=== PATIENT | male | born 1950 | race Hispanic/Latino ===

== ENCOUNTER 2016-09-30 07:48 | Inpatient (IN) | payer MEDICARE, OTHER ==
[2016-09-30 08:10] VITALS: BMI 33.2
[2016-09-30] MEDS ORDERED: Morphine 4 mg/ml ISec IVP STA ×2 (08:11→11:50)
--- NOTE | 2016-09-30 08:24 | ED PDOC ---
Arrival/HPI - General Time Seen by Provider: 09/30/16 07:56 Historian: Patient - History of Present Illness Narrative History of Present Illness (Text): 09/30/16 08:00 A 66 year old male, whose past medical history includes laminectomy resulting in hemiparesis of bilateral lower extremities, neurogenic bladder, colostomy, CAD, diabetes, hypertension, and large sacral decubitus, presents to the emergency department for evaluation after a mechanical fall this morning. Patient reports he was getting into bed and he was so close to the edge that he fell off hitting the left posterior of his head. Currently patient has pain to the left head but he denies any loss of consciousness. He notes lately he has been feel more weak than usually. Patient reports pain the the sacral ulcer, a mild dry cough, fever, and decrease PO intake. Patient notes bilateral lower extremity swelling for the past couple of weeks but denies any change in chronic back pain, chest pain, shortness of breath, or any other complaints at this time. PMD: Dr. Lorenzana Time/Duration: Prior to Arrival Symptom Onset: Sudden Symptom Course: Unchanged Quality: Other Activities at Onset: Rest Context: Home Past Medical History - Provider Review Nursing Documentation Reviewed: Yes - Past History Past History: Non-Contributing - Infectious Disease Hx of Infectious Diseases: MRSA - Tetanus Immunization Tetanus Immunization: Unknown - Cardiac Hx Cardiac Disorders: Yes Hx Angina: No Hx Cardiac Arrhythmia: No Hx Circulatory Problems: No Hx Congestive Heart Failure: No Hx Heart Murmur: No Hx Heart Transplant: No Hx Hypertension: Yes Hx Internal Defibrillator: No Hx Mitral Valve Prolapse: No Hx Pacemaker: No Hx Peripheral Edema: No Hx Peripheral Vascular Disease: No - Pulmonary Hx Respiratory Disorders: Yes Hx Pneumonia: Yes - Neurological Hx Transient Ischemic Attacks (TIA): Yes - HEENT Hx Blind: Yes (right) Hx Deafness: Yes (hard of hearing) - Renal Hx Renal Disorder: No - Endocrine/Metabolic Hx Endocrine Disorders: Yes Hx Diabetes Mellitus Type 2: Yes - Hematological/Oncological Hx Blood Transfusions: No Hx Blood Transfusion Reaction: No - Integumentary Hx Dermatological Disorder: No - Musculoskeletal/Rheumatological Hx Musculoskeletal Disorders: Yes (paraplegia) Hx Arthritis: Yes Hx Back Pain: Yes Hx Falls: Yes Hx Herniated Disk: Yes Hx Spinal Stenosis: Yes Hx Unsteady Gait: Yes (uses w/ch) Other/Comment: left hand weakness - Gastrointestinal Hx Gastrointestinal Disorders: Yes Hx Colostomy: Yes - Genitourinary/Gynecological Hx Genitourinary Disorders: Yes (neurogenic bladder) - Psychiatric Hx Psychophysiologic Disorder: Yes Hx Anxiety: Yes Hx Depression: Yes Hx Emotional Abuse: No Hx Physical Abuse: No Hx Substance Use: No - Surgical History Hx Cardiac Catheterization: Yes Hx Coronary Stent: Yes (x5) Hx Orthopedic Surgery: Yes (SPINAL SURGERY) - Anesthesia Hx Anesthesia Reactions: No Hx Malignant Hyperthermia: No - Suicidal Assessment Feels Threatened In Home Enviroment: No Family/Social History - Physician Review Nursing Documentation Reviewed: Yes Family/Social History: Unknown Family HX Smoking Status: Never Smoked Hx Alcohol Use: No Hx Substance Use: No Hx Substance Use Treatment: No Allergies/Home Meds Allergies/Adverse Reactions: Allergies ciprofloxacin Allergy (Verified 09/30/16 08:10) RASH Penicillins Allergy (Verified 09/30/16 08:10) RASH Home Medications: Home Meds Medication Instructions Recorded Confirmed Ascorbic Acid [Vitamin C 500 mg 500 mg PO BID 05/15/15 09/09/16 Tab] Cyanocobalamin (Vitamin B-12) 1,000 mcg IJ Q30D 05/15/15 09/09/16 [Cyanocobalamin Injection] Ergocalciferol (Vitamin D2) 50,000 iu PO SAT 05/15/15 09/09/16 [Vitamin D2] Omeprazole [Prilosec] 20 mg PO BID 06/26/15 09/09/16 Ziprasidone HCl [Geodon] 80 mg PO HS 06/26/15 09/09/16 Alprazolam 0.5 mg PO HS 07/25/15 09/09/16 Aspirin [Ecotrin] 325 mg PO DAILY 07/25/15 09/09/16 buPROPion XL [Wellbutrin XL] 300 mg PO DAILY 07/25/15 09/09/16 Acetaminophen/Oxycodone Hydr 1 tab PO TID PRN 01/22/16 09/09/16 [Percocet 10/325 mg Tab] Review of Systems - Physician Review All systems were reviewed & negative as marked: Yes - Review of Systems Constitutional: Fevers, Other (left head pain) Respiratory: Cough. absent: SOB, Sputum Cardiovascular: Edema. absent: Chest Pain, Syncope Gastrointestinal: Appetite Changes Musculoskeletal: Back Pain (chronic). absent: Neck Pain Physical Exam Vital Signs Reviewed: Yes Vital Signs Temp Pulse Resp BP Pulse Ox 09/30/16 12:21 80 16 126/55 L 98 09/30/16 08:45 97.9 F 09/30/16 08:31 80 16 148/92 H 95 Temperature: Afebrile Blood Pressure: Hypertensive Pulse: Regular Respiratory Rate: Normal Appearance: Positive for: Well-Appearing, Non-Toxic, Comfortable Pain Distress: None Mental Status: Positive for: Alert and Oriented X 3 - Systems Exam Head: Present: Atraumatic, Normocephalic, Tenderness (mild tenderness with palpation of the left temporal region). No: Abrasion, Laceration, Other ( hematoma) Pupils: Present: PERRL Extroacular Muscles: Present: EOMI Conjunctiva: Present: Normal Mouth: Present: Moist Mucous Membranes Neck: Present: Normal Range of Motion. No: MIDLINE TENDERNESS, Paraspinal Tenderness Respiratory/Chest: Present: Clear to Auscultation, Good Air Exchange. No: Respiratory Distress, Accessory Muscle Use Cardiovascular: Present: Regular Rate and Rhythm, Normal S1, S2. No: Murmurs Abdomen: Present: Normal Bowel Sounds, Ostomy Tubes (no surround erythema or signs of infection). No: Tenderness, Distention, Peritoneal Signs, Rebound, Guarding Rectal: Present: Other (guaiac negative; brown stool) Genitourinary Male: Present: Other (Gomez in place with mildly cloudy urine) Back: No: CVA Tenderness, Midline Tenderness, Paraspinal Tenderness Upper Extremity: Present: Normal Inspection. No: Cyanosis, Edema Lower Extremity: Present: Edema (bilateral 2+ pitting edema), Normal ROM. No: Tenderness Neurological: Present: GCS=15, CN II-XII Intact, Speech Normal Skin: Present: Warm, Dry, Normal Color. No: Rashes Psychiatric: Present: Alert, Oriented x 3, Normal Insight, Normal Concentration Medical Decision Making ED Course and Treatment: 09/30/16 08:00 Impression: A 66 year old male after a mechanical fall. Differential Diagnosis include but are not limited to: intracranial abnormalities vs. Sepsis vs. electrolyte imbalance Plan: -- EKG -- Head CT -- Chest X-ray -- Labs -- Urinalysis -- Morphine -- Reassess and disposition Prior Visits: Notes and results from previous visits were reviewed. The patient last presented to the emergency department on 09/09/16 for evaluation of a sacral ulcer. Progress Notes: EKG: Ordered, reviewed, and independently interpreted the EKG. Rate : 78 BPM Rhythm : NSR with first degree AV block Interpretation : No ST/T changes 09/30/16 09:[address]: Creator : Jessenia Nina MD COMPARISON: 01/22/2016 FINDINGS: HEMORRHAGE: No intracranial hemorrhage. BRAIN: There are mild chronic microangiopathic changes. There is no mass, mass effect or abnormal extra-axial fluid collection. There are coarse atherosclerotic calcifications in the cavernous carotid arteries. . VENTRICLES: There is mild age-related global parenchymal volume loss and proportionate enlargement of the ventricles and cortical sulci. CALVARIUM: There is no calvarial fracture. There is a small high posterior parietal scalp hematoma. PARANASAL SINUSES: Predominantly clear. MASTOID AIR CELLS: Predominantly clear. OTHER FINDINGS: None. IMPRESSION: No acute intracranial abnormality. Small high posterior parietal scalp hematoma. Mild chronic microangiopathic changes and mild age-related global parenchymal volume loss. 09/30/16 09:53 Chest X-ray: Creator : Lei Luther MD COMPARISON: 03/24/2016 FINDINGS: LUNGS: No active pulmonary disease. PLEURA: No significant pleural effusion identified, no pneumothorax apparent. CARDIOVASCULAR: Mild cardiomegaly OSSEOUS STRUCTURES: No significant abnormalities. VISUALIZED UPPER ABDOMEN: Normal. OTHER FINDINGS: None. IMPRESSION: No active disease. 09/30/16 10:[address] Lorenzana, who is aware and agrees with the plan to place the patient in observation in Telemetry to rule out new onset CHF. He notes to give the patient 1 unit of packed red blood cell. Patient qualifies for transfusion because of history of CAD. I have discussed the results and plan with the patient, who expresses understanding. Patient given the opportunity to ask question, all questions were answered and there is agreement with the plan to be admitted to the hospital. - Lab Interpretations Lab Results: 09/30/16 08:20 09/30/16 08:20 Lab Results 09/30/16 09:56: POC Glucose (mg/dL) 72 09/30/16 08:20: Sodium 139, Chloride 107, Potassium 3.8, Carbon Dioxide 25, Anion Gap 11, BUN 31 H, Creatinine 1.2, Est GFR ( Amer) > 60, Est GFR ( Non-Af Amer) > 60, Random Glucose 64 L, Calcium 8.3 L, Phosphorus 3.0, Magnesium 1.9, Total Bilirubin 0.8, AST 23, ALT 31, Alkaline Phosphatase 73, Troponin I 0.02 D, NT-Pro-B Natriuret Pep 5270 H, Total Protein 6.0, Albumin 2.8 L, Globulin 3.1, Albumin/Globulin Ratio 0.9 L 09/30/16 08:20: pO2 129 H, VBG pH 7.38, VBG pCO2 45.0, VBG HCO3 26.6, VBG Total CO2 28.0, VBG O2 Sat (Calc) 98.8 H, VBG Base Excess 1.0, VBG Potassium 3.9, Sodium 140.0, Chloride 114.0 H, Glucose 65 L, Lactate 0.8, FiO2 21.0, Venous Blood Potassium 3.9 09/30/16 08:20: PT 12.4 H, INR 1.15 H, APTT 32.9 H 09/30/16 08:20: Procalcitonin < 0.05 L 09/30/16 08:20: WBC 5.0, RBC 3.00 L, Hgb 8.7 L, Hct 25.8 L, MCV 86.0, MCH 29.0, MCHC 33.7, RDW 13.3, Plt Count 140, MPV 10.2, Gran % 63.3, Lymph % (Auto) 24.8, [place] % (Auto) 10.1 H, Eos % (Auto) 1.2 L, Baso % (Auto) 0.6, Gran # 3.13, Lymph # 1.2, [place] # 0.5, Eos # 0.1, Baso # 0.03 I have reviewed the lab results: Yes - RAD Interpretation Radiology Orders: 09/30/16 08:10 CHEST PORTABLE [RAD] Stat 09/30/16 08:11 HEAD W/O CONTRAST [CT] Stat - Medication Orders Current Medication Orders: Discontinued Medications Morphine Sulfate (Morphine) 4 mg IVP STAT STA Stop: 09/30/16 08:12 Last Admin: 09/30/16 08:31 Dose: 4 mg Morphine Sulfate (Morphine) 4 mg IVP STAT STA Stop: 09/30/16 11:51 Last Admin: 09/30/16 12:18 Dose: 4 mg - Scribe Statement The provider has reviewed the documentation as recorded by the Cristobalibe Humberto Gold Provider Cristobalibe Attestation: All medical record entries made by the Trae were at my direction and personally dictated by me. I have reviewed the chart and agree that the record accurately reflects my personal performance of the history, physical exam, medical decision making, and the department course for this patient. I have also personally directed, reviewed, and agree with the discharge instructions and disposition. Disposition/Present on Arrival - Present on Arrival Any Indicators Present on Arrival: Yes History of DVT/PE: No History of Uncontrolled Diabetes: Yes Urinary Catheter: Yes History Surgical Site Infection Following: None - Disposition Have Diagnosis and Disposition been Completed?: Yes Diagnosis: Weakness, Anemia, Lower extremity edema Disposition: HOSPITALIZED Disposition Time: 10:28 Patient Plan: Observation Condition: FAIR
[2016-09-30 08:32] LABS: ADD MANUAL DIFF? NO
[2016-09-30 08:39] LABS: VENOUS BLOOD PH 7.38 (7.32-7.43)
[2016-09-30 08:41] LABS: BASO # 0.03 K/mm3 (0.0-2.0); BASO % 0.6 % (0.0-3.0); EOS # 0.1 (0.0-0.7); EOS % 1.2 % (1.5-5.0); GRAN # 3.13 (1.4-6.5); GRAN % 63.3 % (50.0-68.0); HEMATOCRIT 25.8 % (42.0-52.0); LYMPH # 1.2 (1.2-3.4); LYMPH % 24.8 % (22.0-35.0); MEAN CORPUSCULAR HGB CONC 33.7 g/dl (31.0-37.0); MEAN PLATELET VOLUME 10.2 fl (7.0-11.0); MONO # 0.5 (0.1-0.6); MONO % 10.1 % (1.0-6.0); PLATELET COUNT 140 10^3/uL (120.0-450.0); RED CELL DISTRIBUTION WIDTH 13.3 % (11.5-14.5)
[2016-09-30 08:53] LABS: INR 1.15 (0.93-1.08); PARTIAL THROMBOPLASTIN TIME 32.9 Seconds (23.7-30.8)
[2016-09-30 08:55] LABS: ALB/GLOB RATIO 0.9 (1.1-1.8); ALKALINE PHOSPHATASE 73 U/L (38-133); ALT/SGPT 31 U/L (7-56); AST/SGOT 23 U/L (15-59); BILIRUBIN,TOTAL 0.8 mg/dL (0.2-1.3); BLOOD UREA NITROGEN 31 mg/dL (7-21); CALCIUM 8.3 mg/dL (8.4-10.5); CARBON DIOXIDE 25 mmol/L (21-33); CHLORIDE 107 mmol/L (98-107); GFR AFRICAN-AMERICAN > 60; GLUCOSE,RANDOM 64 mg/dL (70-110); MAGNESIUM 1.9 mg/dL (1.7-2.2); POTASSIUM 3.8 mmol/L (3.6-5.0); SODIUM 139 mmol/L (132-148)
[2016-09-30 09:07] LABS: TROPONIN I 0.02 ng/mL
--- NOTE | 2016-09-30 09:12 | CT ---
PROCEDURE: CT HEAD WITHOUT CONTRAST. HISTORY: head injury r/o ich COMPARISON: 01/22/2016 TECHNIQUE: Axial computed tomography images were obtained through the head/brain without intravenous contrast. Radiation dose: Total exam DLP = 689.03 mGy-cm. This CT exam was performed using one or more of the following dose reduction techniques: Automated exposure control, adjustment of the mA and/or kV according to patient size, and/or use of iterative reconstruction technique. FINDINGS: HEMORRHAGE: No intracranial hemorrhage. BRAIN: There are mild chronic microangiopathic changes. There is no mass, mass effect or abnormal extra-axial fluid collection. There are coarse atherosclerotic calcifications in the cavernous carotid arteries. . VENTRICLES: There is mild age-related global parenchymal volume loss and proportionate enlargement of the ventricles and cortical sulci. CALVARIUM: There is no calvarial fracture. There is a small high posterior parietal scalp hematoma. PARANASAL SINUSES: Predominantly clear. MASTOID AIR CELLS: Predominantly clear. OTHER FINDINGS: None. IMPRESSION: No acute intracranial abnormality. Small high posterior parietal scalp hematoma. Mild chronic microangiopathic changes and mild age-related global parenchymal volume loss.
--- NOTE | 2016-09-30 09:48 | RAD ---
HISTORY: Sepsis Patient COMPARISON: 03/24/2016 FINDINGS: LUNGS: No active pulmonary disease. PLEURA: No significant pleural effusion identified, no pneumothorax apparent. CARDIOVASCULAR: Mild cardiomegaly OSSEOUS STRUCTURES: No significant abnormalities. VISUALIZED UPPER ABDOMEN: Normal. OTHER FINDINGS: None. IMPRESSION: No active disease.
--- NOTE | 2016-09-30 17:13 | CARD ---
APPROVED REPORT EKG Measurement Heart [id number] <Conclusion> Sinus rhythm with 1st degree AV block Otherwise normal ECG
--- NOTE | 2016-09-30 21:21 | CP.PCM.PN ---
Subjective - Date & Time of Evaluation Date of Evaluation: 09/30/16 Time of Evaluation: 21:18 - Subjective Subjective: S:It was requested to get a consent for blood transfusion.He states that he had blood transfusions in the past and has no questions about blood transfusion. Has no acute symptoms now. Medical record was reviewed. O: Last Vital Signs 3 Temp 98.3 F 09/30/16 16:00 Pulse 72 09/30/16 16:00 Resp 19 09/30/16 16:00 BP 153/74 H 09/30/16 16:00 Pulse Ox 97 09/30/16 16:00 Awake, alert, not in distress. LUNGS:Normal breathing pattern. SKIN:Palor + NEURO:Speech normal. A:Informed consent. Anemia. P:A consent for blood transfusion was obtained in presence of primary nurse of patient Ms Apple. Objective - Vital Signs/Intake and Output Vital Signs (last 24 hours): Temp Pulse Resp BP Pulse Ox 98.3 F 72 19 153/74 H 97 09/30/16 16:00 09/30/16 16:00 09/30/16 16:00 09/30/16 16:00 09/30/16 16:00 - Medications Medications: Current Medications Alprazolam (Xanax) 0.5 mg PO HS CLAUDIA PRN Reason: Protocol Ascorbic Acid (Vitamin C 500 Mg Tab) 500 mg PO BID CLAUDIA Aspirin (Ecotrin) 325 mg PO DAILY CLAUDIA Bupropion HCl (Wellbutrin Xl) 300 mg PO DAILY CLAUDIA Carvedilol (Coreg) 6.25 mg PO BID CLAUDIA Cyanocobalamin (Vitamin B12 1000 Mcg/Ml Inj) 1,000 mcg SC Q30D CLAUDIA Ergocalciferol (Drisdol 50,000 Intl Units Cap) 1 cap PO SAT CLAUDIA Fentanyl (Duragesic) 1 patch TD Q72H CLAUDIA Ferrous Sulfate (Feosol Liq) 300 mg PO 0800,1200,1700 CLAUDIA Gabapentin (Neurontin) 800 mg PO TID CLAUDIA PRN Reason: Protocol Hydromorphone HCl (Dilaudid) 1 mg IVP Q6H PRN PRN Reason: Pain, severe (8-10) Ertapenem 1 gm/ Sodium (Chloride) 50 mls @ 100 mls/hr IVPB DAILY CLAUDIA Lisinopril (Zestril) 5 mg PO QAM CLAUDIA Multivitamins/Minerals (Therapeutic-M Tab) 1 tab PO DAILY CLAUDIA Pantoprazole Sodium (Protonix Ec Tab) 40 mg PO ACBD CLAUDIA Zinc Sulfate (Zinc Sulfate 220 Mg Cap) 220 mg PO DAILY CLAUDIA - Labs Labs: PT 12.4 Seconds (9.9-11.8) H 09/30/16 08:20 INR 1.15 (0.93-1.08) H 09/30/16 08:20 APTT 32.9 Seconds (23.7-30.8) H 09/30/16 08:20
[2016-09-30] MEDS: HYDROmorphone 1 mg/ml ISec IVP PRN (21:48)
[2016-10-01] MEDS: HYDROmorphone 1 mg/ml ISec IVP PRN ×4 (05:59→22:19)
[2016-10-01] MEDS: Aspirin 325 mg EC Tablets PO SCH (09:30)
[2016-10-01] MEDS: Ferrous Sulfate 300 mg/5 mL Liq UD PO SCH ×2 (09:31→14:12)
[2016-10-01] MEDS: Pantoprazole 40 mg EC Tab PO SCH ×2 (09:32→17:15)
[2016-10-01] MEDS: buPROPion 150 mg/24 Hours XL Tab PO SCH (09:37)
[2016-10-01] MEDS: Multivitamin With Minerals Tab PO SCH (09:37)
[2016-10-01] MEDS ORDERED: ERTAPENEM 1 GM IVPB SCH (10:00)
--- NOTE | 2016-10-01 11:56 | HP ---
SUBJECTIVE: The patient is a 66-year-old white male with history of failed laminectomy with parapleg ia of the lower extremities, neurogenic bladder, colostomy, large sacral decubitus at home with a wou nd VAC on Invanz, having wound VAC and visiting nurses at home with IV antibiotics. The patient also has a history of insulin-dependent diabetes mellitus, CAD, hypertension, severe depression, morbid o besity. The patient was transferring from a chair to the bed when he fell hitting his head on the le ft side. He came to the ER after his fall, he was unable to get back into the bed. Was evaluated wi th a CT scan, no fracture was noted. The patient also was found to be severely anemic secondary poss ibly to chronic infection or chronic disease. The patient does have a history of CAD. His hemoglobi n was as low as in the low 8s, so it was decided to admit the patient and transfuse him, and to evalu ate his sacral decubitus and his anemia. The patient denies any IV drug abuse. He is on pain medica tion at home including fentanyl patch and p.o. Dilaudid. He is nonsmoker, nondrinker. No IV drug ab use. He is clinically depressed. PHYSICAL EXAMINATION: GENERAL: Shows a well-developed, obese white male in no apparent distress. HEENT: Essentially within normal limits. HEART: Regular sinus rhythm with no murmurs. ABDOMEN: Soft, bowel sounds are normoactive. There is a functioning colostomy and there is a functi oning Gomez catheter. He also has a wound VAC on the sacral decubitus. EXTREMITIES: Without cyanosis, clubbing or edema. There is decreased sensation and decreased streng th in lower extremities. NEUROLOGIC: Grossly intact except for his clinical depression. There is no evidence of trauma on th e head or left side. IMPRESSION: Status post fall, severe anemia, coronary artery disease, paraplegia, neurogenic bladder , sacral decubitus, rule out sepsis, rule out anemia of chronic disease, rule out anemia from blood l oss, and reassess of infectious sacral decubitus. Rayshawn Lorenzana MD cc: [id number] TT: 10/01/2016 11:55:56 jn
--- NOTE | 2016-10-01 16:08 | CON ---
DATE: 10/01/2016 LOCATION: The patient seen in 376, bed 1. CHIEF COMPLAINT: The patient had a fall x 1 day. HISTORY OF PRESENT ILLNESS: A 66-year-old male with morbid obesity, a BMI of 42, who has had a elva ectomy in the past, who is bedridden, and has diabetes mellitus, hypertension, coronary artery diseas e, chronic decubitus ulcer, and chronic Gomez catheter, history of ESBL E. coli urinary tract infecti on, diabetic ketoacidosis, and cauda equina, and has a neurogenic bladder and self-catheterization. The patient then has a chronic Gomez catheter now. Recently was hospitalized with main diagnosis of a sacral osteomyelitis with Proteus, E. coli, and enterococcus. Was discharged on Invanz 1 g daily. Now returns after a fall and infectious disease consultation requested for continuation of Invanz. REVIEW OF SYSTEMS: Reveals no fevers, no chills, no nausea, no vomiting. The patient does have a PI CC line. He is tolerating the antibiotics well. No abdominal pain or diarrhea. 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 PAST SURGICAL HISTORY: Significant for recent PICC line, laminectomy, and colostomy. ALLERGIES: THE PATIENT IS ALLERGIC TO CIPRO AND FLAGYL. He develops a questionable rash. PHYSICAL EXAMINATION: VITAL SIGNS: The patient's temperature is 98, blood pressure is 120/70, respiratory rate of 16. HEENT: Unremarkable. NECK: Supple. LUNGS: Have decreased breath sounds. HEART: Normal S1, S2. ABDOMEN: Soft, nontender. No rebound or no guarding. LABORATORY EXAMINATION: Reveals a white count of 5, hemoglobin of 8, platelets of 140. Chemistries reveal a BUN of 31, creatinine of 1.2. Procalcitonin is less than 0.05. Microbiology is noted. Dr. Lorenzana's note is reviewed. ASSESSMENT AND PLAN: A 66-year-old male with diabetes mellitus, hypertension, coronary artery diseas e, chronic decubitus ulcer, chronic Gomez catheter, extended spectrum beta lactamase Escherichia coli , diabetic ketoacidosis, cauda equina, neurogenic bladder. 1. Osteomyelitis of the sacrum with Proteus, Escherichia coli, and enterococcus, day #14 of Invanz, which complete 28-42 days and repeat a CBC, sed rate, and C-reactive protein, and will follow with yo u. Alpesh Barrow MD cc: [id number] TT: 10/01/2016 16:08:24 Confirmation # [id number] Dictation # [id number] dn
[2016-10-01] MEDS: Meropenem 1g/NS 100mL IVPB 1 GM/100 ML PIGGYBACK IVPB SCH (22:15)
[2016-10-02] MEDS: HYDROmorphone 1 mg/ml ISec IVP PRN ×5 (04:35→23:40)
[2016-10-02] MEDS: Meropenem 1g/NS 100mL IVPB 1 GM/100 ML PIGGYBACK IVPB SCH ×3 (05:33→23:03)
[2016-10-02] MEDS: Pantoprazole 40 mg EC Tab PO SCH ×2 (08:18→17:14)
[2016-10-02] MEDS: Ferrous Sulfate 300 mg/5 mL Liq UD PO SCH ×4 (09:00→17:14)
[2016-10-02] MEDS: Aspirin 325 mg EC Tablets PO SCH (09:54)
[2016-10-02] MEDS: Multivitamin With Minerals Tab PO SCH (09:54)
[2016-10-02] MEDS ORDERED: Ergocalciferol 50,000 Intl Units Cap PO SCH (10:00)
--- NOTE | 2016-10-02 10:01 | PN ---
DATE: 10/02/2016 SUBJECTIVE: A 66-year-old white male status post fall. The patient has a wound VAC for sacral decub itus, paraplegia, neurogenic bladder, colostomy for stool incontinence, insulin-dependent diabetes me llitus, hypertension, CAD, depression. The patient is severely depressed, asking to possibly go to [facility] when he has finished with his medical treatment. The patient was seen in consultation by Dr. Raza joy. He is back on IV antibiotics because of the sacral decubitus. His wound VAC will be forman ed today to assess healing from recent sacral debridement. Vital signs are stable. The patient is tolerating his diet well. He has no further complaints from h is fall. He has no lingering ailments from hitting his left head and left side. Vital signs are sta ble. The patient will be seen by psych and possible transfer to psych. Rayshawn Lorenzana MD cc: [phone] TT: 10/02/2016 10:00:33 Confirmation # [id number] Dictation # [id number] jn
--- NOTE | 2016-10-02 11:22 | PN ---
DATE: 10/02/2016 SUBJECTIVE: The patient is in bed in no acute distress, was seen earlier today. He is complaining o f significant pain. PHYSICAL EXAMINATION: VITAL SIGNS: Temperature is 98, blood pressure is 140/70, respiratory rate of 16. HEENT: Unremarkable. NECK: Supple. LUNGS: Have decreased breath sounds. HEART: Normal S1, S2. ABDOMEN: Soft. LABORATORY EXAMINATION: Reveals a white count of 5. Sed rate is 27. Hemoglobin is 8. Chemistries reveal a BUN of 31, creatinine of 1.2, procalcitonin is less than 0.05. C-reactive protein is greate r than 15. Microbiology reveals the blood cultures are negative at 48 hours. CURRENT MEDICATIONS: Include the patient to be on meropenem. Dr. Lorenzana's note is reviewed from today. ASSESSMENT AND PLAN: This is a 66-year-old male with obesity, body mass index of 33, and had morbid obesity in the past, diabetes mellitus, hypertension, coronary artery disease, chronic decubitus ulce r, chronic Gomez catheter, history of extended-spectrum beta-lactamase, diabetic ketoacidosis, cauda equina, neurogenic bladder, admitted with: 1. Osteomyelitis of the sacrum with Proteus and Escherichia coli and enterococcus. Day #15 of merop enem. Unable to use Invanz in hospital, we do not have Invanz, we have switched to meropenem as per pharmacy. Would complete 28-42 days with repeat CBC, sed rate and C-reactive protein. Upon discharg e, can switch back to Invanz. We will follow with you. Alpesh Barrow MD cc: [id number] TT: 10/02/2016 11:21:42 Confirmation # [id number] Dictation # [id number] [email or web address]
--- NOTE | 2016-10-02 12:38 | CP.PCM.CON ---
History of Present Illness - History of Present Illness History of Present Illness: Gen Sx: Dr Méndez Mr Monzon is 66M well known to our service. We've most recently seen him for sacral wound debridement. Sx was reconsulted for evaluation of wound. He has been doing wound vac changes with home nursing Q3D. Wound is smaller, appears healthy, no signs of necrosis or infection. He continues to complain of pain in this area. Vac changed at bedside. Dimensions: Stage 4 sacral wound with visible muscle 4x4.5x3cm, with 1cm undermining from the 11'-3' o'clock position No surrounding erythema, no necrosis, no exudate or foul smell repeat cultures performed Review of Systems - Review of Systems All systems: reviewed and no additional remarkable complaints except (as per hpi ) Past Patient History - Infectious Disease Hx of Infectious Diseases: MRSA - Tetanus Immunizations Tetanus Immunization: Unknown - Past Medical History & Family History Past Medical History?: Yes - Past Social History Smoking Status: Never Smoked - CARDIAC Hx Cardiac Disorders: Yes Hx Angina: No Hx Cardia Arrhythmia: No Hx Circulatory Problems: No Hx Congestive Heart Failure: No Hx Heart Murmur: No Hx Heart Transplant: No Hx Hypertension: Yes Hx Internal Defibrillator: No Hx Mitral Valve Prolapse: No Hx Pacemaker: No Hx Peripheral Edema: No Hx Peripheral Vascular Disease: No - PULMONARY Hx Respiratory Disorders: Yes Hx Pneumonia: Yes - NEUROLOGICAL Hx Transient Ischemic Attacks (TIA): Yes - HEENT Hx Blind: Yes (right) Hx Deafness: Yes (hard of hearing) - RENAL Hx Chronic Kidney Disease: No - ENDOCRINE/METABOLIC Hx Endocrine Disorders: Yes Hx Diabetes Mellitus Type 2: Yes - HEMATOLOGICAL/ONCOLOGICAL Hx Blood Transfusions: No Hx Blood Transfusion Reaction: No - INTEGUMENTARY Hx Dermatological Problems: No - MUSCULOSKELETAL/RHEUMATOLOGICAL Hx Musculoskeletal Disorders: Yes (paraplegia) Hx Arthritis: Yes Hx Back Pain: Yes Hx Falls: Yes Hx Herniated Disk: Yes Hx Spinal Stenosis: Yes Hx Unsteady Gait: Yes (uses w/ch) Other/Comment: left hand weakness - GASTROINTESTINAL Hx Gastrointestinal Disorders: Yes Hx Colostomy: Yes - GENITOURINARY/GYNECOLOGICAL Hx Genitourinary Disorders: Yes (neurogenic bladder) - PSYCHIATRIC Hx Psychophysiologic Disorder: Yes Hx Anxiety: Yes Hx Depression: Yes Hx Emotional Abuse: No Hx Physical Abuse: No Hx Substance Use: No - SURGICAL HISTORY Hx Cardiac Catheterization: Yes Hx Coronary Stent: Yes (x5) Hx Orthopedic Surgery: Yes (SPINAL SURGERY) - ANESTHESIA Hx Anesthesia Reactions: No Hx Malignant Hyperthermia: No Meds Allergies/Adverse Reactions: Allergies Allergy/AdvReac Type Severity Reaction Status Date / Time ciprofloxacin Allergy RASH Verified 09/30/16 08:10 Penicillins Allergy RASH Verified 09/30/16 08:10 - Medications Medications: Current Medications Alprazolam (Xanax) 0.5 mg PO HS [facility] PRN Reason: Protocol Last Admin: 10/01/16 22:14 Dose: 0.5 mg Ascorbic Acid (Vitamin C 500 Mg Tab) 500 mg PO BID [facility] Last Admin: 10/02/16 09:54 Dose: 500 mg Aspirin (Ecotrin) 325 mg PO DAILY [facility] Last Admin: 10/02/16 09:54 Dose: 325 mg Bupropion HCl (Wellbutrin Xl) 300 mg PO DAILY [facility] Last Admin: 10/01/16 09:37 Dose: 300 mg Carvedilol (Coreg) 6.25 mg PO BID [facility] Last Admin: 10/02/16 09:54 Dose: 6.25 mg Cyanocobalamin (Vitamin B12 1000 Mcg/Ml Inj) 1,000 mcg SC Q30D [facility] Ergocalciferol (Drisdol 50,000 Intl Units Cap) 1 cap PO SAT [facility] Last Admin: 10/02/16 09:54 Dose: 1 cap Fentanyl (Duragesic) 1 patch TD Q72H [facility] Last Admin: 09/30/16 21:45 Dose: 1 patch Ferrous Sulfate (Feosol Liq) 300 mg PO 0800,1200,1700 [facility] Last Admin: 10/02/16 09:00 Dose: Not Given Gabapentin (Neurontin) 800 mg PO TID [facility] PRN Reason: Protocol Last Admin: 10/02/16 09:54 Dose: 800 mg Hydromorphone HCl (Dilaudid) 1 mg IVP Q4H PRN PRN Reason: Pain, severe (8-10) Last Admin: 10/02/16 09:55 Dose: 1 mg Meropenem 1g/NS 100mL IVPB (Meropenem 1g/Ns 100ml Ivpb) 1 gm in 100 mls @ 100 mls/hr IVPB Q8 [facility] Stop: 10/30/16 22:01 Last Admin: 10/02/16 05:33 Dose: 100 mls/hr Lisinopril (Zestril) 5 mg PO QAM [facility] Last Admin: 10/02/16 09:55 Dose: 5 mg Multivitamins/Minerals (Therapeutic-M Tab) 1 tab PO DAILY [facility] Last Admin: 10/02/16 09:54 Dose: 1 tab Pantoprazole Sodium (Protonix Ec Tab) 40 mg PO ACBD [facility] Last Admin: 10/02/16 08:18 Dose: 40 mg Zinc Sulfate (Zinc Sulfate 220 Mg Cap) 220 mg PO DAILY [facility] Last Admin: 10/02/16 09:54 Dose: 220 mg Physical Exam - Constitutional Appears: No Acute Distress, Chronically Ill - Respiratory Exam Respiratory Exam: absent: Accessory Muscle Use - GI/Abdominal Exam GI & Abdominal Exam: Soft. absent: Distended, Firm, Guarding, Tenderness Additional comments: right subcostal incision has healed well - Rectal Exam Additional comments: see beginning of note for wound eval - Neurological Exam Neurological exam: Alert, Oriented x3 - Psychiatric Exam Psychiatric exam: Depressed - Skin Skin Exam: Normal Color, Warm Results - Vital Signs Recent Vital Signs: Last Vital Signs Temp 98.1 F 10/02/16 11:25 Pulse 67 10/02/16 11:25 Resp 18 10/02/16 11:25 BP 150/67 10/02/16 11:25 Pulse Ox 95 10/02/16 11:25 - Labs Result Diagrams: 09/30/16 08:20 09/30/16 08:20 Labs: Laboratory Results - last 24 hr 10/02/16 10/02/16 06:10 06:10 ESR 27 H C-React Prot High Sens > 15.00 H Assessment & Plan - Assessment and Plan (Free Text) Assessment: 66M with sacral wound Plan: Cont vac changes Q3D - wound is closing in well f/u wound cultures rec psych eval for depression rec pain management consult as only dilaudid is alleviating pt's sacral pain d/w Dr Dev Dobbins, DO, PGY2 - Date & Time Date: 10/02/16 Time: 12:41
[2016-10-02] MEDS: buPROPion 150 mg/24 Hours XL Tab PO SCH (14:05)
[2016-10-03] MEDS: HYDROmorphone 1 mg/ml ISec IVP PRN ×5 (03:30→21:26)
[2016-10-03] MEDS: Meropenem 1g/NS 100mL IVPB 1 GM/100 ML PIGGYBACK IVPB SCH ×3 (05:51→21:27)
[2016-10-03] MEDS: Insulin Reg-MEDIUM-Coverage SC SCH ×3 (08:08→17:00)
--- NOTE | 2016-10-03 09:43 | PN ---
DATE: 10/03/2016 The patient is seen earlier in 376, bed 1. No fevers and chills. PHYSICAL EXAMINATION: VITAL SIGNS: Temperature is 98, blood pressure is 150/70, respiratory rate of 16. HEENT: Unremarkable. NECK: Supple. LUNGS: Have decreased breath sounds. HEART: Normal S1, S2. ABDOMEN: Soft. LABORATORY EXAMINATION: Reveals a white count of 5000, hemoglobin of 8, platelets of 140. Sed rate is 27. BUN of 31, creatinine of 1.2, procalcitonin is less than 0.05. Microbiology reveals the bloo d cultures are negative, the sacral cultures are pending. Review of the orders reveals the patient to be on meropenem and Dr. Lea consultation is rev iewed. ASSESSMENT AND PLAN: A 66-year-old male with osteomyelitis of sacrum with Proteus, Escherichia coli, enterococcus, day #16 of antibiotics. As outpatient, it was Invanz. Now, in the hospital, no Invan z is available. Day #16 of antibiotics on meropenem. Recommend CBC, SMA-18, C-reactive protein and sed rate weekly. Day #16 of 28-42 days based on response. Alpesh Barrow MD cc: [id number] TT: 10/03/2016 09:43:33 Confirmation # [id number] Dictation # [id number] en
[2016-10-03] MEDS: Aspirin 325 mg EC Tablets PO SCH (10:06)
[2016-10-03] MEDS: Ferrous Sulfate 300 mg/5 mL Liq UD PO SCH ×3 (10:06→16:00)
[2016-10-03] MEDS: Pantoprazole 40 mg EC Tab PO SCH ×2 (10:07→18:05)
[2016-10-03] MEDS: Multivitamin With Minerals Tab PO SCH (10:07)
[2016-10-03] MEDS: buPROPion 150 mg/24 Hours XL Tab PO SCH (10:07)
--- NOTE | 2016-10-03 21:15 | PN ---
DATE: 10/03/2016 This is a 66-year-old white male has a resolving sacral decubitus on wound VAC. He is afebrile. Vit al signs are stable. He has been evaluated by psych for possible transfer to psych to continue IV an tibiotics. He was admitted after a fall and head and back trauma, also found to have severe anemia o f 8.7. History of coronary artery disease. He was transfused 1 unit. Hemoglobin stands at 8.7. Vi glenn signs are stable. PLAN: To continue IV antibiotics, wound VAC and possible transfer to psych. Rayshawn Lorenzana MD cc: [id number] TT: 10/03/2016 21:14:12 Confirmation # [id number] Dictation # [id number] mn
[2016-10-04] MEDS: HYDROmorphone 1 mg/ml ISec IVP PRN ×6 (01:35→23:45)
[2016-10-04] MEDS: Meropenem 1g/NS 100mL IVPB 1 GM/100 ML PIGGYBACK IVPB SCH ×3 (05:34→22:10)
[2016-10-04 06:29] LABS: ALB/GLOB RATIO 0.8 (1.1-1.8); ALKALINE PHOSPHATASE 83 U/L (38-133); ALT/SGPT 44 U/L (7-56); AST/SGOT 28 U/L (15-59); BILIRUBIN,TOTAL 0.4 mg/dL (0.2-1.3); BLOOD UREA NITROGEN 29 mg/dL (7-21); CALCIUM 7.9 mg/dL (8.4-10.5); CARBON DIOXIDE 28 mmol/L (21-33); CHLORIDE 104 mmol/L (98-107); GFR AFRICAN-AMERICAN > 60; GLUCOSE,RANDOM 77 mg/dL (70-110); POTASSIUM 4.4 mmol/L (3.6-5.0); SODIUM 138 mmol/L (132-148); TOTAL PROTEIN 5.4 g/dL (5.8-8.3)
[2016-10-04 07:51] LABS: MEAN CELL VOLUME 89.2 fL (80.0-105.0); MEAN CORPUSCULAR HEMOGLOBIN 28.6 pg (25.0-35.0); MEAN CORPUSCULAR HGB CONC 32.1 g/dl (31.0-37.0); RED CELL DISTRIBUTION WIDTH 13.4 % (11.5-14.5); WHITE BLOOD COUNT 5.9 10^3/ul (4.5-11.0)
[2016-10-04] MEDS: Insulin Reg-MEDIUM-Coverage SC SCH ×4 (08:11→21:18)
[2016-10-04] MEDS: Pantoprazole 40 mg EC Tab PO SCH ×2 (08:21→17:13)
[2016-10-04] MEDS: Ferrous Sulfate 300 mg/5 mL Liq UD PO SCH ×3 (08:22→17:13)
[2016-10-04] MEDS: buPROPion 150 mg/24 Hours XL Tab PO SCH (09:35)
[2016-10-04] MEDS: Multivitamin With Minerals Tab PO SCH (09:36)
[2016-10-04] MEDS: Aspirin 325 mg EC Tablets PO SCH (09:36)
--- NOTE | 2016-10-04 09:43 | PN ---
DATE: 10/04/2016 A 66-year-old white male with a sacral decubitus infected on a wound VAC, IV antibiotics, history of failed laminectomy with paraplegia, neurogenic bladder, bowel incontinence with a colostomy, CAD, and insulin-dependent diabetes mellitus, severe depression, status post fall and trauma to head and side . The patient is on IV antibiotics. He is requesting to possibly go to psych. Psych evaluation has been called. PLAN: To continue wound VAC, surgical debridement as needed, and IV antibiotics. Rayshawn Lorenzana MD cc: [id number] TT: 10/04/2016 09:42:10 Confirmation # [id number] Dictation # [id number] jn
--- NOTE | 2016-10-04 18:41 | CON ---
DATE: 10/04/2016 HISTORY OF PRESENT ILLNESS: Shortly, the patient is a 66-year-old male with multiple medic al problems including laminectomy resulting in hemiparesis of bilateral lower extremities, neurogenic bladder, colostomy, coronary artery disease, diabetes, hypertension, large sacral decubiti. The pat ieirais has multiple admissions to the medical floor. This telegraphic typewriter operator was consulted on this case. The sterling ent suffers from chronic depression which is related to multiple medical issues including frequent in fections. Also, social loss as patient lost his a few years back. The patient has poor social support. The patient has a daughter as well as son who live independently. The patient used to go [facility] outpatient program, but at present moment the patient was not able to do so. The patient was admitted to the medical floor for evaluation of weakness. Psych consult was ca lled because the patient has history of mental illness and medication management. The patient was seen today for evaluation. The patient presented to be depressed as usual. The sterling ent reported that he was compliant with the medications. Depression is slightly better to compare to the previous admission. The patient reported that his mood is improving because he is compliant wit h the medications. The patient reported that he has constant pain and Dilaudid is helping him. The patient reported that he feels anxious and sometimes he feels hopeless and thinks that there is no wa y to live this way. The patient denied any active plan or intent to kill himself. VITAL SIGNS: Stable. Temperature 98.6, pulse is 80, blood pressure 126/95, respirations 20, oxygen saturation is 94. MEDICATIONS: Reviewed. The patient was on Xanax 0.5 mg at the nighttime. The patient complained of anxiety and Xanax 0.25 mg twice a day will be started, Wellbutrin extended release 300 mg daily. Th e patient was on Geodon in the past; will consider resume that for mood stabilization. Also, patient was on trazodone 50 mg at the nighttime. Will see if patient needs to continue that medication or n ot. MENTAL STATUS EXAMINATION: The patient appears to be depressed and tearful, intermittent eye contact . Speech was underproductive, low volume. Mood described as depressed and hopeless. Affect was con stricted, mood congruent. Thought process was coherent and goal directed. Thought content: The pat ient denied visual, auditory, tactile hallucinations, denied paranoid ideations. The patient has pas sive wish to be ; no active plan or intent to kill himself. Insight and judgment are fair. Impu lses are well controlled. IMPRESSION: As per history, patient has bipolar disorder, rule out mood disorder due to general medi yimi condition, rule out anxiety disorder due to general medical condition. The patient has multiple medical issues. Please see medical team note for more detailed information. PLAN: Xanax was increased to 0.25 mg twice a day as needed for anxiety. Wellbutrin was continued 30 0 mg extended release daily for depression. Neurontin should be continued. This telegraphic typewriter operator will conside r to resume trazodone. We will see the patient on daily basis. Last admission, the patient was offe red to stay in the psychiatric inpatient unit, but the patient declined that offer. Will follow up o n this patient and advice accordingly. Thank you very much for letting me participate in the care of your patient. Ilana Scott MD cc: [phone] TT: 10/04/2016 18:40:52 Confirmation # [id number] Dictation # [id number] sherin
--- NOTE | 2016-10-04 22:39 | PN ---
DATE: 10/04/2016 The patient is in bed in no acute distress, nontoxic. No fevers. PHYSICAL EXAMINATION: VITAL SIGNS: Temperature is 98, blood pressure is 120/70, respiratory rate 16. HEENT: Unremarkable. NECK: Supple. LUNGS: Have decreased breath sounds. HEART: Normal S1, S2. ABDOMEN: Soft, nontender. LABORATORY DATA: Reveals a white count of .9. BUN of 29, creatinine of 1.2. Sacrum microbiol ogy reveals MRSA and corynebacterium. Sensitivity is pending. ASSESSMENT AND PLAN: This is a 66-year-old with osteomyelitis of the sacrum with Proteus and Escheri isidro coli and enterococcus and day #17 of antibiotics. The patient was receiving Invanz as outpatien t; however, in the hospital, he is receiving meropenem, since there is no Invanz. Would complete 28- 42 days of antibiotics. The methicillin-resistant Staphylococcus aureus and corynebacterium from the sacral superficial wound culture is noted. We will continue the present course for now. Alpesh Barrow MD cc: [id number] TT: 10/04/2016 22:39:20 Confirmation # [id number] Dictation # [id number] tn
[2016-10-05] MEDS: HYDROmorphone 1 mg/ml ISec IVP PRN ×4 (04:44→22:33)
[2016-10-05] MEDS: Meropenem 1g/NS 100mL IVPB 1 GM/100 ML PIGGYBACK IVPB SCH ×3 (06:17→22:35)
[2016-10-05] MEDS: Pantoprazole 40 mg EC Tab PO SCH ×2 (08:28→17:30)
[2016-10-05] MEDS: Insulin Reg-MEDIUM-Coverage SC SCH ×4 (08:29→21:30)
[2016-10-05] MEDS: Ferrous Sulfate 300 mg/5 mL Liq UD PO SCH ×3 (08:29→17:26)
--- NOTE | 2016-10-05 08:59 | PN ---
DATE: 10/05/2016 A 66-year-old white male admitted to the hospital with a sacral decubitus, status post fall, status p ost head trauma, status post severe depression, seen in consultation by Dr. Preciado. The patient will a gree to go to [facility] at this point. His vital signs are stable. He is tolerating his IV antibiotics and his wound VAC. PHYSICAL EXAMINATION: Unchanged. REVIEW OF SYSTEMS: A 12-point review of systems is unremarkable. PLAN: To transfer to [facility] and continue IV antibiotics. Rayshawn Lorenzana MD cc: [id number] TT: 10/05/2016 08:59:07 Confirmation # [id number] Dictation # [id number] tn
[2016-10-05] MEDS: buPROPion 150 mg/24 Hours XL Tab PO SCH (09:47)
[2016-10-05] MEDS: Multivitamin With Minerals Tab PO SCH (09:47)
[2016-10-05] MEDS: Aspirin 325 mg EC Tablets PO SCH (09:49)
[2016-10-05] MEDS ORDERED: HYDROmorphone 0.5 mg/0.5 ml ISec IVP PRN (10:34)
--- NOTE | 2016-10-05 11:35 | PN ---
DATE: 10/05/2016 The patient was followed up today. The patient presented to be alert and oriented. The patient repo rted that he did not sleep last night. The patient said that his pain is controlled only with Dilaud id IV. The patient reported if he is taking medication by mouth, it takes a really long time for his pain to be under control. The patient said that he tolerates medication well, Wellbutrin and Xanax, which was resumed yesterday. The patient said that his pain is a major concern at the present momen t and patient said if it will be discontinued, he does not know what he will do next. Meanwhile vital signs are stable. Temperature is 98.5, pulse 72, blood pressure 138/66, respirations 20, oxygen saturation is 95. MEDICATIONS: Reviewed. The patient is on Xanax 0.5 mg at the nighttime scheduled, Xanax 0.25 mg twi ce a day as needed for anxiety, vitamin C, Wellbutrin extended release 300 mg daily, carvedilol 6.25 mg twice a day, vitamin B12 injection, Drisdol 50,000 units. The patient is on Feosol, Neurontin 800 mg 3 times a day, Humulin, Zestril, meropenem, multivitamins, Protonix, trazodone 50 will be resumed at the nighttime, zinc sulfate. LABORATORIES: Reviewed. Most recent was from today. Microbiology, methicillin-resistant Staph juan antonio us from the decubital ulcer. MENTAL STATUS EXAMINATION: The patient was alert and oriented, pleasant, cooperative. Fair eye cont act. Speech was underproductive, low volume. Mood described, "I am always depressed, not more than usual." Affect was constricted, but reactive, mood congruent. Thought process was coherent and goal directed. Thought content: The patient denied visual, auditory, or tactile hallucinations. Denied paranoid ideations. The patient denied thoughts of harming himself or others. Denied intent or leona n. The patient has chronic wish to be because of all of the medical conditions, but he is not i n danger to self. Insight and judgment are fair. Impulses are well controlled. IMPRESSION: Rule out major depressive disorder, as per history. The patient has bipolar disorder. T he patient has most likely mood disorder and anxiety disorder due to general medical condition. The patient has multiple medical issues including paraplegia on both lower extremities, neurogenic bladde r, colostomy, coronary artery disease, diabetes, hypertension, large sacral decubiti. The patient harry s multiple medical issues. Please see medical team note for more detailed information. PLAN: Continue current management. Continue Xanax as needed for anxiety. The patient was educated about that order. The patient also was started on trazodone 50 mg at the nighttime for insomnia and depression. The patient should be continued on Wellbutrin 300 mg extended release daily. The patien t asked to be on Dilaudid IV for his pain. This is up to the medical team. The patient was more con centrated on the pain, what he has right now. The patient deemed to be in chronic depression, but de nied any intent or plan to kill himself. At the same time, the patient has chronic passive wish to b e . The patient deemed to be not in danger to self or others. Will follow up on patient on a da jeyson basis in order to adjust medications. Collaterals from the nursing staff. The patient has fair appetite and fair sleep, did not verbalize any thoughts of killing himself or others. Thank you very much for letting me participate in the care of your patient. Should you have any ques tions, give me a call back. Ilana Scott MD cc: [id number] TT: 10/05/2016 11:35:09 Confirmation # [id number] Dictation # [id number] pascual
--- NOTE | 2016-10-05 18:35 | CP.PCM.PN ---
Subjective - Date & Time of Evaluation Date of Evaluation: 10/05/16 Time of Evaluation: 11:50 - Subjective Subjective: Comfortable in bed, not in distress, afebrile. Objective - Vital Signs/Intake and Output Vital Signs (last 24 hours): Temp Pulse Resp BP Pulse Ox 98.0 F 72 20 130/43 L 94 L 10/05/16 16:00 10/05/16 17:37 10/05/16 16:00 10/05/16 17:37 10/05/16 16:00 Intake and Output: 10/05/16 10/05/16 06:59 18:59 Intake Total 740 Balance 740 - Medications Medications: Current Medications Alprazolam (Xanax) 0.5 mg PO HS [facility] PRN Reason: Protocol Last Admin: 10/04/16 22:09 Dose: 0.5 mg Alprazolam (Xanax) 0.25 mg PO BID PRN; Protocol PRN Reason: Anxiety Stop: 10/11/16 18:01 Ascorbic Acid (Vitamin C 500 Mg Tab) 500 mg PO BID [facility] Last Admin: 10/05/16 17:29 Dose: 500 mg Aspirin (Ecotrin) 325 mg PO DAILY [facility] Last Admin: 10/05/16 09:49 Dose: 325 mg Bupropion HCl (Wellbutrin Xl) 300 mg PO DAILY [facility] Last Admin: 10/05/16 09:47 Dose: 300 mg Carvedilol (Coreg) 6.25 mg PO BID [facility] Last Admin: 10/05/16 17:37 Dose: 6.25 mg Cyanocobalamin (Vitamin B12 1000 Mcg/Ml Inj) 1,000 mcg SC Q30D [facility] Ergocalciferol (Drisdol 50,000 Intl Units Cap) 1 cap PO SAT [facility] Last Admin: 10/02/16 09:54 Dose: 1 cap Ferrous Sulfate (Feosol Liq) 300 mg PO 0800,1200,1700 [facility] Last Admin: 10/05/16 17:26 Dose: 300 mg Gabapentin (Neurontin) 800 mg PO TID [facility] PRN Reason: Protocol Last Admin: 10/05/16 17:26 Dose: 800 mg Hydromorphone HCl (Dilaudid) 1 mg IVP Q4H PRN PRN Reason: Pain, severe (8-10) Last Admin: 10/05/16 16:12 Dose: 1 mg Meropenem 1g/NS 100mL IVPB (Meropenem 1g/Ns 100ml Ivpb) 1 gm in 100 mls @ 100 mls/hr IVPB Q8 [facility] Stop: 10/30/16 22:01 Last Admin: 10/05/16 14:02 Dose: 100 mls/hr Insulin Human Regular (Humulin R Med) 0 units SC ACHS [facility] PRN Reason: Protocol Last Admin: 10/05/16 16:53 Dose: Not Given Lisinopril (Zestril) 5 mg PO QAM [facility] Last Admin: 10/05/16 09:49 Dose: 5 mg Multivitamins/Minerals (Therapeutic-M Tab) 1 tab PO DAILY [facility] Last Admin: 10/05/16 09:47 Dose: 1 tab Pantoprazole Sodium (Protonix Ec Tab) 40 mg PO ACBD [facility] Last Admin: 10/05/16 17:30 Dose: 40 mg Trazodone HCl (Desyrel) 50 mg PO HS [facility] Zinc Sulfate (Zinc Sulfate 220 Mg Cap) 220 mg PO DAILY [facility] Last Admin: 10/05/16 09:48 Dose: 220 mg - Labs Labs: 10/04/16 05:45 10/04/16 05:45 PT 12.4 Seconds (9.9-11.8) H 09/30/16 08:20 INR 1.15 (0.93-1.08) H 09/30/16 08:20 APTT 32.9 Seconds (23.7-30.8) H 09/30/16 08:20 - Constitutional Appears: Non-toxic, No Acute Distress - Head Exam Head Exam: NORMAL INSPECTION - Respiratory Exam Respiratory Exam: Decreased Breath Sounds - Cardiovascular Exam Cardiovascular Exam: +S1, +S2 - GI/Abdominal Exam GI & Abdominal Exam: Soft. absent: Tenderness Assessment and Plan - Assessment and Plan (Free Text) Plan: Assessment Sacral decubitus ulcers previously growing E. faecalis, E. coli and P. mirabilis - probable osteomyelitis since it is a stage 4 ulcer; MRSA and Corynebacterium in the most recent cultures are probably colonizers history of E. faecalis bacteremia and ESBL E. coli UTI Decubitus ulcers on the sacral and hip areas S/P debridemen; the ulcer was deep and probably stage 4; there was note of ESBL producing organism and MRSA from the LTAC wound cx S/P treatment with antibiotics S/P post-cholecystostomy (for acute cholecystitis) probably due to abscess in the RUQ area S/P CT-guided drainage - surgical site with some drainage ( possible abscess/skin and skin strucutre infection), with clinical improvement DM HTN Morbid obesity with BMI 43 coronary artery disease history of paraplegia from cauda equina syndrome neurogenic bladder Plan continue Meropenem to complete the 4-6 week course of therapy
[2016-10-06] MEDS: HYDROmorphone 1 mg/ml ISec IVP PRN ×6 (02:09→22:18)
[2016-10-06] MEDS: Meropenem 1g/NS 100mL IVPB 1 GM/100 ML PIGGYBACK IVPB SCH ×3 (05:40→21:15)
[2016-10-06] MEDS: Ferrous Sulfate 300 mg/5 mL Liq UD PO SCH ×3 (08:22→17:04)
[2016-10-06] MEDS: Pantoprazole 40 mg EC Tab PO SCH ×2 (08:22→17:05)
[2016-10-06] MEDS: Insulin Reg-MEDIUM-Coverage SC SCH ×4 (08:33→22:19)
--- NOTE | 2016-10-06 08:56 | PN ---
DATE: 10/06/2016 A 66-year-old white male who is severely depressed, paraplegia, sacral decubitus on wound VAC, IV ant ibiotics. Vital signs are stable. The patient was seen by Dr. Ilana Scott for possible transfe r to psych. The patient is agreeable to psych. He needs short term antibiotics to finish his course of antibiotics until 10/30. VITAL SIGNS: Stable. The patient is afebrile. He severely depressed. He is complaining of needing IV Dilaudid. However, he needs be switched to p .o. Dilaudid. I offered him to go to psych or to go home. We will try to convince him to go to [facility]. Vital signs are stable. REVIEW OF SYSTEMS: A 12-point review of systems is unremarkable except for pain. Wound VAC is continuing. He has a Gomez catheter and a functioning colostomy. Rayshawn Lorenzana MD cc: [id number] TT: 10/06/2016 08:56:02 Confirmation # [id number] Dictation # [id number] [email or web address]
[2016-10-06] MEDS: buPROPion 150 mg/24 Hours XL Tab PO SCH (10:12)
[2016-10-06] MEDS: Multivitamin With Minerals Tab PO SCH (10:13)
[2016-10-06] MEDS: Aspirin 325 mg EC Tablets PO SCH (10:14)
--- NOTE | 2016-10-06 16:07 | PN ---
DATE: 10/06/2016 Shortly, the patient is a 66-year-old male with multiple medical issues. Please see medica l team note for more detailed information. The patient also has history of bipolar disorder, history of being on psychotropic medication and previous hospitalizations. The patient was admitted on the medical floor for evaluation of status post fall and also weakness. Psych was following patient for medication management as well as depressive symptoms which are related to the medical issues. For th e past few days this magazine writer was adjusting medication. The patient appears better. Today, the patient was followed up. The patient observed eating with go od appetite; reported that he had restless night, but it was related to the pain what he had in his d ecubitus area. The patient reports chronic symptoms of depression, but it is not worse than usual. The patient denied any active plan or intent to kill himself. The patient reported that his anxiety is under control. The patient knows his medication what he is taking. The patient appears to be yimi m and cooperative, not psychotic. VITAL SIGNS: This magazine writer reviewed vital signs. Vital signs seem to be stable. Temperature is 98.7, pulse is 78, blood pressure 160/69, oxygen saturation is 94. MEDICATIONS: Reviewed. As this magazine writer mentioned, patient is on Xanax 0.5 mg at the nighttime and 0. 25 mg twice a day as needed, vitamin C. The patient is on Wellbutrin extended release 300 mg. The pa tient is on Neurontin as well as on trazodone 50 mg at the nighttime. The patient also was on Geodon in the past, but at present moment patient does not meet the criteria for that. MENTAL STATUS EXAMINATION: The patient appears to be alert and oriented, pleasant, cooperative. Int ermittent eye contact. Speech was low volume, slow. Mood described, "I am constantly depressed, not flavia unusual." Affect was constricted, but reactive. Mood congruent. Thought process was coherent and goal directed. Thought content: The patient denied visual, auditory, or tactile hallucinations. Denied paranoid ideations. The patient denied thoughts of harming himself or others. Denied inten t or plan. Insight and judgment are fair. Impulses are well controlled. IMPRESSION: Rule out mood disorder due to general medical condition. Rule out anxiety disorder due to general medical condition. The patient has history of bipolar disorder. The patient has multiple medical issues. Please see notes for more detailed information. PLAN: This magazine writer had impression that patient might benefit from visiting psychiatric team, and this magazine writer spoke to the social media strategist. Before, patient was seen by therapist as well as psychiatrist in [facility]. Right now, patient has difficulty to leave the house. The patient is compliant with the medication. The patient should continue on medications. The patient has chronic symptoms of depression, but denied any intent or plan to kill himself. From the psychiatric standpo int, the patient is cleared to be discharged back home. Should have any questions, give me a call ba lindsay. Thank you very much for letting me participate in the care of your patient. Ilana Scott MD cc: [phone] TT: 10/06/2016 16:07:03 Confirmation # [id number] Dictation # [id number] sherin
--- NOTE | 2016-10-06 16:09 | CP.PCM.PN ---
Subjective - Date & Time of Evaluation Date of Evaluation: 10/06/16 Time of Evaluation: 11:20 - Subjective Subjective: Comfortable in bed, not in distress, afebrile overnight. Objective - Vital Signs/Intake and Output Vital Signs (last 24 hours): Temp Pulse Resp BP Pulse Ox 98.7 F 83 20 160/69 H 94 L 10/06/16 06:00 10/06/16 14:00 10/06/16 06:00 10/06/16 10:16 10/06/16 06:00 Intake and Output: 10/06/16 10/06/16 06:59 18:59 Intake Total 980 Output Total 1700 Balance -720 - Medications Medications: Current Medications Alprazolam (Xanax) 0.5 mg PO HS [facility] PRN Reason: Protocol Last Admin: 10/05/16 22:36 Dose: 0.5 mg Alprazolam (Xanax) 0.25 mg PO BID PRN; Protocol PRN Reason: Anxiety Stop: 10/11/16 18:01 Last Admin: 10/06/16 11:10 Dose: 0.25 mg Ascorbic Acid (Vitamin C 500 Mg Tab) 500 mg PO BID [facility] Last Admin: 10/06/16 10:14 Dose: 500 mg Aspirin (Ecotrin) 325 mg PO DAILY [facility] Last Admin: 10/06/16 10:14 Dose: 325 mg Bupropion HCl (Wellbutrin Xl) 300 mg PO DAILY [facility] Last Admin: 10/06/16 10:12 Dose: 300 mg Carvedilol (Coreg) 6.25 mg PO BID [facility] Last Admin: 10/06/16 10:16 Dose: 6.25 mg Cyanocobalamin (Vitamin B12 1000 Mcg/Ml Inj) 1,000 mcg SC Q30D [facility] Ergocalciferol (Drisdol 50,000 Intl Units Cap) 1 cap PO SAT [facility] Last Admin: 10/02/16 09:54 Dose: 1 cap Ferrous Sulfate (Feosol Liq) 300 mg PO 0800,1200,1700 [facility] Last Admin: 10/06/16 12:35 Dose: 300 mg Gabapentin (Neurontin) 800 mg PO TID [facility] PRN Reason: Protocol Last Admin: 10/06/16 14:16 Dose: 800 mg Hydromorphone HCl (Dilaudid) 1 mg IVP Q4H PRN PRN Reason: Pain, severe (8-10) Last Admin: 10/06/16 14:14 Dose: 1 mg Meropenem 1g/NS 100mL IVPB (Meropenem 1g/Ns 100ml Ivpb) 1 gm in 100 mls @ 100 mls/hr IVPB Q8 [facility] Stop: 10/30/16 22:01 Last Admin: 10/06/16 14:15 Dose: 100 mls/hr Insulin Human Regular (Humulin R Med) 0 units SC ACHS [facility] PRN Reason: Protocol Last Admin: 10/06/16 11:34 Dose: Not Given Lisinopril (Zestril) 5 mg PO QAM [facility] Last Admin: 10/06/16 10:14 Dose: 5 mg Multivitamins/Minerals (Therapeutic-M Tab) 1 tab PO DAILY [facility] Last Admin: 10/06/16 10:13 Dose: 1 tab Pantoprazole Sodium (Protonix Ec Tab) 40 mg PO ACBD [facility] Last Admin: 10/06/16 08:22 Dose: 40 mg Trazodone HCl (Desyrel) 50 mg PO HS [facility] Last Admin: 10/05/16 22:32 Dose: 50 mg Zinc Sulfate (Zinc Sulfate 220 Mg Cap) 220 mg PO DAILY [facility] Last Admin: 10/06/16 10:12 Dose: 220 mg - Labs Labs: 10/04/16 05:45 10/04/16 05:45 PT 12.4 Seconds (9.9-11.8) H 09/30/16 08:20 INR 1.15 (0.93-1.08) H 09/30/16 08:20 APTT 32.9 Seconds (23.7-30.8) H 09/30/16 08:20 - Constitutional Appears: Non-toxic, No Acute Distress - Head Exam Head Exam: NORMAL INSPECTION - Respiratory Exam Respiratory Exam: Decreased Breath Sounds - Cardiovascular Exam Cardiovascular Exam: +S1, +S2 - GI/Abdominal Exam GI & Abdominal Exam: Soft. absent: Tenderness - Back Exam Additional comments: wound vacuum in place in the sacral area Assessment and Plan - Assessment and Plan (Free Text) Plan: Assessment Sacral decubitus ulcers previously growing E. faecalis, E. coli and P. mirabilis - probable osteomyelitis since it is a stage 4 ulcer; MRSA and Corynebacterium in the most recent cultures are probably colonizers history of E. faecalis bacteremia and ESBL E. coli UTI Decubitus ulcers on the sacral and hip areas S/P debridemen; the ulcer was deep and probably stage 4; there was note of ESBL producing organism and MRSA from the LTAC wound cx S/P treatment with antibiotics S/P post-cholecystostomy (for acute cholecystitis) probably due to abscess in the RUQ area S/P CT-guided drainage - surgical site with some drainage ( possible abscess/skin and skin strucutre infection), with clinical improvement DM HTN Morbid obesity with BMI 43 coronary artery disease history of paraplegia from cauda equina syndrome neurogenic bladder Plan continue Meropenem to complete the 4-6 week course of therapy; can be switched to IV ertapenem as an outpatient when discharged
[2016-10-06 16:37] VITALS: TEMP 98
[2016-10-07] MEDS: HYDROmorphone 1 mg/ml ISec IVP PRN ×2 (03:57→10:15)
[2016-10-07] MEDS: Meropenem 1g/NS 100mL IVPB 1 GM/100 ML PIGGYBACK IVPB SCH (06:45)
[2016-10-07] MEDS: Ferrous Sulfate 300 mg/5 mL Liq UD PO SCH (08:40)
[2016-10-07] MEDS: Insulin Reg-MEDIUM-Coverage SC SCH (08:40)
[2016-10-07] MEDS: Pantoprazole 40 mg EC Tab PO SCH (08:41)
[2016-10-07 09:10] VITALS: BP 142/70; PULSE 68; RESP 19; O2SAT 96
[2016-10-07] MEDS: Multivitamin With Minerals Tab PO SCH (09:47)
[2016-10-07] MEDS: Aspirin 325 mg EC Tablets PO SCH (09:47)
[2016-10-07] MEDS: buPROPion 150 mg/24 Hours XL Tab PO SCH (09:47)
--- NOTE | 2016-10-07 10:24 | DS ---
A 66-year-old white male admitted to the hospital after a fall, head trauma and left flank trauma. T he patient was negative for intracranial bleed or fractures. The patient had an open sacral decubitu s which was infected, was on IV antibiotics. He also has a colostomy and Gomez catheter for parapleg ia of the lower extremity secondary to failed laminectomy, history of coronary artery disease, histor y of severe depression, seen in consultation by Dr. Barrow for IV antibiotics, Dr. Méndez for hi s continued wound care of a sacral decubitus and also by Dr. Preciado for psychiatry because of severe de pression. The patient was refused admission to psych unit because of MRSA precautions. The patient will be discharged home in improved condition on his wound VAC Invanz until 10/29, colostomy care and l ocal wound care. The patient will be discharged home in improved condition. Also on pain medication . FINAL DISCHARGE DIAGNOSES: Fall with head trauma and body contusions, sacral decubitus infected, ins ulin-dependent diabetes mellitus, severe depression, coronary artery disease, paraplegia, neurogenic bladder and colostomy. Rayshawn Lorenzana MD cc: [id number] TT: 10/07/2016 10:24:09 pascual
--- NOTE | 2016-10-07 14:00 | PN ---
DATE: 10/07/2016 The patient is in bed in no acute distress, nontoxic. PHYSICAL EXAMINATION: VITAL SIGNS: Temperature is 98, blood pressure is 104/70, respiratory rate 16. HEENT: Unremarkable. NECK: Supple. LUNGS: Have decreased breath sounds. HEART: Normal S1, S2. ABDOMEN: Soft, nontender. LABORATORY DATA: Reveals a white count of 5.9. The chemistries are noted. Microbiology is reviewed . Review of the orders reveals the patient to be on meropenem. ASSESSMENT AND PLAN: This is a 66-year-old male with sacral decubitus ulcer growing previously Enter ococcus faecalis, Escherichia coli, Proteus, and osteomyelitis, on Invanz as outpatient. Will treat and complete therapy 4-6 weeks with a weekly CBC, SMA-18, sed rate, C-reactive protein. The patient had been receiving meropenem in the hospital [facility] Would complete the therapy. Today is day #20 of 28-42 days with a CBC, SMA-18, sed rate and C-re active protein once weekly and local wound care. Alpesh Barrow MD cc: [id number] TT: 10/07/2016 13:59:47 Confirmation # [id number] Dictation # [id number] pascual
== END 2016-10-07 13:04 | disposition home or self-care (01) | DRG 592 ==
LOC: ED 07:48 → ERH 10:29 → 3RSO 14:15 → OBSVTOIN 10-02 13:00
PROVIDERS: ADMIT Internal Medicine; ATTEND Internal Medicine
PROC: 30233N1 Transfusion of Nonautologous Red Blood Cells into Peripheral Vein, Percutaneous Approach (ICD-10-PCS; principal; 2016-10-01)
DX: L89.154 Pressure ulcer of sacral region, stage 4 (principal); D64.9 Anemia, unspecified; G82.20 Paraplegia, unspecified; G83.4 Cauda equina syndrome; M46.28 Osteomyelitis of vertebra, sacral and sacrococcygeal region; I25.10 Atherosclerotic heart disease of native coronary artery without angina pectoris; I10 Essential (primary) hypertension; E11.9 Type 2 diabetes mellitus without complications; F31.9 Bipolar disorder, unspecified; B95.62 Methicillin resistant Staphylococcus aureus infection as the cause of diseases classified elsewhere; F06.4 Anxiety disorder due to known physiological condition; E66.01 Morbid (severe) obesity due to excess calories; T14.8 Other injury of unspecified body region; S09.90XA Unspecified injury of head, initial encounter; W19.XXXA Unspecified fall, initial encounter; Z79.4 Long term (current) use of insulin; Z74.01 Bed confinement status; Z68.33 Body mass index [BMI] 33.0-33.9, adult; Z93.3 Colostomy status; Y93.89 Activity, other specified; Y92.9 Unspecified place or not applicable; Y99.9 Unspecified external cause status

== ENCOUNTER 2016-10-13 19:54 | Inpatient (IN) | payer MEDICARE, OTHER ==
[2016-10-13 20:06] VITALS: BMI 32.7
--- NOTE | 2016-10-13 20:20 | ED PDOC ---
Arrival/HPI <Juan Miguel Hou - Last Filed: 10/13/16 22:58> - General Historian: Patient - History of Present Illness Time/Duration: 24 hours Symptom Onset: Gradual Symptom Course: Unchanged Quality: Aching, Throbbing Severity Level: 6 Activities at Onset: Rest Context: Home <Esthela Quintero - Last Filed: 10/13/16 23:06> - General Chief Complaint: Weakness/Neurological Deficit Time Seen by Provider: 10/13/16 20:01 - History of Present Illness Narrative History of Present Illness (Text): 10/13/16 20:18 This is a 66Y morbidly obese M with PMH paraplegia s/p colostomy and neurogenic bladder with chronic burgos, HTN, DM, sacral ulcer, and depression who came to ED for weakness and SOB. He reports he was recently d/c from [facility] [place] [place] 4 days ago. He was there for a stage IV sacral wound debridment. Wound vac was placed. Patient was put in IV Merrem daily. The patient says he was feeling weak today and could not give himself his Rocephin. He also says he has back pain, nausea and feels short of breath. He denies fever, chills, CP, cough, vomiting or hematuria. (Esthela Quintero) Past Medical History - Provider Review Nursing Documentation Reviewed: Yes - Past History Past History: Non-Contributing - Infectious Disease Hx of Infectious Diseases: None - Tetanus Immunization Tetanus Immunization: Unknown - Cardiac Hx Cardiac Disorders: Yes Hx Angina: No Hx Cardiac Arrhythmia: No Hx Circulatory Problems: No Hx Congestive Heart Failure: No Hx Heart Murmur: No Hx Heart Transplant: No Hx Hypertension: Yes Hx Internal Defibrillator: No Hx Mitral Valve Prolapse: No Hx Pacemaker: No Hx Peripheral Edema: No Hx Peripheral Vascular Disease: No Other/Comment: PICC LINE L ARM - Pulmonary Hx Respiratory Disorders: Yes Hx Pneumonia: Yes - Neurological Hx Neurological Disorder: Yes Hx Transient Ischemic Attacks (TIA): Yes - HEENT Hx Blind: Yes (right) Hx Deafness: Yes (hard of hearing) - Renal Hx Renal Disorder: No - Endocrine/Metabolic Hx Endocrine Disorders: Yes Hx Diabetes Mellitus Type 2: Yes (uncontrolled) - Hematological/Oncological Hx Blood Transfusions: No Hx Blood Transfusion Reaction: No - Integumentary Hx Dermatological Disorder: Yes Other/Comment: decub ulcer to R buttocks, MRSA - Musculoskeletal/Rheumatological Hx Musculoskeletal Disorders: Yes (paraplegia) Hx Arthritis: Yes Hx Back Pain: Yes Hx Falls: Yes Hx Herniated Disk: Yes Hx Spinal Stenosis: Yes Hx Unsteady Gait: Yes (uses w/ch) Other/Comment: left hand weakness, paralyzed from waist down - Gastrointestinal Hx Gastrointestinal Disorders: Yes Hx Colostomy: Yes - Genitourinary/Gynecological Hx Genitourinary Disorders: Yes (neurogenic bladder) Other/Comment: self cath. - Psychiatric Hx Psychophysiologic Disorder: Yes Hx Anxiety: Yes Hx Depression: Yes Hx Emotional Abuse: No Hx Physical Abuse: No Hx Substance Use: No - Surgical History Hx Cardiac Catheterization: Yes Hx Coronary Stent: Yes (x5) Hx Orthopedic Surgery: Yes (SPINAL SURGERY) Other/Comment: colostomy placement, PICC placed in L arm - Anesthesia Hx Anesthesia: Yes Hx Anesthesia Reactions: No Hx Malignant Hyperthermia: No - Suicidal Assessment Feels Threatened In Home Enviroment: No <Esthela Quintero - Last Filed: 10/13/16 23:06> Family/Social History - Physician Review Nursing Documentation Reviewed: Yes Family/Social History: No Known Family HX Smoking Status: Never Smoked Hx Alcohol Use: No Hx Substance Use: No Hx Substance Use Treatment: No <Esthela Quintero - Last Filed: 10/13/16 23:06> Allergies/Home Meds <Juan Miguel Hou - Last Filed: 10/13/16 22:58> <Esthela Quintero - Last Filed: 10/13/16 23:06> Allergies/Adverse Reactions: Allergies ciprofloxacin Allergy (Verified 10/13/16 20:10) RASH Penicillins Allergy (Verified 10/13/16 20:10) RASH Home Medications: Home Meds Medication Instructions Recorded Confirmed Ascorbic Acid [Vitamin C 500 mg 500 mg PO BID 05/15/15 10/13/16 Tab] Cyanocobalamin (Vitamin B-12) 1,000 mcg IJ Q30D 05/15/15 10/13/16 [Cyanocobalamin Injection] Ergocalciferol (Vitamin D2) 50,000 iu PO SAT 05/15/15 10/13/16 [Vitamin D2] Ziprasidone HCl [Geodon] 80 mg PO HS 06/26/15 10/13/16 Alprazolam 0.5 mg PO HS 07/25/15 10/13/16 Aspirin [Ecotrin] 325 mg PO DAILY 07/25/15 10/13/16 buPROPion XL [Wellbutrin XL] 300 mg PO DAILY 07/25/15 10/13/16 Acetaminophen/Oxycodone Hydr 1 tab PO TID PRN 01/22/16 10/13/16 [Percocet 10/325 mg Tab] Review of Systems - Review of Systems Constitutional: Fatigue Eyes: absent: Vision Changes ENT: Normal Respiratory: SOB. absent: Cough, Sputum, Wheezing Cardiovascular: Normal. absent: Chest Pain, Palpitations Gastrointestinal: Nausea. absent: Abdominal Pain, Diarrhea, Vomiting Genitourinary Male: Normal. absent: Hematuria Musculoskeletal: Back Pain Skin: Ulcer (sacral) Neurological: Normal. absent: Headache, Dizziness <Esthela Quintero - Last Filed: 10/13/16 23:06> Physical Exam Vital Signs Reviewed: Yes Temperature: Afebrile Blood Pressure: Normal Pulse: Regular Respiratory Rate: Normal Appearance: Positive for: Well-Appearing, Non-Toxic, Comfortable Pain Distress: None Mental Status: Positive for: Alert and Oriented X 3 - Systems Exam Head: Present: Atraumatic, Normocephalic Pupils: Present: PERRL Extroacular Muscles: Present: EOMI Conjunctiva: Present: Normal Mouth: Present: Moist Mucous Membranes Neck: Present: Normal Range of Motion Respiratory/Chest: Present: Clear to Auscultation, Good Air Exchange. No: Respiratory Distress, Accessory Muscle Use Cardiovascular: Present: Regular Rate and Rhythm, Normal S1, S2. No: Murmurs, Rub, Gallop Abdomen: Present: Normal Bowel Sounds, Other (colostomy tube in place ). No: Tenderness, Distention, Peritoneal Signs Genitourinary Male: Present: Other (burgos in place, no hematuria seen ) Back: Present: Decubitus Ulcer (wound vac in place. Small amount of pus drainage ) Upper Extremity: Present: Normal Inspection. No: Cyanosis, Edema Lower Extremity: Present: Edema, Other (R 2nd toe ulceration ) Skin: Present: Warm, Dry, Normal Color, Other (ulceration on R second toe. Stage IV decubitus ulcer ) Psychiatric: Present: Alert, Oriented x 3 <Esthela Quintero - Last Filed: 10/13/16 23:06> Vital Signs Temp Pulse Resp BP Pulse Ox 10/13/16 20:05 98.3 F 94 H 20 69/32 L 97 Medical Decision Making - Lab Interpretations I have reviewed the lab results: Yes - RAD Interpretation Mill Operator Head: ED Physician - EKG Interpretation Interpreted by ED Physician: Yes Type: 12 lead EKG <Juan Miguel Hou - Last Filed: 10/13/16 22:58> Re-evaluation Time: 21:14 Reassessment Condition: Re-examined, Unchanged - Lab Interpretations I have reviewed the lab results: Yes Interpretation: No sign. chg./baseline - RAD Interpretation Mill Operator Head: ED Physician - EKG Interpretation Interpreted by ED Physician: Yes Type: 12 lead EKG <Esthela Quintero - Last Filed: 10/13/16 23:06> ED Course and Treatment: Impression: Pt seen and evaluated with medical collections representative. Pt, whose past medical history includes morbid obesity, paraplegia s/p colostomy, chronic burgos s/p neurogenic bladder, hypertension, diabetes, sacral ulcer, and depression, presented for generalized weakness and shortness of breath. Aware and agree with HPI, clinical findings, plan, and management. Plan: -- EKG -- Chest X-ray -- Labs, VBG, troponin, blood cultures -- Urinalysis, urine cultures -- IV fluids -- Reassess and disposition Progress Notes: 10/13/16 22:[address] Lorenzana, who is aware and agrees with plan. Accepts pt in to his service. Pt will be admitted to [facility] for dehydration, weakness , and depression. (Juan Miguel Hou) 10/13/16 20:28 Impression: This is a 66Y morbidly obese M with PMH paraplegia s/p colostomy and neurogenic bladder with chronic burgos, HTN, DM, sacral ulcer, and depression who came to ED for weakness and SOB. Patient noted to have BP of 69/34. Fluids were given. Septic work up ordered. Patient recently d/c from [facility] [place] [place] on 10/07 from sacral wound debridement. On IV Merrem daily and wound vac in place. Differential Diagnosis included but are not limited to: sepsis vs. UTI vs. wound infection vs. pneumonia Plan: -- Septic work up: VBG, CBC, CMP, blood culture, U/A, urine culture, Mg, Phos, Troponin -- CXR, EKG -- Reassess and disposition Prior Visits: Notes and results from previous visits were reviewed. 10/13/16 21:12 Progress Note: Patient re-examined. BP increased to 96/64 with IV fluids. No lactate or WBC noted. When speaking to the patient he is tearful and reports feeling very depressed. He admits to suicidal ideation, but no plan. He denies homicidal ideation. 10/13/16 22:15 BP cuff changed and BP increased to 145/77. (Esthela Quintero) - Lab Interpretations Lab Results: 10/13/16 20:13 10/13/16 20:13 Lab Results 10/13/16 20:13: Sodium 137, Chloride 105, Potassium 4.3, Carbon Dioxide 27, Anion Gap 9 L, BUN 19, Creatinine 1.1, Est GFR ( Amer) > 60, Est GFR (Non -Af Amer) > 60, Random Glucose 81, Calcium 8.4, Phosphorus 2.5, Magnesium 1.8, Total Bilirubin 0.7, AST 26, ALT 40, Alkaline Phosphatase 90, Troponin I < 0.01 D, Total Protein 5.9, Albumin 2.8 L, Globulin 3.1, Albumin/Globulin Ratio 0.9 L 10/13/16 20:13: pO2 65 H, VBG pH 7.47 H, VBG pCO2 38.0 L, VBG HCO3 27.7, VBG Total CO2 28.9 H, VBG O2 Sat (Calc) 97.0 H, VBG Base Excess 3.9 H, VBG Potassium 4.4, Sodium 139.0, Chloride 111.0 H, Glucose 84, Lactate 0.9, FiO2 21.0, Venous Blood Potassium 4.4 10/13/16 20:13: PT 12.1 H, INR 1.12 H, APTT 31.0 H 10/13/16 20:13: WBC 5.0, RBC 3.29 L, Hgb 9.5 L, Hct 27.9 L, MCV 84.8, MCH 28.9, MCHC 34.1, RDW 13.4, Plt Count 156, MPV 9.7, Gran % 63.4, Lymph % (Auto) 24.8, [place] % (Auto) 7.2 H, Eos % (Auto) 3.8, Baso % (Auto) 0.8, Gran # 3.17, Lymph # 1.2, [place] # 0.4, Eos # 0.2, Baso # 0.04 - RAD Interpretation Narrative RAD Interpretations (Text): 10/13/16 21:16 CXR showed pulmonary vascular congestion. Compared to previous CXR which showed similar vascular congestion. (Esthela Quintero) Radiology Orders: 10/13/16 20:14 CHEST PORTABLE [RAD] Stat - EKG Interpretation EKG Interpretation (Text): 10/13/16 20:49 HR 91. Normal sinus rhythm. QT prolongation at 496. Previous EKG showed 1st degree AV block. NC interval <200ms on this EKG. (Esthela Quintero) - Medication Orders Current Medication Orders: Discontinued Medications Sodium Chloride 3,000 ml/ IV (SUPPLIES) 3,000 mls @ 7,130.46 mls/hr IV ONCE ONE PRN Reason: 60 ML/KG/HR Stop: 10/13/16 20:15 Ondansetron HCl (Zofran Inj) 4 mg IVP STAT STA Stop: 10/13/16 22:46 - PA / CYBER INTEL PLANNER / Resident Statement / has reviewed & agrees with the documentation as recorded. / has examined the patient and agrees with the treatment plan. <Juan Miguel Hou - Last Filed: 10/13/16 22:58> Disposition/Present on Arrival <Juan Miugel Hou - Last Filed: 10/13/16 22:58> - Present on Arrival Any Indicators Present on Arrival: Yes History of DVT/PE: No History of Uncontrolled Diabetes: Yes Urinary Catheter: Yes History of Decub. Ulcer: Yes (present) History Surgical Site Infection Following: None - Disposition Have Diagnosis and Disposition been Completed?: Yes Disposition Time: 22:31 Patient Plan: Admission <Esthela Quintero - Last Filed: 10/13/16 23:06> - Disposition Diagnosis: Weakness, Depressed Disposition: HOSPITALIZED Patient Problems: Current Active Problems Problem Status Onset Depressed Acute Weakness Acute Condition: FAIR
[2016-10-13 20:25] LABS: ADD MANUAL DIFF? NO
[2016-10-13 20:29] LABS: VENOUS BLOOD GAS BASE EXCESS 3.9 mmol/L (0.0-2.0); VENOUS BLOOD PH 7.47 (7.32-7.43)
[2016-10-13 20:41] LABS: INR 1.12 (0.93-1.08)
[2016-10-13 20:42] LABS: ALB/GLOB RATIO 0.9 (1.1-1.8); ALKALINE PHOSPHATASE 90 U/L (38-133); ALT/SGPT 40 U/L (7-56); AST/SGOT 26 U/L (15-59); BILIRUBIN,TOTAL 0.7 mg/dL (0.2-1.3); BLOOD UREA NITROGEN 19 mg/dL (7-21); CALCIUM 8.4 mg/dL (8.4-10.5); CARBON DIOXIDE 27 mmol/L (21-33); CHLORIDE 105 mmol/L (98-107); GFR AFRICAN-AMERICAN > 60; GLUCOSE,RANDOM 81 mg/dL (70-110); MAGNESIUM 1.8 mg/dL (1.7-2.2); PHOSPHOROUS 2.5 mg/dL (2.5-4.5); POTASSIUM 4.3 mmol/L (3.6-5.0); SODIUM 137 mmol/L (132-148); TOTAL PROTEIN 5.9 g/dL (5.8-8.3)
[2016-10-13 20:43] LABS: BASO # 0.04 K/mm3 (0.0-2.0); BASO % 0.8 % (0.0-3.0); EOS # 0.2 (0.0-0.7); EOS % 3.8 % (1.5-5.0); GRAN # 3.17 (1.4-6.5); GRAN % 63.4 % (50.0-68.0); HEMATOCRIT 27.9 % (42.0-52.0); LYMPH # 1.2 (1.2-3.4); LYMPH % 24.8 % (22.0-35.0); MEAN CELL VOLUME 84.8 fL (80.0-105.0); MEAN CORPUSCULAR HEMOGLOBIN 28.9 pg (25.0-35.0); MEAN CORPUSCULAR HGB CONC 34.1 g/dl (31.0-37.0); MEAN PLATELET VOLUME 9.7 fl (7.0-11.0); MONO # 0.4 (0.1-0.6); MONO % 7.2 % (1.0-6.0); PLATELET COUNT 156 10^3/uL (120.0-450.0); RED CELL DISTRIBUTION WIDTH 13.4 % (11.5-14.5)
[2016-10-13 20:53] LABS: TROPONIN I < 0.01 ng/mL
--- NOTE | 2016-10-14 07:25 | RAD ---
HISTORY: Sepsis Patient COMPARISON: 09/30/2016 FINDINGS: LUNGS: No active pulmonary disease. PLEURA: No significant pleural effusion identified, no pneumothorax apparent. CARDIOVASCULAR: Normal. OSSEOUS STRUCTURES: No significant abnormalities. VISUALIZED UPPER ABDOMEN: Normal. OTHER FINDINGS: None. IMPRESSION: No active disease.
[2016-10-14] MEDS ORDERED: HYDROmorphone 1 mg/ml ISec IVP STA (08:05)
[2016-10-14] MEDS ORDERED: HYDROmorphone 1 mg/ml ISec ONE ×3 (08:39→18:57)
[2016-10-14] MEDS ORDERED: buPROPion 300 mg/24 Hours XL Tab PO SCH (10:00)
[2016-10-14] MEDS ORDERED: buPROPion SR 150 MG TABLET PO ONE (13:33)
[2016-10-14] MEDS ORDERED: Pantoprazole 20 mg EC Tab PO ONE (13:33)
[2016-10-14] MEDS ORDERED: Meropenem 1g/NS 100mL IVPB 1 GM/100 ML PIGGYBACK IVPB ONE (13:34)
[2016-10-14] MEDS ORDERED: HYDROmorphone 1 mg/ml ISec IVP PRN (15:00)
--- NOTE | 2016-10-14 15:06 | CARD ---
APPROVED REPORT EKG Measurement Heart [id number] <Conclusion> Normal sinus rhythm Possible Left atrial enlargement Prolonged QT Abnormal ECG
--- NOTE | 2016-10-14 15:06 | CON ---
DATE: 10/14/2016 HISTORY OF PRESENT ILLNESS: Shortly, the patient is a 66-year-old male with long history o f mental illness, bipolar spectrum disorder. The patient has multiple medical issues including parap legia on both lower extremities. The patient has diabetes, hypertension. The patient has severe dec ubitus. The patient also has a colostomy, multiple medical issues. The patient was admitted on the medical side for evaluation of weakness. The patient was not able to continue IV antibiotics. The p oc was recently discharged from this facility less than 2 weeks ago. Psych consult was called fo r evaluation of mood symptoms, and patient has history of mental illness. The patient was seen and examined. The patient is very familiar to this scientific technical writer from previous admissi ons on the medical floor and this scientific technical writer was a consultant dietitian on the case. [employer] is down and medicati on list of psychotropic medications this scientific technical writer remembers. This scientific technical writer will resume Wellbutrin extend ed release 300 mg daily, Xanax 0.5 mg 3 times a day as needed for anxiety as well as trazodone 50 mg at the nighttime for insomnia. The patient reported for the past week he was not able to do IV antib iotics; that is why he became weak and he came to the hospital looking for help. The patient reporte d his mood is consistently low. The patient has chronic depressive symptoms. The patient also has c hronic suicidal ideations and a passive wish to be . The patient said that recently his neighbor overdosed on drugs and he was wondering why it was not him; but at the same time, the patient denied any intent or plan to kill himself. The patient reported chronic feelings of hopelessness, but not worse than usual. The patient reported to have poor appetite. Sleep is "on and off." LABORATORY DATA: This scientific technical writer was not able to check left because [employer] is down. VITAL SIGNS: Stable. PAST PSYCHIATRIC HISTORY: The patient was officially diagnosed with bipolar disorder, was attending [facility] outpatient clinic, but due to medical condition the patient was not able t o leave the house. The patient was not able to keep his appointment there. Basically medications we re managed by primary care team. MENTAL STATUS EXAMINATION: The patient presented to be alert. Flat affect. Speech was underproduct zo, low volume. Thought process was coherent and goal directed. Mood described as, "You know that I am depressed." Affect was constricted. Thought content: The patient denied visual, auditory, or tactile hallucinations. Denied paranoid ideations. The patient denied intent or plan of killing him self; but at the same time, the patient has chronic wish to be , chronic suicidal ideations, not worse than usual. Insight and judgment are fair. Impulses are well controlled. IMPRESSION: As per history, the patient has history of bipolar disorder, at present moment rule out mood disorder due to general medical condition, rule out anxiety disorder due to general medical cond ition, multiple medical issues. Please see notes for more detailed information. PLAN: Continue current management. Discussed with the nursing staff. Medications reviewed. This w aaroner will follow up on this patient. The patient is on contact precautions at present moment. The patient will continue on Wellbutrin extended release 300 mg daily, trazodone at the nighttime for ins omnia, Xanax 3 times a day 0.5 mg as needed for anxiety. Case was discussed with the nursing staff. The patient was seen. Will follow up and advise accordingly. Thank you very much for letting me participate in the care of your patient. Ilana Scott MD cc: [phone] TT: 10/14/2016 14:47:18 Confirmation # [id number] Dictation # [id number] sherin
--- NOTE | 2016-10-14 15:59 | CON ---
DATE: 10/14/2016 In 576, bed 1, [facility]. The patient was seen earlier this morning. REASON FOR CONSULTATION: Decubitus ulcer. HISTORY OF PRESENT ILLNESS: We have a 66-year-old male with past medical history of stage IV sacral decubitus ulcer with probable osteomyelitis, being treated with Invanz for a patient with gram-negati ve bacilli in the sacral ulcer. He is readmitted for patient's anxiety. Currently, infectious disea se consult is requested to continue his antibiotic management for sacral ulcer. We have been giving the patient antibiotics for almost 4 weeks now and we have recommended 4-6 weeks of antibiotics for h is osteomyelitis of his stage IV sacral ulcer with gram-negative bacilli and we have been treating it with Invanz. The patient has been tolerating the antibiotics without any nausea or vomiting. The p atient is also denying fever or chills. No headache or dizziness. No blurring of vision. No odynop hagia, no dysphagia, no cough, no colds, no sore throat, no chest pain, no abdominal pain, no dysuria , no diarrhea, no melena, no hematochezia. The patient is tolerating the wound vacuum that is in leona ce on his sacral ulcer area. REVIEW OF SYSTEMS: As per history of present illness. PAST MEDICAL HISTORY: As per history of present illness. FAMILY MEDICAL HISTORY: Noncontributory. PERSONAL AND SOCIAL HISTORY: The patient denies alcohol abuse or illicit drug use. OBJECTIVE: VITAL SIGNS: The patient is afebrile, respiratory rate is 20, heart rate is 76. HEAD AND NECK: Normocephalic, atraumatic. No meningismus present. HEART: S1 and S2 are normal. CHEST: Decreased breath sounds bilaterally. ABDOMEN: Soft, nontender, nondistended. SACRAL AREA: There is a wound vacuum over the decubitus ulcer. Minimal drainage coming from the wou nd vacuum currently. LABORATORIES: Unfortunately, we are unable to review the labs on the patient because the computer sy stems are down. ASSESSMENT: We have a 66-year-old male coming in with anxiety, currently being treated for osteomyel itis with gram-negative bacilli of a stage IV sacral ulcer, status post wound vacuum placement. PLAN: We will continue this patient on meropenem, which is equivalent to Invanz or ertapenem. is 4-6 weeks of IV antibiotics. We will request for ESR, CRP as well as CBC and CMP and review thes e once computer systems are up and running. Raffi Spencer M.D. cc: [id number] TT: 10/14/2016 15:58:28 Confirmation # [id number] Dictation # [id number] en
[2016-10-14] MEDS: HYDROmorphone 0.5 mg/0.5 ml ISec IVP PRN (23:20)
--- NOTE | 2016-10-14 23:28 | HP ---
HISTORY OF PRESENT ILLNESS: A 66-year-old white male recently discharged from [facility] with a wound VAC on his sacral decubitus, which is improving. The patient was discharged home on IV antib iotics, Invanz once a day; however, it was found by the visiting nurse that the patient was not able to connect himself appropriately with sterile technique to his infusion and he was having wound VAC c hanges at home. The patient was brought back to the Emergency Room because of inability to continue his IV antibiotics. The patient is also severely depressed and possibly suicidal at this point. He was evaluated by Dr. Preciado on last admission, but was denied admission to the psych unit because of po sitive MRSA on last admission. The patient is being readmitted to the ER. MRSA will be reevaluated an d in prelude to the patient going to psych, he will continue IV antibiotics for his decubitus. He harry s until 10/29/2016 to continue IV antibiotics. He will also have wounds VAC changes. PHYSICAL EXAMINATION: GENERAL: Shows a well-developed but obese, depressed white male in no apparent distress. HEENT: Essentially normal limits. HEART: Regular sinus rhythm murmurs. CHEST: Clear to auscultation and percussion. ABDOMEN: Obese but benign. The patient has a colostomy and an indwelling catheter. NEUROLOGIC: Shows bilateral paraplegia from the waist down secondary to a failed laminectomy. Wound VAC is in place. The wound is decreased in size and there is no evidence of cellulitis or purulent discharge at this point. IMPRESSION: A 66-year-old white male with multiple comorbid conditions including a coronary disease, insulin-dependent diabetes mellitus, hemiplegia, indwelling catheter, colostomy, wound vacuum assist ed closure for presacral decubitus, severe depression and hypertension. Rayshawn Lorenzana MD cc: [id number] TT: 10/14/2016 23:27:29 ln
[2016-10-15] MEDS: HYDROmorphone 0.5 mg/0.5 ml ISec IVP PRN ×3 (03:29→21:28)
--- NOTE | 2016-10-15 08:17 | PN ---
DATE: 10/15/2016 SUBJECTIVE: The patient has no complaints of any headaches, no dizziness, chest pain, no shortness o f breath. PHYSICAL EXAMINATION: VITAL SIGNS: Temperature is 97.9, pulse of 86, blood pressure 170/80, respirations 20. GENERAL: The patient comfortable, in no acute distress. HEENT: Anicteric sclerae. Moist mucosa. NECK: No JVD or adenopathy. CARDIAC: S1/S2. No murmurs. No rubs. Regular. RESPIRATORY: Clear to auscultation bilaterally. No wheezes, rales, or rhonchi. Good air entry. ABDOMEN: Bowel sounds are positive, soft, nontender, and nondistended. EXTREMITIES: No edema. Has 1+ pulses. LABORATORIES: White count of 5.0, hemoglobin 9.5. Creatinine is 1.1. ASSESSMENT: 1. Paraplegia. 2. Stage IV sacral wound. 3. Osteomyelitis of sacral wound. 4. Coronary artery disease. 5. Diabetes type 2. 6. Hypertension. 7. Dyslipidemia. PLAN: The patient is on Colace, is going to be on carvedilol. The patient is on trazodone for his a nxiety. He is on a fentanyl patch for his pain. He is on iron. The patient is going to be on Neuro ntin for neuropathy, is receiving lisinopril for hypertension. He is on a heart healthy diet. Yossi Licea MD cc: [id number] TT: 10/15/2016 07:39:16 Confirmation # [id number] Dictation # [id number] en
[2016-10-15] MEDS ORDERED: Meropenem 1 GM in Sodium Chloride 0.9% 100 ML IVPB SCH (09:00)
[2016-10-15] MEDS: Aspirin 325 mg EC Tablets PO SCH (09:01)
[2016-10-15] MEDS: Multivitamin With Minerals Tab PO SCH (09:01)
[2016-10-15] MEDS: Ferrous Sulfate 300 mg/5 mL Liq UD PO SCH ×3 (09:03→17:13)
[2016-10-15] MEDS: Insulin Reg-MEDIUM-Coverage SC SCH ×4 (09:04→22:49)
[2016-10-15] MEDS: Pantoprazole 40 mg EC Tab PO SCH ×2 (09:04→17:17)
[2016-10-15] MEDS: buPROPion 300 mg/24 Hours XL Tab PO SCH (09:05)
--- NOTE | 2016-10-15 09:49 | CP.PCM.CON ---
History of Present Illness - History of Present Illness History of Present Illness: Gen Sx: Dr Méndez Pt is 66M well known to surgical service. Most recently seen 2 weeks ago. [place] [facility] as home infusions not working out. Will need wound vac changes MWF. The vac he uses at home we do not carry supplies for. New [employer] system ordered, will be changed by resident's at bedside today w/ wound evaluation.. Wound care consult placed for future changes on this admission Review of Systems - Constitutional Constitutional: absent: Anorexia, Chills - Cardiovascular Cardiovascular: absent: Chest Pain - Respiratory Respiratory: absent: Dyspnea - Gastrointestinal Gastrointestinal: absent: Abdominal Pain - Musculoskeletal Musculoskeletal: Back Pain - Psychiatric Psychiatric: Depression Past Patient History - Infectious Disease Hx of Infectious Diseases: None - Tetanus Immunizations Tetanus Immunization: Unknown - Past Medical History & Family History Past Medical History?: Yes - Past Social History Smoking Status: Never Smoked - CARDIAC Hx Cardiac Disorders: Yes Hx Angina: No Hx Cardia Arrhythmia: No Hx Circulatory Problems: No Hx Congestive Heart Failure: No Hx Heart Murmur: No Hx Heart Transplant: No Hx Hypertension: Yes Hx Internal Defibrillator: No Hx Mitral Valve Prolapse: No Hx Pacemaker: No Hx Peripheral Edema: No Hx Peripheral Vascular Disease: No Other/Comment: PICC LINE L ARM - PULMONARY Hx Respiratory Disorders: Yes Hx Pneumonia: Yes - NEUROLOGICAL Hx Neurological Disorder: Yes Hx Transient Ischemic Attacks (TIA): Yes - HEENT Hx Blind: Yes (right) Hx Deafness: Yes (hard of hearing) - RENAL Hx Chronic Kidney Disease: No - ENDOCRINE/METABOLIC Hx Endocrine Disorders: Yes Hx Diabetes Mellitus Type 2: Yes (uncontrolled) - HEMATOLOGICAL/ONCOLOGICAL Hx Blood Transfusions: No Hx Blood Transfusion Reaction: No - INTEGUMENTARY Hx Dermatological Problems: Yes Other/Comment: decub ulcer to R buttocks, MRSA - MUSCULOSKELETAL/RHEUMATOLOGICAL Hx Musculoskeletal Disorders: Yes (paraplegia) Hx Arthritis: Yes Hx Back Pain: Yes Hx Falls: Yes Hx Herniated Disk: Yes Hx Spinal Stenosis: Yes Hx Unsteady Gait: Yes (uses w/ch) Other/Comment: left hand weakness, paralyzed from waist down - GASTROINTESTINAL Hx Gastrointestinal Disorders: Yes Hx Colostomy: Yes - GENITOURINARY/GYNECOLOGICAL Hx Genitourinary Disorders: Yes (neurogenic bladder) Other/Comment: self cath. - PSYCHIATRIC Hx Psychophysiologic Disorder: Yes Hx Anxiety: Yes Hx Depression: Yes Hx Emotional Abuse: No Hx Physical Abuse: No Hx Substance Use: No - SURGICAL HISTORY Hx Cardiac Catheterization: Yes Hx Coronary Stent: Yes (x5) Hx Orthopedic Surgery: Yes (SPINAL SURGERY) Other/Comment: colostomy placement, PICC placed in L arm - ANESTHESIA Hx Anesthesia: Yes Hx Anesthesia Reactions: No Hx Malignant Hyperthermia: No Meds Allergies/Adverse Reactions: Allergies Allergy/AdvReac Type Severity Reaction Status Date / Time ciprofloxacin Allergy RASH Verified 10/13/16 20:10 Penicillins Allergy RASH Verified 10/13/16 20:10 - Medications Medications: Current Medications Alprazolam (Xanax) 0.5 mg PO HS [facility] PRN Reason: Protocol Last Admin: 10/14/16 22:23 Dose: 0.5 mg Alprazolam (Xanax) 0.5 mg PO TID PRN PRN Reason: Anxiety Last Admin: 10/15/16 09:01 Dose: 0.5 mg Ascorbic Acid (Vitamin C 500 Mg Tab) 500 mg PO BID [facility] Last Admin: 10/15/16 09:05 Dose: 500 mg Aspirin (Ecotrin) 325 mg PO DAILY [facility] Last Admin: 10/15/16 09:01 Dose: 325 mg Bupropion HCl (Wellbutrin Xl) 300 mg PO DAILY [facility] Last Admin: 10/15/16 09:05 Dose: 300 mg Carvedilol (Coreg) 6.25 mg PO BID [facility] Last Admin: 10/15/16 09:02 Dose: Not Given Cyanocobalamin (Vitamin B12 1000 Mcg/Ml Inj) 1,000 mcg SC Q30D [facility] Docusate Sodium (Colace) 100 mg PO BID [facility] Last Admin: 10/15/16 09:01 Dose: 100 mg Ergocalciferol (Drisdol 50,000 Intl Units Cap) 1 cap PO SAT [facility] Fentanyl (Duragesic) 1 patch TD Q72H [facility] Ferrous Sulfate (Feosol Liq) 300 mg PO 0800,1200,1700 [facility] Last Admin: 10/15/16 09:03 Dose: 300 mg Gabapentin (Neurontin) 800 mg PO TID [facility] PRN Reason: Protocol Last Admin: 10/15/16 09:00 Dose: 800 mg Hydromorphone HCl (Dilaudid) 0.5 mg IVP Q4H PRN PRN Reason: Pain, moderate (4-7) Last Admin: 10/15/16 09:03 Dose: 0.5 mg Hydromorphone HCl (Dilaudid) 1 mg IVP Q4 PRN PRN Reason: Pain, severe (8-10) Ertapenem 1 gm/ Sodium (Chloride) 50 mls @ 100 mls/hr IVPB DAILY [facility] Stop: 10/15/16 10:29 Meropenem 1 gm/ Sodium (Chloride) 100 mls @ 100 mls/hr IVPB Q8 [facility] Insulin Human Regular (Humulin R Med) 0 units SC ACHS [facility] PRN Reason: Protocol Last Admin: 10/15/16 09:04 Dose: Not Given Lisinopril (Zestril) 5 mg PO QAM [facility] Last Admin: 10/15/16 09:00 Dose: Not Given Multivitamins/Minerals (Therapeutic-M Tab) 1 tab PO DAILY [facility] Last Admin: 10/15/16 09:01 Dose: 1 tab Pantoprazole Sodium (Protonix Ec Tab) 40 mg PO ACBD [facility] Last Admin: 10/15/16 09:04 Dose: 40 mg Trazodone HCl (Desyrel) 50 mg PO HS PRN PRN Reason: Insomnia Zinc Sulfate (Zinc Sulfate 220 Mg Cap) 220 mg PO DAILY [facility] Last Admin: 10/15/16 09:01 Dose: 220 mg Ziprasidone (Geodon Cap) 80 mg PO HS [facility] Last Admin: 10/14/16 22:19 Dose: 80 mg Physical Exam - Constitutional Appears: Non-toxic, Chronically Ill - Head Exam Head Exam: NORMOCEPHALIC - ENT Exam ENT Exam: Normal Exam - Respiratory Exam Respiratory Exam: absent: Accessory Muscle Use, Respiratory Distress - Cardiovascular Exam Cardiovascular Exam: REGULAR RHYTHM. absent: Tachycardia - GI/Abdominal Exam GI & Abdominal Exam: Soft. absent: Distended, Tenderness - Neurological Exam Neurological exam: Alert, Oriented x3 - Psychiatric Exam Psychiatric exam: Normal Affect, Normal Mood - Skin Skin Exam: Normal Color, Warm Results - Vital Signs Recent Vital Signs: Last Vital Signs Temp 97.9 F 10/15/16 08:00 Pulse 72 10/15/16 08:00 Resp 20 10/15/16 08:00 BP 102/42 L 10/15/16 09:02 Pulse Ox 94 L 10/14/16 16:00 - Labs Result Diagrams: 10/13/16 20:13 10/13/16 20:13 Assessment & Plan - Assessment and Plan (Free Text) Assessment: 66M with sacral decubitus Plan: will change vac today once supplies arrive further vac changes MWF per wound care team wound evaluation will follow in addendum pending vac change will d/w Dr Dev Dobbins, DO, PGY2 - Date & Time Date: 10/15/16 Time: 09:49
[2016-10-15] MEDS ORDERED: ERTAPENEM 1 GM IVPB SCH (10:00)
[2016-10-15] MEDS ORDERED: buPROPion 150 mg/24 Hours XL Tab PO SCH (10:00)
--- NOTE | 2016-10-15 10:52 | PN ---
DATE: 10/15/2016 Shortly, patient is a 66-year-old male, multiple medical issues. The patient was admitted on the medical side because patient was not able to continue antibiotics injection intravenously at h ome. He became weak and that is why he came back to the hospital. The patient was seen initially ye sterday. Please see initial consultation note. All medications reviewed as well as resumed from the previous admission. The patient was followed up today. The patient presented to be alert and orien isi. The patient said that he had restless night because he was in pain, but overall he is doing bet ter. The patient has chronic symptoms of depression, feeling hopelessness, but this screen writer had impre ssion that patient has reasons to feel this way. The patient is paraplegic. The patient has severe decubiti, multiple medical issues which could be giving patient symptoms of chronic depression. The patient has chronic suicidal ideation and passive wish to be , but denied any intent or plan to k ill himself. MEDICATIONS: Reviewed. The patient is on Xanax 0.5 mg 3 times a day as needed for anxiety, Xanax 0. 5 mg at the nighttime scheduled, vitamin C, aspirin, Wellbutrin 300 mg extended release daily, Coreg, vitamin B12, Colace, fentanyl, Feosol, Neurontin, Dilaudid, Humulin, Zestril, multivitamins, Protoni x, trazodone 50 mg as needed for insomnia, zinc, Geodon 80 mg at the nighttime scheduled, it was star isi by medical team. The patient was on that medication before. This screen writer is not sure why this me dication was started for him at present moment. Hematology reviewed, most recent from . No new labs available. MENTAL STATUS EXAMINATION: As this screen writer described above, patient presented with some psychomotor r etardation. The patient reported that he feels depressed. Affect was more reactive, mood congruent. Thought process was coherent and goal directed. Speech was underproductive, low volume. Thought c ontent: The patient has chronic suicidal ideations, but no intent or plan to kill himself. The sterling ent denied hearing voices, denied seeing things. Does not present to be psychotic. Insight and judg ment are fair. Impulses are well controlled. IMPRESSION: The patient has history of bipolar disorder. This screen writer would like to exclude mood dis order and anxiety disorder due to general medical condition. The patient has multiple medical issues including diabetes, obesity. The patient has colostomy. The patient also has paraplegia, history o f coronary artery disease, diabetes, indwelling catheter and severe parasacral decubiti. PLAN: Continue current management. Continue current medications. The patient deemed to be stable o n the current medications. The patient has chronic feeling of depression as well as suicidal ideatio ns, but no intent or plan to kill himself. While patient is in the hospital, we will follow up on . We will see if patient is on contact isolation, we cannot transfer patient to the psychiatric in atient unit. At the same time, patient [facility]. Over the weekend, Dr. Dickinson will follow patient up . Thank you very much for letting me participate in care of your patient. Ilana Scott MD cc: [id number] TT: 10/15/2016 10:51:59 Confirmation # [id number] Dictation # [id number] en
--- NOTE | 2016-10-15 11:52 | PN ---
DATE: 10/15/2016 ADDENDUM This abstract writer had a prolonged conversation with the transition social worker. Social workers and nurse case management suggested to have family meeting. Most likely patient needs to [facility] to the [facility]. Last admissi on, patient was refusing to go to [facility], but I think that the patient would greatly benefit fr om that. Family meeting should be initiated. The patient has son who is involved into the patient's care. Should you have any questions, give me a call back. Ilana Scott MD cc: [id number] TT: 10/15/2016 11:45:56 Confirmation # [id number] Dictation # [id number] mn
--- NOTE | 2016-10-15 22:37 | CP.PCM.PN ---
Subjective - Date & Time of Evaluation Date of Evaluation: 10/15/16 Time of Evaluation: 10:45 - Subjective Subjective: Comfortable, not in distress, afebrile. Objective - Vital Signs/Intake and Output Vital Signs (last 24 hours): Temp Pulse Resp BP Pulse Ox 97.7 F 84 20 169/92 H 93 L 10/15/16 15:50 10/15/16 15:50 10/15/16 15:50 10/15/16 15:50 10/15/16 15:50 Intake and Output: 10/15/16 10/16/16 18:59 06:59 Intake Total 360 Output Total 400 Balance -40 - Medications Medications: Current Medications Alprazolam (Xanax) 0.5 mg PO HS [facility] PRN Reason: Protocol Last Admin: 10/15/16 21:31 Dose: 0.5 mg Alprazolam (Xanax) 0.5 mg PO TID PRN PRN Reason: Anxiety Last Admin: 10/15/16 09:01 Dose: 0.5 mg Ascorbic Acid (Vitamin C 500 Mg Tab) 500 mg PO BID [facility] Last Admin: 10/15/16 17:17 Dose: 500 mg Aspirin (Ecotrin) 325 mg PO DAILY [facility] Last Admin: 10/15/16 09:01 Dose: 325 mg Bupropion HCl (Wellbutrin Xl) 300 mg PO DAILY [facility] Last Admin: 10/15/16 09:05 Dose: 300 mg Carvedilol (Coreg) 6.25 mg PO BID [facility] Last Admin: 10/15/16 09:02 Dose: Not Given Cyanocobalamin (Vitamin B12 1000 Mcg/Ml Inj) 1,000 mcg SC Q30D [facility] Docusate Sodium (Colace) 100 mg PO BID [facility] Last Admin: 10/15/16 09:01 Dose: 100 mg Ergocalciferol (Drisdol 50,000 Intl Units Cap) 1 cap PO SAT [facility] Fentanyl (Duragesic) 1 patch TD Q72H [facility] Last Admin: 10/15/16 18:55 Dose: 1 patch Ferrous Sulfate (Feosol Liq) 300 mg PO 0800,1200,1700 [facility] Last Admin: 10/15/16 17:13 Dose: 300 mg Gabapentin (Neurontin) 800 mg PO TID [facility] PRN Reason: Protocol Last Admin: 10/15/16 17:17 Dose: 800 mg Hydromorphone HCl (Dilaudid) 0.5 mg IVP Q4H PRN PRN Reason: Pain, moderate (4-7) Last Admin: 10/15/16 21:28 Dose: 0.5 mg Meropenem 1 gm/ Sodium (Chloride) 100 mls @ 100 mls/hr IVPB Q8 [facility] Insulin Human Regular (Humulin R Med) 0 units SC ACHS [facility] PRN Reason: Protocol Last Admin: 10/15/16 17:13 Dose: Not Given Lisinopril (Zestril) 5 mg PO QAM [facility] Last Admin: 10/15/16 09:00 Dose: Not Given Multivitamins/Minerals (Therapeutic-M Tab) 1 tab PO DAILY [facility] Last Admin: 10/15/16 09:01 Dose: 1 tab Pantoprazole Sodium (Protonix Ec Tab) 40 mg PO ACBD [facility] Last Admin: 10/15/16 17:17 Dose: 40 mg Trazodone HCl (Desyrel) 50 mg PO HS PRN PRN Reason: Insomnia Last Admin: 10/15/16 21:32 Dose: 50 mg Zinc Sulfate (Zinc Sulfate 220 Mg Cap) 220 mg PO DAILY [facility] Last Admin: 10/15/16 09:01 Dose: 220 mg Ziprasidone (Geodon Cap) 80 mg PO HS [facility] Last Admin: 10/14/16 22:19 Dose: 80 mg - Labs Labs: PT 12.1 Seconds (9.9-11.8) H 10/13/16 20:13 INR 1.12 (0.93-1.08) H 10/13/16 20:13 APTT 31.0 Seconds (23.7-30.8) H 10/13/16 20:13 - Constitutional Appears: Non-toxic, No Acute Distress - Head Exam Head Exam: NORMAL INSPECTION - ENT Exam ENT Exam: Mucous Membranes Moist - Neck Exam Neck Exam: absent: Lymphadenopathy, Meningismus - Respiratory Exam Respiratory Exam: Decreased Breath Sounds - Cardiovascular Exam Cardiovascular Exam: +S1, +S2 - GI/Abdominal Exam GI & Abdominal Exam: Soft. absent: Tenderness - Extremities Exam Additional comments: sacral decubitus ulcer with wound vacuum in place Assessment and Plan - Assessment and Plan (Free Text) Plan: Assessment Sacral decubitus ulcers previously growing E. faecalis, E. coli and P. mirabilis - probable osteomyelitis since it is a stage 4 ulcer history of E. faecalis bacteremia and ESBL E. coli UTI Decubitus ulcers on the sacral and hip areas S/P debridemen; the ulcer was deep and probably stage 4; there was note of ESBL producing organism and MRSA from the LTAC wound cx S/P treatment with antibiotics S/P post-cholecystostomy (for acute cholecystitis) probably due to abscess in the RUQ area S/P CT-guided drainage - surgical site with some drainage ( possible abscess/skin and skin strucutre infection), with clinical improvement DM HTN Morbid obesity with BMI 43 coronary artery disease history of paraplegia from cauda equina syndrome neurogenic bladder Plan continue Meropenem to complete the 4-6 week course of therapy; can be switched again to IV ertapenem as an outpatient when discharged
[2016-10-16] MEDS: Meropenem 1 GM in Sodium Chloride 0.9% 100 ML IVPB SCH ×3 (05:25→21:40)
[2016-10-16] MEDS: HYDROmorphone 0.5 mg/0.5 ml ISec IVP PRN ×2 (05:26→16:04)
[2016-10-16 06:03] LABS: HEMATOCRIT 25.3 % (42.0-52.0); MEAN CELL VOLUME 85.5 fL (80.0-105.0); MEAN CORPUSCULAR HGB CONC 32.8 g/dl (31.0-37.0); RED CELL DISTRIBUTION WIDTH 13.7 % (11.5-14.5); WHITE BLOOD COUNT 4.3 10^3/ul (4.5-11.0)
[2016-10-16 06:12] LABS: ALB/GLOB RATIO 0.9 (1.1-1.8); ALKALINE PHOSPHATASE 70 U/L (38-133); ALT/SGPT 35 U/L (7-56); AST/SGOT 18 U/L (15-59); BILIRUBIN,TOTAL 0.7 mg/dL (0.2-1.3); BLOOD UREA NITROGEN 23 mg/dL (7-21); CALCIUM 7.9 mg/dL (8.4-10.5); CARBON DIOXIDE 28 mmol/L (21-33); CHLORIDE 108 mmol/L (98-107); GFR AFRICAN-AMERICAN > 60; GLUCOSE,RANDOM 68 mg/dL (70-110); POTASSIUM 4.4 mmol/L (3.6-5.0); SODIUM 138 mmol/L (132-148); TOTAL PROTEIN 4.8 g/dL (5.8-8.3)
[2016-10-16] MEDS: Ferrous Sulfate 300 mg/5 mL Liq UD PO SCH ×3 (08:00→17:30)
[2016-10-16] MEDS: Insulin Reg-MEDIUM-Coverage SC SCH ×4 (08:00→21:48)
--- NOTE | 2016-10-16 09:15 | CP.PCM.PCO ---
Addendum Addendum: Patient too sedated for an interview. I have reviewed recent notes as well as Dr. Scott's consultation. c/w current tx and plan. Will re-attempt interview tomorrow AM. 10/16/16 09:14
[2016-10-16] MEDS ORDERED: Ergocalciferol 50,000 Intl Units Cap PO SCH (10:00)
[2016-10-16] MEDS: Aspirin 325 mg EC Tablets PO SCH (12:20)
[2016-10-16] MEDS: Pantoprazole 40 mg EC Tab PO SCH ×2 (12:22→17:32)
[2016-10-16] MEDS: buPROPion 300 mg/24 Hours XL Tab PO SCH (12:23)
[2016-10-16] MEDS: Multivitamin With Minerals Tab PO SCH (12:24)
--- NOTE | 2016-10-16 13:18 | PN ---
DATE: 10/16/2016 SUBJECTIVE: The patient has no complaints of any chest pain, no shortness of breath, no headaches or dizziness. PHYSICAL EXAMINATION: VITAL SIGNS: Temperature is 96.7, pulse of 79, blood pressure 138/74, respirations 16. GENERAL: The patient comfortable, in no acute distress. HEENT: Anicteric sclerae. Moist mucosa. NECK: No JVD or adenopathy. CARDIAC: S1/S2. No murmurs. No rubs. Regular. RESPIRATORY: Clear to auscultation bilaterally. No wheezes, rales, or rhonchi. Good air entry. ABDOMEN: Bowel sounds are positive, soft, nontender, and nondistended. EXTREMITIES: No edema. Has 1+ pulses. LABS: White count of 4.3, hemoglobin 8.3, creatinine is 1.3. ASSESSMENT: 1. Sacral pressure ulcer, stage IV. 2. Osteomyelitis of sacral wound. 3. Coronary artery disease. 4. Diabetes type 2. 5. Hypertension. 6. Dyslipidemia. PLAN: The patient is going to continue on Colace and carvedilol. The patient is on trazodone. He i s going to be on a fentanyl patch. He is on aspirin. The patient is on Neurontin for neuropathy. I s being followed by surgery for the wound. Yossi Licea MD cc: [id number] TT: 10/16/2016 13:17:22 Confirmation # [id number] Dictation # [id number] pascual
[2016-10-17] MEDS: HYDROmorphone 0.5 mg/0.5 ml ISec IVP PRN ×4 (01:49→21:36)
[2016-10-17] MEDS: Meropenem 1 GM in Sodium Chloride 0.9% 100 ML IVPB SCH ×3 (05:24→21:21)
[2016-10-17] MEDS: Pantoprazole 40 mg EC Tab PO SCH ×2 (08:02→16:59)
[2016-10-17] MEDS: Insulin Reg-MEDIUM-Coverage SC SCH ×4 (08:02→21:33)
[2016-10-17] MEDS: Aspirin 325 mg EC Tablets PO SCH (09:19)
[2016-10-17] MEDS: Ferrous Sulfate 300 mg/5 mL Liq UD PO SCH ×4 (09:19→16:57)
[2016-10-17] MEDS: Multivitamin With Minerals Tab PO SCH (09:20)
[2016-10-17] MEDS: buPROPion 300 mg/24 Hours XL Tab PO SCH (09:24)
--- NOTE | 2016-10-17 11:52 | PN ---
DATE: 10/17/2016 SUBJECTIVE: The patient has no complaints of any chest pain, no shortness of breath, no headaches, n o dizziness. PHYSICAL EXAMINATION: VITAL SIGNS: Temperature is 98.6, pulse is 70, blood pressure 134/72, respirations 18. GENERAL: The patient comfortable, in no acute distress. HEENT: Anicteric sclerae. Moist mucosa. NECK: No JVD or adenopathy. CARDIAC: S1/S2. No murmurs. No rubs. Regular. RESPIRATORY: Clear to auscultation bilaterally. No wheezes, rales, or rhonchi. Good air entry. ABDOMEN: Bowel sounds are positive, soft, nontender, and nondistended. EXTREMITIES: No edema. Has 1+ pulses. LABORATORIES: White count of 4.3, hemoglobin 8.3. Creatinine is 1.3. ASSESSMENT: 1. Sacral pressure ulcer, stage IV. 2. Osteomyelitis of the sacral wound. 3. Coronary artery disease. 4. Diabetes type 2. 5. Hypertension. 6. Dyslipidemia. PLAN: The patient is comfortable. He says his pain is controlled. He is on trazodone. He is recei ving vitamin D for his vitamin D deficiency. He is on fentanyl for his pain. He is on aspirin. He is on iron for his anemia. He is on meropenem for antibiotics. He is receiving gabapentin for his n europathy. The patient is on lisinopril for his hypertension. Yossi Licea MD cc: [id number] TT: 10/17/2016 11:51:28 Confirmation # [id number] Dictation # [id number] en
--- NOTE | 2016-10-17 14:52 | CON ---
DATE: 10/17/2016 HISTORY OF PRESENT ILLNESS: The patient is a 66-year-old white male with multiple medical issues who is being followed by psychiatry for depression. I met with patient at bedside today. He appears mu ch more alert than yesterday. He is aware of location, circumstances and current month and year. Th e patient's focus is good and he is consistent with his responses. The patient reports that his mood is actually good today and much better than previous days. The patient reports that he suffers from depression as "off and on". The patient is more hopeful. He denies any suicidal thoughts. Regardi ng his medications, he denies having any side effects. Thought process is coherent and he does not h ave any hallucinations and he does not appear to be responding to internal stimuli. The patient is i n good control on the unit. Delusions were not elicited. He presents as a fairly reliable historian . His insight and judgment are considered to be fair. LABORATORY DATA AND VITAL SIGNS: Reviewed by this provider. RELEVANT PSYCHIATRIC MEDICATIONS: Xanax 0.5 mg p.o. t.i.d. p.r.n. and Xanax 0.5 mg p.o. at bedtime s cheduled, Wellbutrin 300 mg p.o. daily, trazodone 50 mg p.o. at bedtime p.r.n. and Geodon 80 mg p.o. at bedtime scheduled. ASSESSMENT: The patient has a history of bipolar disorder and likely depression and anxiety disorder due to general medical condition, as well as adjustment disorder. His mood symptoms appear to be im proving at this time. RECOMMENDATIONS: Would continue current management. There is no acute indication for change in priyanka gement at this time. He is tolerating his medication and denies any suicidality an affect is congrue nt to his statements. At this time, the patient is still deferring on any psychiatric inpatient priyanka gement; however, he is open to the idea in the future. Psychiatry will continue to follow up. Damaso Dickinson MD cc: [id number] TT: 10/17/2016 14:51:33 Confirmation # [id number] Dictation # [id number] stanley
[2016-10-18] MEDS: Meropenem 1 GM in Sodium Chloride 0.9% 100 ML IVPB SCH ×3 (05:24→22:10)
[2016-10-18] MEDS: Pantoprazole 40 mg EC Tab PO SCH ×2 (06:39→16:45)
[2016-10-18] MEDS: Insulin Reg-MEDIUM-Coverage SC SCH ×4 (08:11→22:07)
[2016-10-18] MEDS: Ferrous Sulfate 300 mg/5 mL Liq UD PO SCH ×3 (08:11→16:45)
--- NOTE | 2016-10-18 09:29 | PN ---
DATE: 10/18/2016 A 66-year-old white male with a sacral decubitus, unable to complete his home IV antibiotics. He nee ds home antibiotics until 10/29. The case was discussed with the patient and clinical social worker today. Po ssibility of the patient's son taking over the intravenous antibiotics until they are concluded. The patient is on a wound VAC. He also has a colostomy and an indwelling catheter for a neurogenic blad estrella. The patient also has been mildly anemic at 8.3. Repeat hemoglobin is pending. Vital signs are stable. The patient is depressed, but not suicidal. He will continue on all his medications and hi s IV antibiotics. We will discharge home when the son is trained for IV antibiotics. Rayshawn Lorenzana MD cc: [id number] TT: 10/18/2016 09:28:30 Confirmation # [id number] Dictation # [id number] en
[2016-10-18] MEDS: HYDROmorphone 1 mg/ml ISec IVP PRN ×3 (10:07→20:39)
[2016-10-18] MEDS: Multivitamin With Minerals Tab PO SCH (10:08)
[2016-10-18] MEDS: Aspirin 325 mg EC Tablets PO SCH (10:10)
[2016-10-18] MEDS: buPROPion 300 mg/24 Hours XL Tab PO SCH (10:11)
[2016-10-18 11:34] LABS: ADD MANUAL DIFF? NO
[2016-10-18 11:41] LABS: BASO # 0.03 K/mm3 (0.0-2.0); BASO % 0.6 % (0.0-3.0); EOS # 0.6 (0.0-0.7); GRAN # 2.47 (1.4-6.5); GRAN % 52.8 % (50.0-68.0); LYMPH # 1.3 (1.2-3.4); LYMPH % 28.2 % (22.0-35.0); MEAN CELL VOLUME 85.7 fL (80.0-105.0); MEAN CORPUSCULAR HEMOGLOBIN 28.3 pg (25.0-35.0); MEAN PLATELET VOLUME 9.8 fl (7.0-11.0); MONO # 0.3 (0.1-0.6); MONO % 6.4 % (1.0-6.0); PLATELET COUNT 142 10^3/uL (120.0-450.0); RED CELL DISTRIBUTION WIDTH 13.8 % (11.5-14.5); WHITE BLOOD COUNT 4.7 10^3/ul (4.5-11.0)
--- NOTE | 2016-10-18 16:33 | PN ---
DATE: 10/18/2016 Shortly, patient is a 66-year-old male. Multiple medical issues, history of bipolar disord er. The patient was admitted on the medical side for weakness. Psych consult was called for evaluat ion of mood symptoms. As per this chart writer's evaluation, mood symptoms are related to the medical issu es. The patient has paraplegia, has severe decubiti ulcers. The patient was resumed on the medicati ons. MEDICATIONS: Reviewed. VITAL SIGNS: Reviewed, seem to be stable. MENTAL STATUS EXAMINATION: The patient presented to be alert and oriented, pleasant, cooperative. I ntermittent eye contact. Speech was underproductive. Mood described "I'm always depressed." Though t process was coherent and goal directed. Thought content: The patient denied visual, auditory, or tactile hallucinations. Denied paranoid ideation. The patient denied thoughts of harming himself or others. Denied intent or plan. IMPRESSION: As per history, patient has bipolar disorder. The patient also has mood disorder due to general medical condition. The patient has multiple medical issues including paraplegia. Also, asha abdalla has severe decubiti. The patient is on intravenous antibiotic. The patient also has colostomy and indwelling catheter, neurogenic bladder and many more. Please see medical team notes for more de tailed information. PLAN: Continue current management. Continue current medications. The patient is on Xanax 0.5 mg 3 times a day and at the nighttime as needed. The patient is on Wellbutrin 300 mg daily. The patient is on Neurontin 800 mg 3 times a day. The patient also is on trazodone 50 mg at the nighttime and Ge odon 80 mg at the nighttime scheduled. The patient needs to continue on those medications. This i ter will follow up on this patient every other day. Should you have any questions, give me a call nicole montoya. Ilana Scott MD cc: [phone] TT: 10/18/2016 16:32:28 Confirmation # [id number] Dictation # [id number] sn
[2016-10-18] MEDS ORDERED: HYDROmorphone 0.5 mg/0.5 ml ISec IVP STA (17:46)
[2016-10-18 18:51] VITALS: PULSE 76
--- NOTE | 2016-10-18 19:37 | CP.PCM.PN ---
Subjective - Date & Time of Evaluation Date of Evaluation: 10/18/16 Time of Evaluation: 10:45 - Subjective Subjective: Comfortable, afebrile. Objective - Vital Signs/Intake and Output Vital Signs (last 24 hours): Temp Pulse Resp BP Pulse Ox 98.1 F 76 18 158/77 H 96 10/18/16 07:30 10/18/16 18:39 10/18/16 07:30 10/18/16 18:39 10/18/16 07:30 Intake and Output: 10/18/16 10/19/16 18:59 06:59 Intake Total 800 Output Total 700 Balance 100 - Medications Medications: Current Medications Alprazolam (Xanax) 0.5 mg PO HS [facility] PRN Reason: Protocol Last Admin: 10/17/16 21:40 Dose: 0.5 mg Alprazolam (Xanax) 0.5 mg PO TID PRN PRN Reason: Anxiety Last Admin: 10/15/16 09:01 Dose: 0.5 mg Ascorbic Acid (Vitamin C 500 Mg Tab) 500 mg PO BID [facility] Last Admin: 10/18/16 18:39 Dose: 500 mg Aspirin (Ecotrin) 325 mg PO DAILY [facility] Last Admin: 10/18/16 10:10 Dose: 325 mg Bupropion HCl (Wellbutrin Xl) 300 mg PO DAILY [facility] Last Admin: 10/18/16 10:11 Dose: 300 mg Carvedilol (Coreg) 6.25 mg PO BID [facility] Last Admin: 10/18/16 18:39 Dose: 6.25 mg Cyanocobalamin (Vitamin B12 1000 Mcg/Ml Inj) 1,000 mcg SC Q30D [facility] Docusate Sodium (Colace) 100 mg PO BID [facility] Last Admin: 10/18/16 18:37 Dose: 100 mg Ergocalciferol (Drisdol 50,000 Intl Units Cap) 1 cap PO SAT [facility] Last Admin: 10/16/16 12:20 Dose: 1 cap Fentanyl (Duragesic) 1 patch TD Q72H [facility] Last Admin: 10/18/16 18:44 Dose: 1 patch Ferrous Sulfate (Feosol Liq) 300 mg PO 0800,1200,1700 [facility] Last Admin: 10/18/16 16:45 Dose: 300 mg Gabapentin (Neurontin) 800 mg PO TID [facility] PRN Reason: Protocol Last Admin: 10/18/16 18:38 Dose: 800 mg Hydromorphone HCl (Dilaudid) 1 mg IVP Q4H PRN PRN Reason: Pain, moderate (4-7) Last Admin: 10/18/16 14:55 Dose: 1 mg Meropenem 1 gm/ Sodium (Chloride) 100 mls @ 100 mls/hr IVPB Q8 [facility] Last Admin: 10/18/16 14:08 Dose: 100 mls/hr Insulin Human Regular (Humulin R Med) 0 units SC ACHS [facility] PRN Reason: Protocol Last Admin: 10/18/16 16:41 Dose: Not Given Lisinopril (Zestril) 5 mg PO QAM [facility] Last Admin: 10/18/16 10:08 Dose: 5 mg Multivitamins/Minerals (Therapeutic-M Tab) 1 tab PO DAILY [facility] Last Admin: 10/18/16 10:08 Dose: 1 tab Pantoprazole Sodium (Protonix Ec Tab) 40 mg PO ACBD [facility] Last Admin: 10/18/16 16:45 Dose: 40 mg Trazodone HCl (Desyrel) 50 mg PO HS PRN PRN Reason: Insomnia Last Admin: 10/15/16 21:32 Dose: 50 mg Zinc Sulfate (Zinc Sulfate 220 Mg Cap) 220 mg PO DAILY [facility] Last Admin: 10/18/16 10:10 Dose: 220 mg Ziprasidone (Geodon Cap) 80 mg PO HS [facility] Last Admin: 10/17/16 21:39 Dose: 80 mg - Labs Labs: 10/18/16 11:30 10/16/16 05:44 PT 12.1 Seconds (9.9-11.8) H 10/13/16 20:13 INR 1.12 (0.93-1.08) H 10/13/16 20:13 APTT 31.0 Seconds (23.7-30.8) H 10/13/16 20:13 - Constitutional Appears: Non-toxic, No Acute Distress - Head Exam Head Exam: NORMAL INSPECTION - Respiratory Exam Respiratory Exam: Decreased Breath Sounds - Cardiovascular Exam Cardiovascular Exam: +S1, +S2 - GI/Abdominal Exam GI & Abdominal Exam: Soft. absent: Tenderness Assessment and Plan - Assessment and Plan (Free Text) Plan: Assessment Sacral decubitus ulcers previously growing E. faecalis, E. coli and P. mirabilis - probable osteomyelitis since it is a stage 4 ulcer history of E. faecalis bacteremia and ESBL E. coli UTI Decubitus ulcers on the sacral and hip areas S/P debridemen; the ulcer was deep and probably stage 4; there was note of ESBL producing organism and MRSA from the LTAC wound cx S/P treatment with antibiotics S/P post-cholecystostomy (for acute cholecystitis) probably due to abscess in the RUQ area S/P CT-guided drainage - surgical site with some drainage ( possible abscess/skin and skin strucutre infection), with clinical improvement DM HTN Morbid obesity with BMI 43 coronary artery disease history of paraplegia from cauda equina syndrome neurogenic bladder Plan continue Meropenem to complete the 4-6 week course of therapy; patient can be switched again to IV ertapenem as an outpatient when discharged
[2016-10-18 20:08] VITALS: RESP 20; TEMP 98.2; O2SAT 95
[2016-10-19] MEDS: HYDROmorphone 1 mg/ml ISec IVP PRN (02:25)
[2016-10-19] MEDS: Meropenem 1 GM in Sodium Chloride 0.9% 100 ML IVPB SCH (05:57)
[2016-10-19] MEDS ORDERED: HYDROmorphone 1 mg/ml ISec IVP PRN (08:22)
--- NOTE | 2016-10-19 09:00 | PN ---
DATE: 10/19/2016 SUBJECTIVE: The patient's repeat CBC showed hemoglobin up to 9.9. PHYSICAL EXAMINATION: VITAL SIGNS: He is afebrile, vital signs are stable. Blood pressure is 158/77. The patient is tole rating his diet well. LABORATORY DATA: His white count is normal at 4.7. The patient will be discharged home today to continue IV antibiotics at home ____ until 10/29. The patient has his wound VAC in place. His colostomy is functioning. His Gomez catheter is functio roopa. He is awake and oriented x 3. He is refusing for psych: He was cleared by psych. He is not suicidal. The patient will be discharged home on IV antibiotics and follow as an outpatient. Rayshawn Lorenzana MD cc: [phone] TT: 10/19/2016 08:59:14 Confirmation # [id number] Dictation # [id number] tn
[2016-10-19] MEDS: Pantoprazole 40 mg EC Tab PO SCH ×2 (09:54→17:09)
[2016-10-19] MEDS: Ferrous Sulfate 300 mg/5 mL Liq UD PO SCH ×3 (09:54→17:08)
[2016-10-19] MEDS: buPROPion 300 mg/24 Hours XL Tab PO SCH (09:54)
[2016-10-19] MEDS: Multivitamin With Minerals Tab PO SCH (09:54)
[2016-10-19] MEDS: Aspirin 325 mg EC Tablets PO SCH (09:54)
[2016-10-19] MEDS: Insulin Reg-MEDIUM-Coverage SC SCH ×3 (09:56→16:35)
[2016-10-19] MEDS ORDERED: Meropenem 1g/NS 100mL IVPB 1 GM/100 ML PIGGYBACK IVPB SCH (14:00)
[2016-10-19] MEDS ORDERED: HYDROmorphone 0.5 mg/0.5 ml ISec IVP ONE (16:00)
[2016-10-19 17:13] VITALS: BP 130/64
--- NOTE | 2016-10-20 11:23 | DS ---
A 66-year-old white male has a sacral decubitus with wound VAC, on IV antibiotics, colostomy, Gomez c atheter, paraplegia, insulin-dependent diabetes mellitus, depression, coronary artery disease, hypert ension. The patient received IV antibiotics in the hospital. He was seen by psychiatry. The patien t was found not to be suicidal. He was restarted on his IV antibiotics. He had wound care done by Brenda Méndez and his wound VAC was reattached. The patient was sent home to complete his final course of antibiotics until 10/29/2016. He will be followed as an outpatient for his wound/his open sacral decubitus which is healing and decreasing in size, and also will be followed for depression by [facility]. FINAL DISCHARGE DIAGNOSES: Sacral decubitus, completing course of intravenous antibiotics; insulin-d ependent diabetes mellitus, severe depression, anxiety, paraplegia, hypertension and coronary artery disease. Rayshawn Lorenzana MD cc: [id number] TT: 10/20/2016 11:22:14 sherin
== END 2016-10-19 18:05 | disposition home or self-care (01) | DRG 592 ==
LOC: ED 19:54 → ERH 22:31 → 5RSO 10-14 02:28
PROVIDERS: ADMIT Internal Medicine; ATTEND Internal Medicine
DX: L89.154 Pressure ulcer of sacral region, stage 4 (principal); G82.20 Paraplegia, unspecified; G83.4 Cauda equina syndrome; E11.40 Type 2 diabetes mellitus with diabetic neuropathy, unspecified; M46.28 Osteomyelitis of vertebra, sacral and sacrococcygeal region; G81.90 Hemiplegia, unspecified affecting unspecified side; Z68.41 Body mass index [BMI] 40.0-44.9, adult; I10 Essential (primary) hypertension; F31.9 Bipolar disorder, unspecified; F41.9 Anxiety disorder, unspecified; I25.10 Atherosclerotic heart disease of native coronary artery without angina pectoris; E78.5 Hyperlipidemia, unspecified; E66.01 Morbid (severe) obesity due to excess calories; E55.9 Vitamin D deficiency, unspecified; D64.9 Anemia, unspecified; F06.30 Mood disorder due to known physiological condition, unspecified; Z79.4 Long term (current) use of insulin; Z93.3 Colostomy status; Z95.5 Presence of coronary angioplasty implant and graft

== ENCOUNTER 2016-12-03 12:52 | Inpatient (IN) | payer MEDICARE, OTHER ==
[2016-12-03 12:52] VITALS: BMI 32.7
[2016-12-03] MEDS ORDERED: Morphine 4 mg/ml ISec IVP STA ×2 (13:38→16:29)
[2016-12-03 13:55] LABS: BASO # 0.04 K/mm3 (0.0-2.0); BASO % 0.6 % (0.0-3.0); EOS % 0.6 % (1.5-5.0); GRAN # 3.89 (1.4-6.5); GRAN % 63.1 % (50.0-68.0); HEMOGLOBIN 10.4 gm/dL (14.0-18.0); LYMPH # 1.8 (1.2-3.4); LYMPH % 29.2 % (22.0-35.0); MEAN CELL VOLUME 87.2 fL (80.0-105.0); MEAN CORPUSCULAR HEMOGLOBIN 28.3 pg (25.0-35.0); MEAN CORPUSCULAR HGB CONC 32.4 g/dl (31.0-37.0); MEAN PLATELET VOLUME 10.9 fl (7.0-11.0); MONO # 0.4 (0.1-0.6); MONO % 6.5 % (1.0-6.0); PLATELET COUNT 167 10^3/uL (120.0-450.0); RBC 3.68 10^6/uL (3.5-6.1); RED CELL DISTRIBUTION WIDTH 15.3 % (11.5-14.5); WHITE BLOOD COUNT 6.2 10^3/ul (4.5-11.0)
--- NOTE | 2016-12-03 14:05 | ED PDOC ---
Arrival/HPI - General Chief Complaint: Flu-like Symptoms Time Seen by Provider: 12/03/16 13:02 Historian: Patient - History of Present Illness Narrative History of Present Illness (Text): 12/03/16 13:34 Leonard Monzon is a 66 year old male, whose past medical history includes paraplegia s/p colostomy and neurogenic bladder with chronic burgos, hypertension , and diabetes, who presents to the emergency department complaining of shortness of breath and vomiting for the past two weeks. Patient denies any chest pain, headache, fever, chills, abdominal pain or other complaints. PMD: Dr. Lorenzana 12/03/16 16:53 Time/Duration: > week (2 weeks) Symptom Course: Intermittent Modifying Factors (Text): None Associated Symptoms (Text): Vomiting and constipation Past Medical History - Provider Review Nursing Documentation Reviewed: Yes - Past History Past History: Non-Contributing - Infectious Disease Hx of Infectious Diseases: MRSA - Tetanus Immunization Tetanus Immunization: Unknown - Cardiac Hx Cardiac Disorders: Yes Hx Angina: No Hx Cardiac Arrhythmia: No Hx Circulatory Problems: No Hx Congestive Heart Failure: No Hx Heart Murmur: No Hx Heart Transplant: No Hx Hypertension: Yes Hx Internal Defibrillator: No Hx Mitral Valve Prolapse: No Hx Pacemaker: No Hx Peripheral Edema: No Hx Peripheral Vascular Disease: No Other/Comment: PICC LINE L ARM - Pulmonary Hx Respiratory Disorders: Yes Hx Pneumonia: Yes - Neurological Hx Neurological Disorder: Yes Hx Transient Ischemic Attacks (TIA): Yes - HEENT Hx Blind: Yes (right) Hx Deafness: Yes (hard of hearing) - Renal Hx Renal Disorder: No - Endocrine/Metabolic Hx Endocrine Disorders: Yes Hx Diabetes Mellitus Type 2: Yes (uncontrolled) - Hematological/Oncological Hx Blood Transfusions: No Hx Blood Transfusion Reaction: No - Integumentary Hx Dermatological Disorder: Yes Other/Comment: decub ulcer to R buttocks, MRSA - Musculoskeletal/Rheumatological Hx Musculoskeletal Disorders: Yes (paraplegia) Hx Arthritis: Yes Hx Back Pain: Yes Hx Falls: Yes Hx Herniated Disk: Yes Hx Spinal Stenosis: Yes Hx Unsteady Gait: Yes (uses w/ch) Other/Comment: left hand weakness, paralyzed from waist down - Gastrointestinal Hx Gastrointestinal Disorders: Yes Hx Colostomy: Yes - Genitourinary/Gynecological Hx Genitourinary Disorders: Yes (neurogenic bladder) Other/Comment: self cath. - Psychiatric Hx Psychophysiologic Disorder: Yes Hx Anxiety: Yes Hx Depression: Yes Hx Emotional Abuse: No Hx Physical Abuse: No Hx Substance Use: No - Surgical History Hx Cardiac Catheterization: Yes Hx Coronary Stent: Yes (x5) Hx Orthopedic Surgery: Yes (SPINAL SURGERY) Other/Comment: colostomy placement, PICC placed in L arm - Anesthesia Hx Anesthesia: Yes Hx Anesthesia Reactions: No Hx Malignant Hyperthermia: No - Suicidal Assessment Feels Threatened In Home Enviroment: No Family/Social History - Physician Review Nursing Documentation Reviewed: Yes Family/Social History: Unknown Family HX Smoking Status: Never Smoked Hx Alcohol Use: No Hx Substance Use: No Hx Substance Use Treatment: No Allergies/Home Meds Allergies/Adverse Reactions: Allergies ciprofloxacin Allergy (Verified 10/13/16 20:10) RASH Penicillins Allergy (Verified 10/13/16 20:10) RASH Home Medications: Home Meds Medication Instructions Recorded Confirmed Ascorbic Acid [Vitamin C 500 mg 500 mg PO BID 05/15/15 12/03/16 Tab] Cyanocobalamin (Vitamin B-12) 1,000 mcg IJ Q30D 05/15/15 12/03/16 [Cyanocobalamin Injection] Ergocalciferol (Vitamin D2) 50,000 iu PO SAT 05/15/15 12/03/16 [Vitamin D2] Ziprasidone HCl [Geodon] 80 mg PO HS 06/26/15 12/03/16 Alprazolam 0.5 mg PO HS 07/25/15 12/03/16 Aspirin [Ecotrin] 325 mg PO DAILY 07/25/15 12/03/16 buPROPion XL [Wellbutrin XL] 300 mg PO DAILY 07/25/15 12/03/16 Acetaminophen/Oxycodone Hydr 1 tab PO TID PRN 01/22/16 12/03/16 [Percocet 10/325 mg Tab] Review of Systems - Review of Systems Constitutional: absent: Fevers Eyes: absent: Vision Changes ENT: absent: Hearing Changes, Rhinorrhea Respiratory: SOB. absent: Cough Cardiovascular: absent: Chest Pain Gastrointestinal: Constipation, Nausea, Vomiting. absent: Abdominal Pain Genitourinary Male: absent: Dysuria, Frequency Musculoskeletal: absent: Back Pain, Neck Pain Skin: absent: Rash Neurological: absent: Headache, Focal Weakness, Speech Changes Endocrine: absent: Diaphoresis Psychiatric: absent: Depression Physical Exam Vital Signs Reviewed: Yes Vital Signs Temp Pulse Resp BP Pulse Ox 12/03/16 16:41 148/74 12/03/16 16:39 85 16 148/74 98 12/03/16 15:00 81 16 148/65 97 12/03/16 13:05 98.0 F 82 18 160/76 H 98 12/03/16 12:58 86 20 160/76 H 99 Temperature: Afebrile Blood Pressure: Hypertensive Pulse: Regular Respiratory Rate: Normal Appearance: Positive for: Well-Appearing, Non-Toxic Pain Distress: None Mental Status: Positive for: Alert and Oriented X 3 Finger Stick Blood Glucose: 78 - Systems Exam Head: Present: Atraumatic, Normocephalic Pupils: Present: PERRL Extroacular Muscles: Present: EOMI Conjunctiva: Present: Normal Mouth: Present: Moist Mucous Membranes Neck: Present: Normal Range of Motion Respiratory/Chest: Present: Clear to Auscultation, Good Air Exchange. No: Respiratory Distress, Accessory Muscle Use Cardiovascular: Present: Regular Rate and Rhythm, Normal S1, S2. No: Murmurs Abdomen: Present: Normal Bowel Sounds, Other (pink stoma with stool output). No : Tenderness, Distention, Peritoneal Signs Upper Extremity: Present: Normal Inspection. No: Cyanosis, Edema Neurological: Present: GCS=15, CN II-XII Intact, Speech Normal Skin: Present: Pale. No: Rashes Psychiatric: Present: Alert, Oriented x 3, Normal Insight, Normal Concentration Medical Decision Making ED Course and Treatment: 12/03/16 13:34 Impression: 66 year old male with shortness of breath and vomiting. Plan: -- EKG -- Chest X-ray -- Urinalysis -- Labs -- Morphine -- Zofran -- Reassess and disposition Prior Visits: Notes and results from previous visits were reviewed. On 10/13/2016 patient came in complaining of weakness and shortness of breath. Patient was diagnosed with weakness, depression. Progress Notes: 12/03/16 16:54 EKG shows NSR at 82bpm with non-specific ST changes. Cxray negative. Trop x 1 negative. BNP elevated. Patient is now tolerating po. Presentation concerning for chf exacerbation. Lasix ordered and cardiology consult placed. Spoke to Dr. Lorenzana who agrees with tele observation - Lab Interpretations Lab Results: 12/03/16 13:24 12/03/16 15:25 Lab Results 12/03/16 15:25: Sodium 139, Potassium 4.0, Chloride 103, Carbon Dioxide 29, Anion Gap 11, BUN 23 H, Creatinine 1.3, Est GFR ( Amer) > 60, Est GFR ( Non-Af Amer) 55, Random Glucose 71, Calcium 8.6, Phosphorus 2.8, Magnesium 1.7, Total Bilirubin 0.7, AST 25, ALT 20, Alkaline Phosphatase 85, Total Creatine Kinase 115, Troponin I < 0.01, NT-Pro-B Natriuret Pep 56003 H, Total Protein 6.1 , Albumin 3.2, Globulin 3.0, Albumin/Globulin Ratio 1.1, Lipase < 10 L 12/03/16 14:00: Urine Color Yellow, Urine Appearance Cloudy, Urine pH 7.0, Ur Specific [place] 1.025, Urine Protein 100 H, Urine Glucose (UA) Negative, Urine Ketones Trace H, Urine Blood Large H, Urine Nitrate Positive H, Urine Bilirubin Negative, Urine Urobilinogen 1.0 H, Ur Leukocyte Esterase Small H, Urine RBC Tntc, Urine WBC 1 - 3, Ur Epithelial Cells 0 - 2, Urine Bacteria Many, Urine Other Uyeast 12/03/16 13:34: POC Glucose (mg/dL) 78 12/03/16 13:24: WBC 6.2 D, RBC 3.68, Hgb 10.4 L, Hct 32.1 L, MCV 87.2, MCH 28.3 , MCHC 32.4, RDW 15.3 H, Plt Count 167, MPV 10.9, Gran % 63.1, Lymph % (Auto) 29.2, [place] % (Auto) 6.5 H, Eos % (Auto) 0.6 L, Baso % (Auto) 0.6, Gran # 3.89, Lymph # 1.8, [place] # 0.4, Eos # 0.0, Baso # 0.04 - RAD Interpretation Radiology Orders: 12/03/16 13:31 CHEST PORTABLE [RAD] Stat - Medication Orders Current Medication Orders: Discontinued Medications Furosemide (Lasix) 40 mg IVP STAT STA Stop: 12/03/16 16:30 Last Admin: 12/03/16 16:41 Dose: 40 mg Morphine Sulfate (Morphine) 4 mg IVP STAT STA Stop: 12/03/16 13:39 Last Admin: 12/03/16 14:06 Dose: 4 mg Morphine Sulfate (Morphine) 4 mg IVP STAT STA Stop: 12/03/16 16:30 Last Admin: 12/03/16 16:41 Dose: 4 mg Ondansetron HCl (Zofran Inj) 4 mg IVP STAT STA Stop: 12/03/16 13:39 Last Admin: 12/03/16 14:07 Dose: 4 mg - Scribe Statement The provider has reviewed the documentation as recorded by the Scribe 12/03/16 Violet Manjarrez training with Humberto Gold All medical record entries made by the Scribe were at my direction and personally dictated by me. I have reviewed the chart and agree that the record accurately reflects my personal performance of the history, physical exam, medical decision making, and the department course for this patient. I have also personally directed, reviewed, and agree with the discharge instructions and disposition. Disposition/Present on Arrival - Present on Arrival Any Indicators Present on Arrival: No History of DVT/PE: No History of Uncontrolled Diabetes: Yes Urinary Catheter: Yes History of Decub. Ulcer: No History Surgical Site Infection Following: None - Disposition Have Diagnosis and Disposition been Completed?: Yes Diagnosis: Congestive heart failure Disposition: HOSPITALIZED Disposition Time: 16:55 Patient Plan: Observation Patient Problems: Current Active Problems Problem Status Onset Congestive heart failure Acute Condition: FAIR Discharge Instructions (ExitCare): Heart Failure (ED) Referrals: Rayshawn Lorenzana MD [Primary Care Provider] - Follow up with primary
[2016-12-03 14:17] LABS: URINE BILIRUBIN NEGATIVE (NEGATIVE); URINE BLOOD LARGE (NEGATIVE); URINE GLUCOSE (UA) NEGATIVE (NEGATIVE); URINE LEUKOCYTE ESTERASE SMALL Leu/uL (NEGATIVE); URINE NITRATE POSITIVE (NEGATIVE); URINE PROTEIN 100 mg/dL (<30 mg/dL)
[2016-12-03 14:20] LABS: URINE APPEARANCE CLOUDY (CLEAR); URINE COLOR YELLOW (YELLOW)
[2016-12-03 14:22] LABS: URINE RBC TNTC /hpf (0-2)
[2016-12-03 14:23] LABS: URINE BACTERIA MANY (NEG)
[2016-12-03 14:25] LABS: URINE EPITHELIAL CELLS 0 - 2 /hpf (0-5)
--- NOTE | 2016-12-03 14:56 | RAD ---
HISTORY: weakness COMPARISON: 10/13/2016 FINDINGS: LUNGS: No active pulmonary disease. PLEURA: No significant pleural effusion identified, no pneumothorax apparent. CARDIOVASCULAR: Normal. OSSEOUS STRUCTURES: No significant abnormalities. VISUALIZED UPPER ABDOMEN: Normal. OTHER FINDINGS: None. IMPRESSION: No active disease.
[2016-12-03 15:48] LABS: ALB/GLOB RATIO 1.1 (1.1-1.8); ALBUMIN 3.2 g/dL (3.0-4.8); ALT/SGPT 20 U/L (7-56); AST/SGOT 25 U/L (15-59); BLOOD UREA NITROGEN 23 mg/dL (7-21); CALCIUM 8.6 mg/dL (8.4-10.5); GFR AFRICAN-AMERICAN > 60; GFR NON-AFRICAN AMERICAN 55; LIPASE < 10 U/L (23-300); MAGNESIUM 1.7 mg/dL (1.7-2.2)
[2016-12-03 15:59] LABS: B-TYPE NATRIURETIC PEPTIDE 14200 pg/mL (0-450)
[2016-12-03 16:03] LABS: TROPONIN I < 0.01 ng/mL
[2016-12-03] MEDS: oxyCODONE 20 mg ER Tab (oxyCONTIN) PO SCH (21:14)
[2016-12-03] MEDS: Insulin Reg-MEDIUM-Coverage SC SCH (21:20)
[2016-12-03] MEDS ORDERED: Sodium Chloride 0.9% 250 ML IV STA (23:08)
--- NOTE | 2016-12-03 23:18 | CP.PCM.PN ---
Subjective - Date & Time of Evaluation Date of Evaluation: 12/03/16 Time of Evaluation: 23:10 - Subjective Subjective: Nurse call for this patient who is asymptomatic, 74/43, 82 , 98.5*F. Patient was seen at bedside. Has no complaints. Denies chest pain, sob, nausea, sweating ,palpitation. States that he had been vomiting a lot in past 2 weeks. 66 year old woman admitted with sob, vomiting of 2 weak duration. Paraplegia,colostomy,neurogenic bladder with chronic burgos ,HTN,DM,MRSA, herniated disc, spinal stenosis,anxiety,depression. Objective - Vital Signs/Intake and Output Vital Signs (last 24 hours): Temp Pulse Resp BP Pulse Ox 98.5 F 79 18 134/65 93 L 12/03/16 19:31 12/03/16 19:31 12/03/16 19:31 12/03/16 19:31 12/03/16 18:51 Intake and Output: 12/03/16 12/04/16 18:59 06:59 Intake Total 540 Output Total 2000 Balance -1460 - Medications Medications: Current Medications Alprazolam (Xanax) 0.5 mg PO HS [facility] PRN Reason: Protocol Last Admin: 12/03/16 21:16 Dose: 0.5 mg Ascorbic Acid (Vitamin C 500 Mg Tab) 500 mg PO BID [facility] Aspirin (Ecotrin) 325 mg PO DAILY [facility] Bumetanide (Bumex) 1 mg PO DAILY [facility] Bupropion HCl (Wellbutrin Xl) 300 mg PO DAILY [facility] Carvedilol (Coreg) 6.25 mg PO BID [facility] Cyanocobalamin (Vitamin B12 1000 Mcg/Ml Inj) 1,000 mcg IM Q30D [facility] Ergocalciferol (Drisdol 50,000 Intl Units Cap) 1 cap PO SAT [facility] Fentanyl (Duragesic) 1 patch TD Q72H [facility] Ferrous Sulfate (Feosol Liq) 300 mg PO 0800,1200,1700 [facility] Gabapentin (Neurontin) 800 mg PO TID [facility] PRN Reason: Protocol Sodium Chloride (Sodium Chloride 0.9%) 250 mls @ 500 mls/hr IV .Q30M STA Stop: 12/03/16 23:37 Insulin Human Regular (Humulin R Med) 0 units SC ACHS [facility] PRN Reason: Protocol Last Admin: 07/07/17 21:20 Dose: Not Given Lisinopril (Zestril) 10 mg PO DAILY [facility] Multivitamins/Minerals (Therapeutic-M Tab) 1 tab PO DAILY [facility] Oxycodone HCl (Oxycontin Extended Release Tab) 20 mg PO Q12 [facility] Last Admin: 12/03/16 21:14 Dose: 20 mg Pantoprazole Sodium (Protonix Ec Tab) 40 mg PO ACBD [facility] Trazodone HCl (Desyrel) 50 mg PO HS [facility] Last Admin: 12/03/16 21:16 Dose: 50 mg Zinc Sulfate (Zinc Sulfate 220 Mg Cap) 220 mg PO DAILY [facility] Ziprasidone (Geodon Cap) 80 mg PO HS [facility] Last Admin: 12/03/16 21:16 Dose: 80 mg - Constitutional Appears: Well, No Acute Distress - Head Exam Head Exam: ATRAUMATIC, NORMAL INSPECTION, NORMOCEPHALIC - Eye Exam Eye Exam: Normal appearance - ENT Exam ENT Exam: Mucous Membranes Dry - Neck Exam Neck Exam: Normal Inspection - Respiratory Exam Respiratory Exam: NORMAL BREATHING PATTERN - Cardiovascular Exam Cardiovascular Exam: absent: JVD - GI/Abdominal Exam GI & Abdominal Exam: absent: Distended - Rectal Exam Rectal Exam: Deferred - Exam Additional comments: Above deferred. - Extremities Exam Extremities Exam: Normal Inspection - Back Exam Back Exam: NORMAL INSPECTION - Neurological Exam Neurological Exam: Alert, Oriented x3 - Psychiatric Exam Psychiatric exam: Normal Affect, Normal Mood - Skin Skin Exam: Dry Assessment and Plan - Assessment and Plan (Free Text) Assessment: Hypotension. Dehydration. HTN. DM. Herniated disc. History MRSA. Neurogenic bladder. Chronic [place]. Paraplegia. Plan: Normal saline bolus as ordered.----------> BP 110/64 after bolus was completed. CBC,CMP,ABG with lactate, serial EKG,troponin. EKG-----> NSR, No acute changes. H & H have dropped. Will get AM CBC.
[2016-12-03 23:21] LABS: BASO # 0.03 K/mm3 (0.0-2.0); BASO % 0.6 % (0.0-3.0); EOS # 0.1 (0.0-0.7); GRAN # 2.81 (1.4-6.5); GRAN % 57.8 % (50.0-68.0); HEMOGLOBIN 8.5 gm/dL (14.0-18.0); LYMPH # 1.6 (1.2-3.4); LYMPH % 32.4 % (22.0-35.0); MEAN CELL VOLUME 87.1 fL (80.0-105.0); MEAN CORPUSCULAR HEMOGLOBIN 28.1 pg (25.0-35.0); MEAN CORPUSCULAR HGB CONC 32.2 g/dl (31.0-37.0); MEAN PLATELET VOLUME 9.2 fl (7.0-11.0); MONO # 0.4 (0.1-0.6); MONO % 8.2 % (1.0-6.0); PLATELET COUNT 109 10^3/uL (120.0-450.0); RBC 3.03 10^6/uL (3.5-6.1); RED CELL DISTRIBUTION WIDTH 15.3 % (11.5-14.5); WHITE BLOOD COUNT 4.9 10^3/ul (4.5-11.0)
[2016-12-03 23:32] LABS: ALBUMIN 2.7 g/dL (3.0-4.8); ALT/SGPT 19 U/L (7-56); AST/SGOT 21 U/L (15-59); BLOOD UREA NITROGEN 23 mg/dL (7-21); CALCIUM 8.1 mg/dL (8.4-10.5); GFR AFRICAN-AMERICAN > 60; GFR NON-AFRICAN AMERICAN 51
[2016-12-03 23:44] LABS: TROPONIN I 0.02 ng/mL
[2016-12-04 02:07] LABS: ARTERIAL BLOOD GAS HCO3 29.8 mmol/L (21-28); ARTERIAL BLOOD GAS O2 SAT 98.5 % (95-98); ARTERIAL BLOOD GAS PCO2 46 mm/Hg (35-45); ARTERIAL BLOOD GAS PH 7.42 (7.35-7.45); ARTERIAL BLOOD GAS TCO2 31.2 mmol.L (22-28)
[2016-12-04] MEDS: Insulin Reg-MEDIUM-Coverage SC SCH ×4 (07:55→22:32)
[2016-12-04] MEDS: Ferrous Sulfate 300 mg/5 mL Liq UD PO SCH ×5 (08:11→17:52)
[2016-12-04] MEDS: Pantoprazole 40 mg EC Tab PO SCH ×2 (08:11→17:49)
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
[2016-12-04] MEDS: Ergocalciferol 50,000 Intl Units Cap PO SCH (09:38)
[2016-12-04] MEDS: Aspirin 325 mg EC Tablets PO SCH (09:39)
[2016-12-04] MEDS: buPROPion 300 mg/24 Hours XL Tab PO SCH (09:39)
[2016-12-04] MEDS: oxyCODONE 20 mg ER Tab (oxyCONTIN) PO SCH ×2 (09:39→21:46)
[2016-12-04] MEDS: Multivitamin With Minerals Tab PO SCH (09:39)
--- NOTE | 2016-12-04 09:39 | CARD ---
APPROVED REPORT EKG Measurement Heart [id number] <Conclusion> Normal sinus rhythm NSSTW changes Prolonged QT No change
--- NOTE | 2016-12-04 10:01 | CARD ---
APPROVED REPORT EKG Measurement Heart [id number] <Conclusion> Normal sinus rhythm LAD PRWP NSSTW changes Prolonged QTc No change
--- NOTE | 2016-12-04 10:10 | CARD ---
APPROVED REPORT EKG Measurement Heart [id number] <Conclusion> Normal sinus rhythm Possible Left atrial enlargement Prolonged QT PRWP NSSTW changes No change
[2016-12-04 13:49] LABS: BASO # 0.02 K/mm3 (0.0-2.0); BASO % 0.5 % (0.0-3.0); EOS # 0.1 (0.0-0.7); EOS % 2.2 % (1.5-5.0); GRAN # 1.69 (1.4-6.5); GRAN % 41.5 % (50.0-68.0); LYMPH # 1.8 (1.2-3.4); LYMPH % 44.5 % (22.0-35.0); MEAN CELL VOLUME 89.4 fL (80.0-105.0); MEAN CORPUSCULAR HEMOGLOBIN 28.1 pg (25.0-35.0); MEAN CORPUSCULAR HGB CONC 31.5 g/dl (31.0-37.0); MEAN PLATELET VOLUME 11.1 fl (7.0-11.0); MONO # 0.5 (0.1-0.6); MONO % 11.3 % (1.0-6.0); PLATELET COUNT 116 10^3/uL (120.0-450.0); RED CELL DISTRIBUTION WIDTH 15.6 % (11.5-14.5); WHITE BLOOD COUNT 4.1 10^3/ul (4.5-11.0)
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
[2016-12-05] MEDS: Insulin Reg-MEDIUM-Coverage SC SCH ×4 (07:48→23:14)
--- NOTE | 2016-12-05 07:57 | CARD ---
APPROVED REPORT EXAM: Two-dimensional and M-mode echocardiogram with Doppler and color Doppler. Other Information Quality : AverageRhythm : INDICATION Dyspnea , H/O CAD/PCI 2D DIMENSIONS IVSd1.1 (0.7-1.1cm)LVDd5.2 (3.9-5.9cm) PWd1.0 (0.7-1.1cm)LVDs4.3 (2.5-4.0cm) FS (%) 17.0 %LVEF (%)35.0 (>50%) M-Mode DIMENSIONS Left Atrium (MM)4.00 (2.5-4.0cm)Aortic Root3.80 (2.2-3.7cm) Aortic Cusp Exc.2.30 (1.5-2.0cm) Aortic Valve AoV Peak Fvrskelx039.0cm/s Mitral Valve MV E Sbkcfhvh291.0cm/sMV A Gmitaqow78.1cm/sE/A ratio1.4 TDI Lateral E' Peak V9.26cm/sMedial E' Peak V4.00cm/sE/Lateral E'10.9 E/Medial E'25.3 Tricuspid Valve TR Peak [id number]/sRAP [id number] Peak Gr.43mmHg [id number] LEFT VENTRICLE The left ventricle is normal size. There is normal left ventricular wall thickness. Left ventricle systolic function is severely impaired. The Ejection Fraction is 30-35%. There is severe global hypokinesis. The apex appears akinetic. RIGHT VENTRICLE The right ventricle is normal size. ATRIA The left atrium size is normal. The right atrium size is normal. The interatrial septum is intact with no evidence for an atrial septal defect. AORTIC VALVE The aortic valve is normal in structure. MITRAL VALVE The mitral valve is normal in structure. Mitral regurgitation is trace. TRICUSPID VALVE The tricuspid valve is normal in structure. There is mild tricuspid regurgitation. There is moderate pulmonary hypertension. PULMONIC VALVE The pulmonic valve is not well visualized. GREAT VESSELS The aortic root is normal in size. PERICARDIAL EFFUSION There is no pericardial effusion. <Conclusion> The left ventricle is normal size. There is normal left ventricular wall thickness. Left ventricle systolic function is severely impaired. The Ejection Fraction is 30-35%. There is severe global hypokinesis. The apex appears akinetic. Mitral regurgitation is trace. There is mild tricuspid regurgitation. There is moderate pulmonary hypertension.
[2016-12-05] MEDS: Pantoprazole 40 mg EC Tab PO SCH ×2 (08:00→16:20)
[2016-12-05] MEDS: Potassium Chloride 20 mEq ER Tab PO SCH (08:00)
--- NOTE | 2016-12-05 08:19 | CP.PCM.PN ---
Subjective - Date & Time of Evaluation Date of Evaluation: 12/05/16 Time of Evaluation: 08:16 - Subjective Subjective: General Surgery PGY 1 for Dev Patient seen and examined beside this morning. No acute events overnight. Patient states he is feeling much better. Objective - Vital Signs/Intake and Output Vital Signs (last 24 hours): Temp Pulse Resp BP Pulse Ox 97.5 F L 69 19 117/65 95 12/05/16 06:00 12/05/16 06:00 12/05/16 06:00 12/05/16 06:00 12/05/16 06:00 Intake and Output: 12/05/16 12/05/16 06:59 18:59 Intake Total 0 Output Total 400 Balance -400 - Medications Medications: Current Medications Alprazolam (Xanax) 0.5 mg PO HS [facility] PRN Reason: Protocol Last Admin: 12/04/16 21:48 Dose: 0.5 mg Ascorbic Acid (Vitamin C 500 Mg Tab) 500 mg PO BID [facility] Last Admin: 12/04/16 17:49 Dose: 500 mg Aspirin (Ecotrin) 325 mg PO DAILY [facility] Last Admin: 12/04/16 09:39 Dose: 325 mg Bumetanide (Bumex) 1 mg PO DAILY [facility] Last Admin: 12/04/16 09:36 Dose: 1 mg Bupropion HCl (Wellbutrin Xl) 300 mg PO DAILY [facility] Last Admin: 12/04/16 09:39 Dose: 300 mg Carvedilol (Coreg) 6.25 mg PO BID [facility] Last Admin: 12/04/16 17:49 Dose: 6.25 mg Cyanocobalamin (Vitamin B12 1000 Mcg/Ml Inj) 1,000 mcg IM Q30D [facility] Ergocalciferol (Drisdol 50,000 Intl Units Cap) 1 cap PO SAT [facility] Last Admin: 12/04/16 09:38 Dose: 1 cap Fentanyl (Duragesic) 1 patch TD Q72H [facility] Last Admin: 12/04/16 12:34 Dose: 1 patch Ferrous Sulfate (Feosol Liq) 300 mg PO 0800,1200,1700 [facility] Last Admin: 12/04/16 17:52 Dose: Not Given Gabapentin (Neurontin) 800 mg PO TID [facility] PRN Reason: Protocol Last Admin: 12/04/16 17:50 Dose: 800 mg Hydromorphone HCl (Dilaudid) 2 mg PO QID [facility] Last Admin: 12/04/16 21:46 Dose: 2 mg Insulin Human Regular (Humulin R Med) 0 units SC ACHS [facility] PRN Reason: Protocol Last Admin: 12/05/16 07:48 Dose: Not Given Lisinopril (Zestril) 10 mg PO DAILY [facility] Multivitamins/Minerals (Therapeutic-M Tab) 1 tab PO DAILY [facility] Last Admin: 12/04/16 09:39 Dose: 1 tab Oxycodone HCl (Oxycontin Extended Release Tab) 20 mg PO Q12 [facility] Last Admin: 12/04/16 21:46 Dose: 20 mg Pantoprazole Sodium (Protonix Ec Tab) 40 mg PO ACBD [facility] Last Admin: 12/05/16 08:00 Dose: 40 mg Potassium Chloride (K-Dur 20 Meq Er Tab) 20 meq PO BRK [facility] Last Admin: 12/05/16 08:00 Dose: 20 meq Trazodone HCl (Desyrel) 50 mg PO HS [facility] Last Admin: 12/04/16 21:47 Dose: 50 mg Zinc Sulfate (Zinc Sulfate 220 Mg Cap) 220 mg PO DAILY [facility] Last Admin: 12/04/16 09:40 Dose: 220 mg Ziprasidone (Geodon Cap) 80 mg PO HS [facility] Last Admin: 12/04/16 21:45 Dose: 80 mg - Labs Labs: 12/04/16 13:40 12/03/16 23:18 - Head Exam Head Exam: ATRAUMATIC - ENT Exam ENT Exam: Mucous Membranes Moist - Respiratory Exam Respiratory Exam: NORMAL BREATHING PATTERN - Psychiatric Exam Psychiatric exam: Normal Affect, Normal Mood - Skin Skin Exam: Dry, Normal Color, Warm Assessment and Plan - Assessment and Plan (Free Text) Assessment: 66 year old M with improving stage IV sacral decubitus ulcer and stage III ischial ulcer. Plan: Continue wound vac for stage IV sacral decubitus ulcer Apply med honey to stage III ischial ulcer Amanuel Lebron PGY 1
[2016-12-05 08:20] LABS: BASO # 0.03 K/mm3 (0.0-2.0); BASO % 0.7 % (0.0-3.0); EOS # 0.2 (0.0-0.7); EOS % 4.1 % (1.5-5.0); HEMOGLOBIN 8.8 gm/dL (14.0-18.0); LYMPH % 44.9 % (22.0-35.0); MEAN CELL VOLUME 88.5 fL (80.0-105.0); MEAN CORPUSCULAR HEMOGLOBIN 27.3 pg (25.0-35.0); MEAN CORPUSCULAR HGB CONC 30.9 g/dl (31.0-37.0); MEAN PLATELET VOLUME 10.7 fl (7.0-11.0); MONO # 0.4 (0.1-0.6); MONO % 9.3 % (1.0-6.0); PLATELET COUNT 124 10^3/uL (120.0-450.0); RBC 3.22 10^6/uL (3.5-6.1); RED CELL DISTRIBUTION WIDTH 15.3 % (11.5-14.5); WHITE BLOOD COUNT 4.4 10^3/ul (4.5-11.0)
--- NOTE | 2016-12-05 08:32 | CARD ---
APPROVED REPORT EKG Measurement Heart [id number] ID [id number] <Conclusion> Normal sinus rhythm Prolonged QTc PRWP Q in 3 No change
[2016-12-05 08:38] LABS: BLOOD UREA NITROGEN 25 mg/dL (7-21); GFR AFRICAN-AMERICAN > 60; GFR NON-AFRICAN AMERICAN 51
[2016-12-05] MEDS: Ferrous Sulfate 300 mg/5 mL Liq UD PO SCH ×3 (08:43→16:08)
[2016-12-05] MEDS: Aspirin 325 mg EC Tablets PO SCH (09:37)
[2016-12-05] MEDS: buPROPion 300 mg/24 Hours XL Tab PO SCH (09:38)
[2016-12-05] MEDS: Multivitamin With Minerals Tab PO SCH (09:38)
[2016-12-05] MEDS: oxyCODONE 20 mg ER Tab (oxyCONTIN) PO SCH ×2 (09:38→21:32)
[2016-12-06] MEDS ORDERED: HYDROmorphone 0.5 mg/0.5 ml ISec IVP STA (02:11)
--- NOTE | 2016-12-06 02:11 | CP.PCM.PN ---
Subjective - Date & Time of Evaluation Date of Evaluation: 12/06/16 Time of Evaluation: 02:09 - Subjective Subjective: Patient was seen at bedside. He complains of pain in lower back where decubetus ulcer is. Has been on several analgesics. No pain medication is due now. Has no other complaints. BP 130/70. Pertinent medical record was reviewed. 66 year old man admitted with sob, vomiting of 2 weak duration. Has PMH of HTN, colostomy, neurogenic bladder with chronic burgos ,DM,MRSA, herniated disc, Paraplegia,spinal stenosis, anxiety,depression. Objective - Vital Signs/Intake and Output Vital Signs (last 24 hours): Temp Pulse Resp BP Pulse Ox 97.8 F 82 20 163/74 H 95 12/05/16 16:50 12/05/16 17:54 12/05/16 16:50 12/05/16 17:54 12/05/16 06:00 Intake and Output: 12/05/16 12/06/16 18:59 06:59 Intake Total 660 Output Total 1000 Balance -340 - Medications Medications: Current Medications Alprazolam (Xanax) 0.5 mg PO [facility] PRN Reason: Protocol Last Admin: 12/05/16 21:31 Dose: 0.5 mg Ascorbic Acid (Vitamin C 500 Mg Tab) 500 mg PO BID [facility] Last Admin: 12/05/16 17:54 Dose: 500 mg Aspirin (Ecotrin) 325 mg PO DAILY [facility] Last Admin: 12/05/16 09:37 Dose: 325 mg Bumetanide (Bumex) 1 mg PO DAILY [facility] Last Admin: 12/05/16 09:37 Dose: 1 mg Bupropion HCl (Wellbutrin Xl) 300 mg PO DAILY [facility] Last Admin: 12/05/16 09:38 Dose: 300 mg Carvedilol (Coreg) 6.25 mg PO BID [facility] Last Admin: 12/05/16 17:54 Dose: 6.25 mg Cyanocobalamin (Vitamin B12 1000 Mcg/Ml Inj) 1,000 mcg IM Q30D [facility] Ergocalciferol (Drisdol 50,000 Intl Units Cap) 1 cap PO SAT [facility] Last Admin: 12/04/16 09:38 Dose: 1 cap Fentanyl (Duragesic) 1 patch TD Q72H [facility] Last Admin: 12/04/16 12:34 Dose: 1 patch Ferrous Sulfate (Feosol Liq) 300 mg PO 0800,1200,1700 [facility] Last Admin: 12/05/16 16:08 Dose: Not Given Gabapentin (Neurontin) 800 mg PO TID [facility] PRN Reason: Protocol Last Admin: 12/05/16 18:02 Dose: 800 mg Hydromorphone HCl (Dilaudid) 2 mg PO QID [facility] Last Admin: 12/05/16 21:31 Dose: 2 mg Insulin Human Regular (Humulin R Med) 0 units SC ACHS [facility] PRN Reason: Protocol Last Admin: 12/05/16 23:14 Dose: Not Given Lisinopril (Zestril) 10 mg PO DAILY [facility] Last Admin: 12/05/16 10:00 Dose: Not Given Multivitamins/Minerals (Therapeutic-M Tab) 1 tab PO DAILY [facility] Last Admin: 12/05/16 09:38 Dose: 1 tab Oxycodone HCl (Oxycontin Extended Release Tab) 20 mg PO Q12 [facility] Last Admin: 12/05/16 21:32 Dose: 20 mg Pantoprazole Sodium (Protonix Ec Tab) 40 mg PO ACBD [facility] Last Admin: 12/05/16 16:20 Dose: 40 mg Potassium Chloride (K-Dur 20 Meq Er Tab) 20 meq PO BRK [facility] Last Admin: 12/05/16 08:00 Dose: 20 meq Trazodone HCl (Desyrel) 50 mg PO HS [facility] Last Admin: 12/05/16 21:31 Dose: 50 mg Zinc Sulfate (Zinc Sulfate 220 Mg Cap) 220 mg PO DAILY [facility] Last Admin: 12/05/16 09:37 Dose: 220 mg Ziprasidone (Geodon Cap) 80 mg PO HS [facility] Last Admin: 12/05/16 21:32 Dose: 80 mg - Labs Labs: 12/05/16 08:00 12/05/16 08:00 Laboratory Last Values WBC 4.4 10^3/ul (4.5-11.0) L 12/05/16 08:00 RBC 3.22 10^6/uL (3.5-6.1) L 12/05/16 08:00 Hgb 8.8 gm/dL (14.0-18.0) L 12/05/16 08:00 Hct 28.5 % (42.0-52.0) L 12/05/16 08:00 MCV 88.5 fL (80.0-105.0) 12/05/16 08:00 MCH 27.3 pg (25.0-35.0) 12/05/16 08:00 MCHC 30.9 g/dl (31.0-37.0) L 12/05/16 08:00 RDW 15.3 % (11.5-14.5) H 12/05/16 08:00 Plt Count 124 10^3/uL (120.0-450.0) 12/05/16 08:00 MPV 10.7 fl (7.0-11.0) 12/05/16 08:00 Gran % 41.0 % (50.0-68.0) L 12/05/16 08:00 Lymph % (Auto) 44.9 % (22.0-35.0) H 12/05/16 08:00 [place] % (Auto) 9.3 % (1.0-6.0) H 12/05/16 08:00 Eos % (Auto) 4.1 % (1.5-5.0) 12/05/16 08:00 Baso % (Auto) 0.7 % (0.0-3.0) 12/05/16 08:00 Gran # 1.80 (1.4-6.5) 12/05/16 08:00 Lymph # 2.0 (1.2-3.4) 12/05/16 08:00 [place] # 0.4 (0.1-0.6) 12/05/16 08:00 Eos # 0.2 (0.0-0.7) 12/05/16 08:00 Baso # 0.03 K/mm3 (0.0-2.0) 12/05/16 08:00 pCO2 46 mm/Hg (35-45) H 12/04/16 02:00 pO2 81.0 mm/Hg (80-100) 12/04/16 02:00 HCO3 29.8 mmol/L (21-28) H 12/04/16 02:00 ABG pH 7.42 (7.35-7.45) 12/04/16 02:00 ABG Total CO2 31.2 mmol.L (22-28) H 12/04/16 02:00 ABG O2 Saturation 98.5 % (95-98) H 12/04/16 02:00 ABG Base Excess 4.5 mmol/L (-2.0-3.0) H 12/04/16 02:00 ABG Potassium 3.5 mmol/L (3.6-5.2) L 12/04/16 02:00 Sodium 140.0 mmol/L (132-148) 12/04/16 02:00 Chloride 109.0 mmol/L (98-107) H 12/04/16 02:00 Glucose 91 mg/dl (75-110) 12/04/16 02:00 Lactate 0.8 mmol/L (0.7-2.1) 12/04/16 02:00 FiO2 21.0 % 12/04/16 02:00 Sodium 139 mmol/L (132-148) 12/05/16 08:00 Potassium 3.8 mmol/L (3.6-5.0) 12/05/16 08:00 Chloride 102 mmol/L (95-110) 12/05/16 08:00 Carbon Dioxide 30 mmol/L (21-33) 12/05/16 08:00 Anion Gap 11 (10-20) 12/05/16 08:00 BUN 25 mg/dL (7-21) H 12/05/16 08:00 Creatinine 1.4 mg/dL (0.5-1.4) 12/05/16 08:00 Est GFR ( Amer) > 60 12/05/16 08:00 Est GFR (Non-Af Amer) 51 12/05/16 08:00 POC Glucose (mg/dL) 113 mg/dL (65-110) H 12/05/16 21:20 Random Glucose 73 mg/dL (70-110) 12/05/16 08:00 Calcium 8.0 mg/dL (8.4-10.5) L 12/05/16 08:00 Phosphorus 2.8 mg/dL (2.5-4.5) 12/03/16 15:25 Magnesium 1.7 mg/dL (1.7-2.2) 12/03/16 15:25 Total Bilirubin 0.6 mg/dL (0.2-1.3) 12/03/16 23:18 AST 21 U/L (15-59) 12/03/16 23:18 ALT 19 U/L (7-56) 12/03/16 23:18 Alkaline Phosphatase 67 U/L (38-133) 12/03/16 23:18 Total Creatine Kinase 115 U/L (35-230) 12/03/16 15:25 Troponin I < 0.01 ng/mL 12/04/16 12:10 NT-Pro-B Natriuret Pep 50467 pg/mL (0-450) H 12/03/16 15:25 Total Protein 5.3 g/dL (5.8-8.3) L 12/03/16 23:18 Albumin 2.7 g/dL (3.0-4.8) L 12/03/16 23:18 Globulin 2.6 gm/dL 12/03/16 23:18 Albumin/Globulin Ratio 1.0 (1.1-1.8) L 12/03/16 23:18 Lipase < 10 U/L (23-300) L 12/04/16 13:40 Arterial Blood Potassium 3.5 mmol/L (3.6-5.2) L 12/04/16 02:00 Urine Color Yellow (YELLOW) 12/03/16 14:00 Urine Appearance Cloudy (CLEAR) 12/03/16 14:00 Urine pH 7.0 (4.7-8.0) 12/03/16 14:00 Ur Specific [place] 1.025 (1.005-1.035) 12/03/16 14:00 Urine Protein 100 mg/dL (<30 mg/dL) H 12/03/16 14:00 Urine Glucose (UA) Negative mg/dL (NEGATIVE) 12/03/16 14:00 Urine Ketones Trace mg/dL (NEGATIVE) H 12/03/16 14:00 Urine Blood Large (NEGATIVE) H 12/03/16 14:00 Urine Nitrate Positive (NEGATIVE) H 12/03/16 14:00 Urine Bilirubin Negative (NEGATIVE) 12/03/16 14:00 Urine Urobilinogen 1.0 E.U./dL (<1 E.U./dL) H 12/03/16 14:00 Ur Leukocyte Esterase Small Marcial/uL (NEGATIVE) H 12/03/16 14:00 Urine RBC Tntc /hpf (0-2) 12/03/16 14:00 Urine WBC 1 - 3 /hpf (0-6) 12/03/16 14:00 Ur Epithelial Cells 0 - 2 /hpf (0-5) 12/03/16 14:00 Urine Bacteria Many (NEG) 12/03/16 14:00 Urine Other Uyeast 12/03/16 14:00 Blood Type O POSITIVE 12/04/16 06:45 Antibody Screen Negative 12/04/16 06:45 BBK History Checked Patient has bt 12/04/16 06:45 - Constitutional Appears: Well, No Acute Distress - Head Exam Head Exam: ATRAUMATIC, NORMAL INSPECTION, NORMOCEPHALIC - Eye Exam Eye Exam: Normal appearance - ENT Exam ENT Exam: Normal External Ear Exam - Neck Exam Neck Exam: Normal Inspection - Respiratory Exam Respiratory Exam: NORMAL BREATHING PATTERN - Cardiovascular Exam Cardiovascular Exam: absent: JVD - GI/Abdominal Exam GI & Abdominal Exam: absent: Distended - Rectal Exam Rectal Exam: Deferred - Exam Additional comments: Deferred. - Extremities Exam Extremities Exam: Normal Inspection - Back Exam Back Exam: NORMAL INSPECTION - Neurological Exam Neurological Exam: Alert, Oriented x3 - Psychiatric Exam Psychiatric exam: Normal Affect, Normal Mood - Skin Skin Exam: Normal Color Assessment and Plan - Assessment and Plan (Free Text) Assessment: Lower back pain. HTN. DM. Anxiety. Depression. Paraplegia. Plan: Dilaudid 0.5 mg IV stat. Continue present management as per PMD.
--- NOTE | 2016-12-06 07:52 | CP.PCM.PN ---
Subjective - Date & Time of Evaluation Date of Evaluation: 12/06/16 Time of Evaluation: 07:49 - Subjective Subjective: Patient S&E at bedside. Patient was sleeping and well. NAEON. Wound vac in place and running at 125 mmHg, continuous. No leakage. Ischial Stage 3 ulcer did not need changing at time of visit. Objective - Vital Signs/Intake and Output Vital Signs (last 24 hours): Temp Pulse Resp BP Pulse Ox 97.6 F 73 19 103/61 95 12/06/16 06:00 12/06/16 06:00 12/06/16 06:00 12/06/16 06:00 12/06/16 06:00 Intake and Output: 12/06/16 12/06/16 06:59 18:59 Intake Total 480 Output Total 1100 Balance -620 - Medications Medications: Current Medications Alprazolam (Xanax) 0.5 mg PO HS [facility] PRN Reason: Protocol Last Admin: 12/05/16 21:31 Dose: 0.5 mg Ascorbic Acid (Vitamin C 500 Mg Tab) 500 mg PO BID [facility] Last Admin: 12/05/16 17:54 Dose: 500 mg Aspirin (Ecotrin) 325 mg PO DAILY [facility] Last Admin: 12/05/16 09:37 Dose: 325 mg Bumetanide (Bumex) 1 mg PO DAILY [facility] Last Admin: 12/05/16 09:37 Dose: 1 mg Bupropion HCl (Wellbutrin Xl) 300 mg PO DAILY [facility] Last Admin: 12/05/16 09:38 Dose: 300 mg Carvedilol (Coreg) 6.25 mg PO BID [facility] Last Admin: 12/05/16 17:54 Dose: 6.25 mg Cyanocobalamin (Vitamin B12 1000 Mcg/Ml Inj) 1,000 mcg IM Q30D [facility] Ergocalciferol (Drisdol 50,000 Intl Units Cap) 1 cap PO SAT [facility] Last Admin: 12/04/16 09:38 Dose: 1 cap Fentanyl (Duragesic) 1 patch TD Q72H [facility] Last Admin: 12/04/16 12:34 Dose: 1 patch Ferrous Sulfate (Feosol Liq) 300 mg PO 0800,1200,1700 [facility] Last Admin: 12/05/16 16:08 Dose: Not Given Gabapentin (Neurontin) 800 mg PO TID [facility] PRN Reason: Protocol Last Admin: 12/05/16 18:02 Dose: 800 mg Hydromorphone HCl (Dilaudid) 2 mg PO QID [facility] Last Admin: 12/05/16 21:31 Dose: 2 mg Insulin Human Regular (Humulin R Med) 0 units SC ACHS [facility] PRN Reason: Protocol Last Admin: 12/05/16 23:14 Dose: Not Given Lisinopril (Zestril) 10 mg PO DAILY [facility] Last Admin: 12/05/16 10:00 Dose: Not Given Multivitamins/Minerals (Therapeutic-M Tab) 1 tab PO DAILY [facility] Last Admin: 12/05/16 09:38 Dose: 1 tab Oxycodone HCl (Oxycontin Extended Release Tab) 20 mg PO Q12 [facility] Last Admin: 12/05/16 21:32 Dose: 20 mg Pantoprazole Sodium (Protonix Ec Tab) 40 mg PO ACBD [facility] Last Admin: 12/05/16 16:20 Dose: 40 mg Potassium Chloride (K-Dur 20 Meq Er Tab) 20 meq PO BRK [facility] Last Admin: 12/05/16 08:00 Dose: 20 meq Trazodone HCl (Desyrel) 50 mg PO HS [facility] Last Admin: 12/05/16 21:31 Dose: 50 mg Zinc Sulfate (Zinc Sulfate 220 Mg Cap) 220 mg PO DAILY [facility] Last Admin: 12/05/16 09:37 Dose: 220 mg Ziprasidone (Geodon Cap) 80 mg PO HS [facility] Last Admin: 12/05/16 21:32 Dose: 80 mg - Labs Labs: 12/05/16 08:00 12/05/16 08:00 - Constitutional Appears: Well - Head Exam Head Exam: NORMAL INSPECTION - Eye Exam Eye Exam: EOMI, Normal appearance - ENT Exam ENT Exam: Mucous Membranes Moist - Neck Exam Neck Exam: Full ROM, Normal Inspection - Respiratory Exam Respiratory Exam: NORMAL BREATHING PATTERN. absent: Accessory Muscle Use, Rhonchi, Wheezes, Respiratory Distress - GI/Abdominal Exam GI & Abdominal Exam: Soft, Normal Bowel Sounds. absent: Guarding, Rigid - Extremities Exam Extremities Exam: absent: Full ROM Additional comments: paraplegic. Some movement of Lower extremities. - Skin Skin Exam: Dry, Erythema, Normal Color. absent: Intact Additional comments: stage 3 ischial ulcer stage 4 sacral decubitus, improving. Assessment and Plan - Assessment and Plan (Free Text) Assessment: 66 M admitted for vomiting and chest pain. consulted for stage 4 improving sacral decubitus ulcer. Stage 3 left ischial ulcer. Plan: continue Medihoney with gauze for stage 3 ulcer repositioning q2H continue with current wound vac management c/w current medical management
[2016-12-06] MEDS: Insulin Reg-MEDIUM-Coverage SC SCH ×4 (08:23→21:44)
[2016-12-06] MEDS: Potassium Chloride 20 mEq ER Tab PO SCH (08:23)
[2016-12-06] MEDS: Pantoprazole 40 mg EC Tab PO SCH ×2 (08:24→17:07)
[2016-12-06] MEDS: Ferrous Sulfate 300 mg/5 mL Liq UD PO SCH ×3 (08:24→16:44)
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
[2016-12-06] MEDS: Aspirin 325 mg EC Tablets PO SCH (09:58)
[2016-12-06] MEDS: Multivitamin With Minerals Tab PO SCH (10:00)
[2016-12-06] MEDS: oxyCODONE 20 mg ER Tab (oxyCONTIN) PO SCH ×2 (10:00→21:32)
[2016-12-06] MEDS: buPROPion 300 mg/24 Hours XL Tab PO SCH (10:01)
[2016-12-07] MEDS ORDERED: HYDROmorphone 0.5 mg/0.5 ml ISec IVP STA (01:19)
--- NOTE | 2016-12-07 01:19 | CP.PCM.PN ---
Subjective - Date & Time of Evaluation Date of Evaluation: 12/07/16 Time of Evaluation: :17 - Subjective Subjective: S:Pain in lower back. No other complaints. Has stage iv decubetus ulcer in sacrum. Medical record was reviewed. O: Last Vital Signs 3 Temp 98.1 F 12/06/16 18:13 Pulse 81 12/06/16 18:13 Resp 18 12/06/16 18:13 BP 118/71 12/06/16 18:13 Pulse Ox 98 12/06/16 18:13 Awake, alert , not in distress. LUNGS: Normal breathing pattern. A:Low back pain. P:Dilaudid 0.5 mg IV x 1. Objective - Vital Signs/Intake and Output Vital Signs (last 24 hours): Temp Pulse Resp BP Pulse Ox 98.1 F 81 18 118/71 98 12/06/16 18:13 12/06/16 18:13 12/06/16 18:13 12/06/16 18:13 12/06/16 18:13 - Medications Medications: Current Medications Alprazolam (Xanax) 0.5 mg PO [facility] PRN Reason: Protocol Last Admin: 12/06/16 21:33 Dose: 0.5 mg Ascorbic Acid (Vitamin C 500 Mg Tab) 500 mg PO BID [facility] Last Admin: 12/06/16 17:08 Dose: 500 mg Aspirin (Ecotrin) 325 mg PO DAILY [facility] Last Admin: 12/06/16 09:58 Dose: 325 mg Bumetanide (Bumex) 1 mg PO DAILY [facility] Last Admin: 12/06/16 09:57 Dose: 1 mg Bupropion HCl (Wellbutrin Xl) 300 mg PO DAILY [facility] Last Admin: 12/06/16 10:01 Dose: 300 mg Carvedilol (Coreg) 6.25 mg PO BID [facility] Last Admin: 12/06/16 17:07 Dose: 6.25 mg Cyanocobalamin (Vitamin B12 1000 Mcg/Ml Inj) 1,000 mcg IM Q30D [facility] Ergocalciferol (Drisdol 50,000 Intl Units Cap) 1 cap PO SAT [facility] Last Admin: 12/04/16 09:38 Dose: 1 cap Fentanyl (Duragesic) 1 patch TD Q72H [facility] Last Admin: 12/04/16 12:34 Dose: 1 patch Ferrous Sulfate (Feosol Liq) 300 mg PO 0800,1200,1700 [facility] Last Admin: 12/06/16 16:44 Dose: Not Given Gabapentin (Neurontin) 800 mg PO TID [facility] PRN Reason: Protocol Last Admin: 12/06/16 17:08 Dose: 800 mg Heparin Sodium (Porcine) (Heparin) 5,000 units SC Q12 [facility] PRN Reason: Protocol Last Admin: 12/06/16 21:33 Dose: 5,000 units Hydromorphone HCl (Dilaudid) 2 mg PO QID [facility] Last Admin: 12/06/16 21:31 Dose: 2 mg Insulin Human Regular (Humulin R Med) 0 units SC ACHS [facility] PRN Reason: Protocol Last Admin: 12/06/16 21:44 Dose: Not Given Lisinopril (Zestril) 10 mg PO DAILY [facility] Last Admin: 12/06/16 10:01 Dose: 10 mg Multivitamins/Minerals (Therapeutic-M Tab) 1 tab PO DAILY [facility] Last Admin: 12/06/16 10:00 Dose: 1 tab Oxycodone HCl (Oxycontin Extended Release Tab) 20 mg PO Q12 [facility] Last Admin: 12/06/16 21:32 Dose: 20 mg Pantoprazole Sodium (Protonix Ec Tab) 40 mg PO ACBD [facility] Last Admin: 12/06/16 17:07 Dose: 40 mg Potassium Chloride (K-Dur 20 Meq Er Tab) 20 meq PO BRK [facility] Last Admin: 12/06/16 08:23 Dose: 20 meq Trazodone HCl (Desyrel) 50 mg PO HS [facility] Last Admin: 12/06/16 21:31 Dose: 50 mg Zinc Sulfate (Zinc Sulfate 220 Mg Cap) 220 mg PO DAILY [facility] Last Admin: 12/06/16 10:04 Dose: 220 mg Ziprasidone (Geodon Cap) 80 mg PO HS [facility] Last Admin: 12/06/16 21:32 Dose: 80 mg
[2016-12-07] MEDS: Insulin Reg-MEDIUM-Coverage SC SCH ×4 (07:43→22:42)
[2016-12-07] MEDS: Pantoprazole 40 mg EC Tab PO SCH ×2 (07:47→17:08)
[2016-12-07] MEDS: Potassium Chloride 20 mEq ER Tab PO SCH (07:47)
[2016-12-07] MEDS: Ferrous Sulfate 300 mg/5 mL Liq UD PO SCH ×3 (07:47→17:08)
--- NOTE | 2016-12-07 08:08 | US ---
HISTORY: vomiting COMPARISON: None. TECHNIQUE: Grayscale imaging was performed. FINDINGS: LIVER: Measures 14.0 cm. There is diffuse increased echogenicity of the liver parenchyma. No mass. No intrahepatic bile duct dilatation. GALLBLADDER: Surgically absent. COMMON BILE DUCT: Measures 1.0 mm. No stones. No dilatation. PANCREAS: Unremarkable as visualized. No mass. No ductal dilatation. RIGHT KIDNEY: Measures 11.0cm. Normal echogenicity. No calculus, mass, or hydronephrosis. LEFT KIDNEY: Measures 12.3cm. Normal echogenicity. No calculus, mass, or hydronephrosis. SPLEEN: The spleen is enlarged and measures 14.3 cm. AORTA: No aneurysmal dilatation. IVC: Unremarkable. OTHER FINDINGS: None. IMPRESSION: 1. Diffuse increased echogenicity in the liver may reflect hepatic steatosis however parenchymal infectious/ inflammatory etiologies cannot be entirely excluded. Clinical and laboratory correlation is advised. 2. Mild splenomegaly.
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
[2016-12-07] MEDS: Aspirin 325 mg EC Tablets PO SCH (09:20)
[2016-12-07] MEDS: oxyCODONE 20 mg ER Tab (oxyCONTIN) PO SCH ×2 (09:21→23:18)
[2016-12-07] MEDS: Multivitamin With Minerals Tab PO SCH (09:22)
[2016-12-07] MEDS: buPROPion 300 mg/24 Hours XL Tab PO SCH (09:22)
[2016-12-07 10:57] LABS: INR 1.05 (0.93-1.08); PARTIAL THROMBOPLASTIN TIME 30.9 Seconds (23.7-30.8); PROTHROMBIN TIME 11.3 Seconds (9.9-11.8)
[2016-12-07 11:19] LABS: CALCIUM 8.4 mg/dL (8.4-10.5)
[2016-12-08] MEDS ORDERED: Sodium Chloride 0.9% 500 ML IV STA ×2 (00:25→06:23)
--- NOTE | 2016-12-08 00:43 | CP.PCM.PN ---
Subjective - Date & Time of Evaluation Date of Evaluation: 12/08/16 Time of Evaluation: 00:26 - Subjective Subjective: Patient was seen because nurse called and told that his BP was 94/60,HR 85/min, TemP: 100.3*F, FSBS was 100 mg %. I saw patient at bed side. He complained of lower back pain. Denies chest pain, sob, nausea, sweating , palpitation. Medical record was reviewed. 66 year old man admitted with sob, vomiting of 2 weak duration. HTN,DM, paraplegia,colostomy,neurogenic bladder with chronic burgos ,MRSA, herniated disc,anxiety, spinal stenosis,depression. Objective - Vital Signs/Intake and Output Vital Signs (last 24 hours): Temp Pulse Resp BP Pulse Ox 99.5 F 87 20 115/65 97 12/07/16 17:58 12/07/16 22:00 12/07/16 17:58 12/07/16 17:58 12/07/16 06:00 - Medications Medications: Current Medications Acetaminophen (Tylenol 325mg Tab) 975 mg PO STAT [facility] Stop: 12/08/16 00:25 Acetaminophen (Tylenol 325mg Tab) 650 mg PO Q4 PRN PRN Reason: Fever >100.4 F Alprazolam (Xanax) 0.5 mg PO HS [facility] PRN Reason: Protocol Last Admin: 12/07/16 23:19 Dose: Not Given Ascorbic Acid (Vitamin C 500 Mg Tab) 500 mg PO BID [facility] Last Admin: 12/07/16 17:08 Dose: 500 mg Aspirin (Ecotrin) 325 mg PO DAILY [facility] Last Admin: 12/07/16 09:20 Dose: 325 mg Bumetanide (Bumex) 1 mg PO DAILY [facility] Last Admin: 12/07/16 09:19 Dose: 1 mg Bupropion HCl (Wellbutrin Xl) 300 mg PO DAILY [facility] Last Admin: 12/07/16 09:22 Dose: 300 mg Carvedilol (Coreg) 6.25 mg PO BID [facility] Last Admin: 12/07/16 17:08 Dose: 6.25 mg Cyanocobalamin (Vitamin B12 1000 Mcg/Ml Inj) 1,000 mcg IM Q30D [facility] Ergocalciferol (Drisdol 50,000 Intl Units Cap) 1 cap PO SAT [facility] Last Admin: 12/04/16 09:38 Dose: 1 cap Fentanyl (Duragesic) 1 patch TD Q72H [facility] Last Admin: 12/07/16 12:26 Dose: 1 patch Ferrous Sulfate (Feosol Liq) 300 mg PO 0800,1200,1700 [facility] Last Admin: 12/07/16 17:08 Dose: 300 mg Gabapentin (Neurontin) 800 mg PO TID [facility] PRN Reason: Protocol Last Admin: 12/07/16 17:07 Dose: 800 mg Heparin Sodium (Porcine) (Heparin) 5,000 units SC Q12 [facility] PRN Reason: Protocol Last Admin: 12/07/16 23:13 Dose: 5,000 units Hydromorphone HCl (Dilaudid) 2 mg PO QID [facility] Last Admin: 12/07/16 23:18 Dose: Not Given Sodium Chloride (Sodium Chloride 0.9%) 500 mls @ 999 mls/hr IV .Q31M [facility] Stop: 12/08/16 00:55 Insulin Human Regular (Humulin R Med) 0 units SC ACHS [facility] PRN Reason: Protocol Last Admin: 12/07/16 22:42 Dose: Not Given Lisinopril (Zestril) 10 mg PO DAILY [facility] Last Admin: 12/07/16 09:22 Dose: 10 mg Multivitamins/Minerals (Therapeutic-M Tab) 1 tab PO DAILY [facility] Last Admin: 12/07/16 09:22 Dose: 1 tab Pantoprazole Sodium (Protonix Ec Tab) 40 mg PO ACBD [facility] Last Admin: 12/07/16 17:08 Dose: 40 mg Potassium Chloride (K-Dur 20 Meq Er Tab) 20 meq PO BRK [facility] Last Admin: 12/07/16 07:47 Dose: 20 meq Trazodone HCl (Desyrel) 50 mg PO HS [facility] Last Admin: 12/07/16 23:14 Dose: 50 mg Zinc Sulfate (Zinc Sulfate 220 Mg Cap) 220 mg PO DAILY [facility] Last Admin: 12/07/16 09:22 Dose: 220 mg Ziprasidone (Geodon Cap) 80 mg PO HS [facility] Last Admin: 12/07/16 23:13 Dose: 80 mg - Labs Labs: 12/07/16 10:00 PT 11.3 Seconds (9.9-11.8) 12/07/16 10:00 INR 1.05 (0.93-1.08) 12/07/16 10:00 APTT 30.9 Seconds (23.7-30.8) H 12/07/16 10:00 Lab Studies 12/07/16 12/07/16 12/07/16 Range/Units 21:41 16:37 11:40 PT (9.9-11.8) Seconds INR (0.93-1.08) APTT (23.7-30.8) Seconds Sodium (132-148) mmol/L Potassium (3.6-5.0) mmol/L Chloride (98-107) mmol/L Carbon Dioxide (21-33) mmol/L Anion Gap (10-20) BUN (7-21) mg/dL Creatinine (0.5-1.4) mg/dL Est GFR ( Amer) Est GFR (Non-Af Amer) POC Glucose (mg/dL) 106 100 160 H (65-110) mg/dL Random Glucose (70-110) mg/dL Calcium (8.4-10.5) mg/dL 12/07/16 12/07/16 12/07/16 Range/Units 10:00 10:00 07:40 PT 11.3 (9.9-11.8) Seconds INR 1.05 (0.93-1.08) APTT 30.9 H (23.7-30.8) Seconds Sodium 137 (132-148) mmol/L Potassium 4.7 (3.6-5.0) mmol/L Chloride 99 (98-107) mmol/L Carbon Dioxide 30 (21-33) mmol/L Anion Gap 13 (10-20) BUN 38 H (7-21) mg/dL Creatinine 1.7 H (0.5-1.4) mg/dL Est GFR ( Amer) 49 Est GFR (Non-Af Amer) 41 POC Glucose (mg/dL) 116 H (65-110) mg/dL Random Glucose 124 H (70-110) mg/dL Calcium 8.4 (8.4-10.5) mg/dL - Constitutional Appears: Well, No Acute Distress - Head Exam Head Exam: ATRAUMATIC, NORMAL INSPECTION, NORMOCEPHALIC - Eye Exam Eye Exam: Normal appearance - ENT Exam ENT Exam: Normal External Ear Exam - Neck Exam Neck Exam: Normal Inspection - Respiratory Exam Respiratory Exam: NORMAL BREATHING PATTERN - Cardiovascular Exam Cardiovascular Exam: absent: JVD - GI/Abdominal Exam GI & Abdominal Exam: absent: Distended - Rectal Exam Rectal Exam: Deferred - Exam Additional comments: Deferred. - Extremities Exam Extremities Exam: Normal Inspection - Back Exam Back Exam: NORMAL INSPECTION - Neurological Exam Neurological Exam: Alert, Oriented x3 - Psychiatric Exam Psychiatric exam: Normal Affect, Normal Mood - Skin Skin Exam: Normal Color Assessment and Plan - Assessment and Plan (Free Text) Assessment: Hypotension. Dehydration. Low grade fever. HTN. DM. Paraplegia. Neurogenic bladder. Plan: NS 500 CC IV bolus. Tylenol 650 mg PO stat and q4h prn temp >100.4*F. Oxycodone was ordered for low back pain. Continue present management as per PMD.
[2016-12-08] MEDS ORDERED: oxyCODONE 20 mg ER Tab (oxyCONTIN) PO STA (00:44)
[2016-12-08] MEDS: Aspirin 325 mg EC Tablets PO SCH ×2 (06:51→12:26)
[2016-12-08] MEDS ORDERED: Vancomycin 1gm in NS 250ml 1 GM/250 ML BAG IVPB STA (07:21)
[2016-12-08] MEDS: Sodium Chloride 0.9% 1,000 ML IV SCH ×2 (07:45→17:33)
[2016-12-08] MEDS ORDERED: DAPTOmycin 500 mg Inj (Cubicin) IV SCH (08:00)
[2016-12-08] MEDS: Pantoprazole 40 mg EC Tab PO SCH ×3 (08:17→17:34)
[2016-12-08] MEDS: Potassium Chloride 20 mEq ER Tab PO SCH ×2 (08:17→08:27)
[2016-12-08] MEDS: Ferrous Sulfate 300 mg/5 mL Liq UD PO SCH ×4 (08:17→17:33)
[2016-12-08] MEDS: Insulin Reg-MEDIUM-Coverage SC SCH ×4 (08:29→23:13)
--- NOTE | 2016-12-08 09:46 | CP.PCM.PN ---
Subjective - Date & Time of Evaluation Date of Evaluation: 12/08/16 Time of Evaluation: 07:15 - Subjective Subjective: Seen for evaluation on telemetry. Overnight, had low-grade fever, transient hypotension and altered mental status. Remained somewhat somnolent. Given several fluid boluses overnight. Also started on antibiotics. Arousable and cooperative. Offers no complaints. Objective - Vital Signs/Intake and Output Vital Signs (last 24 hours): Temp Pulse Resp BP Pulse Ox 98.4 F 71 20 86/52 L 99 12/08/16 06:00 12/08/16 06:00 12/08/16 06:00 12/08/16 06:00 12/08/16 06:00 Intake and Output: 12/08/16 12/08/16 06:59 18:59 Intake Total 360 Output Total 525 Balance -165 - Medications Medications: Current Medications Acetaminophen (Tylenol 325mg Tab) 650 mg PO Q4 PRN PRN Reason: Fever >100.4 F Alprazolam (Xanax) 0.5 mg PO HS [facility] PRN Reason: Protocol Last Admin: 12/07/16 23:19 Dose: Not Given Ascorbic Acid (Vitamin C 500 Mg Tab) 500 mg PO BID [facility] Last Admin: 12/07/16 17:08 Dose: 500 mg Aspirin (Ecotrin) 325 mg PO DAILY [facility] Last Admin: 12/08/16 06:51 Dose: 325 mg Bumetanide (Bumex) 1 mg PO DAILY [facility] Last Admin: 12/07/16 09:19 Dose: 1 mg Bupropion HCl (Wellbutrin Xl) 300 mg PO DAILY [facility] Last Admin: 12/07/16 09:22 Dose: 300 mg Carvedilol (Coreg) 6.25 mg PO BID [facility] Last Admin: 12/07/16 17:08 Dose: 6.25 mg Cyanocobalamin (Vitamin B12 1000 Mcg/Ml Inj) 1,000 mcg IM Q30D [facility] Ergocalciferol (Drisdol 50,000 Intl Units Cap) 1 cap PO SAT [facility] Last Admin: 12/04/16 09:38 Dose: 1 cap Fentanyl (Duragesic) 1 patch TD Q72H [facility] Last Admin: 12/07/16 12:26 Dose: 1 patch Ferrous Sulfate (Feosol Liq) 300 mg PO 0800,1200,1700 [facility] Last Admin: 12/08/16 08:29 Dose: Not Given Gabapentin (Neurontin) 800 mg PO TID [facility] PRN Reason: Protocol Last Admin: 12/07/16 17:07 Dose: 800 mg Heparin Sodium (Porcine) (Heparin) 5,000 units SC Q12 [facility] PRN Reason: Protocol Last Admin: 12/07/16 23:13 Dose: 5,000 units Hydromorphone HCl (Dilaudid) 2 mg PO QID [facility] Last Admin: 12/07/16 23:18 Dose: Not Given Sodium Chloride (Sodium Chloride 0.9%) 1,000 mls @ 150 mls/hr IV .Q6H40M [facility] Last Admin: 12/08/16 07:45 Dose: 150 mls/hr Daptomycin 640 mg/ Sodium (Chloride) 100 mls @ 200 mls/hr IV Q24H [facility] Stop: 12/15/16 08:29 Insulin Human Regular (Humulin R Med) 0 units SC ACHS [facility] PRN Reason: Protocol Last Admin: 12/08/16 08:29 Dose: Not Given Lisinopril (Zestril) 10 mg PO DAILY [facility] Last Admin: 12/07/16 09:22 Dose: 10 mg Multivitamins/Minerals (Therapeutic-M Tab) 1 tab PO DAILY [facility] Last Admin: 12/07/16 09:22 Dose: 1 tab Pantoprazole Sodium (Protonix Ec Tab) 40 mg PO ACBD [facility] Last Admin: 12/08/16 08:29 Dose: Not Given Potassium Chloride (K-Dur 20 Meq Er Tab) 20 meq PO BRK [facility] Last Admin: 12/08/16 08:27 Dose: Not Given Trazodone HCl (Desyrel) 50 mg PO HS [facility] Last Admin: 12/07/16 23:14 Dose: 50 mg Zinc Sulfate (Zinc Sulfate 220 Mg Cap) 220 mg PO DAILY [facility] Last Admin: 12/07/16 09:22 Dose: 220 mg Ziprasidone (Geodon Cap) 80 mg PO HS [facility] Last Admin: 12/07/16 23:13 Dose: 80 mg - Labs Labs: 12/07/16 10:00 PT 11.3 Seconds (9.9-11.8) 12/07/16 10:00 INR 1.05 (0.93-1.08) 12/07/16 10:00 APTT 30.9 Seconds (23.7-30.8) H 12/07/16 10:00 - Constitutional Appears: Chronically Ill, Other (somnolent) - Head Exam Head Exam: ATRAUMATIC - Neck Exam Neck Exam: Full ROM - Respiratory Exam Respiratory Exam: Rhonchi (bilateral) - Cardiovascular Exam Cardiovascular Exam: REGULAR RHYTHM, Murmur (systolic murmur at left sternal border) - GI/Abdominal Exam GI & Abdominal Exam: Soft, Normal Bowel Sounds Assessment and Plan - Assessment and Plan (Free Text) Assessment: Impression: * Fever, change in mental status, suspect sepsis, source unclear * Decompensated congestive heart failure with worsening LV function, needs further evaluation. * Paraplegia * Known coronary artery disease status post remote LAD PCI * History of diabetes and hypertension Recommendation: * Agree with obtaining cultures and starting empiric antibiotics. * Will hold on cardiac catheterization today given overnight events. * Avoid excessive volume infusion given LV dysfunction. * Per the plans based upon his clinical course and the results of the above cultures.
--- NOTE | 2016-12-08 10:46 | CP.PCM.CON ---
History of Present Illness - History of Present Illness History of Present Illness: 66 year old male with PMH of decubitus ulcers on the sacral and hip areas S/P debridement for wound vacuum placement, S/P post-cholecystostomy (for acute cholecystitis) probably due to abscess in the RUQ area S/P CT-guided drainage, with Corinne dubliniensis, DM, HTN, Morbid obesity with BMI 43, coronary artery disease, history of paraplegia from cauda equina syndrome, neurogenic bladder, S /P colostomy was recently treated for osteomyelitis of the sacral decubitus ulcers which grew E. faecalis, E. coli and P. mirabilis and was given antibiotics in August to October 2016. He continues to have the wound vacuum placed. He is now admitted again here because of weakness, vomiting. Work up reveals congestive heart failure but he is also noted to have gram positive cocci in the urine and he has a chronic indwelling Bugros catheter. He developed some low grade temperatures yesterday and Infectious Diseases consult is requested to further evaluate and manage. Currently he somewhat sleepy but denies headache or dizziness, no chest pain, no SOB, no cough or colds, no chills when he had the low grade temperatures last night, no diarrhea, no hematuria. 12/03/16 13:34 Leonard Monzon is a 66 year old male, whose past medical history includes paraplegia s/p colostomy and neurogenic bladder with chronic burgos, hypertension , and diabetes, who presents to the emergency department complaining of shortness of breath and vomiting for the past two weeks. Patient denies any chest pain, headache, fever, chills, abdominal pain or other complaints. PMD: Dr. Lorenzana 12/03/16 16:53 Time/Duration: > week (2 weeks) Symptom Course: Intermittent Modifying Factors (Text): None Associated Symptoms (Text): Vomiting and constipation 65 year old male with PMH of decubitus ulcers on the sacral and hip areas S/P debridement for wound vacuum placement, S/P post-cholecystostomy (for acute cholecystitis) probably due to abscess in the RUQ area S/P CT-guided drainage, with Corinne dubliniensis, DM, HTN, Morbid obesity with BMI 43, coronary artery disease, history of paraplegia from cauda equina syndrome, neurogenic bladder, S /P colostomy was recently sent to an LTAC after being treated at [facility] [facility] a month ago for biliary disease and decubitus ulcers. He was transferred back to [facility] for continued care of his decubitus ulcers as well as noted some drainage from the cholecystectomy site on the right upper quadrant. He denies fever or chills , no nausea or vomiting, no headache or dizziness, no no dysphagia, no diarrhea , no dysuria, no chest pain, no SOB. He has occasional abdominal pain. At the LTAC, wound cx of the area were done which showed possible MRSA and ESBL producing organisms. Infectious Diseases consult is requested to continue treatment of his infections and to see if there is infection in the cholecystectomy site. Social history: no smoking, no alcohol abuse, no illicit drug use 10/18/2016 Assessment Sacral decubitus ulcers previously growing E. faecalis, E. coli and P. mirabilis - probable osteomyelitis since it is a stage 4 ulcer history of E. faecalis bacteremia and ESBL E. coli UTI Decubitus ulcers on the sacral and hip areas S/P debridemen; the ulcer was deep and probably stage 4; there was note of ESBL producing organism and MRSA from the LTAC wound cx S/P treatment with antibiotics S/P post-cholecystostomy (for acute cholecystitis) probably due to abscess in the RUQ area S/P CT-guided drainage - surgical site with some drainage ( possible abscess/skin and skin strucutre infection), with clinical improvement DM HTN Morbid obesity with BMI 43 coronary artery disease history of paraplegia from cauda equina syndrome neurogenic bladder Plan continue Meropenem to complete the 4-6 week course of therapy; patient can be switched again to IV ertapenem as an outpatient when discharged Review of Systems - Review of Systems All systems: reviewed and no additional remarkable complaints except (as per HPI ) Past Patient History - Infectious Disease Hx of Infectious Diseases: MRSA - Tetanus Immunizations Tetanus Immunization: Unknown - Past Medical History & Family History Past Medical History?: Yes - Past Social History Smoking Status: Never Smoked - CARDIAC Hx Cardiac Disorders: Yes Hx Angina: Yes Hx Hypertension: Yes - PULMONARY Hx Respiratory Disorders: Yes Hx Pneumonia: Yes - NEUROLOGICAL Hx Neurological Disorder: Yes Hx Transient Ischemic Attacks (TIA): Yes - HEENT Hx Blind: Yes (right eye) - RENAL Hx Neurogenic Bladder: Yes - ENDOCRINE/METABOLIC Hx Diabetes Mellitus Type 2: Yes - HEMATOLOGICAL/ONCOLOGICAL Hx Blood Transfusions: No Hx Blood Transfusion Reaction: No - INTEGUMENTARY Hx Dermatological Problems: Yes Other/Comment: decub ulcer to R buttocks, MRSA - MUSCULOSKELETAL/RHEUMATOLOGICAL Hx Musculoskeletal Disorders: Yes Hx Arthritis: Yes Hx Back Pain: Yes Hx Falls: Yes Hx Fractures: Yes - GASTROINTESTINAL Hx Colostomy: Yes - GENITOURINARY/GYNECOLOGICAL Hx Urinary Tract Infection: Yes - PSYCHIATRIC Hx Anxiety: Yes Hx Depression: Yes Hx Panic Symptoms: Yes - SURGICAL HISTORY Hx Surgeries: Yes Hx Cardiac Catheterization: Yes Hx Coronary Stent: Yes Hx Musculoskeletal Surgery: Yes Hx Open Heart Surgery: Yes - ANESTHESIA Hx Anesthesia: Yes Hx Anesthesia Reactions: No Hx Malignant Hyperthermia: No Meds Allergies/Adverse Reactions: Allergies Allergy/AdvReac Type Severity Reaction Status Date / Time ciprofloxacin Allergy RASH Verified 10/13/16 20:10 Penicillins Allergy RASH Verified 10/13/16 20:10 - Medications Medications: Current Medications Acetaminophen (Tylenol 325mg Tab) 650 mg PO Q4 PRN PRN Reason: Fever >100.4 F Alprazolam (Xanax) 0.5 mg PO HS [facility] PRN Reason: Protocol Last Admin: 12/07/16 23:19 Dose: Not Given Ascorbic Acid (Vitamin C 500 Mg Tab) 500 mg PO BID [facility] Last Admin: 12/07/16 17:08 Dose: 500 mg Aspirin (Ecotrin) 325 mg PO DAILY [facility] Last Admin: 12/08/16 06:51 Dose: 325 mg Bumetanide (Bumex) 1 mg PO DAILY [facility] Last Admin: 12/07/16 09:19 Dose: 1 mg Bupropion HCl (Wellbutrin Xl) 300 mg PO DAILY [facility] Last Admin: 12/07/16 09:22 Dose: 300 mg Carvedilol (Coreg) 6.25 mg PO BID [facility] Last Admin: 12/07/16 17:08 Dose: 6.25 mg Cyanocobalamin (Vitamin B12 1000 Mcg/Ml Inj) 1,000 mcg IM Q30D [facility] Daptomycin (Cubicin) 640 mg 6 mg/kg (640 mg) IV Q24H [facility] PRN Reason: Protocol Stop: 12/15/16 08:01 Ergocalciferol (Drisdol 50,000 Intl Units Cap) 1 cap PO SAT [facility] Last Admin: 12/04/16 09:38 Dose: 1 cap Fentanyl (Duragesic) 1 patch TD Q72H [facility] Last Admin: 12/07/16 12:26 Dose: 1 patch Ferrous Sulfate (Feosol Liq) 300 mg PO 0800,1200,1700 [facility] Last Admin: 12/07/16 17:08 Dose: 300 mg Gabapentin (Neurontin) 800 mg PO TID [facility] PRN Reason: Protocol Last Admin: 12/07/16 17:07 Dose: 800 mg Heparin Sodium (Porcine) (Heparin) 5,000 units SC Q12 [facility] PRN Reason: Protocol Last Admin: 12/07/16 23:13 Dose: 5,000 units Hydromorphone HCl (Dilaudid) 2 mg PO QID [facility] Last Admin: 12/07/16 23:18 Dose: Not Given Vancomycin HCl (Vancomycin 1gm) 1 gm in 250 mls @ 167 mls/hr IVPB [facility] PRN Reason: Protocol Stop: 12/08/16 08:50 Sodium Chloride (Sodium Chloride 0.9%) 1,000 mls @ 150 mls/hr IV .Q6H40M [facility] Last Admin: 12/08/16 07:45 Dose: 150 mls/hr Daptomycin 640 mg/ Sodium (Chloride) 100 mls @ 200 mls/hr IV Q24H [facility] Stop: 12/08/16 08:29 Insulin Human Regular (Humulin R Med) 0 units SC ACHS [facility] PRN Reason: Protocol Last Admin: 12/07/16 22:42 Dose: Not Given Lisinopril (Zestril) 10 mg PO DAILY [facility] Last Admin: 12/07/16 09:22 Dose: 10 mg Multivitamins/Minerals (Therapeutic-M Tab) 1 tab PO DAILY [facility] Last Admin: 12/07/16 09:22 Dose: 1 tab Pantoprazole Sodium (Protonix Ec Tab) 40 mg PO ACBD [facility] Last Admin: 12/07/16 17:08 Dose: 40 mg Potassium Chloride (K-Dur 20 Meq Er Tab) 20 meq PO BRK [facility] Last Admin: 12/07/16 07:47 Dose: 20 meq Trazodone HCl (Desyrel) 50 mg PO HS [facility] Last Admin: 12/07/16 23:14 Dose: 50 mg Zinc Sulfate (Zinc Sulfate 220 Mg Cap) 220 mg PO DAILY [facility] Last Admin: 12/07/16 09:22 Dose: 220 mg Ziprasidone (Geodon Cap) 80 mg PO HS [facility] Last Admin: 12/07/16 23:13 Dose: 80 mg Physical Exam - Constitutional Appears: Non-toxic, No Acute Distress - Head Exam Head Exam: NORMAL INSPECTION - ENT Exam ENT Exam: Mucous Membranes Moist - Neck Exam Neck exam: Negative for: Lymphadenopathy, Meningismus - Respiratory Exam Respiratory Exam: Decreased Breath Sounds - Cardiovascular Exam Cardiovascular Exam: +S1, +S2 - GI/Abdominal Exam GI & Abdominal Exam: Soft. absent: Tenderness Results - Vital Signs Recent Vital Signs: Last Vital Signs Temp 98.4 F 12/08/16 06:00 Pulse 71 12/08/16 06:00 Resp 20 12/08/16 06:00 BP 86/52 L 12/08/16 06:00 Pulse Ox 99 12/08/16 06:00 - Labs Result Diagrams: 12/05/16 08:00 12/07/16 10:00 Labs: Laboratory Results - last 24 hr 12/07/16 12/07/16 12/07/16 07:40 10:00 10:00 PT 11.3 INR 1.05 APTT 30.9 H Sodium 137 Potassium 4.7 Chloride 99 Carbon Dioxide 30 Anion Gap 13 BUN 38 H Creatinine 1.7 H Est GFR ( Amer) 49 Est GFR (Non-Af Amer) 41 POC Glucose (mg/dL) 116 H Random Glucose 124 H Calcium 8.4 12/07/16 12/07/16 12/07/16 11:40 16:37 21:41 PT INR APTT Sodium Potassium Chloride Carbon Dioxide Anion Gap BUN Creatinine Est GFR ( Amer) Est GFR (Non-Af Amer) POC Glucose (mg/dL) 160 H 100 106 Random Glucose Calcium 12/08/16 12/08/16 12/08/16 06:13 06:42 07:37 PT INR APTT Sodium Potassium Chloride Carbon Dioxide Anion Gap BUN Creatinine Est GFR ( Amer) Est GFR (Non-Af Amer) POC Glucose (mg/dL) 92 97 91 Random Glucose Calcium Assessment & Plan - Assessment and Plan (Free Text) Plan: Assessment consider UTI in a patient with Chronic Burgos catheter, growing gram positive cocci Sacral decubitus ulcers previously growing E. faecalis, E. coli and P. mirabilis and was treated for osteomyelitis with antibiotics in August to October 2016 history of E. faecalis bacteremia and ESBL E. coli UTI Decubitus ulcers on the sacral and hip areas S/P debridemen; the ulcer was deep and probably stage 4; there was note of ESBL producing organism and MRSA from the LTAC wound cx S/P treatment with antibiotics S/P post-cholecystostomy (for acute cholecystitis) probably due to abscess in the RUQ area S/P CT-guided drainage - surgical site with some drainage ( possible abscess/skin and skin strucutre infection), with clinical improvement DM HTN Morbid obesity with BMI 43 coronary artery disease history of paraplegia from cauda equina syndrome neurogenic bladder Plan started patient on daptomycin pending identification and sensitivities of the gram positive cocci; follow up blood cx will monitor clinically
[2016-12-08] MEDS: buPROPion 300 mg/24 Hours XL Tab PO SCH (11:21)
[2016-12-08] MEDS: Multivitamin With Minerals Tab PO SCH (11:21)
[2016-12-08 16:04] LABS: PH,URINE 6.5 (4.7-8.0); URINE BILIRUBIN NEGATIVE (NEGATIVE); URINE BLOOD LARGE (NEGATIVE); URINE GLUCOSE (UA) NEGATIVE (NEGATIVE); URINE LEUKOCYTE ESTERASE LARGE Leu/uL (NEGATIVE); URINE NITRATE NEGATIVE (NEGATIVE); URINE PROTEIN 30 mg/dL (<30 mg/dL); URINE UROBILINOGEN 0.2 E.U./dL (<1 E.U./dL)
[2016-12-08 16:10] LABS: URINE APPEARANCE CLOUDY (CLEAR); URINE COLOR YELLOW (YELLOW)
[2016-12-08 16:17] LABS: URINE AMORPHOUS SEDIMENT MODERATE; URINE BACTERIA MANY (NEG); URINE RBC TNTC /hpf (0-2); URINE WBC TNTC /hpf (0-6)
[2016-12-08] MEDS: HYDROmorphone 0.5 mg/0.5 ml ISec IVP PRN (20:20)
[2016-12-09] MEDS: Sodium Chloride 0.9% 1,000 ML IV SCH ×4 (00:34→19:54)
[2016-12-09] MEDS: Meropenem 1g/NS 100mL IVPB 1 GM/100 ML PIGGYBACK IVPB SCH ×3 (06:39→22:08)
[2016-12-09] MEDS: Insulin Reg-MEDIUM-Coverage SC SCH ×4 (07:30→21:43)
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
[2016-12-09] MEDS: Ferrous Sulfate 300 mg/5 mL Liq UD PO SCH ×3 (08:36→17:22)
[2016-12-09] MEDS: Pantoprazole 40 mg EC Tab PO SCH ×2 (08:36→17:17)
[2016-12-09] MEDS: Potassium Chloride 20 mEq ER Tab PO SCH (08:36)
--- NOTE | 2016-12-09 09:09 | RAD ---
HISTORY: rule out pneumonia COMPARISON: 12/03/2016 FINDINGS: LUNGS: No active pulmonary disease. PLEURA: No significant pleural effusion identified, no pneumothorax apparent. CARDIOVASCULAR: Normal. OSSEOUS STRUCTURES: No significant abnormalities. VISUALIZED UPPER ABDOMEN: Normal. OTHER FINDINGS: None. IMPRESSION: No active disease.
[2016-12-09] MEDS: Aspirin 325 mg EC Tablets PO SCH (09:15)
[2016-12-09] MEDS: Multivitamin With Minerals Tab PO SCH (09:15)
[2016-12-09] MEDS: HYDROmorphone 0.5 mg/0.5 ml ISec IVP PRN ×3 (09:17→22:26)
[2016-12-09] MEDS: buPROPion 300 mg/24 Hours XL Tab PO SCH (09:17)
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
[2016-12-09] MEDS: Silver Sulfadiazine 1% Cream (20 gm) TOP SCH ×2 (12:45→17:31)
--- NOTE | 2016-12-09 13:02 | CP.PCM.CON ---
History of Present Illness - History of Present Illness History of Present Illness: Pt is seen and decubitus seems to be improving. Past Patient History - Infectious Disease Hx of Infectious Diseases: MRSA - Tetanus Immunizations Tetanus Immunization: Unknown - Past Medical History & Family History Past Medical History?: Yes - Past Social History Smoking Status: Never Smoked - CARDIAC Hx Cardiac Disorders: Yes Hx Angina: Yes Hx Hypertension: Yes - PULMONARY Hx Respiratory Disorders: Yes Hx Pneumonia: Yes - NEUROLOGICAL Hx Neurological Disorder: Yes Hx Transient Ischemic Attacks (TIA): Yes - HEENT Hx Blind: Yes (right eye) - RENAL Hx Neurogenic Bladder: Yes - ENDOCRINE/METABOLIC Hx Diabetes Mellitus Type 2: Yes - HEMATOLOGICAL/ONCOLOGICAL Hx Blood Transfusions: No Hx Blood Transfusion Reaction: No - INTEGUMENTARY Hx Dermatological Problems: Yes Other/Comment: decub ulcer to R buttocks, MRSA - MUSCULOSKELETAL/RHEUMATOLOGICAL Hx Musculoskeletal Disorders: Yes Hx Arthritis: Yes Hx Back Pain: Yes Hx Falls: Yes Hx Fractures: Yes - GASTROINTESTINAL Hx Colostomy: Yes - GENITOURINARY/GYNECOLOGICAL Hx Urinary Tract Infection: Yes - PSYCHIATRIC Hx Anxiety: Yes Hx Depression: Yes Hx Panic Symptoms: Yes - SURGICAL HISTORY Hx Surgeries: Yes Hx Cardiac Catheterization: Yes Hx Coronary Stent: Yes Hx Musculoskeletal Surgery: Yes Hx Open Heart Surgery: Yes - ANESTHESIA Hx Anesthesia: Yes Hx Anesthesia Reactions: No Hx Malignant Hyperthermia: No Meds Allergies/Adverse Reactions: Allergies Allergy/AdvReac Type Severity Reaction Status Date / Time ciprofloxacin Allergy RASH Verified 10/13/16 20:10 Penicillins Allergy RASH Verified 10/13/16 20:10 - Medications Medications: Current Medications Acetaminophen (Tylenol 325mg Tab) 650 mg PO Q4 PRN PRN Reason: Fever >100.4 F Last Admin: 12/09/16 00:33 Dose: 650 mg Alprazolam (Xanax) 0.5 mg PO HS [facility] PRN Reason: Protocol Last Admin: 12/08/16 23:09 Dose: 0.5 mg Ascorbic Acid (Vitamin C 500 Mg Tab) 500 mg PO BID [facility] Last Admin: 12/08/16 17:33 Dose: 500 mg Aspirin (Ecotrin) 325 mg PO DAILY [facility] Last Admin: 12/09/16 09:15 Dose: 325 mg Bupropion HCl (Wellbutrin Xl) 300 mg PO DAILY [facility] Last Admin: 12/09/16 09:17 Dose: 300 mg Carvedilol (Coreg) 6.25 mg PO BID [facility] Last Admin: 12/09/16 09:16 Dose: 6.25 mg Cyanocobalamin (Vitamin B12 1000 Mcg/Ml Inj) 1,000 mcg IM Q30D [facility] Ergocalciferol (Drisdol 50,000 Intl Units Cap) 1 cap PO SAT [facility] Last Admin: 12/04/16 09:38 Dose: 1 cap Ferrous Sulfate (Feosol Liq) 300 mg PO 0800,1200,1700 [facility] Last Admin: 12/09/16 12:43 Dose: 300 mg Gabapentin (Neurontin) 800 mg PO TID [facility] PRN Reason: Protocol Last Admin: 12/09/16 09:14 Dose: 800 mg Heparin Sodium (Porcine) (Heparin) 5,000 units SC Q12 [facility] PRN Reason: Protocol Last Admin: 12/09/16 09:22 Dose: 5,000 units Hydromorphone HCl (Dilaudid) 0.5 mg IVP Q6H PRN PRN Reason: Pain, severe (8-10) Last Admin: 12/09/16 09:17 Dose: 0.5 mg Sodium Chloride (Sodium Chloride 0.9%) 1,000 mls @ 150 mls/hr IV .Q6H40M [facility] Last Admin: 12/09/16 08:12 Dose: 150 mls/hr Daptomycin 640 mg/ Sodium (Chloride) 100 mls @ 200 mls/hr IV Q24H [facility] Stop: 12/15/16 08:29 Last Admin: 12/09/16 12:41 Dose: 200 mls/hr Meropenem 1g/NS 100mL IVPB (Meropenem 1g/Ns 100ml Ivpb) 1 gm in 100 mls @ 100 mls/hr IVPB Q12 [facility] PRN Reason: Protocol Last Admin: 12/09/16 11:21 Dose: Not Given Insulin Human Regular (Humulin R Med) 0 units SC ACHS [facility] PRN Reason: Protocol Last Admin: 12/09/16 07:30 Dose: Not Given Lisinopril (Zestril) 10 mg PO DAILY [facility] Last Admin: 12/09/16 09:16 Dose: 10 mg Multivitamins/Minerals (Therapeutic-M Tab) 1 tab PO DAILY [facility] Last Admin: 12/09/16 09:15 Dose: 1 tab Pantoprazole Sodium (Protonix Ec Tab) 40 mg PO ACBD [facility] Last Admin: 12/09/16 08:36 Dose: 40 mg Potassium Chloride (K-Dur 20 Meq Er Tab) 20 meq PO BRK [facility] Last Admin: 12/09/16 08:36 Dose: 20 meq Silver Sulfadiazine (Silvadene 1% 20 Gm) 0 ea TOP BID [facility] Trazodone HCl (Desyrel) 50 mg PO HS [facility] Last Admin: 12/08/16 23:10 Dose: 50 mg Zinc Sulfate (Zinc Sulfate 220 Mg Cap) 220 mg PO DAILY [facility] Last Admin: 12/09/16 09:14 Dose: 220 mg Ziprasidone (Geodon Cap) 80 mg PO HS [facility] Last Admin: 12/08/16 23:10 Dose: 80 mg Results - Vital Signs Recent Vital Signs: Last Vital Signs Temp 98.4 F 12/09/16 12:00 Pulse 89 12/09/16 12:00 Resp 20 12/09/16 12:00 BP 145/61 12/09/16 12:00 Pulse Ox 99 12/09/16 06:00 - Labs Result Diagrams: 12/05/16 08:00 12/07/16 10:00 Labs: Laboratory Results - last 24 hr 12/08/16 12/08/16 12/08/16 15:00 16:31 21:51 POC Glucose (mg/dL) 96 117 H Urine Color Yellow Urine Appearance Cloudy Urine pH 6.5 Ur Specific [place] 1.020 Urine Protein 30 H Urine Glucose (UA) Negative Urine Ketones Negative Urine Blood Large H Urine Nitrate Negative Urine Bilirubin Negative Urine Urobilinogen 0.2 Ur Leukocyte Esterase Large H Urine RBC Tntc Urine WBC Tntc Ur Epithelial Cells 6 - 8 Amorphous Sediment Moderate Urine Bacteria Many Urine Other Uyeast 12/09/16 12/09/16 07:48 11:37 POC Glucose (mg/dL) 97 102 Urine Color Urine Appearance Urine pH Ur Specific [place] Urine Protein Urine Glucose (UA) Urine Ketones Urine Blood Urine Nitrate Urine Bilirubin Urine Urobilinogen Ur Leukocyte Esterase Urine RBC Urine WBC Ur Epithelial Cells Amorphous Sediment Urine Bacteria Urine Other Assessment & Plan (1) Decubitus ulcer Status: Acute - Assessment and Plan (Free Text) Plan: Decubitus is improving on the wound vac. The area on the trochanteric area is being treated with honey and doing very well. From my point of view, we should continue this. Theoretically, a flap could be fallen over this but he seems to be improving well. We will continue with the wound vac. - Date & Time Date: 12/04/16
[2016-12-09] MEDS ORDERED: Barium Sulfate Susp 2.1% w/v, 2.0% w/w 450 mL Bottle PO ONE (13:42)
--- NOTE | 2016-12-09 18:58 | CT ---
PROCEDURE: CT Abdomen and Pelvis with contrast HISTORY: fever 103 COMPARISON: 03/24/2016 CT abdomen and pelvis. 12/06/2016 abdominal ultrasound. 09/10/2016 renal ultrasound TECHNIQUE: Oral contrast only. Radiation dose: Total exam DLP = 1519.19 mGy-cm. This CT exam was performed using one or more of the following dose reduction techniques: Automated exposure control, adjustment of the mA and/or kV according to patient size, and/or use of iterative reconstruction technique. FINDINGS: LOWER THORAX: Left lower lobe infiltrate suggestive of pneumonia. Trace left pleural effusion LIVER: Unremarkable. No gross lesion or ductal dilatation. GALLBLADDER AND BILE DUCTS: Status post cholecystectomy. No abnormality is seen in the gallbladder fossa. PANCREAS: Unremarkable. No gross lesion or ductal dilatation. SPLEEN: Splenomegaly. Orthogonal measurements 9.3 x 15.5 cm. ADRENALS: Unremarkable. No mass. KIDNEYS AND URETERS: Unremarkable. No hydronephrosis. No solid mass. VASCULATURE: Unremarkable. No aortic aneurysm. BOWEL: Colonic resection and functioning of left lower quadrant ostomy APPENDIX: No abnormalities to suggest acute appendicitis. No right lower quadrant inflammatory processes identified. PERITONEUM: Unremarkable. No free fluid. No free air. LYMPH NODES: Unremarkable. No enlarged lymph nodes. BLADDER: Gomez catheter in satisfactory position, decompressed urinary bladder. REPRODUCTIVE: Unremarkable. BONES: No acute fracture. Severe multilevel lumbar canal stenosis. OTHER FINDINGS: Deep sacral decubitus ulcer with destruction of the sacrum consistent with osteomyelitis. Intense inflammatory changes are progressive compared to the prior study. IMPRESSION: Deep sacral decubitus ulcer with findings suggestive of sacral osteomyelitis. Left lower lobe infiltrate suspicious for pneumonia. Unremarkable postoperative changes following colonic resection diverting ostomy. Stable splenomegaly
[2016-12-10] MEDS: Sodium Chloride 0.9% 1,000 ML IV SCH ×2 (00:15→06:15)
[2016-12-10] MEDS: Insulin Reg-MEDIUM-Coverage SC SCH ×4 (07:30→21:47)
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
[2016-12-10] MEDS: buPROPion 300 mg/24 Hours XL Tab PO SCH (09:25)
[2016-12-10] MEDS: Aspirin 325 mg EC Tablets PO SCH (09:26)
[2016-12-10] MEDS: Multivitamin With Minerals Tab PO SCH (09:26)
[2016-12-10] MEDS: Pantoprazole 40 mg EC Tab PO SCH ×2 (09:27→19:02)
[2016-12-10] MEDS: Potassium Chloride 20 mEq ER Tab PO SCH (09:27)
[2016-12-10] MEDS: Meropenem 1g/NS 100mL IVPB 1 GM/100 ML PIGGYBACK IVPB SCH ×2 (09:28→23:09)
[2016-12-10] MEDS: Ferrous Sulfate 300 mg/5 mL Liq UD PO SCH ×3 (09:28→19:01)
--- NOTE | 2016-12-10 09:43 | PN ---
SUBJECTIVE: A 66-year-old white male with sacral decubitus on a wound VAC improving with recently found to have congestive heart failure and had an echo which showed a decreased ejection fraction. The patient was awaiting for a cardiac catheterization when he developed a high grade fever, change in mental status, confusion, disorientation and lethargy. The patient was found on blood cultures to have methicillin-resistant Staphylococcus aureus, was started on Cubicin by Dr. Barrow and vancomycin. The patient responded with a drop in his temperature and less lethargy. He was hydrated because of hypotension. PHYSICAL EXAMINATION: GENERAL: The patient is more arousable, although still lethargic. His pain medication has been put on hold except for small doses of Dilaudid p.r.n. He is on antibiotics and fluids. His catheterization has been held for now. VITAL SIGNS: Blood pressure now is 119/57, temperature is 98.4. CARDIOPULMONARY: Regular sinus rhythm. LUNGS: His chest is clear to auscultation and percussion. EXTREMITIES: No cyanosis, clubbing, or edema. He does have paraplegia from waist down and neurogenic bladder and a colostomy and a wound VAC in place. His wounds are clean and dry. Wound VAC is functioning well. LABORATORY DATA: White count is 4.4, hemoglobin is 8.8. BUN and creatinine are 38 and 1.7, which is unchanged from previous. IMPRESSION: Methicillin-resistant Staphylococcus aureus urinary tract infection with sepsis, hypotension, coronary artery disease, drop in ejection fraction, chronic renal insufficiency, insulin-dependent diabetes mellitus, and depression. Rayshawn Lorenzana MD cc:
[2016-12-10] MEDS: Silver Sulfadiazine 1% Cream (20 gm) TOP SCH ×2 (09:49→19:03)
--- NOTE | 2016-12-10 10:14 | CP.PCM.PN ---
Subjective - Date & Time of Evaluation Date of Evaluation: 12/10/16 Time of Evaluation: 10:11 - Subjective Subjective: PT S&E at bedside. Patient is sleepy. Patient admits to pain with his ulcers. Denies N/V, F/C, C/D. Objective - Vital Signs/Intake and Output Vital Signs (last 24 hours): Temp Pulse Resp BP Pulse Ox 100.8 F H 86 20 136/67 99 12/10/16 06:26 12/10/16 09:27 12/10/16 06:00 12/10/16 09:27 12/10/16 06:00 Intake and Output: 12/10/16 12/10/16 06:59 18:59 Intake Total 2520 Output Total 1200 Balance 1320 - Medications Medications: Current Medications Acetaminophen (Tylenol 325mg Tab) 650 mg PO Q4 PRN PRN Reason: Fever >100.4 F Last Admin: 12/10/16 06:26 Dose: 650 mg Alprazolam (Xanax) 0.5 mg PO HS [facility] PRN Reason: Protocol Last Admin: 12/09/16 22:07 Dose: Not Given Ascorbic Acid (Vitamin C 500 Mg Tab) 500 mg PO BID [facility] Last Admin: 12/10/16 09:27 Dose: 500 mg Aspirin (Ecotrin) 325 mg PO DAILY [facility] Last Admin: 12/10/16 09:26 Dose: 325 mg Bupropion HCl (Wellbutrin Xl) 300 mg PO DAILY [facility] Last Admin: 12/10/16 09:25 Dose: 300 mg Carvedilol (Coreg) 6.25 mg PO BID [facility] Last Admin: 12/10/16 09:26 Dose: 6.25 mg Cyanocobalamin (Vitamin B12 1000 Mcg/Ml Inj) 1,000 mcg IM Q30D [facility] Ergocalciferol (Drisdol 50,000 Intl Units Cap) 1 cap PO SAT [facility] Last Admin: 12/04/16 09:38 Dose: 1 cap Ferrous Sulfate (Feosol Liq) 300 mg PO 0800,1200,1700 [facility] Last Admin: 12/10/16 09:28 Dose: 300 mg Gabapentin (Neurontin) 800 mg PO TID [facility] PRN Reason: Protocol Last Admin: 12/10/16 09:25 Dose: 800 mg Heparin Sodium (Porcine) (Heparin) 5,000 units SC Q12 [facility] PRN Reason: Protocol Last Admin: 12/10/16 09:29 Dose: 5,000 units Hydromorphone HCl (Dilaudid) 0.5 mg IVP Q6H PRN PRN Reason: Pain, severe (8-10) Last Admin: 12/09/16 22:26 Dose: 0.5 mg Sodium Chloride (Sodium Chloride 0.9%) 1,000 mls @ 150 mls/hr IV .Q6H40M [facility] Last Admin: 12/10/16 06:15 Dose: 150 mls/hr Daptomycin 640 mg/ Sodium (Chloride) 100 mls @ 200 mls/hr IV Q24H [facility] Stop: 12/15/16 08:29 Last Admin: 12/10/16 09:25 Dose: 200 mls/hr Meropenem 1g/NS 100mL IVPB (Meropenem 1g/Ns 100ml Ivpb) 1 gm in 100 mls @ 100 mls/hr IVPB Q12 [facility] PRN Reason: Protocol Last Admin: 12/10/16 09:28 Dose: 100 mls/hr Doxycycline Hyclate 100 mg/ (Sodium Chloride) 100 mls @ 100 mls/hr IVPB Q12 [facility] PRN Reason: Protocol Stop: 12/18/16 10:01 Last Admin: 12/10/16 09:48 Dose: 100 mls/hr Insulin Human Regular (Humulin R Med) 0 units SC ACHS [facility] PRN Reason: Protocol Last Admin: 12/10/16 07:30 Dose: Not Given Lisinopril (Zestril) 10 mg PO DAILY [facility] Last Admin: 12/10/16 09:27 Dose: 10 mg Multivitamins/Minerals (Therapeutic-M Tab) 1 tab PO DAILY [facility] Last Admin: 12/10/16 09:26 Dose: 1 tab Pantoprazole Sodium (Protonix Ec Tab) 40 mg PO ACBD [facility] Last Admin: 12/10/16 09:27 Dose: 40 mg Potassium Chloride (K-Dur 20 Meq Er Tab) 20 meq PO BRK [facility] Last Admin: 12/10/16 09:27 Dose: 20 meq Silver Sulfadiazine (Silvadene 1% 20 Gm) 0 ea TOP BID [facility] Last Admin: 12/10/16 09:49 Dose: 1 tcp Trazodone HCl (Desyrel) 50 mg PO HS [facility] Last Admin: 12/09/16 22:07 Dose: Not Given Zinc Sulfate (Zinc Sulfate 220 Mg Cap) 220 mg PO DAILY [facility] Last Admin: 12/10/16 09:37 Dose: 220 mg Ziprasidone (Geodon Cap) 80 mg PO HS [facility] Last Admin: 12/09/16 22:07 Dose: Not Given - Labs Labs: 12/07/16 10:00 PT 11.3 Seconds (9.9-11.8) 12/07/16 10:00 INR 1.05 (0.93-1.08) 12/07/16 10:00 APTT 30.9 Seconds (23.7-30.8) H 12/07/16 10:00 - Head Exam Head Exam: NORMAL INSPECTION - Eye Exam Eye Exam: EOMI, Normal appearance - Neck Exam Neck Exam: Full ROM, Normal Inspection - Respiratory Exam Respiratory Exam: NORMAL BREATHING PATTERN. absent: Accessory Muscle Use, Rhonchi, Wheezes, Respiratory Distress - Cardiovascular Exam Cardiovascular Exam: REGULAR RHYTHM. absent: Bradycardia, Tachycardia - GI/Abdominal Exam GI & Abdominal Exam: Soft. absent: Distended, Firm, Guarding, Rigid, Tenderness Assessment and Plan - Assessment and Plan (Free Text) Assessment: 66 M presents with sacral decub ulcer Stage 4 improving, stage 3 ischial ulcer improving, stage 2 posterior scrotal ulcer. Plan: c/w current wound care management c/w current medical management c/w abx wound vac change scheduled for today with sharp debridement medihofairfax and 08/31 with tape for ischial and scrotal ulcer
--- NOTE | 2016-12-10 11:09 | CP.PCM.PN ---
Subjective - Date & Time of Evaluation Date of Evaluation: 12/10/16 Time of Evaluation: 10:00 - Subjective Subjective: Feels comfortable in bed today, still had low grade fevers overnight. Underwent CT scan of the abdomen and pelvis yesterday. Objective - Vital Signs/Intake and Output Vital Signs (last 24 hours): Temp Pulse Resp BP Pulse Ox 98.4 F 88 20 119/57 L 99 12/09/16 06:00 12/09/16 06:00 12/09/16 06:00 12/09/16 06:00 12/09/16 06:00 - Medications Medications: Current Medications Acetaminophen (Tylenol 325mg Tab) 650 mg PO Q4 PRN PRN Reason: Fever >100.4 F Last Admin: 12/09/16 00:33 Dose: 650 mg Alprazolam (Xanax) 0.5 mg PO HS [facility] PRN Reason: Protocol Last Admin: 12/08/16 23:09 Dose: 0.5 mg Ascorbic Acid (Vitamin C 500 Mg Tab) 500 mg PO BID [facility] Last Admin: 12/08/16 17:33 Dose: 500 mg Aspirin (Ecotrin) 325 mg PO DAILY [facility] Last Admin: 12/08/16 12:26 Dose: Not Given Bupropion HCl (Wellbutrin Xl) 300 mg PO DAILY [facility] Last Admin: 12/08/16 11:21 Dose: Not Given Carvedilol (Coreg) 6.25 mg PO BID [facility] Last Admin: 12/08/16 17:34 Dose: 6.25 mg Cyanocobalamin (Vitamin B12 1000 Mcg/Ml Inj) 1,000 mcg IM Q30D [facility] Ergocalciferol (Drisdol 50,000 Intl Units Cap) 1 cap PO SAT [facility] Last Admin: 12/04/16 09:38 Dose: 1 cap Ferrous Sulfate (Feosol Liq) 300 mg PO 0800,1200,1700 [facility] Last Admin: 12/08/16 17:33 Dose: 300 mg Gabapentin (Neurontin) 800 mg PO TID [facility] PRN Reason: Protocol Last Admin: 12/08/16 17:33 Dose: 800 mg Heparin Sodium (Porcine) (Heparin) 5,000 units SC Q12 [facility] PRN Reason: Protocol Last Admin: 12/08/16 23:10 Dose: 5,000 units Hydromorphone HCl (Dilaudid) 0.5 mg IVP Q6H PRN PRN Reason: Pain, severe (8-10) Last Admin: 12/08/16 20:20 Dose: 0.5 mg Sodium Chloride (Sodium Chloride 0.9%) 1,000 mls @ 150 mls/hr IV .Q6H40M [facility] Last Admin: 12/09/16 00:34 Dose: 150 mls/hr Daptomycin 640 mg/ Sodium (Chloride) 100 mls @ 200 mls/hr IV Q24H [facility] Stop: 12/15/16 08:29 Last Admin: 12/08/16 10:42 Dose: 200 mls/hr Meropenem 1g/NS 100mL IVPB (Meropenem 1g/Ns 100ml Ivpb) 1 gm in 100 mls @ 100 mls/hr IVPB Q12 [facility] PRN Reason: Protocol Stop: 12/09/16 07:08 Insulin Human Regular (Humulin R Med) 0 units SC ACHS [facility] PRN Reason: Protocol Last Admin: 12/08/16 23:13 Dose: Not Given Lisinopril (Zestril) 10 mg PO DAILY [facility] Last Admin: 12/08/16 11:21 Dose: Not Given Multivitamins/Minerals (Therapeutic-M Tab) 1 tab PO DAILY [facility] Last Admin: 12/08/16 11:21 Dose: Not Given Pantoprazole Sodium (Protonix Ec Tab) 40 mg PO ACBD [facility] Last Admin: 12/08/16 17:34 Dose: 40 mg Potassium Chloride (K-Dur 20 Meq Er Tab) 20 meq PO BRK [facility] Last Admin: 12/08/16 08:27 Dose: Not Given Trazodone HCl (Desyrel) 50 mg PO HS [facility] Last Admin: 12/08/16 23:10 Dose: 50 mg Zinc Sulfate (Zinc Sulfate 220 Mg Cap) 220 mg PO DAILY [facility] Last Admin: 12/08/16 11:22 Dose: Not Given Ziprasidone (Geodon Cap) 80 mg PO HS [facility] Last Admin: 12/08/16 23:10 Dose: 80 mg - Labs Labs: 12/07/16 10:00 PT 11.3 Seconds (9.9-11.8) 12/07/16 10:00 INR 1.05 (0.93-1.08) 12/07/16 10:00 APTT 30.9 Seconds (23.7-30.8) H 12/07/16 10:00 - Constitutional Appears: Non-toxic, No Acute Distress - Head Exam Head Exam: NORMAL INSPECTION - ENT Exam ENT Exam: Mucous Membranes Moist - Neck Exam Neck Exam: absent: Meningismus - Respiratory Exam Respiratory Exam: Decreased Breath Sounds - Cardiovascular Exam Cardiovascular Exam: +S1, +S2 - GI/Abdominal Exam GI & Abdominal Exam: Soft. absent: Tenderness - Extremities Exam Additional comments: burgos catheter in place, sacral ulcer with wound vacuum in place Assessment and Plan - Assessment and Plan (Free Text) Plan: Assessment sepsis due to left lower lobe healthcare-associated pneumonia as well as UTI in a patient with Chronic Burgos catheter, growing MRSA Sacral decubitus ulcers with osteomyelitis - previously treated for E. faecalis , E. coli and P. mirabilis August to October 2016 history of E. faecalis bacteremia and ESBL E. coli UTI Decubitus ulcers on the sacral and hip areas S/P debridemen; the ulcer was deep and probably stage 4; there was note of ESBL producing organism and MRSA from the LTAC wound cx S/P treatment with antibiotics S/P post-cholecystostomy (for acute cholecystitis) probably due to abscess in the RUQ area S/P CT-guided drainage - surgical site with some drainage ( possible abscess/skin and skin strucutre infection), with clinical improvement DM HTN Morbid obesity with BMI 43 coronary artery disease history of paraplegia from cauda equina syndrome neurogenic bladder Plan continue daptomycin and started Merrem and Doxycycline (day 2) will monitor clinically follow up Surgery re-evaluation of patient's continued osteomyelitis of the sacral area
[2016-12-10] MEDS: HYDROmorphone 0.5 mg/0.5 ml ISec IVP PRN (13:00)
--- NOTE | 2016-12-10 13:38 | PN ---
DATE: 12/09/2016 SUBJECTIVE: The patient is in bed, in no acute distress and nontoxic. The patient was seen earlier this morning. PHYSICAL EXAMINATION: VITAL SIGNS: Temperature 98, blood pressure 140/60, respiratory rate of 18. HEENT: Unremarkable. NECK: Supple. LUNGS: Decreased breath sounds. CARDIOPULMONARY: Normal S1 and S2. ABDOMEN: Soft and nontender. LABORATORY DATA: Reveals a white count of 4, hemoglobin of 8. Chemistries are noted. Urinalysis is noted. Microbiology reveals blood cultures have no growth. There is MRSA in the urine and sensitivity is reviewed. The patient is on daptomycin and meropenem. T-max for today was 103. The patient had a chest x-ray, which was no active disease. Abdominal ultrasound; hepatic steatosis, mild splenomegaly. ASSESSMENT AND PLAN: He is a 66-year-old male with decubitus ulcer, sacral and hip area; status post debridement, on wound VAC; status post cholecystectomy for acute cholecystitis, probably due to an abscess in the right upper quadrant; status post CAT scan guided drainage with Corinne dubliniensis in a patient who is diabetic and hypertensive with morbid obesity with a body mass index of 43, now presenting with fever of 103 with sepsis with methicillin-resistant Staphylococcus aureus, urine as the source and decubitus ulcer. We will order a CAT scan of the abdomen and pelvis in this patient to rule out an intraabdominal pathology, history of paraplegia from cauda equina syndrome we will continue daptomycin and meropenem, pending CT of the abdomen and pelvis since the patient is allergic to the Cipro and penicillins. I will check on the final panculture results. We will make further recommendations. Check on the CAT scan of the abdomen and pelvis. Alpesh Barrow MD cc:
--- NOTE | 2016-12-10 15:25 | PN ---
DATE: SUBJECTIVE: The patient is a 66-year-old male. The patient of *------* seen and examined, lying in bed, complaining of back pain and complaining of bilateral leg pain. He is eating fair. He has generalized weakness, but does not look in any distress. PHYSICAL EXAMINATION VITAL SIGNS: He had a temperature of 100.8, pulse of 86, respirations of 20, and blood pressure of 146/69. CARDIOPULMONARY: S1 and S2 audible. LUNGS: Bilateral fair air flow. No rhonchi or crackle. ABDOMEN: Soft. Colostomy is in place. There is no stool in the colostomy bag or blood. Belly is obese with colostomy in place. EXTREMITIES: Bilateral leg; no edema. No ulcers and no edema of legs. NEUROLOGIC: He is able to move both legs, but has generalized weakness. LABORATORY EXAM: WBC is 4.4, hemoglobin is 8.8, hematocrit is 28.5, and platelets are 124. Chemistries: Blood sugar is 196. Urinalysis shows large leukocyte, his urine is positive for MRSA and vancomycin resistant Enterococcus faecalis. DIAGNOSTIC DATA: He had CT scan of the abdomen and pelvis done that shows *------* sacral decubitus ulcer with findings suggestive of sacral osteomyelitis, left lower lobe infiltrate suspicious for pneumonia. ASSESSMENT AND PLAN: 1. Sacral decubitus with possibility of osteomyelitis. 2. Left lower lobe pneumonia. 3. Status post colostomy. 4. Chronic anemia. 5. Enterococcus faecalis. 6. History of extended-spectrum beta-lactamases, positive Escherichia coli, urinary tract infection. 7. Morbid obesity. 8. Non-insulin dependent diabetes. 9. Hypertension. 10. Coronary artery disease. 11. History of paraplegia from cauda equina syndrome. 12. Neurogenic bladder and has indwelling catheter. PLAN: Currently, the patient is on daptomycin, he is on doxycycline and DVT prophylaxis. He is also receiving meropenem, Protonix, and he is getting IV fluids. Since his kidney function has improved, we will cut down his fluids and we will follow up electrolytes. Intermittently, the patient is begging not have blood work done every day, *------* and it is very difficult for him to give blood every day. The patient is requesting for DNR. Brittani Wei MD [facility] # [id number]
[2016-12-11] MEDS: HYDROmorphone 0.5 mg/0.5 ml ISec IVP PRN ×2 (00:29→10:22)
[2016-12-11] MEDS: Sodium Chloride 0.9% 1,000 ML IV SCH ×4 (04:30→15:30)
[2016-12-11] MEDS: Insulin Reg-MEDIUM-Coverage SC SCH ×3 (08:58→22:46)
[2016-12-11] MEDS: Ferrous Sulfate 300 mg/5 mL Liq UD PO SCH ×3 (09:13→18:10)
[2016-12-11] MEDS: Meropenem 1g/NS 100mL IVPB 1 GM/100 ML PIGGYBACK IVPB SCH ×2 (09:14→23:15)
[2016-12-11] MEDS: Potassium Chloride 20 mEq ER Tab PO SCH (09:14)
[2016-12-11] MEDS: Silver Sulfadiazine 1% Cream (20 gm) TOP SCH ×2 (10:00→18:11)
[2016-12-11] MEDS: Ergocalciferol 50,000 Intl Units Cap PO SCH (10:24)
[2016-12-11] MEDS: Aspirin 325 mg EC Tablets PO SCH (10:25)
[2016-12-11] MEDS: Pantoprazole 40 mg EC Tab PO SCH ×2 (10:26→18:14)
[2016-12-11] MEDS: Multivitamin With Minerals Tab PO SCH (10:27)
[2016-12-11] MEDS: buPROPion 300 mg/24 Hours XL Tab PO SCH (10:27)
--- NOTE | 2016-12-11 11:29 | CP.PCM.PN ---
Subjective - Date & Time of Evaluation Date of Evaluation: 12/11/16 Time of Evaluation: 11:29 - Subjective Subjective: PT S&E at bedside NAEON. Patient denies F/c, N/v. Patient is tolerating pain well, but has pain on his left side when turning to the side. Dressings were changed yesterday. Wound Vac was changed yesterday with sharp debridement of the necrotic tissue. Abrasion at left flank was redressed with medihoney. Stage 3 ischial ulcer was redressed with medihoney and gauze. Stage 2 Right posterior scrotal ulcer was covered with silvadene cream Objective - Vital Signs/Intake and Output Vital Signs (last 24 hours): Temp Pulse Resp BP Pulse Ox 98.2 F 67 18 160/80 H 96 12/11/16 06:00 12/11/16 10:27 12/11/16 06:00 12/11/16 10:27 12/11/16 06:00 Intake and Output: 12/11/16 12/11/16 06:59 18:59 Intake Total 3600 240 Output Total 900 Balance 3600 -660 - Medications Medications: Current Medications Acetaminophen (Tylenol 325mg Tab) 650 mg PO Q4 PRN PRN Reason: Fever >100.4 F Last Admin: 12/10/16 06:26 Dose: 650 mg Alprazolam (Xanax) 0.5 mg PO HS [facility] PRN Reason: Protocol Last Admin: 12/10/16 22:32 Dose: 0.5 mg Ascorbic Acid (Vitamin C 500 Mg Tab) 500 mg PO BID [facility] Last Admin: 12/11/16 10:27 Dose: 500 mg Aspirin (Ecotrin) 325 mg PO DAILY [facility] Last Admin: 12/11/16 10:25 Dose: 325 mg Bupropion HCl (Wellbutrin Xl) 300 mg PO DAILY [facility] Last Admin: 12/11/16 10:27 Dose: 300 mg Carvedilol (Coreg) 6.25 mg PO BID [facility] Last Admin: 12/11/16 10:21 Dose: 6.25 mg Cyanocobalamin (Vitamin B12 1000 Mcg/Ml Inj) 1,000 mcg IM Q30D [facility] Ergocalciferol (Drisdol 50,000 Intl Units Cap) 1 cap PO SAT [facility] Last Admin: 12/11/16 10:24 Dose: 1 cap Ferrous Sulfate (Feosol Liq) 300 mg PO 0800,1200,1700 [facility] Last Admin: 12/11/16 09:13 Dose: 300 mg Gabapentin (Neurontin) 800 mg PO TID [facility] PRN Reason: Protocol Last Admin: 12/11/16 10:26 Dose: 800 mg Heparin Sodium (Porcine) (Heparin) 5,000 units SC Q12 [facility] PRN Reason: Protocol Last Admin: 12/11/16 10:25 Dose: 5,000 units Hydromorphone HCl (Dilaudid) 0.5 mg IVP Q6H PRN PRN Reason: Pain, severe (8-10) Last Admin: 12/11/16 10:22 Dose: 0.5 mg Sodium Chloride (Sodium Chloride 0.9%) 1,000 mls @ 150 mls/hr IV .Q6H40M [facility] Last Admin: 12/11/16 10:57 Dose: 150 mls/hr Daptomycin 640 mg/ Sodium (Chloride) 100 mls @ 200 mls/hr IV Q24H [facility] Stop: 12/15/16 08:29 Last Admin: 12/11/16 10:54 Dose: 200 mls/hr Meropenem 1g/NS 100mL IVPB (Meropenem 1g/Ns 100ml Ivpb) 1 gm in 100 mls @ 100 mls/hr IVPB Q12 [facility] PRN Reason: Protocol Last Admin: 12/11/16 09:14 Dose: 100 mls/hr Doxycycline Hyclate 100 mg/ (Sodium Chloride) 100 mls @ 100 mls/hr IVPB Q12 [facility] PRN Reason: Protocol Stop: 12/18/16 10:01 Last Admin: 12/11/16 09:00 Dose: 100 mls/hr Insulin Human Regular (Humulin R Med) 0 units SC ACHS [facility] PRN Reason: Protocol Last Admin: 12/11/16 08:58 Dose: Not Given Lisinopril (Zestril) 10 mg PO DAILY [facility] Last Admin: 12/11/16 10:27 Dose: 10 mg Multivitamins/Minerals (Therapeutic-M Tab) 1 tab PO DAILY [facility] Last Admin: 12/11/16 10:27 Dose: 1 tab Pantoprazole Sodium (Protonix Ec Tab) 40 mg PO ACBD [facility] Last Admin: 12/11/16 10:26 Dose: 40 mg Potassium Chloride (K-Dur 20 Meq Er Tab) 20 meq PO BRK [facility] Last Admin: 12/11/16 09:14 Dose: 20 meq Silver Sulfadiazine (Silvadene 1% 20 Gm) 0 ea TOP BID [facility] Last Admin: 12/10/16 19:03 Dose: Not Given Trazodone HCl (Desyrel) 50 mg PO HS [facility] Last Admin: 12/10/16 22:32 Dose: 50 mg Zinc Sulfate (Zinc Sulfate 220 Mg Cap) 220 mg PO DAILY [facility] Last Admin: 12/11/16 10:28 Dose: 220 mg Ziprasidone (Geodon Cap) 80 mg PO HS [facility] Last Admin: 12/10/16 22:32 Dose: 80 mg - Labs Labs: 12/07/16 10:00 PT 11.3 Seconds (9.9-11.8) 12/07/16 10:00 INR 1.05 (0.93-1.08) 12/07/16 10:00 APTT 30.9 Seconds (23.7-30.8) H 12/07/16 10:00 - Constitutional Appears: Well - Head Exam Head Exam: NORMAL INSPECTION - Eye Exam Eye Exam: EOMI, Normal appearance - ENT Exam ENT Exam: Mucous Membranes Moist, Normal Exam - Neck Exam Neck Exam: Full ROM, Normal Inspection - Respiratory Exam Respiratory Exam: Clear to Ausculation Bilateral, NORMAL BREATHING PATTERN. absent: Accessory Muscle Use, Rhonchi, Wheezes, Respiratory Distress - Cardiovascular Exam Cardiovascular Exam: absent: Bradycardia, Tachycardia - GI/Abdominal Exam GI & Abdominal Exam: Soft, Normal Bowel Sounds. absent: Distended, Firm, Guarding, Rigid, Tenderness - Back Exam Back Exam: tenderness. absent: NORMAL INSPECTION Additional comments: left flank skin abrasion near wound vac. stage 4 sacral ulcer improving ulcer stage 3 left ischial ulcer stage 2 right posterior scrotal ulcer - Neurological Exam Neurological Exam: Abnormal Gait, Alert, Normal Gait, Oriented x3 Assessment and Plan - Assessment and Plan (Free Text) Assessment: 66 M presents with stage 4 sacral ulcer improving, stage 3 left ischial ulcer, stage 2 right posterior ulcer. Plan: c/w repositioning q2H f/u ID treatment of MRSA VRE+ urine c/w current medical management c/w current wound care management with medihoney, gauze, wound vac on continuous suction 125mmHg
--- NOTE | 2016-12-11 12:06 | CP.PCM.PN ---
Subjective - Date & Time of Evaluation Date of Evaluation: 12/11/16 Time of Evaluation: 11:00 - Subjective Subjective: Has been afebrile overnight, still with some back pain, Gomez catheter as per patient was replaced just a few days before this admission. Objective - Vital Signs/Intake and Output Vital Signs (last 24 hours): Temp Pulse Resp BP Pulse Ox 98.2 F 67 18 115/53 L 96 12/11/16 06:00 12/11/16 06:00 12/11/16 06:00 12/11/16 06:00 12/11/16 06:00 Intake and Output: 12/11/16 12/11/16 06:59 18:59 Intake Total 3600 Balance 3600 - Medications Medications: Current Medications Acetaminophen (Tylenol 325mg Tab) 650 mg PO Q4 PRN PRN Reason: Fever >100.4 F Last Admin: 12/10/16 06:26 Dose: 650 mg Alprazolam (Xanax) 0.5 mg PO HS [facility] PRN Reason: Protocol Last Admin: 12/10/16 22:32 Dose: 0.5 mg Ascorbic Acid (Vitamin C 500 Mg Tab) 500 mg PO BID [facility] Last Admin: 12/10/16 19:03 Dose: Not Given Aspirin (Ecotrin) 325 mg PO DAILY [facility] Last Admin: 12/10/16 09:26 Dose: 325 mg Bupropion HCl (Wellbutrin Xl) 300 mg PO DAILY [facility] Last Admin: 12/10/16 09:25 Dose: 300 mg Carvedilol (Coreg) 6.25 mg PO BID [facility] Last Admin: 12/10/16 19:01 Dose: Not Given Cyanocobalamin (Vitamin B12 1000 Mcg/Ml Inj) 1,000 mcg IM Q30D [facility] Ergocalciferol (Drisdol 50,000 Intl Units Cap) 1 cap PO SAT [facility] Last Admin: 12/04/16 09:38 Dose: 1 cap Ferrous Sulfate (Feosol Liq) 300 mg PO 0800,1200,1700 [facility] Last Admin: 12/10/16 19:01 Dose: Not Given Gabapentin (Neurontin) 800 mg PO TID [facility] PRN Reason: Protocol Last Admin: 12/10/16 19:02 Dose: Not Given Heparin Sodium (Porcine) (Heparin) 5,000 units SC Q12 [facility] PRN Reason: Protocol Last Admin: 12/10/16 21:51 Dose: 5,000 units Hydromorphone HCl (Dilaudid) 0.5 mg IVP Q6H PRN PRN Reason: Pain, severe (8-10) Last Admin: 12/11/16 00:29 Dose: 0.5 mg Sodium Chloride (Sodium Chloride 0.9%) 1,000 mls @ 150 mls/hr IV .Q6H40M [facility] Last Admin: 12/11/16 04:30 Dose: 150 mls/hr Daptomycin 640 mg/ Sodium (Chloride) 100 mls @ 200 mls/hr IV Q24H [facility] Stop: 12/15/16 08:29 Last Admin: 12/10/16 09:25 Dose: 200 mls/hr Meropenem 1g/NS 100mL IVPB (Meropenem 1g/Ns 100ml Ivpb) 1 gm in 100 mls @ 100 mls/hr IVPB Q12 [facility] PRN Reason: Protocol Last Admin: 12/10/16 23:09 Dose: 100 mls/hr Doxycycline Hyclate 100 mg/ (Sodium Chloride) 100 mls @ 100 mls/hr IVPB Q12 [facility] PRN Reason: Protocol Stop: 12/18/16 10:01 Last Admin: 12/10/16 21:53 Dose: 100 mls/hr Insulin Human Regular (Humulin R Med) 0 units SC ACHS [facility] PRN Reason: Protocol Last Admin: 12/10/16 21:47 Dose: Not Given Lisinopril (Zestril) 10 mg PO DAILY [facility] Last Admin: 12/10/16 09:27 Dose: 10 mg Multivitamins/Minerals (Therapeutic-M Tab) 1 tab PO DAILY [facility] Last Admin: 12/10/16 09:26 Dose: 1 tab Pantoprazole Sodium (Protonix Ec Tab) 40 mg PO ACBD [facility] Last Admin: 12/10/16 19:02 Dose: Not Given Potassium Chloride (K-Dur 20 Meq Er Tab) 20 meq PO BRK [facility] Last Admin: 12/10/16 09:27 Dose: 20 meq Silver Sulfadiazine (Silvadene 1% 20 Gm) 0 ea TOP BID [facility] Last Admin: 12/10/16 19:03 Dose: Not Given Trazodone HCl (Desyrel) 50 mg PO HS [facility] Last Admin: 12/10/16 22:32 Dose: 50 mg Zinc Sulfate (Zinc Sulfate 220 Mg Cap) 220 mg PO DAILY [facility] Last Admin: 12/10/16 09:37 Dose: 220 mg Ziprasidone (Geodon Cap) 80 mg PO HS [facility] Last Admin: 12/10/16 22:32 Dose: 80 mg - Labs Labs: 12/07/16 10:00 PT 11.3 Seconds (9.9-11.8) 12/07/16 10:00 INR 1.05 (0.93-1.08) 12/07/16 10:00 APTT 30.9 Seconds (23.7-30.8) H 12/07/16 10:00 - Constitutional Appears: Non-toxic, No Acute Distress - Head Exam Head Exam: NORMAL INSPECTION - ENT Exam ENT Exam: Mucous Membranes Moist - Neck Exam Neck Exam: absent: Lymphadenopathy, Meningismus - Respiratory Exam Respiratory Exam: Decreased Breath Sounds - Cardiovascular Exam Cardiovascular Exam: +S1, +S2 - GI/Abdominal Exam GI & Abdominal Exam: Soft. absent: Tenderness - Back Exam Additional comments: Gomez catheter in place, wound vacuum in place over the sacral ulcer, still draining serosanguinous fluid Assessment and Plan - Assessment and Plan (Free Text) Plan: Assessment sepsis due to left lower lobe healthcare-associated pneumonia as well as UTI in a patient with Chronic Gomez catheter, growing MRSA and VRE Sacral decubitus ulcers with osteomyelitis - previously treated for E. faecalis , E. coli and P. mirabilis August to October 2016 history of E. faecalis bacteremia and ESBL E. coli UTI Decubitus ulcers on the sacral and hip areas S/P debridemen; the ulcer was deep and probably stage 4; there was note of ESBL producing organism and MRSA from the LTAC wound cx S/P treatment with antibiotics S/P post-cholecystostomy (for acute cholecystitis) probably due to abscess in the RUQ area S/P CT-guided drainage - surgical site with some drainage ( possible abscess/skin and skin strucutre infection), with clinical improvement DM HTN Morbid obesity with BMI 43 coronary artery disease history of paraplegia from cauda equina syndrome neurogenic bladder Plan continue daptomycin, Merrem and Doxycycline (day 3); patient has been afebrile for more than 24 hours now - patient will need prolonged antibiotics again for the sacral ulcer with osteomyelitis will continue to follow clinically
[2016-12-11] MEDS ORDERED: HYDROmorphone 1 mg/ml ISec IVP STA (13:19)
[2016-12-11] MEDS: HYDROmorphone 2 mg/ml ISec IVP PRN ×2 (18:01→21:41)
[2016-12-12] MEDS: Sodium Chloride 0.9% 1,000 ML IV SCH ×2 (05:18→14:30)
--- NOTE | 2016-12-12 06:25 | PN ---
DATE: 12/11/2016 SUBJECTIVE: The patient is seen lying in bed on telemetry. He is comfortable at the present time. He is more awake and alert. He is currently attempting to eat breakfast. His maximum temperature yesterday was 99.2. CURRENT MEDICATIONS: Include carvedilol 6.25 mg b.i.d., daptomycin, Desyrel, Dilaudid, doxycycline, Ecotrin, Geodon, subcutaneous heparin, insulin coverage, meropenem, Neurontin, Protonix, Wellbutrin, Xanax, Zestril 10 mg daily and vitamin supplements. OBJECTIVE: GENERAL: He is a middle aged man who appears comfortable at the present time. VITAL SIGNS: His blood pressure is 116/52 with a pulse of 66 in sinus, respirations are 14, current temperature 98.2. HEENT: No JVD. CHEST: Few scattered rhonchi. HEART: PMI displaced laterally with soft tones noted. ABDOMEN: Soft, nontender with normoactive bowel sounds. EXTREMITIES: No edema. DIAGNOSTIC DATA: No blood work is pending from this morning. IMPRESSION: 1. Recent fever hypotension, likely due to urinary tract infection and/or sacral osteomyelitis. 2. Coronary artery disease status post remote myocardial infarction and left anterior descending stent. 3. Left ventricular dysfunction. 4. History of hypertension and diabetes. 5. Paraplegia. Status post colostomy and Gomez catheter for neurogenic bladder. RECOMMENDATIONS: Continued antibiotic therapy is advised. Continued supportive measures should be planned. Decubitus care should continue. Interventional cardiac catheterization to evaluate for possible progressive coronary artery disease given his LV dysfunction is advised; however, this will be deferred until his infectious process has been cleared. We will continue to follow and make further recommendations as appropriate. Dieudonne Montiel MD
--- NOTE | 2016-12-12 08:13 | PN ---
SUBJECTIVE: The patient is a 66-year-old, seen and examined, complaining of pain in the sacral decubitus area. He states the pain medication he is getting is not enough. Not eating that well. He has poor appetite. PHYSICAL EXAMINATION: VITAL SIGNS: He is afebrile, pulse 90, respirations 19 and blood pressure 142/59. LUNGS: Bilateral fair air flow. No rhonchi or crackles. HEART: S1, S2 audible. No murmur. ABDOMEN: Soft, nontender. No rebound. No guarding. NEUROLOGICAL: He is awake and alert, communicative. EXTREMITIES: Has sacral decubitus. LABORATORY DATA: Blood sugar is 67. His urine culture positive for MRSA and vancomycin-resistant Enterococcus faecalis. ASSESSMENT: 1. Sacral decubitus with possibility of osteomyelitis. 2. Left lower lobe pneumonia. 3. Chronic anemia. 4. Decubitus ulcer. 5. Enterococcus faecalis urinary tract infection. 6. Non-insulin dependent diabetes. 7. Hypertension. 8. History of multiple urinary tract infections secondary to indwelling catheter. PLAN: I will increase his dose of Dilaudid to 2 mg q.4 h. Continue him on trazodone. He is currently on daptomycin and Coreg. He is on DVT prophylaxis. He is getting meropenem. The patient is DNR. He does not want any aggressive measures, we will discontinue his telemetry. Brittani Wei MD
[2016-12-12] MEDS: Ferrous Sulfate 300 mg/5 mL Liq UD PO SCH ×5 (08:34→21:21)
[2016-12-12] MEDS: Potassium Chloride 20 mEq ER Tab PO SCH (08:34)
[2016-12-12] MEDS: Pantoprazole 40 mg EC Tab PO SCH ×2 (08:34→18:07)
[2016-12-12] MEDS: Insulin Reg-MEDIUM-Coverage SC SCH ×5 (08:34→21:31)
--- NOTE | 2016-12-12 08:50 | CP.PCM.PN ---
Subjective - Date & Time of Evaluation Date of Evaluation: 12/12/16 Time of Evaluation: 06:45 - Subjective Subjective: General Surgery Dr. Méndez Pt S&E @bedside. NAEO. sleeping comfortably. UCx +VRE/MRSA. pain controlled w/ meds. tolerating diet. Objective - Vital Signs/Intake and Output Vital Signs (last 24 hours): Temp Pulse Resp BP Pulse Ox 98.4 F 70 20 141/63 98 12/12/16 07:47 12/12/16 07:47 12/12/16 07:47 12/12/16 07:47 12/12/16 07:47 Intake and Output: 12/12/16 12/12/16 06:59 18:59 Intake Total 350 Output Total 1150 Balance -800 - Medications Medications: Current Medications Acetaminophen (Tylenol 325mg Tab) 650 mg PO Q4 PRN PRN Reason: Fever >100.4 F Last Admin: 12/10/16 06:26 Dose: 650 mg Alprazolam (Xanax) 0.5 mg PO HS [facility] PRN Reason: Protocol Last Admin: 12/11/16 22:53 Dose: 0.5 mg Ascorbic Acid (Vitamin C 500 Mg Tab) 500 mg PO BID [facility] Last Admin: 12/11/16 18:00 Dose: 500 mg Aspirin (Ecotrin) 325 mg PO DAILY [facility] Last Admin: 12/11/16 10:25 Dose: 325 mg Bupropion HCl (Wellbutrin Xl) 300 mg PO DAILY [facility] Last Admin: 12/11/16 10:27 Dose: 300 mg Carvedilol (Coreg) 12.5 mg PO BID [facility] Cyanocobalamin (Vitamin B12 1000 Mcg/Ml Inj) 1,000 mcg IM Q30D [facility] Ergocalciferol (Drisdol 50,000 Intl Units Cap) 1 cap PO SAT [facility] Last Admin: 12/11/16 10:24 Dose: 1 cap Ferrous Sulfate (Feosol Liq) 300 mg PO 0800,1200,1700 [facility] Last Admin: 12/11/16 18:10 Dose: 300 mg Gabapentin (Neurontin) 800 mg PO TID [facility] PRN Reason: Protocol Last Admin: 12/11/16 17:59 Dose: 800 mg Heparin Sodium (Porcine) (Heparin) 5,000 units SC Q12 [facility] PRN Reason: Protocol Last Admin: 12/11/16 22:52 Dose: 5,000 units Hydromorphone HCl (Dilaudid) 2 mg IVP Q4H PRN PRN Reason: Pain, moderate (4-7) Last Admin: 12/11/16 21:41 Dose: 2 mg Sodium Chloride (Sodium Chloride 0.9%) 1,000 mls @ 150 mls/hr IV .Q6H40M [facility] Last Admin: 12/12/16 05:18 Dose: 150 mls/hr Daptomycin 640 mg/ Sodium (Chloride) 100 mls @ 200 mls/hr IV Q24H [facility] Stop: 12/15/16 08:29 Last Admin: 12/11/16 10:54 Dose: 200 mls/hr Meropenem 1g/NS 100mL IVPB (Meropenem 1g/Ns 100ml Ivpb) 1 gm in 100 mls @ 100 mls/hr IVPB Q12 [facility] PRN Reason: Protocol Last Admin: 12/11/16 23:15 Dose: 100 mls/hr Doxycycline Hyclate 100 mg/ (Sodium Chloride) 100 mls @ 100 mls/hr IVPB Q12 [facility] PRN Reason: Protocol Stop: 12/18/16 10:01 Last Admin: 12/11/16 22:47 Dose: 100 mls/hr Insulin Human Regular (Humulin R Med) 0 units SC ACHS [facility] PRN Reason: Protocol Last Admin: 12/11/16 22:46 Dose: Not Given Lisinopril (Zestril) 10 mg PO DAILY [facility] Last Admin: 12/11/16 10:27 Dose: 10 mg Multivitamins/Minerals (Therapeutic-M Tab) 1 tab PO DAILY [facility] Last Admin: 12/11/16 10:27 Dose: 1 tab Pantoprazole Sodium (Protonix Ec Tab) 40 mg PO ACBD [facility] Last Admin: 12/11/16 18:14 Dose: 40 mg Potassium Chloride (K-Dur 20 Meq Er Tab) 20 meq PO BRK [facility] Last Admin: 12/11/16 09:14 Dose: 20 meq Silver Sulfadiazine (Silvadene 1% 20 Gm) 0 ea TOP BID [facility] Last Admin: 12/11/16 18:11 Dose: 1 tcp Trazodone HCl (Desyrel) 50 mg PO HS [facility] Last Admin: 12/11/16 22:53 Dose: 50 mg Zinc Sulfate (Zinc Sulfate 220 Mg Cap) 220 mg PO DAILY [facility] Last Admin: 12/11/16 10:28 Dose: 220 mg Ziprasidone (Geodon Cap) 80 mg PO HS [facility] Last Admin: 12/11/16 22:53 Dose: 80 mg - Labs Labs: 12/07/16 10:00 PT 11.3 Seconds (9.9-11.8) 12/07/16 10:00 INR 1.05 (0.93-1.08) 12/07/16 10:00 APTT 30.9 Seconds (23.7-30.8) H 12/07/16 10:00 - Constitutional Appears: In Acute Distress, Chronically Ill - Head Exam Head Exam: NORMAL INSPECTION - Eye Exam Eye Exam: Normal appearance - ENT Exam ENT Exam: Mucous Membranes Moist - Respiratory Exam Respiratory Exam: NORMAL BREATHING PATTERN. absent: Accessory Muscle Use, Respiratory Distress - Cardiovascular Exam Cardiovascular Exam: absent: Bradycardia, Tachycardia - GI/Abdominal Exam GI & Abdominal Exam: absent: Distended, Soft - Extremities Exam Extremities Exam: Normal Inspection - Back Exam Additional comments: wound vac in place. no leak present - Neurological Exam Neurological Exam: absent: Awake (sleeping) - Psychiatric Exam Psychiatric exam: Depressed - Skin Skin Exam: Dry, Normal Color, Warm Assessment and Plan - Assessment and Plan (Free Text) Assessment: 66 y/o M w/ sacral decub ulcer Stage 4 improving, stage 3 ischial ulcer improving, stage 2 posterior scrotal ulcer. - repositioning q2H - cont wound care management - cont IV Abx per ID - cont medical management Pt discussed w/ Dr. Dev Sierra DO PGY2
[2016-12-12] MEDS: Meropenem 1g/NS 100mL IVPB 1 GM/100 ML PIGGYBACK IVPB SCH ×2 (10:00→22:28)
[2016-12-12] MEDS: buPROPion 300 mg/24 Hours XL Tab PO SCH (10:01)
[2016-12-12] MEDS: Multivitamin With Minerals Tab PO SCH (10:02)
[2016-12-12] MEDS: Aspirin 325 mg EC Tablets PO SCH (10:02)
[2016-12-12] MEDS: HYDROmorphone 2 mg/ml ISec IVP PRN ×3 (11:27→21:20)
[2016-12-12] MEDS: Silver Sulfadiazine 1% Cream (20 gm) TOP SCH (11:27)
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
--- NOTE | 2016-12-12 16:09 | CP.PCM.PN ---
Subjective - Date & Time of Evaluation Date of Evaluation: 12/12/16 Time of Evaluation: 11:55 - Subjective Subjective: Comfortable, no fevers overnight. Objective - Vital Signs/Intake and Output Vital Signs (last 24 hours): Temp Pulse Resp BP Pulse Ox 98.4 F 70 20 141/63 98 12/12/16 07:47 12/12/16 07:47 12/12/16 07:47 12/12/16 07:47 12/12/16 07:47 Intake and Output: 12/12/16 12/12/16 06:59 18:59 Intake Total 350 Output Total 1150 Balance -800 - Medications Medications: Current Medications Acetaminophen (Tylenol 325mg Tab) 650 mg PO Q4 PRN PRN Reason: Fever >100.4 F Last Admin: 12/10/16 06:26 Dose: 650 mg Alprazolam (Xanax) 0.5 mg PO HS [facility] PRN Reason: Protocol Last Admin: 12/11/16 22:53 Dose: 0.5 mg Ascorbic Acid (Vitamin C 500 Mg Tab) 500 mg PO BID [facility] Last Admin: 12/11/16 18:00 Dose: 500 mg Aspirin (Ecotrin) 325 mg PO DAILY [facility] Last Admin: 12/11/16 10:25 Dose: 325 mg Bupropion HCl (Wellbutrin Xl) 300 mg PO DAILY [facility] Last Admin: 12/11/16 10:27 Dose: 300 mg Carvedilol (Coreg) 12.5 mg PO BID [facility] Cyanocobalamin (Vitamin B12 1000 Mcg/Ml Inj) 1,000 mcg IM Q30D [facility] Ergocalciferol (Drisdol 50,000 Intl Units Cap) 1 cap PO SAT [facility] Last Admin: 12/11/16 10:24 Dose: 1 cap Ferrous Sulfate (Feosol Liq) 300 mg PO 0800,1200,1700 [facility] Last Admin: 12/11/16 18:10 Dose: 300 mg Gabapentin (Neurontin) 800 mg PO TID [facility] PRN Reason: Protocol Last Admin: 12/11/16 17:59 Dose: 800 mg Heparin Sodium (Porcine) (Heparin) 5,000 units SC Q12 [facility] PRN Reason: Protocol Last Admin: 12/11/16 22:52 Dose: 5,000 units Hydromorphone HCl (Dilaudid) 2 mg IVP Q4H PRN PRN Reason: Pain, moderate (4-7) Last Admin: 12/11/16 21:41 Dose: 2 mg Sodium Chloride (Sodium Chloride 0.9%) 1,000 mls @ 150 mls/hr IV .Q6H40M [facility] Last Admin: 12/12/16 05:18 Dose: 150 mls/hr Daptomycin 640 mg/ Sodium (Chloride) 100 mls @ 200 mls/hr IV Q24H [facility] Stop: 12/15/16 08:29 Last Admin: 12/11/16 10:54 Dose: 200 mls/hr Meropenem 1g/NS 100mL IVPB (Meropenem 1g/Ns 100ml Ivpb) 1 gm in 100 mls @ 100 mls/hr IVPB Q12 [facility] PRN Reason: Protocol Last Admin: 12/11/16 23:15 Dose: 100 mls/hr Doxycycline Hyclate 100 mg/ (Sodium Chloride) 100 mls @ 100 mls/hr IVPB Q12 [facility] PRN Reason: Protocol Stop: 12/18/16 10:01 Last Admin: 12/11/16 22:47 Dose: 100 mls/hr Insulin Human Regular (Humulin R Med) 0 units SC ACHS [facility] PRN Reason: Protocol Last Admin: 12/11/16 22:46 Dose: Not Given Lisinopril (Zestril) 10 mg PO DAILY [facility] Last Admin: 12/11/16 10:27 Dose: 10 mg Multivitamins/Minerals (Therapeutic-M Tab) 1 tab PO DAILY [facility] Last Admin: 12/11/16 10:27 Dose: 1 tab Pantoprazole Sodium (Protonix Ec Tab) 40 mg PO ACBD [facility] Last Admin: 12/11/16 18:14 Dose: 40 mg Potassium Chloride (K-Dur 20 Meq Er Tab) 20 meq PO BRK [facility] Last Admin: 12/11/16 09:14 Dose: 20 meq Silver Sulfadiazine (Silvadene 1% 20 Gm) 0 ea TOP BID [facility] Last Admin: 12/11/16 18:11 Dose: 1 tcp Trazodone HCl (Desyrel) 50 mg PO HS [facility] Last Admin: 12/11/16 22:53 Dose: 50 mg Zinc Sulfate (Zinc Sulfate 220 Mg Cap) 220 mg PO DAILY [facility] Last Admin: 12/11/16 10:28 Dose: 220 mg Ziprasidone (Geodon Cap) 80 mg PO HS [facility] Last Admin: 12/11/16 22:53 Dose: 80 mg - Labs Labs: 12/07/16 10:00 PT 11.3 Seconds (9.9-11.8) 12/07/16 10:00 INR 1.05 (0.93-1.08) 12/07/16 10:00 APTT 30.9 Seconds (23.7-30.8) H 12/07/16 10:00 - Constitutional Appears: Non-toxic, No Acute Distress - Head Exam Head Exam: NORMAL INSPECTION - ENT Exam ENT Exam: Mucous Membranes Moist - Neck Exam Neck Exam: absent: Meningismus - Respiratory Exam Respiratory Exam: Decreased Breath Sounds - Cardiovascular Exam Cardiovascular Exam: +S1, +S2 - GI/Abdominal Exam GI & Abdominal Exam: Soft. 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 faecalis , E. coli and P. mirabilis August to October 2016 history of E. faecalis bacteremia and ESBL E. coli UTI Decubitus ulcers on the sacral and hip areas S/P debridemen; the ulcer was deep and probably stage 4; there was note of ESBL producing organism and MRSA from the LTAC wound cx S/P treatment with antibiotics S/P post-cholecystostomy (for acute cholecystitis) probably due to abscess in the RUQ area S/P CT-guided drainage - surgical site with some drainage ( possible abscess/skin and skin strucutre infection), with clinical improvement DM HTN Morbid obesity with BMI 43 coronary artery disease history of paraplegia from cauda equina syndrome neurogenic bladder Plan continue daptomycin, Merrem and Doxycycline (day 4); patient has been afebrile for more than 24 hours now - patient may need prolonged antibiotics again for the sacral ulcer with osteomyelitis will continue to follow clinically
[2016-12-13] MEDS: Sodium Chloride 0.9% 1,000 ML IV SCH ×3 (01:00→21:35)
[2016-12-13] MEDS: HYDROmorphone 2 mg/ml ISec IVP PRN ×4 (04:10→20:19)
[2016-12-13 07:42] LABS: BLOOD UREA NITROGEN 29 mg/dL (7-21); GFR AFRICAN-AMERICAN > 60; GFR NON-AFRICAN AMERICAN > 60
[2016-12-13] MEDS: Ferrous Sulfate 300 mg/5 mL Liq UD PO SCH ×3 (08:16→17:43)
[2016-12-13] MEDS: Potassium Chloride 20 mEq ER Tab PO SCH (08:16)
[2016-12-13] MEDS: Insulin Reg-MEDIUM-Coverage SC SCH ×4 (08:16→22:42)
[2016-12-13] MEDS: Pantoprazole 40 mg EC Tab PO SCH ×2 (08:16→17:43)
--- NOTE | 2016-12-13 08:22 | CP.PCM.PN ---
Subjective - Date & Time of Evaluation Date of Evaluation: 12/13/16 Time of Evaluation: 08:19 - Subjective Subjective: PT S&E at bedside. NAEON. Patient is not complaining of any F/C, N/V. Patient has pain when rotating to the left at the left flank area. Objective - Vital Signs/Intake and Output Vital Signs (last 24 hours): Temp Pulse Resp BP Pulse Ox 97.7 F 72 22 135/60 97 12/13/16 07:44 12/13/16 07:44 12/13/16 07:44 12/13/16 07:44 12/13/16 07:44 Intake and Output: 12/13/16 12/13/16 06:59 18:59 Intake Total 2160 Output Total 1850 Balance 310 - Medications Medications: Current Medications Acetaminophen (Tylenol 325mg Tab) 650 mg PO Q4 PRN PRN Reason: Fever >100.4 F Last Admin: 12/10/16 06:26 Dose: 650 mg Alprazolam (Xanax) 0.5 mg PO HS [facility] PRN Reason: Protocol Last Admin: 12/12/16 21:35 Dose: 0.5 mg Ascorbic Acid (Vitamin C 500 Mg Tab) 500 mg PO BID [facility] Last Admin: 12/12/16 18:07 Dose: 500 mg Aspirin (Ecotrin) 325 mg PO DAILY [facility] Last Admin: 12/12/16 10:02 Dose: 325 mg Bupropion HCl (Wellbutrin Xl) 300 mg PO DAILY [facility] Last Admin: 12/12/16 10:01 Dose: 300 mg Carvedilol (Coreg) 12.5 mg PO BID [facility] Last Admin: 12/12/16 18:07 Dose: 12.5 mg Cyanocobalamin (Vitamin B12 1000 Mcg/Ml Inj) 1,000 mcg IM Q30D [facility] Ergocalciferol (Drisdol 50,000 Intl Units Cap) 1 cap PO SAT [facility] Last Admin: 12/11/16 10:24 Dose: 1 cap Fentanyl (Duragesic) 1 patch TD Q72H [facility] Last Admin: 12/12/16 14:51 Dose: 1 patch Ferrous Sulfate (Feosol Liq) 300 mg PO 0800,1200,1700 [facility] Last Admin: 12/13/16 08:16 Dose: 300 mg Gabapentin (Neurontin) 800 mg PO TID [facility] PRN Reason: Protocol Last Admin: 12/12/16 18:06 Dose: 800 mg Heparin Sodium (Porcine) (Heparin) 5,000 units SC Q12 [facility] PRN Reason: Protocol Last Admin: 12/12/16 21:35 Dose: 5,000 units Hydromorphone HCl (Dilaudid) 2 mg IVP Q4H PRN PRN Reason: Pain, moderate (4-7) Last Admin: 12/13/16 04:10 Dose: 2 mg Sodium Chloride (Sodium Chloride 0.9%) 1,000 mls @ 150 mls/hr IV .Q6H40M [facility] Last Admin: 12/13/16 01:00 Dose: 150 mls/hr Daptomycin 640 mg/ Sodium (Chloride) 100 mls @ 200 mls/hr IV Q24H [facility] Stop: 12/15/16 08:29 Last Admin: 12/12/16 10:03 Dose: 200 mls/hr Meropenem 1g/NS 100mL IVPB (Meropenem 1g/Ns 100ml Ivpb) 1 gm in 100 mls @ 100 mls/hr IVPB Q12 [facility] PRN Reason: Protocol Last Admin: 12/12/16 22:28 Dose: 100 mls/hr Doxycycline Hyclate 100 mg/ (Sodium Chloride) 100 mls @ 100 mls/hr IVPB Q12 [facility] PRN Reason: Protocol Stop: 12/18/16 10:01 Last Admin: 12/12/16 21:20 Dose: 100 mls/hr Insulin Human Regular (Humulin R Med) 0 units SC ACHS [facility] PRN Reason: Protocol Last Admin: 12/13/16 08:16 Dose: Not Given Lisinopril (Zestril) 10 mg PO DAILY [facility] Last Admin: 12/12/16 10:02 Dose: 10 mg Multivitamins/Minerals (Therapeutic-M Tab) 1 tab PO DAILY [facility] Last Admin: 12/12/16 10:02 Dose: 1 tab Pantoprazole Sodium (Protonix Ec Tab) 40 mg PO ACBD [facility] Last Admin: 12/13/16 08:16 Dose: 40 mg Potassium Chloride (K-Dur 20 Meq Er Tab) 20 meq PO BRK [facility] Last Admin: 12/13/16 08:16 Dose: 20 meq Silver Sulfadiazine (Silvadene 1% 20 Gm) 0 ea TOP BID [facility] Last Admin: 12/12/16 11:27 Dose: 1 tcp Trazodone HCl (Desyrel) 50 mg PO HS [facility] Last Admin: 12/12/16 21:38 Dose: 50 mg Zinc Sulfate (Zinc Sulfate 220 Mg Cap) 220 mg PO DAILY [facility] Last Admin: 12/12/16 10:02 Dose: 220 mg Ziprasidone (Geodon Cap) 80 mg PO HS [facility] Last Admin: 12/12/16 21:35 Dose: 80 mg - Labs Labs: 12/13/16 06:45 PT 11.3 Seconds (9.9-11.8) 12/07/16 10:00 INR 1.05 (0.93-1.08) 12/07/16 10:00 APTT 30.9 Seconds (23.7-30.8) H 12/07/16 10:00 - Constitutional Appears: Chronically Ill - Head Exam Head Exam: NORMAL INSPECTION - Eye Exam Eye Exam: EOMI, Normal appearance - ENT Exam ENT Exam: Mucous Membranes Moist - Neck Exam Neck Exam: Full ROM, Normal Inspection - Respiratory Exam Respiratory Exam: NORMAL BREATHING PATTERN. absent: Accessory Muscle Use, Rhonchi, Wheezes, Respiratory Distress - Extremities Exam Extremities Exam: absent: Full ROM, Pedal Edema - Back Exam Back Exam: tenderness - Neurological Exam Neurological Exam: Abnormal Gait, Awake, Normal Gait, Oriented x3 - Psychiatric Exam Psychiatric exam: Normal Affect, Normal Mood - Skin Skin Exam: Dry, Normal Color, Pallor, Warm. absent: Intact Additional comments: sacral ulcer, stage 4 improving, stage 3 left ischial ulcer, stage 2 posterior scrotal ulcer Assessment and Plan - Assessment and Plan (Free Text) Assessment: 66 M with sacral decub ulcer, Left ischial ulcer, right posterior scrotal ulcer , osteomyelitis at sacrum. Plan: stage 4 sacral ulcer stage 3 left ischial ulcer stage 2 posteior scrotal ulcer osteomyelitis c/w current antibiotic treatment per ID c/w current medical management maintain wound vac at 125 mmHg continuous monitor wound vac
--- NOTE | 2016-12-13 08:34 | PN ---
DATE: SUBJECTIVE: The patient is a 66-year-old, who was seen and examined, complaining of back pain. He has wound VAC in his right buttock and gluteal area. He also has sacral decubitus. His oral intake is poor. PHYSICAL EXAMINATION: VITAL SIGNS: He is afebrile. Pulse 70, respirations 18, blood pressure 164/81. LUNGS: Bilateral fair air flow. No rhonchi or crackle. HEART: S1, S2 audible. ABDOMEN: Soft, nontender. No rebound. No guarding. NEUROLOGIC: He is awake and alert, able to communicate. ASSESSMENT: 1. Sepsis, again due to right buttock abscess, currently on wound vacuum-assisted closure. 2. Sacral decubitus. 3. Left lower lobe pneumonia. 4. Chronic anemia. 5. Enterococcus faecalis urinary tract infection. 6. Noninsulin-dependent diabetes. PLAN: The patient is receiving Dilaudid 2 mg q.4 h. He is on daptomycin. He is getting doxycycline and he is on DVT prophylaxis. *------* to follow up the patient in *------*. Brittani Wei MD
[2016-12-13] MEDS: Meropenem 1g/NS 100mL IVPB 1 GM/100 ML PIGGYBACK IVPB SCH ×2 (09:39→21:26)
[2016-12-13] MEDS: buPROPion 300 mg/24 Hours XL Tab PO SCH (09:40)
[2016-12-13] MEDS: Multivitamin With Minerals Tab PO SCH (09:40)
[2016-12-13] MEDS: Aspirin 325 mg EC Tablets PO SCH (09:48)
[2016-12-13] MEDS: Silver Sulfadiazine 1% Cream (20 gm) TOP SCH ×3 (14:01→20:47)
--- NOTE | 2016-12-13 14:48 | CP.PCM.PN ---
Subjective - Date & Time of Evaluation Date of Evaluation: 12/13/16 Time of Evaluation: 11:45 - Subjective Subjective: Comfortable in bed, not in distress, afebrile, still with pain in the sacral area. Objective - Vital Signs/Intake and Output Vital Signs (last 24 hours): Temp Pulse Resp BP Pulse Ox 97.7 F 72 22 135/60 97 12/13/16 07:44 12/13/16 07:44 12/13/16 07:44 12/13/16 07:44 12/13/16 07:44 Intake and Output: 12/13/16 12/13/16 06:59 18:59 Intake Total 2160 Output Total 1850 Balance 310 - Medications Medications: Current Medications Acetaminophen (Tylenol 325mg Tab) 650 mg PO Q4 PRN PRN Reason: Fever >100.4 F Last Admin: 12/10/16 06:26 Dose: 650 mg Alprazolam (Xanax) 0.5 mg PO HS [facility] PRN Reason: Protocol Last Admin: 12/12/16 21:35 Dose: 0.5 mg Ascorbic Acid (Vitamin C 500 Mg Tab) 500 mg PO BID [facility] Last Admin: 12/12/16 18:07 Dose: 500 mg Aspirin (Ecotrin) 325 mg PO DAILY [facility] Last Admin: 12/12/16 10:02 Dose: 325 mg Bupropion HCl (Wellbutrin Xl) 300 mg PO DAILY [facility] Last Admin: 12/12/16 10:01 Dose: 300 mg Carvedilol (Coreg) 12.5 mg PO BID [facility] Last Admin: 12/12/16 18:07 Dose: 12.5 mg Cyanocobalamin (Vitamin B12 1000 Mcg/Ml Inj) 1,000 mcg IM Q30D [facility] Ergocalciferol (Drisdol 50,000 Intl Units Cap) 1 cap PO SAT [facility] Last Admin: 12/11/16 10:24 Dose: 1 cap Fentanyl (Duragesic) 1 patch TD Q72H [facility] Last Admin: 12/12/16 14:51 Dose: 1 patch Ferrous Sulfate (Feosol Liq) 300 mg PO 0800,1200,1700 [facility] Last Admin: 12/13/16 08:16 Dose: 300 mg Gabapentin (Neurontin) 800 mg PO TID [facility] PRN Reason: Protocol Last Admin: 12/12/16 18:06 Dose: 800 mg Heparin Sodium (Porcine) (Heparin) 5,000 units SC Q12 [facility] PRN Reason: Protocol Last Admin: 12/12/16 21:35 Dose: 5,000 units Hydromorphone HCl (Dilaudid) 2 mg IVP Q4H [facility] PRN Reason: Pain, moderate (4-7) Last Admin: 12/13/16 04:10 Dose: 2 mg Sodium Chloride (Sodium Chloride 0.9%) 1,000 mls @ 150 mls/hr IV .Q6H40M [facility] Last Admin: 12/13/16 01:00 Dose: 150 mls/hr Daptomycin 640 mg/ Sodium (Chloride) 100 mls @ 200 mls/hr IV Q24H [facility] Stop: 12/15/16 08:29 Last Admin: 12/12/16 10:03 Dose: 200 mls/hr Meropenem 1g/NS 100mL IVPB (Meropenem 1g/Ns 100ml Ivpb) 1 gm in 100 mls @ 100 mls/hr IVPB Q12 [facility] PRN Reason: Protocol Last Admin: 12/12/16 22:28 Dose: 100 mls/hr Doxycycline Hyclate 100 mg/ (Sodium Chloride) 100 mls @ 100 mls/hr IVPB Q12 [facility] PRN Reason: Protocol Stop: 12/18/16 10:01 Last Admin: 12/12/16 21:20 Dose: 100 mls/hr Insulin Human Regular (Humulin R Med) 0 units SC ACHS [facility] PRN Reason: Protocol Last Admin: 12/13/16 08:16 Dose: Not Given Lisinopril (Zestril) 10 mg PO DAILY [facility] Last Admin: 12/12/16 10:02 Dose: 10 mg Multivitamins/Minerals (Therapeutic-M Tab) 1 tab PO DAILY [facility] Last Admin: 12/12/16 10:02 Dose: 1 tab Pantoprazole Sodium (Protonix Ec Tab) 40 mg PO ACBD [facility] Last Admin: 12/13/16 08:16 Dose: 40 mg Potassium Chloride (K-Dur 20 Meq Er Tab) 20 meq PO BRK [facility] Last Admin: 12/13/16 08:16 Dose: 20 meq Silver Sulfadiazine (Silvadene 1% 20 Gm) 0 ea TOP BID [facility] Last Admin: 12/12/16 11:27 Dose: 1 tcp Trazodone HCl (Desyrel) 50 mg PO HS [facility] Last Admin: 12/12/16 21:38 Dose: 50 mg Zinc Sulfate (Zinc Sulfate 220 Mg Cap) 220 mg PO DAILY [facility] Last Admin: 12/12/16 10:02 Dose: 220 mg Ziprasidone (Geodon Cap) 80 mg PO HS [facility] Last Admin: 12/12/16 21:35 Dose: 80 mg - Labs Labs: 12/13/16 06:45 PT 11.3 Seconds (9.9-11.8) 12/07/16 10:00 INR 1.05 (0.93-1.08) 12/07/16 10:00 APTT 30.9 Seconds (23.7-30.8) H 12/07/16 10:00 - Constitutional Appears: Non-toxic, No Acute Distress - Head Exam Head Exam: NORMAL INSPECTION - ENT Exam ENT Exam: Mucous Membranes Moist - Neck Exam Neck Exam: absent: Meningismus - Respiratory Exam Respiratory Exam: Decreased Breath Sounds - Cardiovascular Exam Cardiovascular Exam: +S1, +S2 - GI/Abdominal Exam GI & Abdominal Exam: Soft. 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 faecalis, E. coli and P. mirabilis August to October 2016 history of E. faecalis bacteremia and ESBL E. coli UTI Decubitus ulcers on the sacral and hip areas S/P debridemen; the ulcer was deep and probably stage 4; there was note of ESBL producing organism and MRSA from the LTAC wound cx S/P treatment with antibiotics S/P post-cholecystostomy (for acute cholecystitis) probably due to abscess in the RUQ area S/P CT-guided drainage - surgical site with some drainage ( possible abscess/skin and skin strucutre infection), with clinical improvement DM HTN Morbid obesity with BMI 43 coronary artery disease history of paraplegia from cauda equina syndrome neurogenic bladder Plan continue daptomycin, Merrem and Doxycycline (day 5); patient has been afebrile for more than 24 hours now - patient may need prolonged antibiotics again for the sacral ulcer with osteomyelitis will continue to follow clinically
--- NOTE | 2016-12-13 18:45 | PN ---
DATE: SUBJECTIVE: The patient is admitted, recently had an episode of sepsis, and found to have sacral osteomyelitis and pneumonia. PHYSICAL EXAMINATION: VITAL SIGNS: The patient today is afebrile 97.7, heart rate is 72, blood pressure 135/60, respiratory rate is 22, and O2 saturation is 97% on room air. CHEST: Shows decreased breath sounds at both bases. HEART: Regular sinus rhythm. ABDOMEN: Obese *------*. EXTREMITIES: Without cyanosis, clubbing, or edema. NEUROLOGIC: Sensation grossly intact except for bilateral hemiparesis of the lower extremities secondary to laminectomy. LABORATORY DATA: The patient currently has a white count of 4.4 and hemoglobin 8.8, which is baseline. He is growing MRSA in his urine, but blood cultures are negative. MEDICATIONS: He is currently on daptomycin and doxycycline IV. He has chronic pain. He is on Dilaudid and fentanyl patches. The patient is on heparin. He is also on meropenem from *------*. The patient is responding to antibiotics. He does have an indwelling catheter for neurogenic bladder and a cystoscopy and a wound VAC. Now the patient seems somewhat lethargic, but arousable, so always complaining of back ain. Recent scan showed osteomyelitis of the sacrum secondary to his sacral decubitus. PLAN: To continue IV antibiotics, pain medication, and start some physical therapy. Rayshawn Lorenzana MD
[2016-12-14] MEDS: HYDROmorphone 2 mg/ml ISec IVP PRN ×4 (00:16→18:55)
[2016-12-14] MEDS: Sodium Chloride 0.9% 1,000 ML IV SCH (03:30)
--- NOTE | 2016-12-14 07:38 | CP.PCM.PN ---
Subjective - Date & Time of Evaluation Date of Evaluation: 12/14/16 Time of Evaluation: 07:32 - Subjective Subjective: PT S&E at bedside. NAEON. wound vac seal good. no leakage. PT tolerates pain well. Denies F/C, N/V, C/D. Patient still has pain on lower back. Objective - Vital Signs/Intake and Output Vital Signs (last 24 hours): Temp Pulse Resp BP Pulse Ox 97.9 F 72 18 115/58 L 100 12/13/16 16:30 12/13/16 17:44 12/13/16 16:30 12/13/16 17:44 12/13/16 16:30 Intake and Output: 12/14/16 12/14/16 06:59 18:59 Intake Total 1840 Output Total 1800 Balance 40 - Medications Medications: Current Medications Acetaminophen (Tylenol 325mg Tab) 650 mg PO Q4 PRN PRN Reason: Fever >100.4 F Last Admin: 12/10/16 06:26 Dose: 650 mg Alprazolam (Xanax) 0.5 mg PO HS [facility] PRN Reason: Protocol Last Admin: 12/13/16 21:31 Dose: 0.5 mg Ascorbic Acid (Vitamin C 500 Mg Tab) 500 mg PO BID [facility] Last Admin: 12/13/16 17:44 Dose: 500 mg Aspirin (Ecotrin) 325 mg PO DAILY [facility] Last Admin: 12/13/16 09:48 Dose: 325 mg Bupropion HCl (Wellbutrin Xl) 300 mg PO DAILY [facility] Last Admin: 12/13/16 09:40 Dose: 300 mg Carvedilol (Coreg) 12.5 mg PO BID [facility] Last Admin: 12/13/16 17:44 Dose: 12.5 mg Cyanocobalamin (Vitamin B12 1000 Mcg/Ml Inj) 1,000 mcg IM Q30D [facility] Ergocalciferol (Drisdol 50,000 Intl Units Cap) 1 cap PO SAT [facility] Last Admin: 12/11/16 10:24 Dose: 1 cap Fentanyl (Duragesic) 1 patch TD Q72H [facility] Last Admin: 12/12/16 14:51 Dose: 1 patch Ferrous Sulfate (Feosol Liq) 300 mg PO 0800,1200,1700 [facility] Last Admin: 12/13/16 17:43 Dose: 300 mg Gabapentin (Neurontin) 800 mg PO TID [facility] PRN Reason: Protocol Last Admin: 12/13/16 17:43 Dose: 800 mg Heparin Sodium (Porcine) (Heparin) 5,000 units SC Q12 [facility] PRN Reason: Protocol Last Admin: 12/13/16 21:27 Dose: 5,000 units Hydromorphone HCl (Dilaudid) 2 mg IVP Q4H PRN PRN Reason: Pain, moderate (4-7) Last Admin: 12/14/16 04:11 Dose: 2 mg Sodium Chloride (Sodium Chloride 0.9%) 1,000 mls @ 150 mls/hr IV .Q6H40M [facility] Last Admin: 12/14/16 03:30 Dose: 150 mls/hr Daptomycin 640 mg/ Sodium (Chloride) 100 mls @ 200 mls/hr IV Q24H [facility] Stop: 12/15/16 08:29 Last Admin: 12/13/16 12:33 Dose: 200 mls/hr Meropenem 1g/NS 100mL IVPB (Meropenem 1g/Ns 100ml Ivpb) 1 gm in 100 mls @ 100 mls/hr IVPB Q12 [facility] PRN Reason: Protocol Last Admin: 12/13/16 21:26 Dose: 100 mls/hr Doxycycline Hyclate 100 mg/ (Sodium Chloride) 100 mls @ 100 mls/hr IVPB Q12 [facility] PRN Reason: Protocol Stop: 12/18/16 10:01 Last Admin: 12/13/16 22:42 Dose: 100 mls/hr Insulin Human Regular (Humulin R Med) 0 units SC ACHS [facility] PRN Reason: Protocol Last Admin: 12/13/16 22:42 Dose: Not Given Lisinopril (Zestril) 10 mg PO DAILY [facility] Last Admin: 12/13/16 09:41 Dose: 10 mg Multivitamins/Minerals (Therapeutic-M Tab) 1 tab PO DAILY [facility] Last Admin: 12/13/16 09:40 Dose: 1 tab Pantoprazole Sodium (Protonix Ec Tab) 40 mg PO ACBD [facility] Last Admin: 12/13/16 17:43 Dose: 40 mg Potassium Chloride (K-Dur 20 Meq Er Tab) 20 meq PO BRK [facility] Last Admin: 12/13/16 08:16 Dose: 20 meq Silver Sulfadiazine (Silvadene 1% 20 Gm) 0 ea TOP BID [facility] Last Admin: 12/13/16 20:47 Dose: Not Given Trazodone HCl (Desyrel) 50 mg PO HS [facility] Last Admin: 12/13/16 21:27 Dose: 50 mg Zinc Sulfate (Zinc Sulfate 220 Mg Cap) 220 mg PO DAILY [facility] Last Admin: 12/13/16 09:41 Dose: 220 mg Ziprasidone (Geodon Cap) 80 mg PO HS [facility] Last Admin: 12/13/16 21:27 Dose: 80 mg - Labs Labs: 12/13/16 06:45 PT 11.3 Seconds (9.9-11.8) 12/07/16 10:00 INR 1.05 (0.93-1.08) 12/07/16 10:00 APTT 30.9 Seconds (23.7-30.8) H 12/07/16 10:00 - Constitutional Appears: Well - Head Exam Head Exam: NORMAL INSPECTION - Eye Exam Eye Exam: EOMI, Normal appearance - ENT Exam ENT Exam: Mucous Membranes Moist, Normal Exam - Neck Exam Neck Exam: Normal Inspection - Respiratory Exam Respiratory Exam: NORMAL BREATHING PATTERN - GI/Abdominal Exam GI & Abdominal Exam: Soft, Normal Bowel Sounds. absent: Distended, Firm, Guarding, Rigid, Tenderness, Diminished Bowel Sounds - Back Exam Back Exam: tenderness Additional comments: stage 4 sacral ulcer, stage 3 left ischial ulcer, stage 2 right posterior scrotal ulcer - Neurological Exam Neurological Exam: Alert, Awake. absent: Normal Gait - Psychiatric Exam Psychiatric exam: Normal Affect, Normal Mood - Skin Skin Exam: Dry, Normal Color, Pallor, Warm Assessment and Plan - Assessment and Plan (Free Text) Assessment: 66M presents with stage 4 sacral ulcer, stage 3 left ischial ulcer, stage 2 right posterior scrotal ulcer, osteomyelitis Plan: c/w IV ABX start PT q2H repositioning medihoney and dressing on ulcers silvadene on right posterior scrotal ulcer
[2016-12-14] MEDS: Insulin Reg-MEDIUM-Coverage SC SCH ×4 (08:48→22:17)
[2016-12-14] MEDS: Ferrous Sulfate 300 mg/5 mL Liq UD PO SCH ×4 (08:56→17:02)
[2016-12-14] MEDS: Pantoprazole 40 mg EC Tab PO SCH ×2 (08:57→17:02)
[2016-12-14] MEDS: Potassium Chloride 20 mEq ER Tab PO SCH (08:57)
[2016-12-14] MEDS: buPROPion 300 mg/24 Hours XL Tab PO SCH (10:40)
[2016-12-14] MEDS: Aspirin 325 mg EC Tablets PO SCH (10:41)
[2016-12-14] MEDS: Multivitamin With Minerals Tab PO SCH (10:44)
[2016-12-14] MEDS: Meropenem 1g/NS 100mL IVPB 1 GM/100 ML PIGGYBACK IVPB SCH ×2 (12:00→21:34)
[2016-12-14] MEDS: Silver Sulfadiazine 1% Cream (20 gm) TOP SCH (13:32)
--- NOTE | 2016-12-14 14:35 | PN ---
DATE: 12/14/2016 SUBJECTIVE: The patient was seen early this morning at 572, bed 1 early this morning. PHYSICAL EXAMINATION VITAL SIGNS: The patient's temperature is 98, blood pressure is 120/50, respiratory rate of 18, and heart rate of 72. HEENT: Examination of HEENT is unremarkable. NECK: Supple. CARDIOPULMONARY: Heart exam has normal S1 and S2. LUNGS: Decreased breath sounds. ABDOMEN: Soft and nontender. LABORATORY DATA: Examination reveals a white count of 4.4, hemoglobin of 8, and platelets of 124. Chemistry reveals a BUN of 29 and creatinine of 1.2. Urinalysis is noted and microbiology is noted. ASSESSMENT AND PLAN: This is a 66-year-old male who was seen early this morning at 572, bed 1 and with sepsis due to left lower lobe health-care associated pneumonia, urinary tract infection, and chronic Gomez catheter. On daptomycin, meropenem, doxycycline and on day number 6. Has a sacral ulcer with osteomyelitis, has been afebrile now for 48 hours. We will follow closely . Alpesh Barrow MD
--- NOTE | 2016-12-14 22:59 | PN ---
DATE: SUBJECTIVE: The patient is a 66-year-old white male admitted to the hospital with sepsis, change in mental status, confusion and back pain. The patient denies any syncope *------*. He has now developed an osteomyelitis upon left lower infiltrate status post recent sepsis. He is on triple antibiotic therapy. He is afebrile today. His white count is 4.4, his hemoglobin is 8.8. He has not had fever for several days. His laboratory data are growing a MRSA in the urine and also a vancomycin resistant E. faecalis in the urine. Blood cultures are negative. He is tolerating his antibiotics well. He is tolerating his diet well. He was recently noted to have a drop in his ejection fraction. He was scheduled for a catheterization. Then, however, the patient became septic in the meantime. At this point we are on hold and the patient has no further chest pain. PHYSICAL EXAMINATION VITAL SIGNS: Stable. CARDIOPULMONARY: Regular sinus rhythm. LUNGS: Chest is clear to auscultation and percussion. Physical examination is unchanged. FINAL DIAGNOSES: Sacral osteomyelitis, urinary tract infection with Methicillin-resistant Staphylococcus aureus and vancomycin resistant Enterococcus faecalis, and comorbidly he is with diabetes, heart disease, congestive cardiomyopathy, pneumonia, neurogenic bladder and paraplegia from laminectomy. PLAN: The plan is to continue IV antibiotics until the patient is non-septic and to possibly repeat a bone scan to look at the sacral osteomyelitis. Rayshanw Lorenzana MD
[2016-12-15] MEDS: HYDROmorphone 2 mg/ml ISec IVP PRN ×5 (00:20→23:33)
--- NOTE | 2016-12-15 08:04 | CP.PCM.PN ---
Subjective - Date & Time of Evaluation Date of Evaluation: 12/15/16 Time of Evaluation: 08:01 - Subjective Subjective: PT S&E at bedside. YEFRIEON. Patient still has back pain. Objective - Vital Signs/Intake and Output Vital Signs (last 24 hours): Temp Pulse Resp BP Pulse Ox 98.1 F 77 16 96/42 L 96 12/14/16 16:00 12/14/16 16:00 12/14/16 16:00 12/14/16 16:00 12/14/16 16:00 Intake and Output: 12/15/16 12/15/16 06:59 18:59 Intake Total 1700 Output Total 2600 Balance -900 - Medications Medications: Current Medications Acetaminophen (Tylenol 325mg Tab) 650 mg PO Q4 PRN PRN Reason: Fever >100.4 F Last Admin: 12/10/16 06:26 Dose: 650 mg Alprazolam (Xanax) 0.5 mg PO HS [facility] PRN Reason: Protocol Last Admin: 12/14/16 21:30 Dose: 0.5 mg Ascorbic Acid (Vitamin C 500 Mg Tab) 500 mg PO BID [facility] Last Admin: 12/14/16 17:02 Dose: 500 mg Aspirin (Ecotrin) 325 mg PO DAILY [facility] Last Admin: 12/14/16 10:41 Dose: 325 mg Bupropion HCl (Wellbutrin Xl) 300 mg PO DAILY [facility] Last Admin: 12/14/16 10:40 Dose: 300 mg Carvedilol (Coreg) 12.5 mg PO BID [facility] Last Admin: 12/14/16 19:00 Dose: 12.5 mg Cyanocobalamin (Vitamin B12 1000 Mcg/Ml Inj) 1,000 mcg IM Q30D [facility] Ergocalciferol (Drisdol 50,000 Intl Units Cap) 1 cap PO SAT [facility] Last Admin: 12/11/16 10:24 Dose: 1 cap Fentanyl (Duragesic) 1 patch TD Q72H [facility] Last Admin: 12/12/16 14:51 Dose: 1 patch Ferrous Sulfate (Feosol Liq) 300 mg PO 0800,1200,1700 [facility] Last Admin: 12/14/16 17:02 Dose: 300 mg Gabapentin (Neurontin) 800 mg PO TID [facility] PRN Reason: Protocol Last Admin: 12/14/16 19:00 Dose: 800 mg Heparin Sodium (Porcine) (Heparin) 5,000 units SC Q12 [facility] PRN Reason: Protocol Last Admin: 12/14/16 21:33 Dose: 5,000 units Hydromorphone HCl (Dilaudid) 1.5 mg IVP Q4H PRN PRN Reason: Pain, severe (8-10) Last Admin: 12/15/16 06:04 Dose: 1.5 mg Daptomycin 640 mg/ Sodium (Chloride) 100 mls @ 200 mls/hr IV Q24H [facility] Stop: 12/15/16 08:29 Last Admin: 12/14/16 09:22 Dose: 200 mls/hr Meropenem 1g/NS 100mL IVPB (Meropenem 1g/Ns 100ml Ivpb) 1 gm in 100 mls @ 100 mls/hr IVPB Q12 [facility] PRN Reason: Protocol Last Admin: 12/14/16 21:34 Dose: 100 mls/hr Doxycycline Hyclate 100 mg/ (Sodium Chloride) 100 mls @ 100 mls/hr IVPB Q12 [facility] PRN Reason: Protocol Stop: 12/18/16 10:01 Last Admin: 12/14/16 22:06 Dose: 100 mls/hr Insulin Human Regular (Humulin R Med) 0 units SC ACHS [facility] PRN Reason: Protocol Last Admin: 12/14/16 22:17 Dose: Not Given Lisinopril (Zestril) 10 mg PO DAILY [facility] Last Admin: 12/14/16 11:28 Dose: 10 mg Multivitamins/Minerals (Therapeutic-M Tab) 1 tab PO DAILY [facility] Last Admin: 12/14/16 10:44 Dose: 1 tab Pantoprazole Sodium (Protonix Ec Tab) 40 mg PO ACBD [facility] Last Admin: 12/14/16 17:02 Dose: 40 mg Potassium Chloride (K-Dur 20 Meq Er Tab) 20 meq PO BRK [facility] Last Admin: 12/14/16 08:57 Dose: 20 meq Silver Sulfadiazine (Silvadene 1% 20 Gm) 0 ea TOP BID [facility] Last Admin: 12/14/16 13:32 Dose: Not Given Trazodone HCl (Desyrel) 50 mg PO HS [facility] Last Admin: 12/14/16 21:30 Dose: 50 mg Zinc Sulfate (Zinc Sulfate 220 Mg Cap) 220 mg PO DAILY [facility] Last Admin: 12/14/16 11:46 Dose: 220 mg Ziprasidone (Geodon Cap) 80 mg PO HS [facility] Last Admin: 12/14/16 21:30 Dose: 80 mg - Labs Labs: 12/13/16 06:45 PT 11.3 Seconds (9.9-11.8) 12/07/16 10:00 INR 1.05 (0.93-1.08) 12/07/16 10:00 APTT 30.9 Seconds (23.7-30.8) H 12/07/16 10:00 - Constitutional Appears: Chronically Ill - Head Exam Head Exam: NORMAL INSPECTION - Eye Exam Eye Exam: EOMI, Normal appearance - ENT Exam ENT Exam: Mucous Membranes Moist - Respiratory Exam Respiratory Exam: NORMAL BREATHING PATTERN. absent: Accessory Muscle Use, Rhonchi, Wheezes, Respiratory Distress - Skin Skin Exam: Abrasion, Intact, Normal Color, Warm Assessment and Plan - Assessment and Plan (Free Text) Assessment: 66M with stage 4 sacral ulcer, improving stage 3 ischial ulcer, improving stage 2 posterior scrotal ulcer Plan: c/w current abx treatment c/w wound vac care and wound management. c/w current medical management and pain management
[2016-12-15] MEDS: Potassium Chloride 20 mEq ER Tab PO SCH (10:31)
[2016-12-15] MEDS: Pantoprazole 40 mg EC Tab PO SCH ×3 (10:39→20:26)
[2016-12-15] MEDS: Aspirin 325 mg EC Tablets PO SCH (10:39)
[2016-12-15] MEDS: buPROPion 300 mg/24 Hours XL Tab PO SCH (10:39)
[2016-12-15] MEDS: Meropenem 1g/NS 100mL IVPB 1 GM/100 ML PIGGYBACK IVPB SCH ×2 (11:33→23:34)
[2016-12-15] MEDS: Ferrous Sulfate 300 mg/5 mL Liq UD PO SCH ×3 (12:17→17:57)
[2016-12-15] MEDS: Insulin Reg-MEDIUM-Coverage SC SCH ×3 (14:40→21:51)
[2016-12-15] MEDS: Silver Sulfadiazine 1% Cream (20 gm) TOP SCH ×3 (14:41→16:30)
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
[2016-12-15] MEDS: Multivitamin With Minerals Tab PO SCH (17:57)
--- NOTE | 2016-12-16 03:07 | PN ---
DATE: 12/15/2016 SUBJECTIVE: The patient is in bed, in no acute distress, nontoxic. PHYSICAL EXAMINATION: VITAL SIGNS: Temperature is 98, blood pressure is 130/90, respiratory rate of 16, and heart rate of 88. HEENT: Unremarkable. NECK: Supple LUNGS: Decreased breath sounds. HEART: Normal S1, S2. ABDOMEN: Soft and nontender. LABORATORY DATA: Examination reveals a white count of 4, hemoglobin of 8, and platelets of 124. Creatinine is 1.2. ASSESSMENT AND PLAN: He is a 66-year-old male with sepsis, left lower lobe healthcare-associated pneumonia, urinary tract infection, and chronic Gomez catheter. Daptomycin, meropenem, doxycycline day #7. Dr. Lorenzana's note is reviewed. We will follow closely with you. Review of the old history revealed the patient to be on doxycycline, which we will change to p.o. Alpesh Barrow MD
[2016-12-16] MEDS: HYDROmorphone 2 mg/ml ISec IVP PRN ×4 (05:56→20:50)
[2016-12-16] MEDS: Insulin Reg-MEDIUM-Coverage SC SCH ×4 (08:27→21:41)
[2016-12-16] MEDS: Pantoprazole 40 mg EC Tab PO SCH ×2 (08:28→18:27)
[2016-12-16] MEDS: Ferrous Sulfate 300 mg/5 mL Liq UD PO SCH ×3 (08:28→18:25)
[2016-12-16] MEDS: Potassium Chloride 20 mEq ER Tab PO SCH (08:28)
--- NOTE | 2016-12-16 09:13 | CP.PCM.PN ---
Subjective - Date & Time of Evaluation Date of Evaluation: 12/16/16 Time of Evaluation: 09:09 - Subjective Subjective: General Surgery Dr. Méndez Patient seen and examined at bedside. No acute events overnight. Patient still complains of back pain. Objective - Vital Signs/Intake and Output Vital Signs (last 24 hours): Temp Pulse Resp BP Pulse Ox 98.5 F 80 20 146/64 98 12/15/16 16:30 12/15/16 17:54 12/15/16 16:30 12/15/16 17:54 12/15/16 16:30 Intake and Output: 12/16/16 12/16/16 06:59 18:59 Intake Total 440 Output Total 950 Balance -510 - Medications Medications: Current Medications Acetaminophen (Tylenol 325mg Tab) 650 mg PO Q4 PRN PRN Reason: Fever >100.4 F Last Admin: 12/10/16 06:26 Dose: 650 mg Alprazolam (Xanax) 0.5 mg PO HS [facility] PRN Reason: Protocol Last Admin: 12/15/16 21:49 Dose: 0.5 mg Ascorbic Acid (Vitamin C 500 Mg Tab) 500 mg PO BID [facility] Last Admin: 12/15/16 17:57 Dose: 500 mg Aspirin (Ecotrin) 325 mg PO DAILY [facility] Last Admin: 12/15/16 10:39 Dose: 325 mg Bupropion HCl (Wellbutrin Xl) 300 mg PO DAILY [facility] Last Admin: 12/15/16 10:39 Dose: 300 mg Carvedilol (Coreg) 12.5 mg PO BID [facility] Last Admin: 12/15/16 17:54 Dose: 12.5 mg Cyanocobalamin (Vitamin B12 1000 Mcg/Ml Inj) 1,000 mcg IM Q30D [facility] Doxycycline Hyclate (Doryx) 100 mg PO Q12 [facility] PRN Reason: Protocol Stop: 12/23/16 10:01 Ergocalciferol (Drisdol 50,000 Intl Units Cap) 1 cap PO SAT [facility] Last Admin: 12/11/16 10:24 Dose: 1 cap Fentanyl (Duragesic) 1 patch TD Q72H [facility] Last Admin: 12/15/16 15:45 Dose: 1 patch Ferrous Sulfate (Feosol Liq) 300 mg PO 0800,1200,1700 [facility] Last Admin: 12/16/16 08:28 Dose: 300 mg Gabapentin (Neurontin) 800 mg PO TID [facility] PRN Reason: Protocol Last Admin: 12/15/16 17:57 Dose: 800 mg Heparin Sodium (Porcine) (Heparin) 5,000 units SC Q12 [facility] PRN Reason: Protocol Last Admin: 12/15/16 21:47 Dose: 5,000 units Hydromorphone HCl (Dilaudid) 1.5 mg IVP Q4H PRN PRN Reason: Pain, severe (8-10) Last Admin: 12/16/16 05:56 Dose: 1.5 mg Meropenem 1g/NS 100mL IVPB (Meropenem 1g/Ns 100ml Ivpb) 1 gm in 100 mls @ 100 mls/hr IVPB Q12 [facility] PRN Reason: Protocol Last Admin: 12/15/16 23:34 Dose: 100 mls/hr Insulin Human Regular (Humulin R Med) 0 units SC ACHS [facility] PRN Reason: Protocol Last Admin: 12/16/16 08:27 Dose: Not Given Lisinopril (Zestril) 10 mg PO DAILY [facility] Last Admin: 12/15/16 10:34 Dose: 10 mg Multivitamins/Minerals (Therapeutic-M Tab) 1 tab PO DAILY [facility] Last Admin: 12/15/16 17:57 Dose: 1 tab Pantoprazole Sodium (Protonix Ec Tab) 40 mg PO ACBD [facility] Last Admin: 12/16/16 08:28 Dose: 40 mg Potassium Chloride (K-Dur 20 Meq Er Tab) 20 meq PO BRK [facility] Last Admin: 12/16/16 08:28 Dose: 20 meq Silver Sulfadiazine (Silvadene 1% 20 Gm) 0 ea TOP BID [facility] Last Admin: 12/15/16 16:30 Dose: 1 applic Trazodone HCl (Desyrel) 50 mg PO HS [facility] Last Admin: 12/15/16 21:47 Dose: 50 mg Zinc Sulfate (Zinc Sulfate 220 Mg Cap) 220 mg PO DAILY [facility] Last Admin: 12/15/16 12:18 Dose: 220 mg Ziprasidone (Geodon Cap) 80 mg PO HS [facility] Last Admin: 12/15/16 21:47 Dose: 80 mg - Labs Labs: 12/13/16 06:45 PT 11.3 Seconds (9.9-11.8) 12/07/16 10:00 INR 1.05 (0.93-1.08) 12/07/16 10:00 APTT 30.9 Seconds (23.7-30.8) H 12/07/16 10:00 - Constitutional Appears: No Acute Distress - Head Exam Head Exam: ATRAUMATIC, NORMOCEPHALIC - Eye Exam Eye Exam: EOMI - ENT Exam ENT Exam: Mucous Membranes Moist - Respiratory Exam Respiratory Exam: NORMAL BREATHING PATTERN. absent: Accessory Muscle Use, Respiratory Distress - Cardiovascular Exam Cardiovascular Exam: REGULAR RHYTHM - Neurological Exam Neurological Exam: Alert, Awake - Skin Skin Exam: Dry, Normal Color, Warm Additional comments: stage 4 sacral ulcer, improving stage 3 ischial ulcer, improving stage 2 posterior scrotal ulcer Assessment and Plan - Assessment and Plan (Free Text) Assessment: 66M with stage 4 sacral ulcer, improving stage 3 ischial ulcer, improving stage 2 posterior scrotal ulcer Plan: Continue with current abx regiment Continue with wound management and wound vac care changes M/W/F Continue with current medical management and pain management Will discuss with Dr. Dev Vital Vi PGY1
[2016-12-16] MEDS: Aspirin 325 mg EC Tablets PO SCH (10:29)
[2016-12-16] MEDS: buPROPion 300 mg/24 Hours XL Tab PO SCH (10:30)
[2016-12-16] MEDS: Meropenem 1g/NS 100mL IVPB 1 GM/100 ML PIGGYBACK IVPB SCH ×2 (10:32→21:30)
[2016-12-16] MEDS: Silver Sulfadiazine 1% Cream (20 gm) TOP SCH ×2 (10:32→18:28)
[2016-12-16] MEDS: Multivitamin With Minerals Tab PO SCH (10:32)
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
--- NOTE | 2016-12-17 00:53 | PN ---
SUBJECTIVE: The patient is in bed in no acute distress, nontoxic. PHYSICAL EXAMINATION: VITAL SIGNS: Temperature is 98, blood pressure is 120/70, respiratory rate of 16. HEENT: Unremarkable. NECK: Supple. LUNGS: Decreased breath sounds. HEART: Normal S1 and S2. ABDOMEN: Soft and nontender. LABORATORY DATA: White count of 4.4, hemoglobin of 8, and platelets of 124. Chemistry reveals the patient has a creatinine of 1.2. Urinalysis is noted and microbiology reveals and results are noted and the patient is on p.o. doxycycline and meropenem. ASSESSMENT AND PLAN: This is a 66-year-old male with obesity with body mass index of 36 admitted with sepsis, left lobe healthcare-associated pneumonia, urinary tract infection, chronic Gomez catheter on meropenem and doxycycline day #8 [address]Dallas note is reviewed and possible cardiac catheterization with after . No contraindication for the infectious disease point of view. Alpesh Barrow MD
[2016-12-17] MEDS: HYDROmorphone 2 mg/ml ISec IVP PRN ×5 (01:52→20:15)
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
[2016-12-17] MEDS: Insulin Reg-MEDIUM-Coverage SC SCH ×3 (08:10→16:40)
[2016-12-17] MEDS: Potassium Chloride 20 mEq ER Tab PO SCH (09:43)
[2016-12-17] MEDS: buPROPion 300 mg/24 Hours XL Tab PO SCH (09:43)
[2016-12-17] MEDS: Ferrous Sulfate 300 mg/5 mL Liq UD PO SCH ×3 (09:43→16:40)
[2016-12-17] MEDS: Multivitamin With Minerals Tab PO SCH (09:43)
[2016-12-17] MEDS: Pantoprazole 40 mg EC Tab PO SCH ×2 (09:44→16:41)
[2016-12-17] MEDS: Meropenem 1g/NS 100mL IVPB 1 GM/100 ML PIGGYBACK IVPB SCH ×2 (09:45→21:46)
[2016-12-17] MEDS: Silver Sulfadiazine 1% Cream (20 gm) TOP SCH ×2 (09:46→17:38)
[2016-12-17] MEDS: Aspirin 325 mg EC Tablets PO SCH (09:46)
--- NOTE | 2016-12-17 13:51 | PN ---
DATE: 12/17/2016 SUBJECTIVE: A 66-year-old white male being treated for sepsis, sacral decubitus, MRSA, urinary tract infection, enterococcus faecalis, vancomycin resistant urinary tract infection, CAD, drop in ejection fraction, shortness of breath. Patient has a wound VAC, Gomez catheter for neurogenic bladder, paraplegia, colostomy. He is on triple antibiotic therapy for his MRSA and is vancomycin resistant and enterococcus faecalis. Patient was seen by Dr. Mota. He is scheduled for a catheterization Tuesday or Tuesday pending release by ID for the procedure. PHYSICAL EXAMINATION GENERAL: Patient is awake and alert x3. He is afebrile. VITAL SIGNS: Stable. CHEST: Clear to auscultation and percussion. HEART: Regular sinus rhythm EXTREMITIES: Without cyanosis, clubbing, or edema. LABORATORY DATA: White count is normal. ASSESSMENT AND PLAN: Continue with catheterization next week. Continue IV antibiotics for his sepsis and his osteomyelitis of his sacral spine. Rayshawn Lorenzana MD
--- NOTE | 2016-12-17 15:41 | CP.PCM.PN ---
Subjective - Date & Time of Evaluation Date of Evaluation: 12/17/16 Time of Evaluation: 11:00 - Subjective Subjective: Comfortable in bed, not in distress, afebrile, no vomiting, no diarrhea. Objective - Vital Signs/Intake and Output Vital Signs (last 24 hours): Temp Pulse Resp BP Pulse Ox 97.7 F 78 20 141/69 98 12/17/16 07:59 12/17/16 07:59 12/17/16 07:59 12/17/16 07:59 12/17/16 07:59 Intake and Output: 12/17/16 12/17/16 06:59 18:59 Intake Total 920 Output Total 800 Balance 120 - Medications Medications: Current Medications Acetaminophen (Tylenol 325mg Tab) 650 mg PO Q4 PRN PRN Reason: Fever >100.4 F Last Admin: 12/10/16 06:26 Dose: 650 mg Alprazolam (Xanax) 0.5 mg PO HS [facility] PRN Reason: Protocol Last Admin: 12/16/16 21:32 Dose: 0.5 mg Ascorbic Acid (Vitamin C 500 Mg Tab) 500 mg PO BID [facility] Last Admin: 12/16/16 18:27 Dose: 500 mg Aspirin (Ecotrin) 325 mg PO DAILY [facility] Last Admin: 12/16/16 10:29 Dose: 325 mg Bupropion HCl (Wellbutrin Xl) 300 mg PO DAILY [facility] Last Admin: 12/16/16 10:30 Dose: 300 mg Carvedilol (Coreg) 12.5 mg PO BID [facility] Last Admin: 12/16/16 18:27 Dose: 12.5 mg Cyanocobalamin (Vitamin B12 1000 Mcg/Ml Inj) 1,000 mcg IM Q30D [facility] Doxycycline Hyclate (Doryx) 100 mg PO Q12 [facility] PRN Reason: Protocol Stop: 12/23/16 10:01 Last Admin: 12/16/16 21:32 Dose: 100 mg Ergocalciferol (Drisdol 50,000 Intl Units Cap) 1 cap PO SAT [facility] Last Admin: 12/11/16 10:24 Dose: 1 cap Ferrous Sulfate (Feosol Liq) 300 mg PO 0800,1200,1700 [facility] Last Admin: 12/16/16 18:25 Dose: 300 mg Gabapentin (Neurontin) 800 mg PO TID [facility] PRN Reason: Protocol Last Admin: 12/16/16 18:26 Dose: 800 mg Heparin Sodium (Porcine) (Heparin) 5,000 units SC Q12 [facility] PRN Reason: Protocol Last Admin: 12/16/16 21:31 Dose: 5,000 units Hydromorphone HCl (Dilaudid) 1.5 mg IVP Q4H PRN PRN Reason: Pain, severe (8-10) Last Admin: 12/17/16 05:45 Dose: 1.5 mg Meropenem 1g/NS 100mL IVPB (Meropenem 1g/Ns 100ml Ivpb) 1 gm in 100 mls @ 100 mls/hr IVPB Q12 [facility] PRN Reason: Protocol Last Admin: 12/16/16 21:30 Dose: 100 mls/hr Insulin Human Regular (Humulin R Med) 0 units SC ACHS [facility] PRN Reason: Protocol Last Admin: 12/17/16 08:10 Dose: Not Given Lisinopril (Zestril) 10 mg PO DAILY [facility] Last Admin: 12/16/16 10:30 Dose: 10 mg Multivitamins/Minerals (Therapeutic-M Tab) 1 tab PO DAILY [facility] Last Admin: 12/16/16 10:32 Dose: 1 tab Pantoprazole Sodium (Protonix Ec Tab) 40 mg PO ACBD [facility] Last Admin: 12/16/16 18:27 Dose: 40 mg Potassium Chloride (K-Dur 20 Meq Er Tab) 20 meq PO BRK [facility] Last Admin: 12/16/16 08:28 Dose: 20 meq Silver Sulfadiazine (Silvadene 1% 20 Gm) 0 ea TOP BID [facility] Last Admin: 12/16/16 18:28 Dose: 1 applic Trazodone HCl (Desyrel) 50 mg PO HS [facility] Last Admin: 12/16/16 21:32 Dose: 50 mg Zinc Sulfate (Zinc Sulfate 220 Mg Cap) 220 mg PO DAILY [facility] Last Admin: 12/16/16 10:29 Dose: 220 mg Ziprasidone (Geodon Cap) 80 mg PO HS [facility] Last Admin: 12/16/16 21:32 Dose: 80 mg - Labs Labs: 12/13/16 06:45 PT 11.3 Seconds (9.9-11.8) 12/07/16 10:00 INR 1.05 (0.93-1.08) 12/07/16 10:00 APTT 30.9 Seconds (23.7-30.8) H 12/07/16 10:00 - Constitutional Appears: Non-toxic, No Acute Distress - Head Exam Head Exam: NORMAL INSPECTION - ENT Exam ENT Exam: Mucous Membranes Moist - Neck Exam Neck Exam: absent: Lymphadenopathy, Meningismus - Respiratory Exam Respiratory Exam: Decreased Breath Sounds - Cardiovascular Exam Cardiovascular Exam: +S1, +S2 - GI/Abdominal Exam GI & Abdominal Exam: Soft. absent: Tenderness - Back Exam Additional comments: wound vacuum in place Assessment and Plan - Assessment and Plan (Free Text) Plan: Assessment sepsis due to left lower lobe healthcare-associated pneumonia as well as UTI in a patient with Chronic Gomez catheter, growing MRSA and VRE (S/P treatment of UTI) Sacral decubitus ulcers with osteomyelitis (repeat CT scan this admission shows progression of the osteomyelitis) - previously treated for E. faecalis, E. coli and P. mirabilis August to October 2016 history of E. faecalis bacteremia and ESBL E. coli UTI Decubitus ulcers on the sacral and hip areas S/P debridement; the ulcer was deep and probably stage 4; there was note of ESBL producing organism and MRSA from the LTAC wound cx S/P treatment with antibiotics S/P post-cholecystostomy (for acute cholecystitis) probably due to abscess in the RUQ area S/P CT-guided drainage - surgical site with some drainage ( possible abscess/skin and skin strucutre infection), with clinical improvement DM HTN Morbid obesity with BMI 43 coronary artery disease history of paraplegia from cauda equina syndrome neurogenic bladder Plan continue Merrem and Doxycycline (day 9); patient may need prolonged antibiotics again for the sacral ulcer with osteomyelitis will continue to follow clinically
[2016-12-18] MEDS: HYDROmorphone 2 mg/ml ISec IVP PRN ×6 (00:26→22:12)
[2016-12-18] MEDS: Insulin Reg-MEDIUM-Coverage SC SCH ×4 (04:51→22:14)
[2016-12-18] MEDS: Ferrous Sulfate 300 mg/5 mL Liq UD PO SCH ×2 (09:04→12:04)
[2016-12-18] MEDS: Potassium Chloride 20 mEq ER Tab PO SCH (10:00)
[2016-12-18] MEDS: Pantoprazole 40 mg EC Tab PO SCH ×2 (10:01→18:27)
[2016-12-18] MEDS: Aspirin 325 mg EC Tablets PO SCH (10:01)
[2016-12-18] MEDS: Multivitamin With Minerals Tab PO SCH (10:01)
[2016-12-18 10:02] LABS: BASO # 0.02 K/mm3 (0.0-2.0); BASO % 0.4 % (0.0-3.0); EOS # 0.3 (0.0-0.7); GRAN # 3.04 (1.4-6.5); GRAN % 60.7 % (50.0-68.0); HEMOGLOBIN 8.3 gm/dL (14.0-18.0); LYMPH # 1.3 (1.2-3.4); LYMPH % 25.9 % (22.0-35.0); MEAN CELL VOLUME 87.4 fL (80.0-105.0); MEAN CORPUSCULAR HEMOGLOBIN 27.6 pg (25.0-35.0); MEAN CORPUSCULAR HGB CONC 31.6 g/dl (31.0-37.0); MEAN PLATELET VOLUME 8.9 fl (7.0-11.0); MONO # 0.4 (0.1-0.6); PLATELET COUNT 178 10^3/uL (120.0-450.0); RBC 3.01 10^6/uL (3.5-6.1); RED CELL DISTRIBUTION WIDTH 14.8 % (11.5-14.5)
[2016-12-18] MEDS: Meropenem 1g/NS 100mL IVPB 1 GM/100 ML PIGGYBACK IVPB SCH ×2 (10:02→22:17)
[2016-12-18] MEDS: buPROPion 300 mg/24 Hours XL Tab PO SCH (10:05)
[2016-12-18] MEDS: Ergocalciferol 50,000 Intl Units Cap PO SCH (10:05)
[2016-12-18 10:09] LABS: BLOOD UREA NITROGEN 28 mg/dL (7-21); CALCIUM 8.2 mg/dL (8.4-10.5); GFR AFRICAN-AMERICAN > 60; GFR NON-AFRICAN AMERICAN > 60
[2016-12-18] MEDS: Silver Sulfadiazine 1% Cream (20 gm) TOP SCH ×2 (10:10→19:48)
[2016-12-18 10:24] LABS: INR 1.12 (0.93-1.08); PARTIAL THROMBOPLASTIN TIME 30.6 Seconds (23.7-30.8); PROTHROMBIN TIME 12.1 Seconds (9.9-11.8)
--- NOTE | 2016-12-18 10:26 | PN ---
DATE: 12/18/2016 SUBJECTIVE: The patient is in bed and in no acute distress, nontoxic. PHYSICAL EXAMINATION: VITAL SIGNS: Temperature is 97, blood pressure is 140/60, and respiratory rate of 16. HEENT: Examination of HEENT is unremarkable. NECK: Supple.. LUNGS: Decreased breath sounds. HEART: Normal S1 and S2. ABDOMEN: Soft and nontender. LABORATORY DATA: Examination reveals a white count of 4.4, hemoglobin of 8 and platelets of 124. Coagulation is noted. Chemistries are noted. The patient's creatinine is 1.2. Urinalysis is noted. Microbiology is reviewed. 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 The patient with diabetics, hypertension, and morbidity obesity with body mass index of 43, coronary artery diseases, history of paraplegia from cauda equina syndrome, neurogenic bladder on meropenem and doxycycline day number 10 and review of orders reveals the patients to be on p.o. doxycycline and intravenous meropenem. Intravenous meropenem requires renewal, which I will do so. Alpesh Barrow MD
--- NOTE | 2016-12-18 12:01 | CP.PCM.PN ---
Subjective - Date & Time of Evaluation Date of Evaluation: 12/18/16 Time of Evaluation: 11:56 - Subjective Subjective: General Surgery Progress note for Dr. Méndez 66M seen at [facility]. [facility]. Gomez leak discovered during morning rounds. denies F /c, N/V, C/D. Patient states still has pain on lower back/sacral region. tolerating pain well. Dressing changes necessary due to leakage. Objective - Vital Signs/Intake and Output Vital Signs (last 24 hours): Temp Pulse Resp BP Pulse Ox 98.6 F 79 20 154/67 H 96 12/18/16 07:30 12/18/16 07:30 12/18/16 07:30 12/18/16 07:30 12/18/16 07:30 Intake and Output: 12/18/16 12/18/16 06:59 18:59 Intake Total 600 Output Total 600 Balance 0 - Medications Medications: Current Medications Acetaminophen (Tylenol 325mg Tab) 650 mg PO Q4 PRN PRN Reason: Fever >100.4 F Last Admin: 12/10/16 06:26 Dose: 650 mg Alprazolam (Xanax) 0.5 mg PO HS [facility] PRN Reason: Protocol Last Admin: 12/17/16 21:56 Dose: 0.5 mg Ascorbic Acid (Vitamin C 500 Mg Tab) 500 mg PO BID [facility] Last Admin: 12/18/16 10:01 Dose: 500 mg Aspirin (Ecotrin) 325 mg PO DAILY [facility] Last Admin: 12/18/16 10:01 Dose: 325 mg Bupropion HCl (Wellbutrin Xl) 300 mg PO DAILY [facility] Last Admin: 12/17/16 09:43 Dose: 300 mg Carvedilol (Coreg) 12.5 mg PO BID [facility] Last Admin: 12/18/16 10:04 Dose: 12.5 mg Cyanocobalamin (Vitamin B12 1000 Mcg/Ml Inj) 1,000 mcg IM Q30D [facility] Doxycycline Hyclate (Doryx) 100 mg PO Q12 [facility] PRN Reason: Protocol Stop: 12/23/16 10:01 Last Admin: 12/18/16 10:02 Dose: 100 mg Ergocalciferol (Drisdol 50,000 Intl Units Cap) 1 cap PO SAT [facility] Last Admin: 12/11/16 10:24 Dose: 1 cap Ferrous Sulfate (Feosol Liq) 300 mg PO 0800,1200,1700 [facility] Last Admin: 12/18/16 09:04 Dose: Not Given Gabapentin (Neurontin) 800 mg PO TID [facility] PRN Reason: Protocol Last Admin: 12/18/16 10:01 Dose: 800 mg Heparin Sodium (Porcine) (Heparin) 5,000 units SC Q12 [facility] PRN Reason: Protocol Last Admin: 12/17/16 21:43 Dose: 5,000 units Hydromorphone HCl (Dilaudid) 1.5 mg IVP Q4H PRN PRN Reason: Pain, severe (8-10) Last Admin: 12/18/16 09:55 Dose: 1.5 mg Meropenem 1g/NS 100mL IVPB (Meropenem 1g/Ns 100ml Ivpb) 1 gm in 100 mls @ 100 mls/hr IVPB Q12 [facility] PRN Reason: Protocol Last Admin: 12/18/16 10:02 Dose: 100 mls/hr Insulin Human Regular (Humulin R Med) 0 units SC ACHS [facility] PRN Reason: Protocol Last Admin: 12/18/16 04:51 Dose: Not Given Lisinopril (Zestril) 10 mg PO DAILY [facility] Last Admin: 12/17/16 09:44 Dose: 10 mg Multivitamins/Minerals (Therapeutic-M Tab) 1 tab PO DAILY [facility] Last Admin: 12/18/16 10:01 Dose: 1 tab Pantoprazole Sodium (Protonix Ec Tab) 40 mg PO ACBD [facility] Last Admin: 12/18/16 10:01 Dose: 40 mg Potassium Chloride (K-Dur 20 Meq Er Tab) 20 meq PO BRK [facility] Last Admin: 12/18/16 10:00 Dose: 20 meq Silver Sulfadiazine (Silvadene 1% 20 Gm) 0 ea TOP BID [facility] Last Admin: 12/17/16 17:38 Dose: 1 applic Trazodone HCl (Desyrel) 50 mg PO HS [facility] Last Admin: 12/17/16 21:43 Dose: 50 mg Zinc Sulfate (Zinc Sulfate 220 Mg Cap) 220 mg PO DAILY [facility] Last Admin: 12/17/16 09:43 Dose: 220 mg Ziprasidone (Geodon Cap) 80 mg PO HS [facility] Last Admin: 12/17/16 21:42 Dose: 80 mg - Labs Labs: 12/18/16 08:50 12/18/16 08:50 PT 12.1 Seconds (9.9-11.8) H 12/18/16 08:50 INR 1.12 (0.93-1.08) H 12/18/16 08:50 APTT 30.6 Seconds (23.7-30.8) 12/18/16 08:50 - Constitutional Appears: Chronically Ill - Head Exam Head Exam: NORMAL INSPECTION, NORMOCEPHALIC - Eye Exam Eye Exam: EOMI, Normal appearance - ENT Exam ENT Exam: Mucous Membranes Moist, Normal Exam - Respiratory Exam Respiratory Exam: NORMAL BREATHING PATTERN. absent: Accessory Muscle Use, Rhonchi, Wheezes, Respiratory Distress - GI/Abdominal Exam GI & Abdominal Exam: Soft. absent: Distended, Rigid, Tenderness, Hyperactive Bowel Sounds, Hypoactive Bowel Sounds, Pulsatile Mass, Rebound - Skin Skin Exam: Dry, Erythema, Normal Color Additional comments: sacral ulcer stage 4, improving, left ischial ulcer stage 3, right posterior scrotal ulcer Assessment and Plan - Assessment and Plan (Free Text) Assessment: 66 M presents with sacral ulcer stage 4, improving, left ischial ulcer stage 3, right posterior scrotal ulcer Plan: wound dressing change M/W/F, and PRN wound dressing today c/w abx c/w medical management c/w current pain management d/w Dr. Dev Nieto, DO PGY1
--- NOTE | 2016-12-18 15:44 | PN ---
SUBJECTIVE: A 66-year-old white male, wound VAC, sacral decubitus osteomyelitis of the sacrum, MRSA, enterococcus faecalis vancomycin resistant, urinary tract infection, CAD, reduced ejection fraction, insulin dependent diabetes mellitus, hypertension, obesity, paraplegia. *------* bladder colostomy. The patient is doing well. His wound VAC changed today. He is on IV antibiotics, triple therapy antibiotics. He is afebrile. Vital signs are stable. Plans to continue IV antibiotics. Catheterization on Tuesday and Tuesday. Rayshawn Lorenzana MD
[2016-12-19] MEDS: HYDROmorphone 2 mg/ml ISec IVP PRN ×5 (02:46→21:22)
[2016-12-19] MEDS: Insulin Reg-MEDIUM-Coverage SC SCH ×3 (08:57→22:15)
[2016-12-19] MEDS: Potassium Chloride 20 mEq ER Tab PO SCH ×2 (08:58→10:33)
[2016-12-19] MEDS: Pantoprazole 40 mg EC Tab PO SCH ×3 (08:59→16:56)
--- NOTE | 2016-12-19 10:09 | PN ---
SUBJECTIVE: This is a 66-year-old white male. The patient is afebrile. Vital signs are stable. Laboratory data is stable. Hemoglobin is 8.3. The patient is schedule for cardiac catheterization either tomorrow or Tuesday. He has a sacral decubitus with osteomyelitis. He is on triple drug therapy. He also has MRSA enterococcus, vancomycin resistant enterococcus . The patient is afebrile. He is tolerating his wound VAC. His Gomez catheter and his colostomy are functioning well. Vital signs are stable. Plan is to cath as soon as Dr. Mota as the patient will be scheduled. Continue IV antibiotics and physical therapy. Rayshawn Lorenzana MD
--- NOTE | 2016-12-19 10:17 | CP.PCM.PN ---
Subjective - Date & Time of Evaluation Date of Evaluation: 12/19/16 Time of Evaluation: 07:45 - Subjective Subjective: General Surgery- Dr. Méndez 66M seen at [facility]. [facility]. denies F/c, N/V, C/D. Patient states still has pain on lower back/sacral region. tolerating pain well. wound vac on, no leakage detected at this time Objective - Vital Signs/Intake and Output Vital Signs (last 24 hours): Temp Pulse Resp BP Pulse Ox 97.6 F 66 20 120/53 L 96 12/19/16 08:05 12/19/16 08:05 12/19/16 08:05 12/19/16 08:05 12/19/16 08:05 Intake and Output: 12/19/16 12/19/16 06:59 18:59 Intake Total 1420 Output Total 2700 Balance -1280 - Medications Medications: Current Medications Acetaminophen (Tylenol 325mg Tab) 650 mg PO Q4 PRN PRN Reason: Fever >100.4 F Last Admin: 12/10/16 06:26 Dose: 650 mg Alprazolam (Xanax) 0.5 mg PO HS [facility] PRN Reason: Protocol Last Admin: 12/18/16 22:17 Dose: 0.5 mg Ascorbic Acid (Vitamin C 500 Mg Tab) 500 mg PO BID [facility] Last Admin: 12/18/16 18:14 Dose: 500 mg Aspirin (Ecotrin) 325 mg PO DAILY [facility] Last Admin: 12/18/16 10:01 Dose: 325 mg Bupropion HCl (Wellbutrin Xl) 300 mg PO DAILY [facility] Last Admin: 12/18/16 10:05 Dose: 300 mg Carvedilol (Coreg) 12.5 mg PO BID [facility] Last Admin: 12/18/16 18:14 Dose: 12.5 mg Cyanocobalamin (Vitamin B12 1000 Mcg/Ml Inj) 1,000 mcg IM Q30D [facility] Doxycycline Hyclate (Doryx) 100 mg PO Q12 [facility] PRN Reason: Protocol Stop: 12/23/16 10:01 Last Admin: 12/18/16 22:12 Dose: 100 mg Ergocalciferol (Drisdol 50,000 Intl Units Cap) 1 cap PO SAT [facility] Last Admin: 12/18/16 10:05 Dose: 1 cap Fentanyl (Duragesic) 1 patch TD Q72H [facility] Last Admin: 12/19/16 06:46 Dose: 1 patch Gabapentin (Neurontin) 800 mg PO TID [facility] PRN Reason: Protocol Last Admin: 12/18/16 18:15 Dose: 800 mg Heparin Sodium (Porcine) (Heparin) 5,000 units SC Q12 [facility] PRN Reason: Protocol Last Admin: 12/18/16 22:12 Dose: 5,000 units Hydromorphone HCl (Dilaudid) 1.5 mg IVP Q4H PRN PRN Reason: Pain, severe (8-10) Last Admin: 12/19/16 06:45 Dose: 1.5 mg Meropenem 1g/NS 100mL IVPB (Meropenem 1g/Ns 100ml Ivpb) 1 gm in 100 mls @ 100 mls/hr IVPB Q12 [facility] PRN Reason: Protocol Last Admin: 12/18/16 22:17 Dose: 100 mls/hr Insulin Human Regular (Humulin R Med) 0 units SC ACHS [facility] PRN Reason: Protocol Last Admin: 12/19/16 08:57 Dose: Not Given Lisinopril (Zestril) 10 mg PO DAILY [facility] Last Admin: 12/18/16 10:05 Dose: 10 mg Pantoprazole Sodium (Protonix Ec Tab) 40 mg PO ACBD [facility] Last Admin: 12/19/16 08:59 Dose: Not Given Potassium Chloride (K-Dur 20 Meq Er Tab) 20 meq PO BRK [facility] Last Admin: 12/19/16 08:58 Dose: Not Given Silver Sulfadiazine (Silvadene 1% 20 Gm) 0 ea TOP BID [facility] Last Admin: 12/18/16 19:48 Dose: Not Given Trazodone HCl (Desyrel) 50 mg PO HS [facility] Last Admin: 12/18/16 22:12 Dose: 50 mg Zinc Sulfate (Zinc Sulfate 220 Mg Cap) 220 mg PO DAILY [facility] Last Admin: 12/18/16 12:07 Dose: 220 mg Ziprasidone (Geodon Cap) 80 mg PO HS [facility] Last Admin: 12/18/16 22:12 Dose: 80 mg - Labs Labs: 12/18/16 08:50 12/18/16 08:50 PT 12.1 Seconds (9.9-11.8) H 12/18/16 08:50 INR 1.12 (0.93-1.08) H 12/18/16 08:50 APTT 30.6 Seconds (23.7-30.8) 12/18/16 08:50 - Constitutional Appears: No Acute Distress - Eye Exam Eye Exam: EOMI - ENT Exam ENT Exam: Mucous Membranes Moist - Respiratory Exam Respiratory Exam: NORMAL BREATHING PATTERN. absent: Accessory Muscle Use, Respiratory Distress - Cardiovascular Exam Cardiovascular Exam: REGULAR RHYTHM - GI/Abdominal Exam GI & Abdominal Exam: Soft, Normal Bowel Sounds. absent: Distended, Tenderness - Exam Additional comments: Gomez in place - Neurological Exam Neurological Exam: Alert, Awake Assessment and Plan - Assessment and Plan (Free Text) Assessment: 66M sacral ulcer stage 4, improving, left ischial ulcer stage 3, right posterior scrotal ulcer Plan: wound Vac change M/W/F, and PRN c/w abx c/w medical management c/w current pain management d/w Dr. Dev Palmer PGY1
[2016-12-19] MEDS: Meropenem 1g/NS 100mL IVPB 1 GM/100 ML PIGGYBACK IVPB SCH ×2 (10:36→21:29)
--- NOTE | 2016-12-19 14:24 | PN ---
DATE: 12/19/2016 SUBJECTIVE: The patient is in bed, in no acute distress, nontoxic. PHYSICAL EXAMINATION: VITAL SIGNS: Temperature is 98, blood pressure is 120/50, and respiratory rate of 16. HEENT: Unremarkable. NECK: Supple. LUNGS: Decreased breath sounds. HEART: Normal S1 and S2. ABDOMEN: Soft and nontender. LABORATORY DATA: Reveal a white count of 5. Chemistries are noted. Urinalysis is noted. Microbiology is reviewed. Review of the orders reveal the patient to be on p.o. doxycycline and IV meropenem. Dr. Lorenzana's note is reviewed from yesterday and *------* note from yesterday is reviewed. ASSESSMENT AND PLAN: This is a 66-year-old with sepsis due to left lower lobe healthcare-associated pneumonia, urinary tract infection, chronic Gomez catheter, growing methicillin-resistant Staphylococcus aureus and vancomycin-resistant Enterococcus and sacral decubitus and osteomyelitis and previously treated in a patient with diabetes, hypertension, morbid obesity with body mass index of 43, coronary artery disease, history of paraplegia with a cauda equina syndrome, neurogenic bladder, on day #11 of doxycycline and meropenem and we will continue the present course. Alpesh Barrow MD
[2016-12-19] MEDS: buPROPion 300 mg/24 Hours XL Tab PO SCH (14:51)
[2016-12-19] MEDS: Aspirin 325 mg EC Tablets PO SCH (14:51)
[2016-12-19] MEDS: Silver Sulfadiazine 1% Cream (20 gm) TOP SCH (16:19)
[2016-12-19] MEDS: Multivitamin With Minerals Tab PO SCH (16:56)
[2016-12-20] MEDS: HYDROmorphone 2 mg/ml ISec IVP PRN ×5 (02:22→19:57)
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
[2016-12-20] MEDS: Pantoprazole 40 mg EC Tab PO SCH ×2 (08:44→18:41)
[2016-12-20] MEDS: Potassium Chloride 20 mEq ER Tab PO SCH (08:44)
[2016-12-20] MEDS: Insulin Reg-MEDIUM-Coverage SC SCH ×4 (08:45→22:09)
[2016-12-20] MEDS: Meropenem 1g/NS 100mL IVPB 1 GM/100 ML PIGGYBACK IVPB SCH ×2 (10:30→22:18)
[2016-12-20] MEDS: buPROPion 300 mg/24 Hours XL Tab PO SCH (10:31)
[2016-12-20] MEDS: Silver Sulfadiazine 1% Cream (20 gm) TOP SCH ×2 (10:32→18:42)
--- NOTE | 2016-12-20 11:23 | CP.PCM.PN ---
Subjective - Date & Time of Evaluation Date of Evaluation: 12/20/16 Time of Evaluation: 10:45 - Subjective Subjective: Comfortable in bed, no fevers overnight. Objective - Vital Signs/Intake and Output Vital Signs (last 24 hours): Temp Pulse Resp BP Pulse Ox 98 F 73 18 139/64 99 12/20/16 07:35 12/20/16 07:35 12/20/16 07:35 12/20/16 07:35 12/20/16 07:35 Intake and Output: 12/20/16 12/20/16 06:59 18:59 Intake Total 1320 Output Total 2300 Balance -980 - Medications Medications: Current Medications Acetaminophen (Tylenol 325mg Tab) 650 mg PO Q4 PRN PRN Reason: Fever >100.4 F Last Admin: 12/10/16 06:26 Dose: 650 mg Alprazolam (Xanax) 0.5 mg PO HS [facility] PRN Reason: Protocol Last Admin: 12/19/16 21:28 Dose: 0.5 mg Ascorbic Acid (Vitamin C 500 Mg Tab) 500 mg PO BID [facility] Last Admin: 12/19/16 19:01 Dose: 500 mg Aspirin (Ecotrin) 325 mg PO DAILY [facility] Last Admin: 12/19/16 14:51 Dose: 325 mg Bupropion HCl (Wellbutrin Xl) 300 mg PO DAILY [facility] Last Admin: 12/19/16 14:51 Dose: 300 mg Carvedilol (Coreg) 12.5 mg PO BID [facility] Last Admin: 12/19/16 19:02 Dose: 12.5 mg Cyanocobalamin (Vitamin B12 1000 Mcg/Ml Inj) 1,000 mcg IM Q30D [facility] Doxycycline Hyclate (Doryx) 100 mg PO Q12 [facility] PRN Reason: Protocol Stop: 12/23/16 10:01 Last Admin: 12/19/16 21:28 Dose: 100 mg Ergocalciferol (Drisdol 50,000 Intl Units Cap) 1 cap PO SAT [facility] Last Admin: 12/18/16 10:05 Dose: 1 cap Fentanyl (Duragesic) 1 patch TD Q72H [facility] Last Admin: 12/19/16 06:46 Dose: 1 patch Gabapentin (Neurontin) 800 mg PO TID [facility] PRN Reason: Protocol Last Admin: 12/19/16 19:01 Dose: 800 mg Heparin Sodium (Porcine) (Heparin) 5,000 units SC Q12 [facility] PRN Reason: Protocol Last Admin: 12/19/16 21:28 Dose: 5,000 units Hydromorphone HCl (Dilaudid) 1.5 mg IVP Q4H PRN PRN Reason: Pain, severe (8-10) Last Admin: 12/20/16 06:22 Dose: 1.5 mg Meropenem 1g/NS 100mL IVPB (Meropenem 1g/Ns 100ml Ivpb) 1 gm in 100 mls @ 100 mls/hr IVPB Q12 [facility] PRN Reason: Protocol Last Admin: 12/19/16 21:29 Dose: 100 mls/hr Insulin Human Regular (Humulin R Med) 0 units SC ACHS [facility] PRN Reason: Protocol Last Admin: 12/20/16 08:45 Dose: Not Given Lisinopril (Zestril) 10 mg PO DAILY [facility] Last Admin: 12/19/16 10:36 Dose: 10 mg Pantoprazole Sodium (Protonix Ec Tab) 40 mg PO ACBD [facility] Last Admin: 12/20/16 08:44 Dose: 40 mg Potassium Chloride (K-Dur 20 Meq Er Tab) 20 meq PO BRK [facility] Last Admin: 12/20/16 08:44 Dose: 20 meq Silver Sulfadiazine (Silvadene 1% 20 Gm) 0 ea TOP BID [facility] Last Admin: 12/19/16 16:19 Dose: Not Given Trazodone HCl (Desyrel) 50 mg PO HS [facility] Last Admin: 12/19/16 21:28 Dose: 50 mg Zinc Sulfate (Zinc Sulfate 220 Mg Cap) 220 mg PO DAILY [facility] Last Admin: 12/19/16 16:38 Dose: 220 mg Ziprasidone (Geodon Cap) 80 mg PO HS [facility] Last Admin: 12/20/16 02:23 Dose: 80 mg - Labs Labs: 12/18/16 08:50 12/18/16 08:50 PT 12.1 Seconds (9.9-11.8) H 12/18/16 08:50 INR 1.12 (0.93-1.08) H 12/18/16 08:50 APTT 30.6 Seconds (23.7-30.8) 12/18/16 08:50 - Constitutional Appears: Non-toxic, No Acute Distress - Head Exam Head Exam: NORMAL INSPECTION - Neck Exam Neck Exam: absent: Meningismus - Respiratory Exam Respiratory Exam: Decreased Breath Sounds - Cardiovascular Exam Cardiovascular Exam: +S1, +S2 - GI/Abdominal Exam GI & Abdominal Exam: Soft. absent: Tenderness Assessment and Plan - Assessment and Plan (Free Text) Plan: Assessment sepsis due to left lower lobe healthcare-associated pneumonia as well as UTI in a patient with Chronic Gomez catheter, growing MRSA and VRE (S/P treatment of UTI) Sacral decubitus ulcers with osteomyelitis (repeat CT scan this admission shows progression of the osteomyelitis) - previously treated for E. faecalis, E. coli and P. mirabilis August to October 2016 history of E. faecalis bacteremia and ESBL E. coli UTI Decubitus ulcers on the sacral and hip areas S/P debridement; the ulcer was deep and probably stage 4; there was note of ESBL producing organism and MRSA from the LTAC wound cx S/P treatment with antibiotics S/P post-cholecystostomy (for acute cholecystitis) probably due to abscess in the RUQ area S/P CT-guided drainage - surgical site with some drainage ( possible abscess/skin and skin strucutre infection), with clinical improvement DM HTN Morbid obesity with BMI 43 coronary artery disease history of paraplegia from cauda equina syndrome neurogenic bladder Plan continue Merrem and Doxycycline (day 12); patient may need prolonged antibiotics again for the sacral ulcer with osteomyelitis will continue to follow clinically
[2016-12-20] MEDS: Aspirin 325 mg EC Tablets PO SCH (12:26)
--- NOTE | 2016-12-20 13:01 | PN ---
SUBJECTIVE: A 66-year-old white male for catheterization today with recent drop in his ejection fraction, history of CAD in the past, admitted with diabetes mellitus, sacral decubitus with osteomyelitis, MRSA in the urine, and vancomycin-resistant Enterococcus in the urine, on IV antibiotics. PHYSICAL EXAMINATION: VITAL SIGNS: The patient is afebrile. Vital signs otherwise are stable. GENERAL: The patient is awake, alert, and oriented x3. NEUROLOGIC: Sensation is grossly intact except for paraplegia of lower extremities. ASSESSMENT AND PLAN: The patient is here for catheterization today. We will assess this evaluation and we will follow patient does have a hemoglobin of 8.3. The patient unchanged. Rayshawn Lorenzana MD
[2016-12-20] MEDS ORDERED: Phenylephrine 10 mg/ml Inj ONE (14:44)
[2016-12-20] MEDS ORDERED: Iohexol 350mgl/ml 50 ML ONE (14:44)
[2016-12-20] MEDS ORDERED: Iodixanol 320 mg/ml 150 ml Bottle IV ONE (14:45)
[2016-12-20] MEDS ORDERED: Iodixanol 320 MG/ML 100 ML BOTTLE IV ONE (14:45)
[2016-12-20] MEDS ORDERED: Lidocaine 2% Inj (20ml) ONE (14:46)
[2016-12-20] MEDS ORDERED: Nitroglycerin 50mg in D5W 0 MG/0 ML BOTTLE IV ONE (14:55)
[2016-12-20] MEDS ORDERED: Midazolam 2 MG/2 ML VIAL ONE (16:35)
[2016-12-20] MEDS ORDERED: Sodium Chloride 0.9% 1,000 ML IV SCH (17:00)
[2016-12-21] MEDS: HYDROmorphone 2 mg/ml ISec IVP PRN ×6 (00:54→22:49)
--- NOTE | 2016-12-21 02:42 | CARDCATH ---
PROCEDURE DATE: 12/20/2016 PROCEDURES: 1. Selective left and right coronary angiography. 2. Left ventriculography. 3. Right femoral arteriography. 4. Angio-Seal deployment. HISTORY: This is a 66-year-old man with known coronary artery disease who is admitted with a large sacral decubitus and bacteremia. An echocardiogram was performed revealing evidence of significant reduction in the left ventricular systolic function. Cardiac catheterization was recommended. INDICATIONS: 1. Known coronary artery disease. 2. New left ventricular dysfunction. FINDINGS: HEMODYNAMICS: The aortic pressure was 130/80 with left ventricular pressure of 130/24. CORONARY ANATOMY: 1. The left main stem was normal 2. The left anterior descending artery had widely patent stents in its proximal and mid portion. In the early distal segment of the vessel, there was a 60% stenosis. Mild irregularity is noted distally. The diagonal branch has had minimal disease. 3. The left circumflex artery was codominant. There was a 40% lesion in the mid portion. The obtuse marginal branches were free of disease. 4. The right coronary artery was codominant and normal. LEFT VENTRICULOGRAPHY: Left ventriculogram was performed with the hand injection only in the VILA projection. This revealed severe global hypokinesis with notable ejection fraction of 30%. There was no aortic valve gradient noted on catheter pullback. Mitral regurgitation was not assessed. CONCLUSIONS: 1. Severe left ventricular systolic function. 2. Patent LAD stents. 3. Moderate distal LAD disease. RECOMMENDATIONS: Continued heart failure therapy with beta blockers, statin and diuretics will be advised. Intensification of his beta maya and angiotensin receptor maya dose is advised. Sodium restriction is advised as well. Given his DNR status, the patient will not be evaluated for prophylactic ICD implant. Dieudonne Montiel MD cc: Rayshawn Lorenzana MD
[2016-12-21 07:20] LABS: BASO # 0.03 K/mm3 (0.0-2.0); BASO % 0.6 % (0.0-3.0); EOS # 0.2 (0.0-0.7); EOS % 4.4 % (1.5-5.0); GRAN # 2.76 (1.4-6.5); GRAN % 55.5 % (50.0-68.0); HEMOGLOBIN 8.1 gm/dL (14.0-18.0); LYMPH # 1.5 (1.2-3.4); LYMPH % 29.7 % (22.0-35.0); MEAN CELL VOLUME 87.2 fL (80.0-105.0); MEAN CORPUSCULAR HEMOGLOBIN 27.9 pg (25.0-35.0); MEAN PLATELET VOLUME 8.8 fl (7.0-11.0); MONO # 0.5 (0.1-0.6); MONO % 9.8 % (1.0-6.0); PLATELET COUNT 187 10^3/uL (120.0-450.0); RED CELL DISTRIBUTION WIDTH 14.8 % (11.5-14.5)
[2016-12-21 07:32] LABS: BLOOD UREA NITROGEN 29 mg/dL (7-21); CALCIUM 7.9 mg/dL (8.4-10.5); GFR AFRICAN-AMERICAN > 60; GFR NON-AFRICAN AMERICAN > 60
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
[2016-12-21] MEDS: Insulin Reg-MEDIUM-Coverage SC SCH ×5 (08:12→22:46)
[2016-12-21] MEDS: Pantoprazole 40 mg EC Tab PO SCH ×2 (08:41→17:08)
[2016-12-21] MEDS: Potassium Chloride 20 mEq ER Tab PO SCH (08:42)
[2016-12-21] MEDS: buPROPion 300 mg/24 Hours XL Tab PO SCH (10:36)
[2016-12-21] MEDS: Aspirin 325 mg EC Tablets PO SCH (10:38)
[2016-12-21] MEDS: Meropenem 1g/NS 100mL IVPB 1 GM/100 ML PIGGYBACK IVPB SCH ×2 (10:38→21:47)
[2016-12-21] MEDS: Silver Sulfadiazine 1% Cream (20 gm) TOP SCH ×2 (10:45→17:09)
--- NOTE | 2016-12-21 11:15 | PN ---
SUBJECTIVE: Status post cardiac catheterization, the had patient had nonobstructive coronary disease, patent stents, low ejection fraction between 25% and 30%. The patient is a DNR and DNI; therefore, a defibrillator pacemaker will be not attempted at this point. The patient will be treated with medical therapy, increasing lisinopril, increasing metoprolol. Vital signs are stable. The patient has returned back to bed. He is comfortable sleeping this morning. He is on a wound VAC for his osteomyelitis of the back with a sacral decubitus. He is being treated with triple drug therapy for MRSA, urinary tract infection and enterococcus vancomycin-resistant urinary tract infection. PHYSICAL EXAMINATION VITAL SIGNS: He is a afebrile and he is stable. Physical examination is unchanged. PLAN: Continue IV antibiotics and transfer to facility to continue his antibiotics as per ID. Rayshawn Lorenzana MD
--- NOTE | 2016-12-21 14:29 | PN ---
DATE: are stable and improved. The wounds are getting better. The wounds on the sacrum still requires a wound VAC. I do not see very much progress being met at this point. He thinks he wants to go home, but he is not strong enough to do it. Parish Méndez MD
[2016-12-22] MEDS: HYDROmorphone 2 mg/ml ISec IVP PRN ×5 (03:20→22:57)
--- NOTE | 2016-12-22 05:23 | PN ---
DATE: 12/21/2016 SUBJECTIVE: Patient is in bed, in no acute distress, was seen earlier this morning in 572, bed 1. PHYSICAL EXAMINATION: VITAL SIGNS: Temperature is 99, blood pressure is 150/70, respiratory rate 20, heart rate of 91. HEENT: Unremarkable. NECK: Supple. LUNGS: Decreased breath sounds. HEART: No murmur. S1, S2. ABDOMEN: Soft. LABORATORY DATA: Reveals a white count of 5,000 and hemoglobin of 8, platelets of 187. Chemistry reveals the BUN of 29, creatinine of 1.2. Urinalysis is noted. Microbiology is noted. ASSESSMENT AND PLAN: A 66-year-old with sepsis, left lower lobe healthcare-associated pneumonia as well as urinary tract infection, patient with a chronic Gomez, growing methicillin-resistant Staphylococcus aureus and vancomycin-resistant Enterococcus, status post treatment, sacral decubitus ulcer with osteomyelitis and progression of osteomyelitis, with hypertension, diabetes, morbid obesity with BMI of 43, on meropenem and doxycycline day #13. We will continue present antibiotics. treatment of the chronic osteomyelitis in this patient may not be fulfilled if the patient is bedridden. Alpesh Barrow MD
[2016-12-22] MEDS: Pantoprazole 40 mg EC Tab PO SCH ×2 (08:54→18:27)
[2016-12-22] MEDS: Potassium Chloride 20 mEq ER Tab PO SCH (08:54)
[2016-12-22] MEDS: buPROPion 300 mg/24 Hours XL Tab PO SCH (10:26)
[2016-12-22] MEDS: Aspirin 325 mg EC Tablets PO SCH (10:26)
[2016-12-22] MEDS: Meropenem 1g/NS 100mL IVPB 1 GM/100 ML PIGGYBACK IVPB SCH ×2 (10:27→21:41)
--- NOTE | 2016-12-22 10:31 | PN ---
SUBJECTIVE: A 66-year-old white male being treated for osteomyelitis, sepsis, MRSA and Enterococcus vancomycin resistant. The patient is status post cath with severe low level ejection fraction, open stents and one 50% lesion. The patient is a DNR/DNI, therefore a defibrillator will not be placed in this patient. The patient does have hemoglobin today down to 8.1 with severe coronary disease and congestive heart failure. We will transfuse 2 units today. PHYSICAL EXAMINATION: GENERAL: The patient is awake, alert and oriented to x3. VITAL SIGNS: Stable. NEUROLOGIC: Grossly intact. ASSESSMENT AND PLAN: The patient has a wound VAC colostomy, Gomez catheter for neurogenic bladder. 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 He has insulin dependent diabetes mellitus. He is afebrile and vital signs are stable. The plan is to transfuse 2 units. We will discuss the longterm IV antibiotics with Dr. Barrow and continue his present therapy. Rayshawn Lorenzana MD
--- NOTE | 2016-12-22 12:59 | CP.PCM.PN ---
Subjective - Date & Time of Evaluation Date of Evaluation: 12/22/16 Time of Evaluation: 12:47 - Subjective Subjective: General Surgery Progress note for Dr. Méndez PT S&E at bedside. LATOYA. PT is tolerating pain well. still admits to pain in sacral area. Patient denies F/C, N/V, C/D. Patient states he's going home today. Objective - Vital Signs/Intake and Output Vital Signs (last 24 hours): Temp Pulse Resp BP Pulse Ox 97.6 F 75 20 140/49 L 100 12/22/16 12:29 12/22/16 12:29 12/22/16 12:29 12/22/16 12:29 12/22/16 07:30 Intake and Output: 12/22/16 12/22/16 06:59 18:59 Intake Total 780 50 Output Total 1300 Balance -520 50 - Medications Medications: Current Medications Acetaminophen (Tylenol 325mg Tab) 650 mg PO Q4 PRN PRN Reason: Fever >100.4 F Last Admin: 12/10/16 06:26 Dose: 650 mg Alprazolam (Xanax) 0.5 mg PO HS [facility] PRN Reason: Protocol Last Admin: 12/21/16 21:37 Dose: 0.5 mg Ascorbic Acid (Vitamin C 500 Mg Tab) 500 mg PO BID [facility] Last Admin: 12/22/16 10:27 Dose: 500 mg Aspirin (Ecotrin) 325 mg PO DAILY [facility] Last Admin: 12/22/16 10:26 Dose: 325 mg Atorvastatin Calcium (Lipitor) 20 mg PO DIN [facility] Last Admin: 12/21/16 17:06 Dose: 20 mg Bupropion HCl (Wellbutrin Xl) 300 mg PO DAILY [facility] Last Admin: 12/22/16 10:26 Dose: 300 mg Carvedilol (Coreg) 12.5 mg PO BID [facility] Last Admin: 12/22/16 10:27 Dose: 12.5 mg Cyanocobalamin (Vitamin B12 1000 Mcg/Ml Inj) 1,000 mcg IM Q30D [facility] Ergocalciferol (Drisdol 50,000 Intl Units Cap) 1 cap PO SAT [facility] Last Admin: 12/18/16 10:05 Dose: 1 cap Fentanyl (Duragesic) 1 patch TD Q72H [facility] Last Admin: 12/22/16 07:07 Dose: 1 patch Gabapentin (Neurontin) 800 mg PO TID [facility] PRN Reason: Protocol Last Admin: 12/22/16 10:26 Dose: 800 mg Heparin Sodium (Porcine) (Heparin) 5,000 units SC Q12 [facility] PRN Reason: Protocol Last Admin: 12/19/16 21:28 Dose: 5,000 units Hydromorphone HCl (Dilaudid) 1.5 mg IVP Q4H PRN PRN Reason: Pain, severe (8-10) Last Admin: 12/22/16 10:21 Dose: 1.5 mg Meropenem 1g/NS 100mL IVPB (Meropenem 1g/Ns 100ml Ivpb) 1 gm in 100 mls @ 100 mls/hr IVPB Q12 [facility] PRN Reason: Protocol Last Admin: 12/22/16 10:27 Dose: 100 mls/hr Insulin Human Regular (Humulin R Med) 0 units SC ACHS [facility] PRN Reason: Protocol Last Admin: 12/21/16 22:46 Dose: Not Given Lisinopril (Zestril) 10 mg PO DAILY [facility] Last Admin: 12/22/16 10:26 Dose: 10 mg Nystatin (Nystop Topical Powder) 0 gm TOP TID [facility] Pantoprazole Sodium (Protonix Ec Tab) 40 mg PO ACBD [facility] Last Admin: 12/22/16 08:54 Dose: 40 mg Potassium Chloride (K-Dur 20 Meq Er Tab) 20 meq PO BRK [facility] Last Admin: 12/22/16 08:54 Dose: 20 meq Silver Sulfadiazine (Silvadene 1% 20 Gm) 0 ea TOP BID [facility] Last Admin: 12/21/16 17:09 Dose: 1 applic Trazodone HCl (Desyrel) 50 mg PO HS [facility] Last Admin: 12/21/16 21:36 Dose: 50 mg Zinc Sulfate (Zinc Sulfate 220 Mg Cap) 220 mg PO DAILY [facility] Last Admin: 12/22/16 10:26 Dose: 220 mg Ziprasidone (Geodon Cap) 80 mg PO HS [facility] Last Admin: 12/21/16 21:35 Dose: 80 mg - Labs Labs: 12/21/16 07:00 12/21/16 07:00 PT 12.1 Seconds (9.9-11.8) H 12/18/16 08:50 INR 1.12 (0.93-1.08) H 12/18/16 08:50 APTT 30.6 Seconds (23.7-30.8) 12/18/16 08:50 - Constitutional Appears: Non-toxic, No Acute Distress - Head Exam Head Exam: NORMAL INSPECTION, NORMOCEPHALIC - Eye Exam Eye Exam: EOMI, Normal appearance Pupil Exam: NORMAL ACCOMODATION - ENT Exam ENT Exam: Mucous Membranes Moist, Normal Exam - Neck Exam Neck Exam: Full ROM, Normal Inspection - Respiratory Exam Respiratory Exam: NORMAL BREATHING PATTERN. absent: Accessory Muscle Use, Chest Wall Tenderness, Respiratory Distress - Neurological Exam Neurological Exam: Alert, Awake, Oriented x3 Additional comments: bilateral lower extremity weakness . paraplegic, with weak motor strength of lower extremities - Psychiatric Exam Psychiatric exam: Normal Affect, Normal Mood - Skin Additional comments: posterior sacral ulcer stage 4 improving [id number] posterior scrotal ulcer stage 2 posterior left inferior gluteal fold ulcer stage 3 Assessment and Plan - Assessment and Plan (Free Text) Assessment: 66 yo paraplegic M with posterior sacral ulcer stage 4 improving [id number], posterior scrotal ulcer stage 2 , posterior left inferior gluteal fold ulcer stage 3, CAD Plan: have VNS explain wound care to patient (silvadene for the posterior scrotal ulcer stage 2, medihoney for posterior inferior ishial ulcer stage 3, wound vac for stage 4 sacral decub ulcer) Wound vac change MWF and PRN c/w abx Patient is currently being treated for ulcers and osteomyelitis. Visiting nurse services will come to change wound vac to home wound vac for home use patient is having lisinopril 20 mg added for CAD Maria Guadalupe Nieto DO PGY1
[2016-12-22] MEDS: Insulin Reg-MEDIUM-Coverage SC SCH ×3 (14:19→18:23)
[2016-12-22] MEDS: Nystatin 100,000 Units/gm Topical Pow(15 gm) TOP SCH ×2 (14:20→18:24)
[2016-12-22] MEDS: Silver Sulfadiazine 1% Cream (20 gm) TOP SCH ×2 (14:21→20:26)
--- NOTE | 2016-12-22 18:33 | PN ---
DATE: 12/22/2016 SUBJECTIVE: The patient is seen lying on bed on 5R. He is currently uncomfortable. He has had worsening anemia, scheduled for blood transfusion today. CURRENT MEDICATION: Include, carvedilol 12.5 mg b.i.d., Desyrel, Dilaudid p.r.n., Duragesic patch, Ecotrin once daily, Geodon 80 mg at bedtime, subcutaneous heparin, insulin coverage, potassium 20 mEq daily, Lipitor 20 mg daily, meropenem, Neurontin, Protonix, Wellbutrin, Xanax p.r.n., Zestril 10 mg daily. OBJECTIVE: GENERAL: He is a middle age male, appears chronically ill. VITAL SIGNS: His blood pressure is 130/50 with a pulse of 76, respirations are 16. He is afebrile. HEENT: No JVD. CHEST: Few scattered rhonchi. HEART: PMI displaced laterally. Soft tones are noted. ABDOMEN: Soft and nontender with bowel sounds. EXTREMITIES: No edema. DIAGNOSTIC DATA: Recent hemoglobin and hematocrit 8.1 and 25.3 with a white count of 5.0, platelet count 187,000. IMPRESSION: 1. Known coronary artery disease status post recent catheterization revealing patent stents. 2. ____ left ventricular systolic dysfunction. 3. Hypertension. 4. Diabetes. 5. Osteomyelitis. 6. Worsening anemia. RECOMMENDATIONS: I agree with transfusion at this time. Maintenance of hemoglobin closely to 10 would be advised. Gradual increase in his carvedilol and ALO inhibitor dose should be planned. The DNR order was in place and continue to conservative management, most reasonable. We will be happy to follow him and make further recommendations as appropriate. Dieudonne Montiel MD
--- NOTE | 2016-12-22 21:52 | PN ---
DATE: 12/22/2016 SUBJECTIVE: The patient is in bed, in no acute distress. Nontoxic. PHYSICAL EXAMINATION VITAL SIGNS: Temperature is 98, blood pressure is 130/50, respiratory rate of 18. HEENT: Unremarkable. NECK: Supple. HEART: Normal S1, S2. LUNGS: Decreased breath sounds. ABDOMEN: Soft. LABORATORY DATA: Reveals a white count of 5000 and hemoglobin of 8. Platelets of 187. Chemistries are noted. Creatinine is 1.2. Urinalysis is noted. ASSESSMENT AND PLAN: This is a 66-year-old male with sepsis with left lower lobe healthcare-associated pneumonia, urinary tract infection, chronic Gomez and MRSA and VRE, status post treatment, sacral decubiti and osteomyelitis and progression of his osteomyelitis and day #14 of meropenem and doxycycline. *------* note is reviewed. Theoretically, the patient will need 4 weeks of antibiotics, but given the fact that he is bedridden, prolonged antibiotic use here would be fruitless *------* did not contribute to this patient since the patient will remain bedridden. Alpesh Barrow MD cc:
[2016-12-23] MEDS: HYDROmorphone 2 mg/ml ISec IVP PRN ×5 (02:52→22:44)
[2016-12-23] MEDS: Pantoprazole 40 mg EC Tab PO SCH ×2 (08:29→18:25)
[2016-12-23] MEDS: Potassium Chloride 20 mEq ER Tab PO SCH (08:29)
[2016-12-23] MEDS: Aspirin 325 mg EC Tablets PO SCH (10:48)
[2016-12-23] MEDS: buPROPion 300 mg/24 Hours XL Tab PO SCH (10:48)
[2016-12-23] MEDS: Nystatin 100,000 Units/gm Topical Pow(15 gm) TOP SCH ×3 (10:49→18:26)
[2016-12-23] MEDS: Insulin Reg-MEDIUM-Coverage SC SCH ×6 (10:49→22:44)
[2016-12-23] MEDS: Meropenem 1g/NS 100mL IVPB 1 GM/100 ML PIGGYBACK IVPB SCH ×2 (10:49→22:45)
--- NOTE | 2016-12-23 10:49 | CP.PCM.PN ---
Subjective - Date & Time of Evaluation Date of Evaluation: 12/23/16 Time of Evaluation: 10:45 - Subjective Subjective: General Surgery Progress Note Resident: Alta Attending: Dev HPI: patient seen and examined at bedside. Doing well. Complains that he saturated his dressing with urine last night. Complains of pain around dressing. Denies N/V/F/CP/SOB. Objective - Vital Signs/Intake and Output Vital Signs (last 24 hours): Temp Pulse Resp BP Pulse Ox 98.7 F 85 20 137/61 98 12/23/16 07:30 12/23/16 07:30 12/23/16 07:30 12/23/16 07:30 12/23/16 07:30 Intake and Output: 12/23/16 12/23/16 06:59 18:59 Intake Total 700 Output Total 2200 Balance -1500 - Medications Medications: Current Medications Alprazolam (Xanax) 0.5 mg PO HS [facility] PRN Reason: Protocol Last Admin: 12/22/16 21:39 Dose: 0.5 mg Ascorbic Acid (Vitamin C 500 Mg Tab) 500 mg PO BID [facility] Last Admin: 12/22/16 18:45 Dose: 500 mg Aspirin (Ecotrin) 325 mg PO DAILY [facility] Last Admin: 12/22/16 10:26 Dose: 325 mg Atorvastatin Calcium (Lipitor) 20 mg PO DIN [facility] Last Admin: 12/22/16 18:23 Dose: 20 mg Bupropion HCl (Wellbutrin Xl) 300 mg PO DAILY [facility] Last Admin: 12/22/16 10:26 Dose: 300 mg Carvedilol (Coreg) 25 mg PO BIDWM [facility] Cyanocobalamin (Vitamin B12 1000 Mcg/Ml Inj) 1,000 mcg IM Q30D [facility] Ergocalciferol (Drisdol 50,000 Intl Units Cap) 1 cap PO SAT [facility] Last Admin: 12/18/16 10:05 Dose: 1 cap Gabapentin (Neurontin) 800 mg PO TID [facility] PRN Reason: Protocol Last Admin: 12/22/16 18:23 Dose: 800 mg Heparin Sodium (Porcine) (Heparin) 5,000 units SC Q12 [facility] PRN Reason: Protocol Last Admin: 12/19/16 21:28 Dose: 5,000 units Hydromorphone HCl (Dilaudid) 1.5 mg IVP Q4H PRN PRN Reason: Pain, severe (8-10) Last Admin: 12/23/16 08:30 Dose: 1.5 mg Meropenem 1g/NS 100mL IVPB (Meropenem 1g/Ns 100ml Ivpb) 1 gm in 100 mls @ 100 mls/hr IVPB Q12 [facility] PRN Reason: Protocol Last Admin: 12/22/16 21:41 Dose: 100 mls/hr Insulin Human Regular (Humulin R Med) 0 units SC ACHS [facility] PRN Reason: Protocol Last Admin: 12/22/16 18:23 Dose: Not Given Lisinopril (Zestril) 10 mg PO DAILY [facility] Last Admin: 12/22/16 10:26 Dose: 10 mg Nystatin (Nystop Topical Powder) 0 gm TOP TID [facility] Last Admin: 12/22/16 18:24 Dose: 1 applic Pantoprazole Sodium (Protonix Ec Tab) 40 mg PO ACBD [facility] Last Admin: 12/23/16 08:29 Dose: 40 mg Potassium Chloride (K-Dur 20 Meq Er Tab) 20 meq PO BRK [facility] Last Admin: 12/23/16 08:29 Dose: 20 meq Silver Sulfadiazine (Silvadene 1% 20 Gm) 0 ea TOP BID [facility] Last Admin: 12/22/16 20:26 Dose: Not Given Trazodone HCl (Desyrel) 50 mg PO HS [facility] Last Admin: 12/22/16 21:41 Dose: 50 mg Zinc Sulfate (Zinc Sulfate 220 Mg Cap) 220 mg PO DAILY [facility] Last Admin: 12/22/16 10:26 Dose: 220 mg Ziprasidone (Geodon Cap) 80 mg PO HS [facility] Last Admin: 12/22/16 21:39 Dose: 80 mg - Labs Labs: 12/21/16 07:00 12/21/16 07:00 PT 12.1 Seconds (9.9-11.8) H 12/18/16 08:50 INR 1.12 (0.93-1.08) H 12/18/16 08:50 APTT 30.6 Seconds (23.7-30.8) 12/18/16 08:50 - Constitutional Appears: Well - Eye Exam Eye Exam: EOMI - ENT Exam ENT Exam: Mucous Membranes Moist - Respiratory Exam Respiratory Exam: Clear to Ausculation Bilateral - Cardiovascular Exam Cardiovascular Exam: REGULAR RHYTHM - GI/Abdominal Exam GI & Abdominal Exam: Soft. absent: Distended, Tenderness - Back Exam Additional comments: sacral decubitus ulcer present with new black/necrotic tissue surrounding ulcer. Several haphazardly arranged dressing covering wound. Wound vac was present extending well beyond edges of wound. Ulcerated wound on scrotum Assessment and Plan - Assessment and Plan (Free Text) Assessment: 66 y/o WM with a sacral decub * removed wound vac and applied dry 4x4. * will reevaluate later today * Possible debridement * will Discuss with attending Gerardo Holm DO PGY-1
[2016-12-23] MEDS: Silver Sulfadiazine 1% Cream (20 gm) TOP SCH ×2 (10:50→18:24)
--- NOTE | 2016-12-23 13:06 | PN ---
DATE: 12/23/2016 SUBJECTIVE: The patient is seen earlier this morning in room 572, bed 1. He is comfortable. He has no fevers and no chills. Tolerating the antibiotics well. PHYSICAL EXAMINATION: VITAL SIGNS: Temperature is 98, blood pressure is 130/60, respiratory rate of 18. HEENT: Unremarkable. NECK: Supple. LUNGS: Decreased breath sounds. HEART: Normal S1, S2. ABDOMEN: Soft, nontender. LABORATORY DATA: Reveals a white count of 5, hemoglobin of 8, platelets of 187. Coagulation is noted. Chemistries reveal a BUN of 29, creatinine of 1.2. ASSESSMENT AND PLAN: A 66-year-old male was admitted with sepsis with left lower lobe healthcare-associated pneumonia, urinary tract infection, chronic Gomez catheter, methicillin-resistant Staphylococcus aureus and vancomycin-resistant Enterococci, status post sacral decubiti, osteomyelitis and progression of his osteomyelitis, day #15 of meropenem and doxycycline. Theoretically, the patient will need 4 weeks of antibiotics; however given the fact that the patient is bedridden, chronic treatment of a chronic osteomyelitis probably of no benefit. complete the antibiotics upon discharge and discontinue antibiotics upon discharge and local wound care. Alpesh Barrow MD
[2016-12-23 19:52] VITALS: RESP 18
[2016-12-24] MEDS: HYDROmorphone 2 mg/ml ISec IVP PRN ×3 (05:15→15:47)
[2016-12-24 07:17] LABS: MEAN CORPUSCULAR HGB CONC 32.5 g/dl (31.0-37.0); MEAN PLATELET VOLUME 8.9 fl (7.0-11.0); RBC 3.22 10^6/uL (3.5-6.1); RED CELL DISTRIBUTION WIDTH 15.4 % (11.5-14.5); WHITE BLOOD COUNT 5.6 10^3/ul (4.5-11.0)
[2016-12-24] MEDS: Insulin Reg-MEDIUM-Coverage SC SCH ×2 (08:42→12:00)
[2016-12-24 08:52] VITALS: BP 129/69; PULSE 68; TEMP 98.2; O2SAT 97
--- NOTE | 2016-12-24 09:28 | CP.PCM.PN ---
Subjective - Date & Time of Evaluation Date of Evaluation: 12/24/16 Time of Evaluation: 09:24 - Subjective Subjective: General Surgery note for Dr. Méndez PT S&E at bedside. LATOYA. Wound Vac is not on. Dressings are in place to cover wound. Patient denies any F/C, N/V. admits to pain on sacrum. Patient states he found out from Dr. Lorenzana that his DNR status would not allow him to have a defibrillator. Patient states he spoke to family and decided to get a defibrillator. Objective - Vital Signs/Intake and Output Vital Signs (last 24 hours): Temp Pulse Resp BP Pulse Ox 98.2 F 68 18 129/69 97 12/24/16 07:30 12/24/16 07:30 12/24/16 07:30 12/24/16 07:30 12/24/16 07:30 Intake and Output: 12/24/16 12/24/16 06:59 18:59 Intake Total 360 278 Output Total 1100 Balance -740 278 - Medications Medications: Current Medications Alprazolam (Xanax) 0.5 mg PO HS [facility] PRN Reason: Protocol Last Admin: 12/23/16 22:43 Dose: 0.5 mg Ascorbic Acid (Vitamin C 500 Mg Tab) 500 mg PO BID [facility] Last Admin: 12/23/16 18:24 Dose: 500 mg Aspirin (Ecotrin) 325 mg PO DAILY [facility] Last Admin: 12/23/16 10:48 Dose: 325 mg Atorvastatin Calcium (Lipitor) 20 mg PO DIN [facility] Last Admin: 12/23/16 18:24 Dose: 20 mg Bupropion HCl (Wellbutrin Xl) 300 mg PO DAILY [facility] Last Admin: 12/23/16 10:48 Dose: 300 mg Carvedilol (Coreg) 25 mg PO BIDWM [facility] Last Admin: 12/23/16 18:24 Dose: 25 mg Cyanocobalamin (Vitamin B12 1000 Mcg/Ml Inj) 1,000 mcg IM Q30D [facility] Ergocalciferol (Drisdol 50,000 Intl Units Cap) 1 cap PO SAT [facility] Last Admin: 12/18/16 10:05 Dose: 1 cap Gabapentin (Neurontin) 800 mg PO TID [facility] PRN Reason: Protocol Last Admin: 12/23/16 18:23 Dose: 800 mg Heparin Sodium (Porcine) (Heparin) 5,000 units SC Q12 [facility] PRN Reason: Protocol Last Admin: 12/19/16 21:28 Dose: 5,000 units Hydromorphone HCl (Dilaudid) 1.5 mg IVP Q4H [facility] PRN Reason: Pain, severe (8-10) Last Admin: 12/24/16 05:15 Dose: 1.5 mg Insulin Human Regular (Humulin R Med) 0 units SC ACHS [facility] PRN Reason: Protocol Last Admin: 12/24/16 08:42 Dose: Not Given Lisinopril (Zestril) 10 mg PO DAILY [facility] Last Admin: 12/23/16 10:48 Dose: 10 mg Nystatin (Nystop Topical Powder) 0 gm TOP TID [facility] Last Admin: 12/23/16 18:26 Dose: 1 applic Pantoprazole Sodium (Protonix Ec Tab) 40 mg PO ACBD [facility] Last Admin: 12/23/16 18:25 Dose: 40 mg Potassium Chloride (K-Dur 20 Meq Er Tab) 20 meq PO BRK [facility] Last Admin: 12/23/16 08:29 Dose: 20 meq Silver Sulfadiazine (Silvadene 1% 20 Gm) 0 ea TOP BID [facility] Last Admin: 12/23/16 18:24 Dose: 1 applic Trazodone HCl (Desyrel) 50 mg PO HS [facility] Last Admin: 12/23/16 22:42 Dose: 50 mg Zinc Sulfate (Zinc Sulfate 220 Mg Cap) 220 mg PO DAILY [facility] Last Admin: 12/23/16 10:48 Dose: 220 mg Ziprasidone (Geodon Cap) 80 mg PO HS [facility] Last Admin: 12/23/16 22:40 Dose: 80 mg - Labs Labs: 12/24/16 06:45 12/21/16 07:00 PT 12.1 Seconds (9.9-11.8) H 12/18/16 08:50 INR 1.12 (0.93-1.08) H 12/18/16 08:50 APTT 30.6 Seconds (23.7-30.8) 12/18/16 08:50 - Constitutional Appears: No Acute Distress, Chronically Ill - Head Exam Head Exam: NORMAL INSPECTION, NORMOCEPHALIC - Eye Exam Eye Exam: EOMI, Normal appearance - ENT Exam ENT Exam: Mucous Membranes Moist, Normal Exam - Neck Exam Neck Exam: Full ROM, Normal Inspection - Respiratory Exam Respiratory Exam: Clear to Ausculation Bilateral, NORMAL BREATHING PATTERN. absent: Accessory Muscle Use, Rhonchi, Wheezes, Respiratory Distress - Cardiovascular Exam Cardiovascular Exam: REGULAR RHYTHM. absent: Bradycardia, Tachycardia - Extremities Exam Extremities Exam: Full ROM, Normal Capillary Refill, Normal Inspection - Back Exam Back Exam: tenderness Additional comments: sacral tenderness to palpation - Neurological Exam Neurological Exam: Alert, Awake, Oriented x3. absent: Normal Gait - Skin Skin Exam: Warm Additional comments: stage 3 sacral ulcer with signs of sharp debridement from yesterday, stage 3 ischial ulcer, stage 2 posterior scrotal ulcer Assessment and Plan - Assessment and Plan (Free Text) Assessment: 66M with SOB, sacral decub (stage 3), ischial ulcer (stage 3), posterior scrotal ulcer (stage 2), and osteomyelitis Plan: consider re-applying wound vac due to possibility of prolonged stay at the hospital if defib will be placed during this hospital stay c/w current abx via ID (DC upon discharge per ID) c/w current pain management monitor I/Os Maria Guadalupe Nieto DO PGY1
[2016-12-24] MEDS: Potassium Chloride 20 mEq ER Tab PO SCH (10:03)
[2016-12-24] MEDS: buPROPion 300 mg/24 Hours XL Tab PO SCH (10:03)
[2016-12-24] MEDS: Silver Sulfadiazine 1% Cream (20 gm) TOP SCH (10:04)
[2016-12-24] MEDS: Pantoprazole 40 mg EC Tab PO SCH ×2 (10:04→15:46)
[2016-12-24] MEDS: Nystatin 100,000 Units/gm Topical Pow(15 gm) TOP SCH ×2 (10:30→14:54)
[2016-12-24] MEDS: Meropenem 1g/NS 100mL IVPB 1 GM/100 ML PIGGYBACK IVPB SCH ×2 (13:13→14:45)
--- NOTE | 2016-12-24 13:41 | CP.PCM.DIS ---
<Tin Esquivel - Last Filed: 12/24/16 14:15> Provider - Provider Date of Admission: 12/06/16 14:07 Attending physician: Rayshawn Lorenzana MD Primary care physician: Rayshawn Lorenzana MD Consults: Cardio - Phi Fowler ID - Dr. Barrow Surgery - Dr. Méndez Time Spent in preparation of Discharge (in minutes): 45 Hospital Course - Lab Results Lab Results: Micro Results 12/08/16 08:00 Blood Blood Culture - Final NO GROWTH AFTER 5 DAYS 12/08/16 08:00 Blood Gram Stain - Final TEST NOT PERFORMED 12/08/16 07:45 Blood Blood Culture - Final NO GROWTH AFTER 5 DAYS 12/08/16 07:45 Blood Gram Stain - Final TEST NOT PERFORMED 12/08/16 15:00 Urine,Burgos Urine Culture - Final Methicillin Resistant S Aureus Vancomycin Res E.faecalis Most Recent Lab Values WBC 5.6 10^3/ul (4.5-11.0) 12/24/16 06:45 RBC 3.22 10^6/uL (3.5-6.1) L 12/24/16 06:45 Hgb 9.0 gm/dL (14.0-18.0) L 12/24/16 06:45 Hct 27.7 % (42.0-52.0) L 12/24/16 06:45 MCV 86.0 fL (80.0-105.0) 12/24/16 06:45 MCH 28.0 pg (25.0-35.0) 12/24/16 06:45 MCHC 32.5 g/dl (31.0-37.0) 12/24/16 06:45 RDW 15.4 % (11.5-14.5) H 12/24/16 06:45 Plt Count 176 10^3/uL (120.0-450.0) 12/24/16 06:45 MPV 8.9 fl (7.0-11.0) 12/24/16 06:45 Gran % 55.5 % (50.0-68.0) 12/21/16 07:00 Lymph % (Auto) 29.7 % (22.0-35.0) 12/21/16 07:00 Island % (Auto) 9.8 % (1.0-6.0) H 12/21/16 07:00 Eos % (Auto) 4.4 % (1.5-5.0) 12/21/16 07:00 Baso % (Auto) 0.6 % (0.0-3.0) 12/21/16 07:00 Gran # 2.76 (1.4-6.5) 12/21/16 07:00 Lymph # 1.5 (1.2-3.4) 12/21/16 07:00 Island # 0.5 (0.1-0.6) 12/21/16 07:00 Eos # 0.2 (0.0-0.7) 12/21/16 07:00 Baso # 0.03 K/mm3 (0.0-2.0) 12/21/16 07:00 PT 12.1 Seconds (9.9-11.8) H 12/18/16 08:50 INR 1.12 (0.93-1.08) H 12/18/16 08:50 APTT 30.6 Seconds (23.7-30.8) 12/18/16 08:50 pCO2 46 mm/Hg (35-45) H 12/04/16 02:00 pO2 81.0 mm/Hg (80-100) 12/04/16 02:00 HCO3 29.8 mmol/L (21-28) H 12/04/16 02:00 ABG pH 7.42 (7.35-7.45) 12/04/16 02:00 ABG Total CO2 31.2 mmol.L (22-28) H 12/04/16 02:00 ABG O2 Saturation 98.5 % (95-98) H 12/04/16 02:00 ABG Base Excess 4.5 mmol/L (-2.0-3.0) H 12/04/16 02:00 ABG Potassium 3.5 mmol/L (3.6-5.2) L 12/04/16 02:00 Sodium 140.0 mmol/L (132-148) 12/04/16 02:00 Chloride 109.0 mmol/L (98-107) H 12/04/16 02:00 Glucose 91 mg/dl (75-110) 12/04/16 02:00 Lactate 0.8 mmol/L (0.7-2.1) 12/04/16 02:00 FiO2 21.0 % 12/04/16 02:00 Sodium 138 mmol/L (132-148) 12/21/16 07:00 Potassium 4.4 mmol/L (3.6-5.0) 12/21/16 07:00 Chloride 106 mmol/L (98-107) 12/21/16 07:00 Carbon Dioxide 26 mmol/L (21-33) 12/21/16 07:00 Anion Gap 10 (10-20) 12/21/16 07:00 BUN 29 mg/dL (7-21) H 12/21/16 07:00 Creatinine 1.2 mg/dL (0.5-1.4) 12/21/16 07:00 Est GFR ( Amer) > 60 12/21/16 07:00 Est GFR (Non-Af Amer) > 60 12/21/16 07:00 POC Glucose (mg/dL) 103 mg/dL (65-110) 12/24/16 08:12 Random Glucose 93 mg/dL (70-110) 12/21/16 07:00 Calcium 7.9 mg/dL (8.4-10.5) L 12/21/16 07:00 Phosphorus 2.8 mg/dL (2.5-4.5) 12/03/16 15:25 Magnesium 1.7 mg/dL (1.7-2.2) 12/03/16 15:25 Total Bilirubin 0.6 mg/dL (0.2-1.3) 12/03/16 23:18 AST 21 U/L (15-59) 12/03/16 23:18 ALT 19 U/L (7-56) 12/03/16 23:18 Alkaline Phosphatase 67 U/L (38-133) 12/03/16 23:18 Total Creatine Kinase 115 U/L (35-230) 12/03/16 15:25 Troponin I < 0.01 ng/mL 12/04/16 12:10 NT-Pro-B Natriuret Pep 07099 pg/mL (0-450) H 12/03/16 15:25 Total Protein 5.3 g/dL (5.8-8.3) L 12/03/16 23:18 Albumin 2.7 g/dL (3.0-4.8) L 12/03/16 23:18 Globulin 2.6 gm/dL 12/03/16 23:18 Albumin/Globulin Ratio 1.0 (1.1-1.8) L 12/03/16 23:18 Lipase < 10 U/L (23-300) L 12/04/16 13:40 Arterial Blood Potassium 3.5 mmol/L (3.6-5.2) L 12/04/16 02:00 Urine Color Yellow (YELLOW) 12/08/16 15:00 Urine Appearance Cloudy (CLEAR) 12/08/16 15:00 Urine pH 6.5 (4.7-8.0) 12/08/16 15:00 Ur Specific [place] 1.020 (1.005-1.035) 12/08/16 15:00 Urine Protein 30 mg/dL (<30 mg/dL) H 12/08/16 15:00 Urine Glucose (UA) Negative mg/dL (NEGATIVE) 12/08/16 15:00 Urine Ketones Negative mg/dL (NEGATIVE) 12/08/16 15:00 Urine Blood Large (NEGATIVE) H 12/08/16 15:00 Urine Nitrate Negative (NEGATIVE) 12/08/16 15:00 Urine Bilirubin Negative (NEGATIVE) 12/08/16 15:00 Urine Urobilinogen 0.2 E.U./dL (<1 E.U./dL) 12/08/16 15:00 Ur Leukocyte Esterase Large Marcial/uL (NEGATIVE) H 12/08/16 15:00 Urine RBC Tntc /hpf (0-2) 12/08/16 15:00 Urine WBC Tntc /hpf (0-6) 12/08/16 15:00 Ur Epithelial Cells 6 - 8 /hpf (0-5) 12/08/16 15:00 Amorphous Sediment Moderate 12/08/16 15:00 Urine Bacteria Many (NEG) 12/08/16 15:00 Urine Other Uyeast 12/08/16 15:00 Blood Type O POSITIVE 12/22/16 09:40 Antibody Screen Negative 12/22/16 09:40 Crossmatch See Detail 12/22/16 09:40 BBK History Checked Patient has bt 12/22/16 09:40 - Hospital Course Hospital Course: 66 y/o M with PMH of decubitus ulcer to the sacral and hip areas s/p wound debridement and vacuum placement, cauda equina syndrome, chronic indwelling burgos, DM, HTN, sacral osteomyelitis and neurogenic bladder initially presented for generalized weakness and vomiting. Pt was found to be septic due to UTI from chronic indwelling burgos. Initial echocardiogram showed EF of 30-35% with severe global hypokinesis, along with moderate pulmonary hypertension. Abdominal ultrasound showed possible hepatic steatosis. Pt was seen by surgery who maintained the patient's wound vacuum and applied medihoney to the wounds. Urine cultures demonstrated MRSA and VRE. Patient was placed on Vancomycin, Merrem, and Doxycycline. Pt remained on abx for extended period of time for sacral osteomyelitis. Pt also developed HCAP while in hospital. Patient also obtained cardiac cath which demonstrated global hypokinesis with EF of 30%. Pt was not evaluated for prophylactic ICD placement due to DNR status. Pt will be discharged and continue all home medications except Coreg which has been increased to 25 mg daily. Pt will have visiting nurse services come to patients house to assist with wound dressing and vac changes. Pt will follow up with Dr. Lorenzana within the next week. Discharge Exam - Head Exam Head Exam: NORMAL INSPECTION, NORMOCEPHALIC - Eye Exam Eye Exam: EOMI, Normal appearance - Respiratory Exam Respiratory Exam: NORMAL BREATHING PATTERN, UNREMARKABLE - Cardiovascular Exam Cardiovascular Exam: RRR, +S1, +S2 - GI/Abdominal Exam GI & Abdominal Exam: Normal Bowel Sounds, Soft. absent: Tenderness - Extremities Exam Extremities exam: normal inspection, pedal edema - Neurological Exam Neurological exam: Alert, Oriented x3 Additional comments: Paraplegic - Psychiatric Exam Psychiatric exam: Normal Affect, Normal Mood - Skin Skin Exam: Normal Color Additional comments: Wound vac in place on sacral area Discharge Plan - Discharge Medications Prescriptions: Carvedilol [Coreg] 6.25 mg PO BID #14 tab - Follow Up Plan Condition: FAIR Disposition: HOME/ ROUTINE Instructions: Heart Failure (DC), Colostomy Care (DC), How to Prevent Pressure Ulcers (DC), Diabetes Mellitus Type 2 in Adults (GEN), Colectomy (GEN), Chronic Wound Care (DC), Pressure Ulcer (DC), Heart Catheterization (DC) Additional Instructions: You have been discharged from [facility]. You are to have [facility] on Mon-Wed-Fri for wound vac changes. Please follow up with pmd in 1 week. Referrals: Rayshawn Lorenzana MD [Primary Care Provider] - <Bryson Roman - Last Filed: 12/24/16 16:59> Provider - Provider Date of Admission: 12/06/16 14:07 Attending physician: Rayshawn Lorenzana MD Primary care physician: Rayshawn Lorenzana MD Hospital Course - Lab Results Lab Results: Micro Results 12/08/16 08:00 Blood Blood Culture - Final NO GROWTH AFTER 5 DAYS 12/08/16 08:00 Blood Gram Stain - Final TEST NOT PERFORMED 12/08/16 07:45 Blood Blood Culture - Final NO GROWTH AFTER 5 DAYS 12/08/16 07:45 Blood Gram Stain - Final TEST NOT PERFORMED 12/08/16 15:00 Urine,[place] Urine Culture - Final Methicillin Resistant S Aureus Vancomycin Res E.faecalis Most Recent Lab Values WBC 5.6 10^3/ul (4.5-11.0) 12/24/16 06:45 RBC 3.22 10^6/uL (3.5-6.1) L 12/24/16 06:45 Hgb 9.0 gm/dL (14.0-18.0) L 12/24/16 06:45 Hct 27.7 % (42.0-52.0) L 12/24/16 06:45 MCV 86.0 fL (80.0-105.0) 12/24/16 06:45 MCH 28.0 pg (25.0-35.0) 12/24/16 06:45 MCHC 32.5 g/dl (31.0-37.0) 12/24/16 06:45 RDW 15.4 % (11.5-14.5) H 12/24/16 06:45 Plt Count 176 10^3/uL (120.0-450.0) 12/24/16 06:45 MPV 8.9 fl (7.0-11.0) 12/24/16 06:45 Gran % 55.5 % (50.0-68.0) 12/21/16 07:00 Lymph % (Auto) 29.7 % (22.0-35.0) 12/21/16 07:00 Island % (Auto) 9.8 % (1.0-6.0) H 12/21/16 07:00 Eos % (Auto) 4.4 % (1.5-5.0) 12/21/16 07:00 Baso % (Auto) 0.6 % (0.0-3.0) 12/21/16 07:00 Gran # 2.76 (1.4-6.5) 12/21/16 07:00 Lymph # 1.5 (1.2-3.4) 12/21/16 07:00 Island # 0.5 (0.1-0.6) 12/21/16 07:00 Eos # 0.2 (0.0-0.7) 12/21/16 07:00 Baso # 0.03 K/mm3 (0.0-2.0) 12/21/16 07:00 PT 12.1 Seconds (9.9-11.8) H 12/18/16 08:50 INR 1.12 (0.93-1.08) H 12/18/16 08:50 APTT 30.6 Seconds (23.7-30.8) 12/18/16 08:50 pCO2 46 mm/Hg (35-45) H 12/04/16 02:00 pO2 81.0 mm/Hg (80-100) 12/04/16 02:00 HCO3 29.8 mmol/L (21-28) H 12/04/16 02:00 ABG pH 7.42 (7.35-7.45) 12/04/16 02:00 ABG Total CO2 31.2 mmol.L (22-28) H 12/04/16 02:00 ABG O2 Saturation 98.5 % (95-98) H 12/04/16 02:00 ABG Base Excess 4.5 mmol/L (-2.0-3.0) H 12/04/16 02:00 ABG Potassium 3.5 mmol/L (3.6-5.2) L 12/04/16 02:00 Sodium 140.0 mmol/L (132-148) 12/04/16 02:00 Chloride 109.0 mmol/L (98-107) H 12/04/16 02:00 Glucose 91 mg/dl (75-110) 12/04/16 02:00 Lactate 0.8 mmol/L (0.7-2.1) 12/04/16 02:00 FiO2 21.0 % 12/04/16 02:00 Sodium 138 mmol/L (132-148) 12/21/16 07:00 Potassium 4.4 mmol/L (3.6-5.0) 12/21/16 07:00 Chloride 106 mmol/L (98-107) 12/21/16 07:00 Carbon Dioxide 26 mmol/L (21-33) 12/21/16 07:00 Anion Gap 10 (10-20) 12/21/16 07:00 BUN 29 mg/dL (7-21) H 12/21/16 07:00 Creatinine 1.2 mg/dL (0.5-1.4) 12/21/16 07:00 Est GFR ( Amer) > 60 12/21/16 07:00 Est GFR (Non-Af Amer) > 60 12/21/16 07:00 POC Glucose (mg/dL) 103 mg/dL (65-110) 12/24/16 08:12 Random Glucose 93 mg/dL (70-110) 12/21/16 07:00 Calcium 7.9 mg/dL (8.4-10.5) L 12/21/16 07:00 Phosphorus 2.8 mg/dL (2.5-4.5) 12/03/16 15:25 Magnesium 1.7 mg/dL (1.7-2.2) 12/03/16 15:25 Total Bilirubin 0.6 mg/dL (0.2-1.3) 12/03/16 23:18 AST 21 U/L (15-59) 12/03/16 23:18 ALT 19 U/L (7-56) 12/03/16 23:18 Alkaline Phosphatase 67 U/L (38-133) 12/03/16 23:18 Total Creatine Kinase 115 U/L (35-230) 12/03/16 15:25 Troponin I < 0.01 ng/mL 12/04/16 12:10 NT-Pro-B Natriuret Pep 40930 pg/mL (0-450) H 12/03/16 15:25 Total Protein 5.3 g/dL (5.8-8.3) L 12/03/16 23:18 Albumin 2.7 g/dL (3.0-4.8) L 12/03/16 23:18 Globulin 2.6 gm/dL 12/03/16 23:18 Albumin/Globulin Ratio 1.0 (1.1-1.8) L 12/03/16 23:18 Lipase < 10 U/L (23-300) L 12/04/16 13:40 Arterial Blood Potassium 3.5 mmol/L (3.6-5.2) L 12/04/16 02:00 Urine Color Yellow (YELLOW) 12/08/16 15:00 Urine Appearance Cloudy (CLEAR) 12/08/16 15:00 Urine pH 6.5 (4.7-8.0) 12/08/16 15:00 Ur Specific [place] 1.020 (1.005-1.035) 12/08/16 15:00 Urine Protein 30 mg/dL (<30 mg/dL) H 12/08/16 15:00 Urine Glucose (UA) Negative mg/dL (NEGATIVE) 12/08/16 15:00 Urine Ketones Negative mg/dL (NEGATIVE) 12/08/16 15:00 Urine Blood Large (NEGATIVE) H 12/08/16 15:00 Urine Nitrate Negative (NEGATIVE) 12/08/16 15:00 Urine Bilirubin Negative (NEGATIVE) 12/08/16 15:00 Urine Urobilinogen 0.2 E.U./dL (<1 E.U./dL) 12/08/16 15:00 Ur Leukocyte Esterase Large Marcial/uL (NEGATIVE) H 12/08/16 15:00 Urine RBC Tntc /hpf (0-2) 12/08/16 15:00 Urine WBC Tntc /hpf (0-6) 12/08/16 15:00 Ur Epithelial Cells 6 - 8 /hpf (0-5) 12/08/16 15:00 Amorphous Sediment Moderate 12/08/16 15:00 Urine Bacteria Many (NEG) 12/08/16 15:00 Urine Other Uyeast 12/08/16 15:00 Blood Type O POSITIVE 12/22/16 09:40 Antibody Screen Negative 12/22/16 09:40 Crossmatch See Detail 12/22/16 09:40 BBK History Checked Patient has bt 12/22/16 09:40 Attending/Attestation - Attestation I have personally seen and examined this patient.: Yes I have fully participated in the care of the patient.: Yes I have reviewed all pertinent clinical information, including history, physical exam and plan: Yes Notes (Text): 12/24/16 16:55 attending note;/covering . Patient is a 66-year-old male with a past medical history of paraplegia, indwelling Burg[place] catheter, chronic decubitus ulcer, on wound VAC, cardiomyopathy is admitted with chronic wound infection/sacral decubitus and osteomyelitis. Treated with IV Merrem and doxycycline. Case discussed with ID in detail. Continue wound VAC. Wound care services arranged by field nurse case manager. Continue Burgos catheter care. follow-up with cardiology Dr. Mota. follow-up with in 1 week. Patient is DNR. Diagnosis; UTI Sacral decubitus/osteomyelitis Coronary artery disease Paraplegia Indwelling Burgos catheter
--- NOTE | 2016-12-24 14:33 | PN ---
DATE: 12/24/2016 SUBJECTIVE: The patient is still in bed. PHYSICAL EXAMINATION: GENERAL: In no acute distress, nontoxic. VITAL SIGNS: Temperature of 98, blood pressure is 129/60, respiratory rate of 18. HEENT: Unremarkable. NECK: Supple. LUNGS: Decreased breath sounds. HEART: Normal S1 and S2. ABDOMEN: Soft, nontender. LABORATORY DATA: Reveals a white count is 5.6, hemoglobin of 9, and chemistries reveals creatinine is at 1.2 and review of orders reveals that the patient had to be on no antibiotics. The patient was on meropenem and Dr. Lerma note is reviewed from today. ASSESSMENT AND PLAN: The patient is a 66-year-old male with sepsis in the left lower lobe, healthcare-associated pneumonia, urinary tract infection, and methicillin-resistant Staphylococcus and vancomycin-resistant Enterococcus in the past status post decubitus ulcer, osteomyelitis with progression of osteomyelitis day #16 of meropenem and doxycycline. We will restart the antibiotics for now. Ideally, the patient would need four weeks of antibiotics, although the patient is bedridden and point of treating a chronic osteomyelitis in a patient who is bedridden is to be questioned. Review of orders is noted and upon discharge, we may discontinue the antibiotics. We will continue the doxycycline and meropenem at this time. Pending discharge orders. today is day #16 of antibiotic therapy. On doxycycline and meropenem day #16. Alpesh Barrow MD
[2016-12-24] MEDS: Aspirin 325 mg EC Tablets PO SCH (15:47)
== END 2016-12-24 18:17 | disposition home health service (06) | DRG 673 ==
LOC: ED 12:52 → ERH 16:28 → 2RSO 18:37 → OBSVTOIN 12-06 14:07 → 5RSO 12-11 20:30 → 2RSO 12-20 17:43 → 5RSO 12-21 00:47
PROVIDERS: ADMIT Internal Medicine; ATTEND Internal Medicine
PROC: 0JB70ZZ Excision of Back Subcutaneous Tissue and Fascia, Open Approach (ICD-10-PCS; principal; 2016-12-10)
PROC: 2W05X6Z Change Pressure Dressing on Back (ICD-10-PCS; 2016-12-10)
PROC: 4A023N7 Measurement of Cardiac Sampling and Pressure, Left Heart, Percutaneous Approach (ICD-10-PCS; 2016-12-20)
PROC: B211YZZ Fluoroscopy of Multiple Coronary Arteries using Other Contrast (ICD-10-PCS; 2016-12-20)
PROC: B215YZZ Fluoroscopy of Left Heart using Other Contrast (ICD-10-PCS; 2016-12-20)
PROC: 30233N1 Transfusion of Nonautologous Red Blood Cells into Peripheral Vein, Percutaneous Approach (ICD-10-PCS; 2016-12-22)
DX: T83.511A Infection and inflammatory reaction due to indwelling urethral catheter, initial encounter (principal); A41.02 Sepsis due to Methicillin resistant Staphylococcus aureus; L89.154 Pressure ulcer of sacral region, stage 4; J18.9 Pneumonia, unspecified organism; I13.0 Hypertensive heart and chronic kidney disease with heart failure and stage 1 through stage 4 chronic kidney disease, or unspecified chronic kidney disease; I42.0 Dilated cardiomyopathy; G82.20 Paraplegia, unspecified; M46.28 Osteomyelitis of vertebra, sacral and sacrococcygeal region; I50.9 Heart failure, unspecified; G83.4 Cauda equina syndrome; Z68.41 Body mass index [BMI] 40.0-44.9, adult; L02.31 Cutaneous abscess of buttock; N39.0 Urinary tract infection, site not specified; Y95 Nosocomial condition; I25.10 Atherosclerotic heart disease of native coronary artery without angina pectoris; E66.01 Morbid (severe) obesity due to excess calories; N18.9 Chronic kidney disease, unspecified; E86.0 Dehydration; G89.29 Other chronic pain; F41.9 Anxiety disorder, unspecified; N50.89 Other specified disorders of the male genital organs; E11.69 Type 2 diabetes mellitus with other specified complication; I27.2 Other secondary pulmonary hypertension; B95.2 Enterococcus as the cause of diseases classified elsewhere; F32.9 Major depressive disorder, single episode, unspecified; D64.9 Anemia, unspecified; Z66 Do not resuscitate; Y84.6 Urinary catheterization as the cause of abnormal reaction of the patient, or of later complication, without mention of misadventure at the time of the procedure; I25.2 Old myocardial infarction; Z74.01 Bed confinement status; Z79.4 Long term (current) use of insulin; Z93.3 Colostomy status; Z95.5 Presence of coronary angioplasty implant and graft; Z90.49 Acquired absence of other specified parts of digestive tract; Z88.0 Allergy status to penicillin

== ENCOUNTER 2017-05-01 18:16 | Inpatient (IN) | payer MEDICARE, OTHER ==
[2017-05-01] MEDS ORDERED: Naloxone 0.4 mg/ml Inj (Adult) ONE (18:23)
[2017-05-01 18:35] VITALS: BMI 36.0
[2017-05-01] MEDS ORDERED: Vancomycin 1gm in NS 250ml 1 G/250 ML BAG IVPB STA (18:36)
[2017-05-01] MEDS ORDERED: CEFEPIME IVPB STA (18:36)
[2017-05-01] MEDS ORDERED: NS IVPB STA (18:36)
[2017-05-01 19:10] LABS: BASO # 0.03 K/mm3 (0.0-2.0); BASO % 0.3 % (0.0-3.0); EOS # 0.1 (0.0-0.7); EOS % 0.8 % (1.5-5.0); GRAN # 8.25 (1.4-6.5); GRAN % 77.6 % (50.0-68.0); HEMATOCRIT 38.4 % (42.0-52.0); LYMPH # 1.6 (1.2-3.4); MEAN CELL VOLUME 91.9 fl (80.0-105.0); MEAN CORPUSCULAR HEMOGLOBIN 29.2 pg (25.0-35.0); MEAN CORPUSCULAR HGB CONC 31.8 g/dl (31.0-37.0); MONO # 0.7 (0.1-0.6); MONO % 6.3 % (1.0-6.0); RED CELL DISTRIBUTION WIDTH 14.8 % (11.5-14.5); WHITE BLOOD COUNT 10.6 10^3/ul (4.5-11.0)
[2017-05-01 19:17] LABS: VENOUS BLOOD GAS BASE EXCESS -1.6 mmol/L (0.0-2.0)
[2017-05-01 19:19] LABS: INR 1.12 (0.93-1.08); PARTIAL THROMBOPLASTIN TIME 29.2 Seconds (25.1-36.5)
[2017-05-01 19:20] LABS: ALB/GLOB RATIO 1.1 (1.1-1.8); BILIRUBIN,TOTAL 0.6 mg/dL (0.2-1.3); CALCIUM 8.9 mg/dL (8.4-10.5); MAGNESIUM 1.7 mg/dL (1.7-2.2); PHOSPHOROUS 4.5 mg/dL (2.5-4.5); POTASSIUM 4.8 mmol/L (3.6-5.0); TOTAL PROTEIN 7.2 g/dL (5.8-8.3)
[2017-05-01 19:30] LABS: TROPONIN I 0.01 ng/mL
--- NOTE | 2017-05-01 20:28 | ED PDOC ---
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 Pt presents today bibems s/p being found at home unresponsive and hypoventilatory , w/ dilaudidi pill botlle found near his mouth , several pills strewn about his head , the prescription was for 80x 2 mg dilaudu, and 15 appeared to be missing, but we are unsure of the dating on the bottle, he was also found to have 7-8 fentanyl patches on him. Pt moaned to the ems workers as they tried to save him saying " just stop, leave me alone". 2mg Narcan was nebulized by EMS and respirations and wakefulnessm improved. Pt was then given 1.6 mg ivp inthe Ed and began shivering and becoming mor responsive as nurses began to preocess him 05/01/17 20:11 Time/Duration: 1 hour Past Medical History - Provider Review Nursing Documentation Reviewed: Yes - Past History Past History: Non-Contributing - Infectious Disease Hx of Infectious Diseases: MRSA - Tetanus Immunization Tetanus Immunization: Unknown - Cardiac Hx Cardiac Disorders: Yes Hx Angina: Yes Hx Hypertension: Yes - Pulmonary Hx Respiratory Disorders: Yes Hx Pneumonia: Yes - Neurological Hx Neurological Disorder: Yes Hx Transient Ischemic Attacks (TIA): Yes - HEENT Hx Blind: Yes (right eye) - Renal Hx Neurogenic Bladder: Yes - Endocrine/Metabolic Hx Diabetes Mellitus Type 2: Yes - Hematological/Oncological Hx Blood Transfusions: No Hx Blood Transfusion Reaction: No - Integumentary Hx Dermatological Disorder: Yes Other/Comment: decub ulcer to R buttocks, MRSA - Musculoskeletal/Rheumatological Hx Musculoskeletal Disorders: Yes Hx Arthritis: Yes Hx Back Pain: Yes Hx Falls: Yes Hx Fractures: Yes - Gastrointestinal Hx Colostomy: Yes - Genitourinary/Gynecological Hx Urinary Tract Infection: Yes - Psychiatric Hx Anxiety: Yes Hx Depression: Yes Hx Panic Disorder: Yes Hx Substance Use: No - Surgical History Hx Cardiac Catheterization: Yes Hx Coronary Stent: Yes Hx Musculoskeletal Surgery: Yes Hx Open Heart Surgery: Yes - Anesthesia Hx Anesthesia: Yes Hx Anesthesia Reactions: No Hx Malignant Hyperthermia: No - Suicidal Assessment Feels Threatened In Home Enviroment: No Family/Social History - Physician Review Nursing Documentation Reviewed: Yes Family/Social History: No Known Family HX Smoking Status: Never Smoked Hx Alcohol Use: No Hx Substance Use: No Hx Substance Use Treatment: No Allergies/Home Meds Allergies/Adverse Reactions: Allergies ciprofloxacin Allergy (Verified 05/01/17 18:51) RASH Penicillins Allergy (Verified 05/01/17 18:51) RASH Home Medications: Home Meds Medication Instructions Recorded Confirmed Ascorbic Acid [Vitamin C 500 mg 500 mg PO BID 05/15/15 05/01/17 Tab] Ergocalciferol (Vitamin D2) 50,000 iu PO SAT 05/15/15 05/01/17 [Vitamin D2] Ziprasidone HCl [Geodon] 80 mg PO HS 06/26/15 05/01/17 Alprazolam 0.5 mg PO HS 07/25/15 05/01/17 Aspirin [Ecotrin] 325 mg PO DAILY 07/25/15 05/01/17 buPROPion XL [Wellbutrin XL] 300 mg PO DAILY 07/25/15 05/01/17 Acetaminophen/Oxycodone Hydr 1 tab PO TID PRN 01/22/16 05/01/17 [Percocet 10/325 mg Tab] Review of Systems - Physician Review All systems were reviewed & negative as marked: Yes - Review of Systems Systems not reviewed;Unavailable: Intoxicated Constitutional: Fatigue Eyes: Normal ENT: Normal Respiratory: Cough Cardiovascular: Normal Gastrointestinal: Normal Genitourinary Male: Normal Musculoskeletal: Arthralgias, Back Pain, Myalgias Skin: Rash, Skin Lesions Neurological: Normal Endocrine: Normal Hemo/Lymphatic: Normal Psychiatric: Normal Physical Exam Vital Signs Reviewed: Yes Vital Signs Temp Pulse Resp BP Pulse Ox 05/01/17 23:30 98.3 F 05/01/17 23:06 93 H 18 121/59 L 99 05/01/17 22:22 18 05/01/17 22:17 106 H 18 137/70 98 05/01/17 20:17 112 H 18 145/85 97 12/03/17 18:30 100.1 F H 111 H 7 L 177/95 H 97 Temperature: Afebrile Blood Pressure: Normal Pulse: Regular Respiratory Rate: Normal Appearance: Positive for: Ill-Appearing, Uncomfortable Pain Distress: None Mental Status: Positive for: Alert and Oriented X 3 Finger Stick Blood Glucose: 140 - Systems Exam Head: Present: Atraumatic, Normocephalic Pupils: Present: PERRL Extroacular Muscles: Present: EOMI Conjunctiva: Present: Normal Mouth: Present: Dry Neck: Present: Normal Range of Motion Respiratory/Chest: Present: Decreased Breath Sounds, Rhonchi, Other (decreased bs bibasilarly ). No: Respiratory Distress, Accessory Muscle Use Cardiovascular: Present: Regular Rate and Rhythm, Normal S1, S2. No: Murmurs Abdomen: Present: Normal Bowel Sounds, Other (soft, nt, + colostomy bag in place ). No: Tenderness, Distention, Peritoneal Signs Genitourinary Male: Present: Other (burgos in place, chronic dilatation of meatal os) Back: Present: Normal Inspection Upper Extremity: Present: Normal Inspection. No: Cyanosis, Edema Lower Extremity: Present: Other (cachectic, + calcaneal pressure ulcers staeg2 b /l , + stage 3 sacral decubitus ulcer ). No: Edema Neurological: Present: GCS=15, CN II-XII Intact, Speech Normal Skin: Present: Warm, Dry, Normal Color. No: Rashes Psychiatric: Present: Alert, Oriented x 3, Normal Insight, Normal Concentration Medical Decision Making - Lab Interpretations Microbiology Results: Microbiology Results 05/02/17 05:20 Sacral Gram Stain - Preliminary 05/02/17 05:20 Sacral Wound Culture - Preliminary Gram Negative Rodolfo 05/01/17 20:08 Urine,Clean Catch Urine Culture - Preliminary Gram Negative Rodolfo Gram Positive Cocci 05/01/17 18:30 Blood Blood Culture - Preliminary NO GROWTH AFTER 24 HOURS 05/01/17 18:00 Blood Blood Culture - Preliminary NO GROWTH AFTER 24 HOURS Lab Results: 05/01/17 18:30 05/01/17 18:30 Lab Results 05/01/17 20:08: Urine Color Yellow, Urine Appearance Clear, Urine pH 6.0, Ur Specific [place] 1.025, Urine Protein 100 H, Urine Glucose (UA) Negative, Urine Ketones Negative, Urine Blood Large H, Urine Nitrate Positive H, Urine Bilirubin Negative, Urine Urobilinogen 0.2, Ur Leukocyte Esterase Small H, Urine RBC 10 - 15, Urine WBC 15 - 20, Ur Epithelial Cells 1 - 3, Urine Bacteria Many 05/01/17 18:30: C-React Prot High Sens 2.69 05/01/17 18:30: Procalcitonin < 0.05 L 05/01/17 18:30: Sodium 140, Chloride 106, Potassium 4.8, Carbon Dioxide 25, Anion Gap 14, BUN 33 H, Creatinine 1.7 H, Est GFR ( Amer) 49, Est GFR ( Non-Af Amer) 41, Random Glucose 119 H, Calcium 8.9, Phosphorus 4.5, Magnesium 1.7, Total Bilirubin 0.6, AST 36, ALT 55, Alkaline Phosphatase 137 H, Troponin I 0.01, NT-Pro-B Natriuret Pep 1420 H, Total Protein 7.2, Albumin 3.7, Globulin 3.5, Albumin/Globulin Ratio 1.1 05/01/17 18:30: pO2 96 H, VBG pH 7.30 L, VBG pCO2 52.0, VBG HCO3 25.6, VBG Total CO2 27.2, VBG O2 Sat (Calc) 97.7 H, VBG Base Excess -1.6 L, VBG Potassium 4.8, Sodium 139.0, Chloride 108.0 H, Glucose 124 H, Lactate 1.4, FiO2 21.0, Venous Blood Potassium 4.8 05/01/17 18:30: PT 12.2, INR 1.12 H, APTT 29.2 05/01/17 18:30: WBC 10.6 D, RBC 4.18, Hgb 12.2 L, Hct 38.4 L, MCV 91.9, MCH 29.2, MCHC 31.8, RDW 14.8 H, Plt Count 160, MPV 11.0, Gran % 77.6 H, Lymph % ( Auto) 15.0 L, [facility] % (Auto) 6.3 H, Eos % (Auto) 0.8 L, Baso % (Auto) 0.3, Gran # 8.25 H, Lymph # 1.6, [facility] [facility] # 0.7 H, Eos # 0.1, Baso # 0.03, ESR 21 H 05/01/17 18:21: POC Glucose (mg/dL) 140 H - RAD Interpretation Radiology Orders: 05/01/17 18:42 CHEST PORTABLE [RAD] Stat - Medication Orders Current Medication Orders: Ascorbic Acid (Vitamin C 500 Mg Tab) 500 mg PO BID [facility] Last Admin: 05/03/17 09:23 Dose: 500 mg Aspirin (Ecotrin) 325 mg PO DAILY [facility] Last Admin: 05/03/17 09:19 Dose: 325 mg Atorvastatin Calcium (Lipitor) 20 mg PO DIN [facility] Last Admin: 05/02/17 17:51 Dose: 20 mg Bupropion HCl (Wellbutrin Xl) 300 mg PO DAILY [facility] Last Admin: 05/03/17 09:30 Dose: 300 mg Clonazepam (Klonopin) 0.5 mg PO BID [facility] PRN Reason: Protocol Last Admin: 05/03/17 09:30 Dose: 0.5 mg Behavioural Document 05/03/17 09:30 TEJ (Rec: 05/03/17 09:30 [id number] Maintenance Maintenance Dose Yes Ergocalciferol (Drisdol 50,000 Intl Units Cap) 1 cap PO SAT [facility] Ferrous Sulfate (Feosol Liq) 300 mg PO 0800,1200,1700 [facility] Last Admin: 05/03/17 09:18 Dose: 300 mg Gabapentin (Neurontin) 800 mg PO TID [facility] PRN Reason: Protocol Last Admin: 05/03/17 09:21 Dose: 800 mg Behavioural Document 05/03/17 09:21 TEJ (Rec: 05/03/17 09:22 [id number]) Maintenance Maintenance Dose Yes Insulin Human Regular (Humulin R Med) 0 units SC ACHS [facility] PRN Reason: Protocol Last Admin: 05/03/17 08:00 Dose: Not Given Non-Admin Reason: Blood Sugar Parameter MAR Blood Glucose Document 05/03/17 08:00 TEJ (Rec: 05/03/17 09:20 [id number]) Blood Glucose Finger Stick Blood Glucose (70-120) 77 Lisinopril (Zestril) 10 mg PO DAILY [facility] Last Admin: 05/03/17 09:31 Dose: 10 mg MAR Pulse and Blood Pressure Document 05/03/17 09:31 TEJ (Rec: 05/03/17 09:32 [id number]) Pulse Pulse Rate (60-90) 81 Multivitamins/Minerals (Therapeutic-M Tab) 1 tab PO DAILY [facility] Last Admin: 05/03/17 09:33 Dose: 1 tab Nystatin (Nystop Topical Powder) 0 gm TOP TID [facility] Last Admin: 05/02/17 17:53 Dose: 1 applic Pantoprazole Sodium (Protonix Ec Tab) 40 mg PO ACBD [facility] Last Admin: 05/03/17 09:22 Dose: 40 mg Potassium Chloride (K-Dur 20 Meq Er Tab) 20 meq PO BRK [facility] Last Admin: 05/03/17 09:21 Dose: 20 meq Zinc Sulfate (Zinc Sulfate 220 Mg Cap) 220 mg PO DAILY [facility] Last Admin: 05/03/17 09:31 Dose: 220 mg Ziprasidone (Geodon Cap) 80 mg PO HS [facility] Last Admin: 05/02/17 21:04 Dose: 80 mg Behavioural Document 05/02/17 21:04 CAGE (Rec: 05/02/17 21:05 CAGE [id number]) Maintenance Maintenance Dose Yes Nonmedicinal Nonmedicinal Interventions Redirect Behavior Behavior for Medication: Anxiety Discontinued Medications Cefepime HCl (Maxipime 2gm) 2 g in 100 mls @ 100 mls/hr IVPB STAT STA PRN Reason: Protocol Stop: 05/01/17 19:35 Last Admin: 05/01/17 19:30 Dose: 100 mls/hr eMAR Start Stop Document 05/01/17 19:30 JOL (Rec: 05/01/17 19:30 JOL [id number]) Intravenous Solution Start Date 05/01/17 Start Time 19:30 End Date 05/01/17 End time 20:30 Total Infusion Time 60 Sodium Chloride 2,000 ml/ IV (SUPPLIES) 2,000 mls @ 7,838.1 mls/hr IV ONCE ONE PRN Reason: 60 ML/KG/HR Stop: 05/01/17 18:37 Last Admin: 05/01/17 19:04 Dose: 7,838.1 mls/hr eMAR Start Stop Document 05/01/17 19:04 [facility] (Rec: 05/01/17 19:05 [facility] [id number]) Intravenous Solution Start Date 05/01/17 Start Time 18:40 End Date 05/01/17 End time 19:00 Total Infusion Time 20 Vancomycin HCl (Vancomycin 1gm) 1 g in 250 mls @ 167 mls/hr IVPB STAT STA PRN Reason: Protocol Stop: 05/01/17 20:05 Last Admin: 05/01/17 20:30 Dose: 167 mls/hr eMAR Start Stop Document 05/01/17 20:30 JOL (Rec: 05/01/17 21:15 JOL [id number]) Intravenous Solution Start Date 05/01/17 Start Time 20:30 End Date 05/01/17 End time 22:00 Total Infusion Time 90 Disposition/Present on Arrival - Present on Arrival Any Indicators Present on Arrival: Yes History of DVT/PE: No History of Uncontrolled Diabetes: No Urinary Catheter: Yes History of Decub. Ulcer: Yes History Surgical Site Infection Following: CABG - Mediastinitis - Disposition Have Diagnosis and Disposition been Completed?: Yes Diagnosis: Urinary tract infection, Decubitus ulcer, Opiate overdose Disposition: HOSPITALIZED Disposition Time: 20:20 Patient Plan: Admission Condition: FAIR
[2017-05-01 20:43] LABS: URINE BILIRUBIN NEGATIVE (NEGATIVE); URINE BLOOD LARGE (NEGATIVE); URINE GLUCOSE (UA) NEGATIVE (NEGATIVE); URINE KETONE NEGATIVE (NEGATIVE); URINE LEUKOCYTE ESTERASE SMALL Leu/uL (NEGATIVE); URINE PROTEIN 100 mg/dL (<30 mg/dL); URINE UROBILINOGEN 0.2 E.U./dL (<1 E.U./dL)
[2017-05-01 20:48] LABS: URINE APPEARANCE CLEAR (CLEAR); URINE COLOR YELLOW (YELLOW)
[2017-05-01 21:28] LABS: URINE BACTERIA MANY (NEG); URINE WBC 15 - 20 /hpf (0-6)
[2017-05-02] MEDS: Nystatin 100,000 Units/gm Topical Pow(15 gm) TOP SCH ×4 (05:28→17:53)
--- NOTE | 2017-05-02 08:31 | RAD ---
HISTORY: r/o airpsace disease COMPARISON: 12/09/2016 FINDINGS: LUNGS: No active pulmonary disease. PLEURA: No significant pleural effusion identified, no pneumothorax apparent. CARDIOVASCULAR: Mild cardiomegaly OSSEOUS STRUCTURES: No significant abnormalities. VISUALIZED UPPER ABDOMEN: Normal. OTHER FINDINGS: None. IMPRESSION: No active disease.
[2017-05-02] MEDS: Multivitamin With Minerals Tab PO SCH (10:09)
[2017-05-02] MEDS: Aspirin 325 mg EC Tablets PO SCH (10:09)
[2017-05-02] MEDS: Potassium Chloride 20 mEq ER Tab PO SCH (10:09)
[2017-05-02] MEDS: Pantoprazole 40 mg EC Tab PO SCH ×2 (10:11→17:51)
[2017-05-02] MEDS: Ferrous Sulfate 300 mg/5 mL Liq UD PO SCH ×3 (10:14→17:47)
[2017-05-02] MEDS: buPROPion 150 mg/24 Hours XL Tab PO SCH (10:19)
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
[2017-05-02] MEDS: Insulin Reg-MEDIUM-Coverage SC SCH ×2 (12:51→16:39)
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
--- NOTE | 2017-05-02 14:03 | HP ---
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 The patient has been in and out of the hospital in the past. He was readmitted after being found unresponsive by his son at home, multiple fentanyl patches on his body and multiple Dilaudid tablets spread in his bedroom. The patient was given Narcan on the site and transferred from the ER, and given one Narcan in the ER with arousal of the patient. The patient is in the ICU today. He is awake and alert. He does have tremor of upper extremities, however, he is awake and he is lucid and somewhat confused about the past 24-48 hours, also he is sad, and crying at the bedside. PHYSICAL EXAMINATION VITAL SIGNS: Temperature is 99.2 and blood pressure 133/56. HEART: Regular sinus rhythm with sinus tachycardia. CHEST: Clear to auscultation and percussion. ABDOMEN: Benign. EXTREMITIES: Without cyanosis or clubbing. NEUROLOGIC: Sensation is grossly intact except for paraplegia from the waist down and decreased sensation and upgoing Babinski's bilaterally, and a coarse tremor of the upper extremities. The patient also has a stage III sacral decubitus with some purulent discharge. IMPRESSION: This is a 66-year-old white male with possible drug overdose, possible suicide attempt, new tremor, possible urinary tract infection, elevated BUN and creatinine of 33 and 1.7. White count is normal and hemoglobin and hematocrit are within normal limits. Sugars of 160. Rayshawn Lorenzana MD
--- NOTE | 2017-05-02 17:45 | CARD ---
APPROVED REPORT EKG Measurement Heart [id number] <Conclusion> Sinus tachycardia Otherwise normal ECG
--- NOTE | 2017-05-02 18:42 | CT ---
PROCEDURE: CT HEAD WITHOUT CONTRAST. HISTORY: tremor COMPARISON: Noncontrast head CT performed 09/30/16 TECHNIQUE: Axial computed tomography images were obtained through the head/brain without intravenous contrast. Radiation dose: Total exam DLP = 930.49 mGy-cm. This CT exam was performed using one or more of the following dose reduction techniques: Automated exposure control, adjustment of the mA and/or kV according to patient size, and/or use of iterative reconstruction technique. FINDINGS: HEMORRHAGE: No intracranial hemorrhage. BRAIN: Diffuse atrophy with prominence of the ventricles and sulci noted. No mass effect or edema. Dense intracranial atherosclerosis. The bowie-white matter differentiation appears intact. Please note that MRI with diffusion imaging is more sensitive in the detection of acute ischemic event. VENTRICLES: No hydrocephalus. CALVARIUM: Unremarkable. PARANASAL SINUSES: Unremarkable as visualized. No significant inflammatory changes. MASTOID AIR CELLS: Unremarkable as visualized. No inflammatory changes. OTHER FINDINGS: None. IMPRESSION: No acute intracranial pathology identified.
[2017-05-03 07:43] LABS: ALKALINE PHOSPHATASE 90 U/L (38-126); ALT/SGPT 42 U/L (7-56); AST/SGOT 42 U/L (17-59); BILIRUBIN,TOTAL 0.3 mg/dL (0.2-1.3); BLOOD UREA NITROGEN 33 mg/dL (7-21); CALCIUM 8.3 mg/dL (8.4-10.5); CARBON DIOXIDE 25 mmol/L (21-33); CHLORIDE 110 mmol/L (98-107); GFR AFRICAN-AMERICAN > 60; GLUCOSE,RANDOM 70 mg/dL (70-110); POTASSIUM 3.9 mmol/L (3.6-5.0); SODIUM 141 mmol/L (132-148); TOTAL PROTEIN 5.4 g/dL (5.8-8.3)
[2017-05-03] MEDS: Insulin Reg-MEDIUM-Coverage SC SCH ×4 (08:00→22:16)
--- NOTE | 2017-05-03 08:54 | CP.PCM.PN ---
Subjective - Date & Time of Evaluation Date of Evaluation: 05/03/17 Time of Evaluation: 08:52 - Subjective Subjective: Surgery Pt S&e. Resting comfortably. Denies F/N/C/V/CP/SOB. Objective - Vital Signs/Intake and Output Vital Signs (last 24 hours): Temp Pulse Resp BP Pulse Ox 99.1 F 66 18 132/70 96 05/03/17 05:23 05/03/17 05:10 05/03/17 05:00 05/03/17 04:00 05/03/17 05:23 Intake and Output: 05/03/17 05/03/17 06:59 18:59 Intake Total 600 Output Total 1500 Balance -900 - Medications Medications: Current Medications Ascorbic Acid (Vitamin C 500 Mg Tab) 500 mg PO BID [facility] Last Admin: 05/02/17 17:52 Dose: 500 mg Aspirin (Ecotrin) 325 mg PO DAILY [facility] Last Admin: 05/02/17 10:09 Dose: 325 mg Atorvastatin Calcium (Lipitor) 20 mg PO DIN [facility] Last Admin: 05/02/17 17:51 Dose: 20 mg Bupropion HCl (Wellbutrin Xl) 300 mg PO DAILY [facility] Last Admin: 05/02/17 10:19 Dose: 300 mg Clonazepam (Klonopin) 0.5 mg PO BID [facility] PRN Reason: Protocol Last Admin: 05/02/17 17:51 Dose: 0.5 mg Ergocalciferol (Drisdol 50,000 Intl Units Cap) 1 cap PO SAT [facility] Ferrous Sulfate (Feosol Liq) 300 mg PO 0800,1200,1700 [facility] Last Admin: 05/02/17 17:47 Dose: Not Given Gabapentin (Neurontin) 800 mg PO TID [facility] PRN Reason: Protocol Last Admin: 05/02/17 17:52 Dose: 800 mg Insulin Human Regular (Humulin R Med) 0 units SC ACHS [facility] PRN Reason: Protocol Last Admin: 05/02/17 16:39 Dose: Not Given Lisinopril (Zestril) 10 mg PO DAILY [facility] Last Admin: 05/02/17 10:09 Dose: 10 mg Multivitamins/Minerals (Therapeutic-M Tab) 1 tab PO DAILY [facility] Last Admin: 05/02/17 10:09 Dose: 1 tab Nystatin (Nystop Topical Powder) 0 gm TOP TID [facility] Last Admin: 05/02/17 17:53 Dose: 1 applic Pantoprazole Sodium (Protonix Ec Tab) 40 mg PO ACBD [facility] Last Admin: 05/02/17 17:51 Dose: 40 mg Potassium Chloride (K-Dur 20 Meq Er Tab) 20 meq PO BRK [facility] Last Admin: 05/02/17 10:09 Dose: 20 meq Zinc Sulfate (Zinc Sulfate 220 Mg Cap) 220 mg PO DAILY [facility] Last Admin: 05/02/17 10:09 Dose: 220 mg Ziprasidone (Geodon Cap) 80 mg PO HS [facility] Last Admin: 05/02/17 21:04 Dose: 80 mg - Labs Labs: 05/03/17 06:30 PT 12.2 SECONDS (9.4-12.5) 05/01/17 18:30 INR 1.12 (0.93-1.08) H 05/01/17 18:30 APTT 29.2 Seconds (25.1-36.5) 05/01/17 18:30 - Constitutional Appears: Non-toxic - Head Exam Head Exam: ATRAUMATIC, NORMAL INSPECTION, NORMOCEPHALIC - Eye Exam Eye Exam: EOMI, Normal appearance, PERRL Pupil Exam: NORMAL ACCOMODATION, PERRL - ENT Exam ENT Exam: Mucous Membranes Moist, Normal Exam - Neck Exam Neck Exam: Full ROM, Normal Inspection. absent: Lymphadenopathy - Respiratory Exam Respiratory Exam: Clear to Ausculation Bilateral, NORMAL BREATHING PATTERN - Cardiovascular Exam Cardiovascular Exam: REGULAR RHYTHM, +S1, +S2. absent: Murmur - GI/Abdominal Exam GI & Abdominal Exam: Soft, Normal Bowel Sounds. absent: Distended, Firm, Guarding, Tenderness Additional comments: Stoma in place. - Exam Exam: NORMAL INSPECTION - Extremities Exam Extremities Exam: absent: Full ROM - Back Exam Additional comments: LArge sacral ulcer. - Neurological Exam Neurological Exam: Alert, Awake, Oriented x3. absent: Normal Gait - Psychiatric Exam Psychiatric exam: Normal Affect, Normal Mood - Skin Skin Exam: Erythema, Normal Color, Warm. absent: Intact Assessment and Plan - Assessment and Plan (Free Text) Assessment: 66 yo M admitted for likely drug overdose, surgery consulted for stage 4 sacral decubitus ulcer, stage 2 left ischial ulcer, stage 2 right heel ulcer. Plan: - Daily dressing changes with medihoney - Turns q2h - Air mattress - Off loading boots to b/l feet - F/u cultures - Medical management per primary - Will REYNALDO Méndez
[2017-05-03] MEDS: Ferrous Sulfate 300 mg/5 mL Liq UD PO SCH ×2 (09:18→19:07)
[2017-05-03] MEDS: Aspirin 325 mg EC Tablets PO SCH (09:19)
[2017-05-03] MEDS: Potassium Chloride 20 mEq ER Tab PO SCH (09:21)
[2017-05-03] MEDS: Pantoprazole 40 mg EC Tab PO SCH ×2 (09:22→18:59)
--- NOTE | 2017-05-03 09:23 | PN ---
DATE: SUBJECTIVE: A 66-year-old white male, admitted after possible inadvertant drug overdose with fentanyl and Dilaudid, patches and pills. The patient had a tremor, which has resolved. The CT of the head was negative. He was seen by Neurology and also by Surgery. The patient does have a large old sacral decubitus, which is healing. There is possibly a new smaller sacral decubitus below. There is also a left heel abrasion. The patient has paraplegia, neurogenic bladder, colostomy, history of CAD, history of insulin diabetes mellitus. The patient is awake and alert today, more oriented, speaking with his son. His mood is improved. Vital signs are stable. We are awaiting the consultation by Psychiatry. The patient will be transferred to the floor today from ICU. He is noncritical. Laboratory data has improved. His BUN and creatinine dropped to 33 and 1.2. His sugars are on the low end of normal. PHYSICAL EXAMINATION: VITAL SIGNS: Vital signs are stable. The patient is afebrile, he is 99.1 today, otherwise stable. CHEST: Clear to auscultation and percussion. HEART: Regular sinus rhythm. EXTREMITIES: Without cyanosis, clubbing or edema. ABDOMEN: Soft. Colostomy is functioning. Gomez is functioning. ASSESSMENT AND PLAN: The patient will be transferred and followed for possible psych evaluation on the floor. Rayshawn Lorenzana MD
[2017-05-03] MEDS: buPROPion 150 mg/24 Hours XL Tab PO SCH (09:30)
[2017-05-03] MEDS: Multivitamin With Minerals Tab PO SCH (09:33)
--- NOTE | 2017-05-03 10:39 | CP.PCM.PN ---
<Leah Crane - Last Filed: 05/03/17 16:04> Subjective - Date & Time of Evaluation Date of Evaluation: 05/03/17 Time of Evaluation: 10:00 - Subjective Subjective: PGY-2 Neurology progress note for Dr. Cade's service Patient seen and examined at bedside in ICU. No acute distress, patient is sleeping comfortably. He denies any headache, dizziness, sob. He does report back pain. Patient states that tremor has improved Objective - Vital Signs/Intake and Output Vital Signs (last 24 hours): Temp Pulse Resp BP Pulse Ox 99.1 F 81 18 132/70 96 05/03/17 05:23 05/03/17 09:31 05/03/17 05:00 05/03/17 04:00 05/03/17 05:23 Intake and Output: 05/03/17 05/03/17 06:59 18:59 Intake Total 600 Output Total 1500 Balance -900 - Medications Medications: Current Medications Ascorbic Acid (Vitamin C 500 Mg Tab) 500 mg PO BID [facility] Last Admin: 05/03/17 09:23 Dose: 500 mg Aspirin (Ecotrin) 325 mg PO DAILY [facility] Last Admin: 05/03/17 09:19 Dose: 325 mg Atorvastatin Calcium (Lipitor) 20 mg PO DIN [facility] Last Admin: 05/02/17 17:51 Dose: 20 mg Bupropion HCl (Wellbutrin Xl) 300 mg PO DAILY [facility] Last Admin: 05/03/17 09:30 Dose: 300 mg Clonazepam (Klonopin) 0.5 mg PO BID [facility] PRN Reason: Protocol Last Admin: 05/03/17 09:30 Dose: 0.5 mg Ergocalciferol (Drisdol 50,000 Intl Units Cap) 1 cap PO SAT [facility] Ferrous Sulfate (Feosol Liq) 300 mg PO 0800,1200,1700 [facility] Last Admin: 05/03/17 09:18 Dose: 300 mg Gabapentin (Neurontin) 800 mg PO TID [facility] PRN Reason: Protocol Last Admin: 05/03/17 09:21 Dose: 800 mg Insulin Human Regular (Humulin R Med) 0 units SC ACHS [facility] PRN Reason: Protocol Last Admin: 05/03/17 08:00 Dose: Not Given Lisinopril (Zestril) 10 mg PO DAILY [facility] Last Admin: 05/03/17 09:31 Dose: 10 mg Multivitamins/Minerals (Therapeutic-M Tab) 1 tab PO DAILY [facility] Last Admin: 05/03/17 09:33 Dose: 1 tab Nystatin (Nystop Topical Powder) 0 gm TOP TID [facility] Last Admin: 05/02/17 17:53 Dose: 1 applic Pantoprazole Sodium (Protonix Ec Tab) 40 mg PO ACBD [facility] Last Admin: 05/03/17 09:22 Dose: 40 mg Potassium Chloride (K-Dur 20 Meq Er Tab) 20 meq PO BRK [facility] Last Admin: 05/03/17 09:21 Dose: 20 meq Zinc Sulfate (Zinc Sulfate 220 Mg Cap) 220 mg PO DAILY [facility] Last Admin: 05/03/17 09:31 Dose: 220 mg Ziprasidone (Geodon Cap) 80 mg PO HS [facility] Last Admin: 05/02/17 21:04 Dose: 80 mg - Labs Labs: 05/03/17 06:30 PT 12.2 SECONDS (9.4-12.5) 05/01/17 18:30 INR 1.12 (0.93-1.08) H 05/01/17 18:30 APTT 29.2 Seconds (25.1-36.5) 05/01/17 18:30 - Head Exam Head Exam: ATRAUMATIC, NORMAL INSPECTION, NORMOCEPHALIC - Eye Exam Eye Exam: EOMI, Normal appearance - ENT Exam ENT Exam: Mucous Membranes Moist - Respiratory Exam Respiratory Exam: Clear to Ausculation Bilateral, NORMAL BREATHING PATTERN - Cardiovascular Exam Cardiovascular Exam: REGULAR RHYTHM - Neurological Exam Neurological Exam: Alert, Awake, CN II-XII Intact, Oriented x3 Neuro motor strength exam: Left Upper Extremity: 4, Right Upper Extremity: 4, Left Lower Extremity: 4, Right Lower Extremity: 4 Additional comments: flapping tremor in all extremities has resolved - Skin Skin Exam: Dry, Intact, Normal Color, Warm Assessment and Plan - Assessment and Plan (Free Text) Assessment: 66 y/o male with pmh of decubitus ulcer to scral and hip areas s/p wound debridement, and vacuum placement, cauda euina syndrome, chronic indwelling burgos, DM, HTN sacral osteomyeltits, neurogenic bladder chf presented after being found at home unresponsive due to toxic metabolic from medication such as fentanyl patches and Dilaudid, as well as urosepsis. He was found to have tremor possibly due to drug overdose. - CT head showed no acute pathology - tremor has resolved - continue klonopine 0.5mg BID for tremor - avoid sedative medication to prevent deterioration of mental status - monitor electrolytes replace as needed - taper off of opiates - PT/OT Thank yor for the consult, please reconsult if needed Case discussed and reviewed with attending <Gab Cade - Last Filed: 05/03/17 17:05> Objective - Vital Signs/Intake and Output Vital Signs (last 24 hours): Temp Pulse Resp BP Pulse Ox 99.1 F 81 18 132/70 96 05/03/17 05:23 05/03/17 09:31 05/03/17 05:00 05/03/17 04:00 05/03/17 05:23 Intake and Output: 05/03/17 05/03/17 06:59 18:59 Intake Total 600 Output Total 1500 Balance -900 - Medications Medications: Current Medications Ascorbic Acid (Vitamin C 500 Mg Tab) 500 mg PO BID [facility] Last Admin: 05/03/17 09:23 Dose: 500 mg Aspirin (Ecotrin) 325 mg PO DAILY [facility] Last Admin: 05/03/17 09:19 Dose: 325 mg Atorvastatin Calcium (Lipitor) 20 mg PO DIN [facility] Last Admin: 05/02/17 17:51 Dose: 20 mg Bupropion HCl (Wellbutrin Xl) 300 mg PO DAILY [facility] Last Admin: 05/03/17 09:30 Dose: 300 mg Clonazepam (Klonopin) 0.5 mg PO BID [facility] PRN Reason: Protocol Last Admin: 05/03/17 09:30 Dose: 0.5 mg Ergocalciferol (Drisdol 50,000 Intl Units Cap) 1 cap PO SAT [facility] Ferrous Sulfate (Feosol Liq) 300 mg PO 0800,1200,1700 [facility] Last Admin: 05/02/17 17:47 Dose: Not Given Gabapentin (Neurontin) 800 mg PO TID [facility] PRN Reason: Protocol Last Admin: 05/03/17 14:50 Dose: 800 mg Insulin Human Regular (Humulin R Med) 0 units SC ACHS [facility] PRN Reason: Protocol Last Admin: 05/03/17 08:00 Dose: Not Given Lisinopril (Zestril) 10 mg PO DAILY [facility] Last Admin: 05/03/17 09:31 Dose: 10 mg Multivitamins/Minerals (Therapeutic-M Tab) 1 tab PO DAILY [facility] Last Admin: 05/03/17 09:33 Dose: 1 tab Nystatin (Nystop Topical Powder) 0 gm TOP TID [facility] Last Admin: 05/02/17 17:53 Dose: 1 applic Pantoprazole Sodium (Protonix Ec Tab) 40 mg PO ACBD [facility] Last Admin: 05/03/17 09:22 Dose: 40 mg Potassium Chloride (K-Dur 20 Meq Er Tab) 20 meq PO BRK [facility] Last Admin: 05/03/17 09:21 Dose: 20 meq Zinc Sulfate (Zinc Sulfate 220 Mg Cap) 220 mg PO DAILY [facility] Last Admin: 05/03/17 09:31 Dose: 220 mg Ziprasidone (Geodon Cap) 80 mg PO HS [facility] Last Admin: 05/02/17 21:04 Dose: 80 mg - Labs Labs: 05/03/17 06:30 PT 12.2 SECONDS (9.4-12.5) 05/01/17 18:30 INR 1.12 (0.93-1.08) H 05/01/17 18:30 APTT 29.2 Seconds (25.1-36.5) 05/01/17 18:30 Attending/Attestation - Attestation I have personally seen and examined this patient.: Yes I have fully participated in the care of the patient.: Yes I have reviewed all pertinent clinical information, including history, physical exam and plan: Yes
[2017-05-03] MEDS: Nystatin 100,000 Units/gm Topical Pow(15 gm) TOP SCH (19:06)
--- NOTE | 2017-05-03 20:32 | PN ---
DATE: 05/03/2017 SUBJECTIVE: This is a 66-year-old male seen for heel ulcer. The patient is seen at bedside. He is alert and oriented and in no distress. The patient's history and physical by Dr. Lorenzana was reviewed and it was noted that this patient's past medical history is positive for paraplegia, sacral ulcer which has had multiple infections and at this time does have MRSA. The patient has a history of coronary artery disease, status post stent. The patient has history of diabetes, insulin dependent. The patient also has neurogenic bladder. The patient has recently been admitted after being found unresponsive at home by his son and he was brought in to the hospital. Apparently, this could have been either drug overdose or possible suicide attempt. The patient also has a history of colostomy. The patient's medications are noted on the JUL. He has adverse reaction to Cipro and to the penicillins. LABORATORY DATA: His labs show a white blood cell count of 10, the H and H of 12.2 and 38.4, and the platelets of 160. Granulocyte and lymphocytes are slightly elevated and low respectively with a shift to the left. His ESR is 21. Chemistry show BUN and creatinine of 33 and 1.2, and his glucose was 77. The patient's micro has a sacral of Gram-negative rods which is preliminary. His urine is Gram-negative and Gram-positive cocci, and he does have MRSA from nasal. The patient's lower extremities were reviewed and inspected. He has 2/4 palpable pedal pulses bilateral. He has decreased sensation with positive Babinski's bilateral. The patient can move his legs but cannot lift them. He has a small ulceration on the posterior ankle adjacent to the Achilles tendon, it measures approximately 3 x 3 x 0.1 cm. There is no depth, the tissue with granula. There are no signs of infection. No redness. No fluctuance. No . No sinus tract No undermining. ASSESSMENT: A Castellano, grade I ulceration to the right heel. PLAN OF TREATMENT: The wound was cleansed with Betadine since when we saw the patient. The wound was sitting open to the stalk and a foam dressing was applied. We also put a foam dressing on his left heel just as a precaution and for extra padding. He was then placed on heel boots for protection, and he will be seen and followed. Bety Lopez DPM [facility] # [id number]
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
[2017-05-04] MEDS: Pantoprazole 40 mg EC Tab PO SCH ×2 (07:52→18:43)
[2017-05-04] MEDS: Potassium Chloride 20 mEq ER Tab PO SCH (08:21)
[2017-05-04] MEDS: Ferrous Sulfate 300 mg/5 mL Liq UD PO SCH ×3 (08:21→13:36)
[2017-05-04] MEDS: Insulin Reg-MEDIUM-Coverage SC SCH ×2 (08:25→13:36)
--- NOTE | 2017-05-04 10:13 | PN ---
DATE: SUBJECTIVE: A 66-year-old male, admitted to the hospital with overdose. The patient was transferred from ICU to the floor. The patient does have a stage III/IV decubitus ulcer from previous episode. The patient is being seen by consultation Dr. Méndez for local wound care. The patient also is being seen by consultation Dr. Lopez for left heal ulcer, which has also been attended to. PHYSICAL EXAMINATION: GENERAL: The patient is awake, alert and oriented x3. VITAL SIGNS: Stable. CHEST: Clear to auscultation and percussion. IMPRESSION AND PLAN: The patient is complaining of pain. He will be very cautious with pain medication at this point due to the patient's difficulty with handling pain medication and recent overdose. The patient also seen by Dr. Preciado from Psychiatry. The patient is found to be non-harmful to himself or others and is not being elevated for possible remission. The patient will be followed by Dr. Preciado. The patient is on multiple psychiatric medications including Geodon, clonazepam and bupropion, etc. The plan is to continue local wound care and evaluate for possible return to his home environment in the next 24 hours. Rayshawn Lorenzana MD
[2017-05-04] MEDS: Multivitamin With Minerals Tab PO SCH (10:25)
[2017-05-04] MEDS: buPROPion 150 mg/24 Hours XL Tab PO SCH (10:25)
[2017-05-04] MEDS: Aspirin 325 mg EC Tablets PO SCH (10:25)
[2017-05-04] MEDS: Oxycodone/Acetaminophen 5/325 mg Tab PO PRN ×2 (10:41→18:39)
--- NOTE | 2017-05-04 11:18 | CP.PCM.PN ---
Subjective - Date & Time of Evaluation Date of Evaluation: 05/04/17 Time of Evaluation: 11:15 - Subjective Subjective: Surgery Progress Note for Dr. Méndez Pt seen and examined at bedside. No acute overnight events. Pt states pain is well controlled. Pt tolerating diet. Pt denied CP, SOB, nausea, vomiting, abdominal pain, CAGE, fever, chills. Objective - Vital Signs/Intake and Output Vital Signs (last 24 hours): Temp Pulse Resp BP Pulse Ox 97.3 F L 82 19 158/82 H 97 05/04/17 07:30 05/04/17 10:25 05/04/17 07:30 05/04/17 10:25 05/04/17 07:30 Intake and Output: 05/04/17 05/04/17 06:59 18:59 Intake Total 780 Output Total 3200 Balance -2420 - Medications Medications: Current Medications Acetaminophen (Tylenol 325mg Tab) 650 mg PO Q4H PRN PRN Reason: Pain, moderate (4-7) Last Admin: 05/04/17 00:40 Dose: 650 mg Ascorbic Acid (Vitamin C 500 Mg Tab) 500 mg PO BID [facility] Last Admin: 05/04/17 10:25 Dose: 500 mg Aspirin (Ecotrin) 325 mg PO DAILY [facility] Last Admin: 05/04/17 10:25 Dose: 325 mg Atorvastatin Calcium (Lipitor) 20 mg PO DIN [facility] Last Admin: 05/03/17 18:58 Dose: 20 mg Bupropion HCl (Wellbutrin Xl) 300 mg PO DAILY [facility] Last Admin: 05/04/17 10:25 Dose: 300 mg Clonazepam (Klonopin) 0.5 mg PO BID [facility] PRN Reason: Protocol Last Admin: 05/04/17 10:25 Dose: 0.5 mg Ergocalciferol (Drisdol 50,000 Intl Units Cap) 1 cap PO SAT [facility] Ferrous Sulfate (Feosol Liq) 300 mg PO 0800,1200,1700 [facility] Last Admin: 05/04/17 08:25 Dose: Not Given Gabapentin (Neurontin) 800 mg PO TID [facility] PRN Reason: Protocol Last Admin: 05/04/17 10:25 Dose: 800 mg Insulin Human Regular (Humulin R Med) 0 units SC ACHS [facility] PRN Reason: Protocol Last Admin: 05/04/17 08:25 Dose: Not Given Lisinopril (Zestril) 10 mg PO DAILY [facility] Last Admin: 05/04/17 10:25 Dose: 10 mg Multivitamins/Minerals (Therapeutic-M Tab) 1 tab PO DAILY [facility] Last Admin: 05/04/17 10:25 Dose: 1 tab Mupirocin (Bactroban Ointment) 0 gm TOP BID [facility] Last Admin: 05/04/17 10:26 Dose: 1 applic Nystatin (Nystop Topical Powder) 0 gm TOP TID [facility] Last Admin: 05/03/17 19:06 Dose: Not Given Oxycodone/Acetaminophen (Percocet 5/325 Mg Tab) 1 tab PO Q6H PRN PRN Reason: Pain, moderate (4-7) Stop: 05/07/17 09:12 Last Admin: 05/04/17 10:41 Dose: 1 tab Pantoprazole Sodium (Protonix Ec Tab) 40 mg PO ACBD [facility] Last Admin: 05/04/17 07:52 Dose: 40 mg Potassium Chloride (K-Dur 20 Meq Er Tab) 20 meq PO BRK [facility] Last Admin: 05/04/17 08:21 Dose: 20 meq Zinc Sulfate (Zinc Sulfate 220 Mg Cap) 220 mg PO DAILY [facility] Last Admin: 05/04/17 10:25 Dose: 220 mg Ziprasidone (Geodon Cap) 80 mg PO HS [facility] Last Admin: 05/03/17 22:16 Dose: 80 mg - Labs Labs: 05/03/17 06:30 PT 12.2 SECONDS (9.4-12.5) 05/01/17 18:30 INR 1.12 (0.93-1.08) H 05/01/17 18:30 APTT 29.2 Seconds (25.1-36.5) 05/01/17 18:30 - Constitutional Appears: No Acute Distress - Head Exam Head Exam: NORMAL INSPECTION - Eye Exam Eye Exam: Normal appearance - ENT Exam ENT Exam: Normal Exam - Neck Exam Neck Exam: Normal Inspection - Respiratory Exam Respiratory Exam: NORMAL BREATHING PATTERN. absent: Accessory Muscle Use, Respiratory Distress - Cardiovascular Exam Cardiovascular Exam: RRR. absent: Gallop, Rubs, Murmur - GI/Abdominal Exam GI & Abdominal Exam: Soft. absent: Distended, Guarding, Tenderness, Rebound Additional comments: Ostomy in place mid abdomen, pink, moist. No erythema, discharge or TTP. - Neurological Exam Neurological Exam: Alert, Awake, Oriented x3 - Skin Additional comments: Stage 4 sacral decubitus ulcer 1x5cm with tunneling, Stage 2 left ischial ulcer 1x3cm, Stage 2 right posterior heel ulcer 1x1cm Assessment and Plan - Assessment and Plan (Free Text) Assessment: 66 yo M admitted for likely drug overdose, surgery consulted for stage 4 sacral decubitus ulcer, stage 2 left ischial ulcer, stage 2 right heel ulcer. Plan: - Daily dressing changes with medihoney - Turns q2h - Air mattress - Off loading boots to b/l feet - Wound culture positive for proteus mirabilis - Medical management per primary - Will DW Dr. Dev Floyd, PGY1
[2017-05-04] MEDS: Nystatin 100,000 Units/gm Topical Pow(15 gm) TOP SCH ×3 (13:37→18:44)
--- NOTE | 2017-05-04 14:29 | PN ---
DATE: 05/04/2017 SUBJECTIVE: This is a 66-year-old male seen at bedside for followup of a decubiti to his right heel. Patient is stating that his heel is bothering him today and he is also complaining of a bar at the sacral area at the bend of the bed which is bothering him. Patient does have a history of a large sacral ulcer and he also has foot decubiti. Patient otherwise is alert and oriented, and not in any acute distress. PHYSICAL EXAMINATION: VITAL SIGNS: Show a temperature of 97.3, pulse is 82, the blood pressure is 158/82, and his oxygen sat is 97 on room air. MEDICATIONS: Noted on the JUL. ALLERGIES: CIPRO AND PENICILLINS. LABORATORY DATA: Show white blood count of 10.6 and that is from 05/01/2017. No new labs were in the computer at this time. Microbiology shows Gram negative rods from the sacral ulcer, MRSA from the naris, and Gram negative and Gram positive from the urine. Clinically, his vascular is intact with palpable pedal pulses to his feet bilateral. There is a small decubiti on the right posterior ankle. This decubiti is slightly inflamed today with some local erythema, but no cellulitis, no no pus. The tissue is still viable without any necrosis. There is no sinus tracts or undermining. His left heel remains clean without any erythema or any atrophy. There is no bruising noted on either of the heel. ASSESSMENT: Stage III ulceration to the right heel, most likely irritation secondary to offloading problems. He does have offloading heel pads, but they are sliding off his feet. PLAN OF TREATMENT: We are going to beef up the offloading by ordering the soft multi Podus boots. We will change the Optifoam dressing out for Bactroban with dry sterile dressing which will be done on a daily basis. I did speak to nursing and I also put an order in for an air mattress to offload the sacral and the heel as well as hopefully take care of the discomfort he is feeling from the bed. Bety Lopez DPM
--- NOTE | 2017-05-04 21:15 | PN ---
DATE: SUBJECTIVE: The patient was followed up today. The patient is status post questionable intentional or unintentional overdose on pills. The patient was found to be unresponsive next to the bottles of pills. This va underwriter evaluated the patient yesterday into ICU unit. The patient adamantly denied that he wanted to kill himself. The patient's medications were confirmed yesterday. This va underwriter resume all of the psychotropic medication yesterday. The patient refused to give consent for collateral information from his son, today the patient was willing to participate and in discussion to call for the patient's son for collateral information. This va underwriter evaluated the patient today. The patient said that he feels okay. The patient reported that he constantly feels depressed. The patient has multiple medical issues as well as the patient's . The patient's son seems to be supportive, but he has his own life. The patient has paraplegia the patient has cauda equina syndrome. The patient also has decubitus ulcers to sacral and hip area, history of wound debridement and vacuum placement, cauda equina syndrome, hypertension, diabetes, chronic indwelling Gomez osteomyelitis, history of neurogenic bladder. The patient has history of MRSA on top of that history of bipolar disorder. The patient trapped in the house, and the patient is not able to ambulate, and this va underwriter has impression that the patient has a lot of reasons why to feel depressed. This va underwriter would emphasize the fact that the patient adamantly denied that he wanted to kill himself prior to coming to the hospital, but still the patient's family need to be involved. The patient's son needs to be called. Advanced nurse practitioner, Jolynn, will call family and ask for collateral information tomorrow. The patient was seen today. The patient said that he constantly feel depressed, but adamantly denied thoughts of harming himself or others and reported to have fair sleep and tolerated medications well. This va underwriter educated the patient about risks, benefits, and alternatives of the all medications and the patient seems to be understanding and was asking intelligent questions. MENTAL STATUS EXAMINATION: The patient to appears to be alert, pleasant, cooperative. The patient appears to be depressed, flat affect. Thought process seems to be coherent. Thought content, the patient denied visual, auditory, or tactile hallucinations. Denied paranoid ideation. The patient denied thoughts of harming himself or others. Denied intent or plan. Insight and judgment limited. Impulses are well controlled. IMPRESSION: As per history of bipolar disorder most likely bipolar type 2, the patient has major depression as well as mood disorder due to general medical condition. Multiple medical issues. Please see above. PLAN: Continue current management. Continue current medication. All medications were confirmed by the patient's pharmacy. This va underwriter will follow up on this patient well. He will be on the medical site. The advanced nurse practitioner will call the patient family for collateral information. The patient gave permission. This va underwriter will be on vocation. Dr. Dickinson covers over the weekend and Tuesday. Dr. Lucio covers next week. Should you have any questions give me a call back. The patient should not be on one to one because the patient contracted for safety. Thank you very much for letting me participate in care of your patient. Should you have any questions, call nurse practitionerJolynn. Ilana Scott MD
[2017-05-05] MEDS: Oxycodone/Acetaminophen 5/325 mg Tab PO PRN ×4 (00:41→22:08)
[2017-05-05] MEDS: Ferrous Sulfate 300 mg/5 mL Liq UD PO SCH ×3 (08:04→18:07)
[2017-05-05] MEDS: Insulin Reg-MEDIUM-Coverage SC SCH ×4 (08:04→18:08)
[2017-05-05] MEDS: Pantoprazole 40 mg EC Tab PO SCH ×2 (08:06→16:33)
[2017-05-05] MEDS: Potassium Chloride 20 mEq ER Tab PO SCH (08:06)
--- NOTE | 2017-05-05 09:54 | CP.PCM.PN ---
Subjective - Date & Time of Evaluation Date of Evaluation: 05/05/17 Time of Evaluation: 09:49 - Subjective Subjective: PGY1 Note for Dr. Méndez HPI: Patient seen and examined at bedside. Doing well with no complaints at this time. No fevers or chills, tolerating diet Objective - Vital Signs/Intake and Output Vital Signs (last 24 hours): Temp Pulse Resp BP Pulse Ox 98.4 F 78 20 140/77 97 05/05/17 07:15 05/05/17 07:15 05/05/17 07:15 05/05/17 07:15 05/05/17 07:15 Intake and Output: 05/05/17 05/05/17 06:59 18:59 Intake Total 1260 600 Output Total 2375 Balance -1115 600 - Medications Medications: Current Medications Acetaminophen (Tylenol 325mg Tab) 650 mg PO Q4H PRN PRN Reason: Pain, moderate (4-7) Last Admin: 05/04/17 00:40 Dose: 650 mg Ascorbic Acid (Vitamin C 500 Mg Tab) 500 mg PO BID [facility] Last Admin: 05/04/17 18:39 Dose: 500 mg Aspirin (Ecotrin) 325 mg PO DAILY [facility] Last Admin: 05/04/17 10:25 Dose: 325 mg Atorvastatin Calcium (Lipitor) 20 mg PO DIN [facility] Last Admin: 05/04/17 18:39 Dose: 20 mg Bupropion HCl (Wellbutrin Xl) 300 mg PO DAILY [facility] Last Admin: 05/04/17 10:25 Dose: 300 mg Cephalexin Monohydrate (Keflex) 500 mg PO Q6 [facility] PRN Reason: Protocol Last Admin: 05/05/17 06:32 Dose: 500 mg Clonazepam (Klonopin) 0.5 mg PO BID [facility] PRN Reason: Protocol Last Admin: 05/04/17 18:39 Dose: 0.5 mg Ergocalciferol (Drisdol 50,000 Intl Units Cap) 1 cap PO SAT [facility] Ferrous Sulfate (Feosol Liq) 300 mg PO 0800,1200,1700 [facility] Last Admin: 05/05/17 08:04 Dose: Not Given Gabapentin (Neurontin) 800 mg PO TID [facility] PRN Reason: Protocol Last Admin: 05/04/17 18:39 Dose: 800 mg Insulin Human Regular (Humulin R Med) 0 units SC ACHS [facility] PRN Reason: Protocol Last Admin: 05/05/17 08:05 Dose: Not Given Lisinopril (Zestril) 10 mg PO DAILY [facility] Last Admin: 05/04/17 10:25 Dose: 10 mg Multivitamins/Minerals (Therapeutic-M Tab) 1 tab PO DAILY [facility] Last Admin: 05/04/17 10:25 Dose: 1 tab Mupirocin (Bactroban Ointment) 0 gm TOP BID [facility] Last Admin: 05/05/17 08:04 Dose: Not Given Nystatin (Nystop Topical Powder) 0 gm TOP TID [facility] Last Admin: 05/04/17 18:44 Dose: 1 applic Oxycodone/Acetaminophen (Percocet 5/325 Mg Tab) 1 tab PO Q6H PRN PRN Reason: Pain, moderate (4-7) Stop: 05/07/17 09:12 Last Admin: 05/05/17 06:32 Dose: 1 tab Pantoprazole Sodium (Protonix Ec Tab) 40 mg PO ACBD [facility] Last Admin: 05/05/17 08:06 Dose: 40 mg Potassium Chloride (K-Dur 20 Meq Er Tab) 20 meq PO BRK [facility] Last Admin: 05/05/17 08:06 Dose: 20 meq Zinc Sulfate (Zinc Sulfate 220 Mg Cap) 220 mg PO DAILY [facility] Last Admin: 05/04/17 10:25 Dose: 220 mg Ziprasidone (Geodon Cap) 80 mg PO HS [facility] Last Admin: 05/04/17 21:17 Dose: 80 mg - Labs Labs: 05/03/17 06:30 PT 12.2 SECONDS (9.4-12.5) 05/01/17 18:30 INR 1.12 (0.93-1.08) H 05/01/17 18:30 APTT 29.2 Seconds (25.1-36.5) 05/01/17 18:30 - Constitutional Appears: Non-toxic - Head Exam Head Exam: ATRAUMATIC, NORMAL INSPECTION, NORMOCEPHALIC - Eye Exam Eye Exam: EOMI Pupil Exam: NORMAL ACCOMODATION - ENT Exam ENT Exam: Mucous Membranes Moist - Respiratory Exam Respiratory Exam: Clear to Ausculation Bilateral - Cardiovascular Exam Cardiovascular Exam: REGULAR RHYTHM - GI/Abdominal Exam GI & Abdominal Exam: Soft, Normal Bowel Sounds. absent: Distended, Tenderness - Exam Additional comments: burgos - Back Exam Additional comments: sacral decub healing well. no necrotic tissue present - Neurological Exam Neurological Exam: Alert, Awake, Oriented x3 - Psychiatric Exam Psychiatric exam: Normal Affect, Normal Mood Assessment and Plan - Assessment and Plan (Free Text) Assessment: 66M with sacral decub Plan: * continue local wound care * turn Q2 * air mattress * no further surgical intervention needed at this time, please reconsult if necessary. Thank you
[2017-05-05] MEDS: buPROPion 150 mg/24 Hours XL Tab PO SCH (11:21)
[2017-05-05] MEDS: Aspirin 325 mg EC Tablets PO SCH (11:21)
[2017-05-05] MEDS: Nystatin 100,000 Units/gm Topical Pow(15 gm) TOP SCH ×3 (11:25→18:12)
[2017-05-05] MEDS: Multivitamin With Minerals Tab PO SCH (11:25)
--- NOTE | 2017-05-05 13:55 | CP.PCM.PN ---
<Karen Ortega - Last Filed: 05/05/17 14:04> Subjective - Date & Time of Evaluation Date of Evaluation: 05/05/17 Time of Evaluation: 12:00 - Subjective Subjective: Podiatry Progress Note - Dr. Lopez 66 year old male patient seen and evaluated at bedside for right heel ulceration. Patient hemodynamically stable and NAD. Denies any acute events overnight. Patient not wearing offloading boots at time of visit. No pedal complaints today. Denies N/V/F/D/C/SOB. Objective - Vital Signs/Intake and Output Vital Signs (last 24 hours): Temp Pulse Resp BP Pulse Ox 98.4 F 78 20 140/77 97 05/05/17 07:15 05/05/17 11:22 05/05/17 07:15 05/05/17 11:22 05/05/17 07:15 Intake and Output: 05/05/17 05/05/17 06:59 18:59 Intake Total 1260 1020 Output Total 2375 1000 Balance -1115 20 - Medications Medications: Current Medications Acetaminophen (Tylenol 325mg Tab) 650 mg PO Q4H PRN PRN Reason: Pain, moderate (4-7) Last Admin: 05/04/17 00:40 Dose: 650 mg Ascorbic Acid (Vitamin C 500 Mg Tab) 500 mg PO BID [facility] Last Admin: 05/05/17 11:21 Dose: 500 mg Aspirin (Ecotrin) 325 mg PO DAILY [facility] Last Admin: 05/05/17 11:21 Dose: 325 mg Atorvastatin Calcium (Lipitor) 20 mg PO DIN [facility] Last Admin: 05/04/17 18:39 Dose: 20 mg Bupropion HCl (Wellbutrin Xl) 300 mg PO DAILY [facility] Last Admin: 05/05/17 11:21 Dose: 300 mg Cephalexin Monohydrate (Keflex) 500 mg PO Q6 [facility] PRN Reason: Protocol Last Admin: 05/05/17 13:06 Dose: 500 mg Clonazepam (Klonopin) 0.5 mg PO BID [facility] PRN Reason: Protocol Last Admin: 05/05/17 11:21 Dose: 0.5 mg Ergocalciferol (Drisdol 50,000 Intl Units Cap) 1 cap PO SAT [facility] Ferrous Sulfate (Feosol Liq) 300 mg PO 0800,1200,1700 [facility] Last Admin: 05/05/17 08:04 Dose: Not Given Gabapentin (Neurontin) 800 mg PO TID [facility] PRN Reason: Protocol Last Admin: 05/05/17 11:25 Dose: 800 mg Insulin Human Regular (Humulin R Med) 0 units SC ACHS [facility] PRN Reason: Protocol Last Admin: 05/05/17 08:05 Dose: Not Given Lisinopril (Zestril) 10 mg PO DAILY [facility] Last Admin: 05/05/17 11:22 Dose: 10 mg Multivitamins/Minerals (Therapeutic-M Tab) 1 tab PO DAILY [facility] Last Admin: 05/05/17 11:25 Dose: 1 tab Mupirocin (Bactroban Ointment) 0 gm TOP BID [facility] Last Admin: 05/05/17 11:25 Dose: 1 applic Nystatin (Nystop Topical Powder) 0 gm TOP TID [facility] Last Admin: 05/05/17 11:25 Dose: 1 applic Oxycodone/Acetaminophen (Percocet 5/325 Mg Tab) 1 tab PO Q6H PRN PRN Reason: Pain, moderate (4-7) Stop: 05/07/17 09:12 Last Admin: 05/05/17 13:06 Dose: 1 tab Pantoprazole Sodium (Protonix Ec Tab) 40 mg PO ACBD [facility] Last Admin: 05/05/17 08:06 Dose: 40 mg Potassium Chloride (K-Dur 20 Meq Er Tab) 20 meq PO BRK [facility] Last Admin: 05/05/17 08:06 Dose: 20 meq Zinc Sulfate (Zinc Sulfate 220 Mg Cap) 220 mg PO DAILY [facility] Last Admin: 05/05/17 11:21 Dose: 220 mg Ziprasidone (Geodon Cap) 80 mg PO HS [facility] Last Admin: 05/04/17 21:17 Dose: 80 mg - Labs Labs: 05/03/17 06:30 PT 12.2 SECONDS (9.4-12.5) 05/01/17 18:30 INR 1.12 (0.93-1.08) H 05/01/17 18:30 APTT 29.2 Seconds (25.1-36.5) 05/01/17 18:30 - Constitutional Appears: Well, Non-toxic, No Acute Distress - Extremities Exam Additional comments: VASC: DP and PT pulses palpable b/l. CFT <3 seconds to all digits b/l. Temperature gradient warm to warm. No edema noted. NEURO: Gross sensation absent DERM: Small decubiti on posterior right ankle with periwound erythema; no drainage, no purulence, no fluctuance, no undermining, no sinus tracts, no ascending cellulitis; no clinical signs of infection noted. Left heel remains clean without any erythema or atrophy. No ecchymosis noted. ORTHO: No pain on palpation bilateral LE. - Neurological Exam Neurological Exam: Alert, Awake, Oriented x3 - Psychiatric Exam Psychiatric exam: Normal Affect, Normal Mood Assessment and Plan - Assessment and Plan (Free Text) Assessment: Stage III pressure ulceration to right heel Plan: Patient seen and evaluated with attending, Dr. Lopez afebrile Bactroban DSD applied to right heel -QD dressing changes Continue multipodus boots Stable per podiatry standpoint Podiatry will continue to follow patient while in house <Bety Lopez - Last Filed: 05/12/17 17:19> Objective - Vital Signs/Intake and Output Vital Signs (last 24 hours): Temp Pulse Resp BP Pulse Ox 98.0 F 80 20 158/83 H 97 05/12/17 08:00 05/12/17 10:26 05/12/17 08:00 05/12/17 10:26 05/12/17 08:00 Intake and Output: 05/12/17 05/12/17 06:59 18:59 Intake Total 660 Output Total 1500 Balance -840 - Medications Medications: Current Medications Acetaminophen (Tylenol 325mg Tab) 650 mg PO Q4H PRN PRN Reason: Pain, moderate (4-7) Last Admin: 05/12/17 03:26 Dose: 650 mg Ascorbic Acid (Vitamin C 500 Mg Tab) 500 mg PO BID [facility] Last Admin: 05/12/17 10:24 Dose: 500 mg Aspirin (Ecotrin) 325 mg PO DAILY [facility] Last Admin: 05/12/17 10:29 Dose: 325 mg Atorvastatin Calcium (Lipitor) 20 mg PO DIN [facility] Last Admin: 05/11/17 18:45 Dose: 20 mg Bupropion HCl (Wellbutrin Xl) 300 mg PO DAILY [facility] Last Admin: 05/12/17 10:25 Dose: 300 mg Carvedilol (Coreg) 6.25 mg PO BID [facility] Last Admin: 12/14/17 10:26 Dose: 6.25 mg Clonazepam (Klonopin) 0.5 mg PO BID [facility] PRN Reason: Protocol Last Admin: 05/12/17 10:30 Dose: 0.5 mg Ergocalciferol (Drisdol 50,000 Intl Units Cap) 1 cap PO SAT [facility] Last Admin: 05/07/17 09:46 Dose: 1 cap Ferrous Sulfate (Feosol) 324 mg PO TID [facility] Last Admin: 05/12/17 15:40 Dose: 324 mg Gabapentin (Neurontin) 800 mg PO TID [facility] PRN Reason: Protocol Last Admin: 05/12/17 15:40 Dose: 800 mg Insulin Human Regular (Humulin R Med) 0 units SC ACHS [facility] PRN Reason: Protocol Last Admin: 05/12/17 12:26 Dose: Not Given Lisinopril (Zestril) 10 mg PO DAILY [facility] Last Admin: 05/12/17 10:26 Dose: 10 mg Multivitamins/Minerals (Therapeutic-M Tab) 1 tab PO DAILY [facility] Last Admin: 05/12/17 10:26 Dose: 1 tab Mupirocin (Bactroban Ointment) 0 gm TOP BID [facility] Last Admin: 05/12/17 10:30 Dose: 1 applic Nystatin (Nystop Topical Powder) 0 gm TOP TID [facility] Last Admin: 05/12/17 15:40 Dose: 1 applic Oxycodone/Acetaminophen (Percocet 5/325 Mg Tab) 1 tab PO Q4H PRN PRN Reason: Pain, severe (8-10) Stop: 05/13/17 10:04 Last Admin: 05/12/17 14:25 Dose: 1 tab Pantoprazole Sodium (Protonix Ec Tab) 40 mg PO ACBD [facility] Last Admin: 05/12/17 09:00 Dose: 40 mg Potassium Chloride (K-Dur 20 Meq Er Tab) 20 meq PO BRK [facility] Last Admin: 05/12/17 09:00 Dose: 20 meq Zinc Sulfate (Zinc Sulfate 220 Mg Cap) 220 mg PO DAILY [facility] Last Admin: 05/12/17 10:24 Dose: 220 mg Ziprasidone (Geodon Cap) 80 mg PO HS [facility] Last Admin: 05/12/17 05:35 Dose: 80 mg - Labs Labs: 05/03/17 06:30 PT 12.2 SECONDS (9.4-12.5) 05/01/17 18:30 INR 1.12 (0.93-1.08) H 05/01/17 18:30 APTT 29.2 Seconds (25.1-36.5) 05/01/17 18:30 Attending/Attestation - Attestation I have personally seen and examined this patient.: Yes I have fully participated in the care of the patient.: Yes I have reviewed all pertinent clinical information, including history, physical exam and plan: Yes
[2017-05-05] MEDS ORDERED: Piperacillin/Tazobact 3.375 gm 100 ML IVPB SCH (18:00)
[2017-05-05] MEDS ORDERED: DAPTOmycin 500 mg Inj (Cubicin) IV SCH (21:00)
[2017-05-05] MEDS ORDERED: Linezolid 600 mg in D5W 300 ml 600 MG/300 ML BAG IVPB SCH (22:00)
[2017-05-05] MEDS: Meropenem 500 MG in Sodium Chloride 0.9% 50 ML IVPB SCH (22:05)
--- NOTE | 2017-05-05 22:13 | PN ---
DATE: SUBJECTIVE: A 66-year-old white male, admitted after a overdose attempt. The patient was resuscitated at home, in the ER and in the ambulance. The patient is post resuscitation. He was found to have large sacral decubitus, which is growing Proteus. It is also growing VRE in the urine. The patient has a chronic indwelling Gomez and a colostomy and chronic sacral decubitus. The patient is somewhat allergic. The VRE is sensitive to Zosyn and to linezolid, Proteus also sensitive to Zosyn. The patient is afebrile. Vital signs are stable. He has no symptoms. He has no white count and no elevated temperature. IMPRESSION AND PLAN: The patient case was discussed with Infectious Disease for possible treatment as an outpatient of these infections. Rayshawn Lorenzana MD
[2017-05-06] MEDS: Insulin Reg-MEDIUM-Coverage SC SCH ×5 (02:43→22:49)
[2017-05-06] MEDS: Oxycodone/Acetaminophen 5/325 mg Tab PO PRN ×3 (04:33→20:48)
[2017-05-06] MEDS: Meropenem 500 MG in Sodium Chloride 0.9% 50 ML IVPB SCH ×3 (05:12→21:40)
[2017-05-06] MEDS: Ferrous Sulfate 300 mg/5 mL Liq UD PO SCH ×4 (08:34→17:23)
[2017-05-06] MEDS: Potassium Chloride 20 mEq ER Tab PO SCH (08:35)
[2017-05-06] MEDS: Pantoprazole 40 mg EC Tab PO SCH ×2 (08:36→17:24)
[2017-05-06] MEDS: Aspirin 325 mg EC Tablets PO SCH (09:28)
[2017-05-06] MEDS: Multivitamin With Minerals Tab PO SCH (09:28)
[2017-05-06] MEDS: buPROPion 150 mg/24 Hours XL Tab PO SCH (09:29)
[2017-05-06] MEDS: Nystatin 100,000 Units/gm Topical Pow(15 gm) TOP SCH ×3 (09:31→17:24)
--- NOTE | 2017-05-06 13:28 | CP.PCM.PN ---
<Karen Ortega - Last Filed: 05/06/17 13:24> Subjective - Date & Time of Evaluation Date of Evaluation: 05/06/17 Time of Evaluation: 13:24 - Subjective Subjective: Podiatry Progress Note - Dr. Lopez/Tia 66 year old male patient seen and evaluated at bedside for right heel ulceration. Patient hemodynamically stable and NAD. Dressing removed from R foot , offloading boots not present. No acute events overnight. No new complaints. Denies N/V/F/D/C/SOB/calf pain. Objective - Vital Signs/Intake and Output Vital Signs (last 24 hours): Temp Pulse Resp BP Pulse Ox 98.7 F 82 20 140/72 98 05/06/17 09:42 05/06/17 09:42 05/06/17 09:42 05/06/17 09:42 05/06/17 09:42 Intake and Output: 05/06/17 05/06/17 06:59 18:59 Intake Total 780 Output Total 2000 Balance -1220 - Medications Medications: Current Medications Acetaminophen (Tylenol 325mg Tab) 650 mg PO Q4H PRN PRN Reason: Pain, moderate (4-7) Last Admin: 05/05/17 16:33 Dose: 650 mg Ascorbic Acid (Vitamin C 500 Mg Tab) 500 mg PO BID [facility] Last Admin: 05/06/17 09:28 Dose: 500 mg Aspirin (Ecotrin) 325 mg PO DAILY [facility] Last Admin: 05/06/17 09:28 Dose: 325 mg Atorvastatin Calcium (Lipitor) 20 mg PO DIN [facility] Last Admin: 05/05/17 18:07 Dose: 20 mg Bupropion HCl (Wellbutrin Xl) 300 mg PO DAILY [facility] Last Admin: 05/06/17 09:29 Dose: 300 mg Clonazepam (Klonopin) 0.5 mg PO BID [facility] PRN Reason: Protocol Last Admin: 05/06/17 09:28 Dose: 0.5 mg Ergocalciferol (Drisdol 50,000 Intl Units Cap) 1 cap PO SAT [facility] Ferrous Sulfate (Feosol Liq) 300 mg PO 0800,1200,1700 [facility] Last Admin: 05/06/17 12:47 Dose: Not Given Gabapentin (Neurontin) 800 mg PO TID [facility] PRN Reason: Protocol Last Admin: 05/06/17 09:28 Dose: 800 mg Meropenem 500 mg/ Sodium (Chloride) 50 mls @ 100 mls/hr IVPB Q8 [facility] PRN Reason: Protocol Stop: 05/14/17 22:01 Last Admin: 05/06/17 05:12 Dose: 100 mls/hr Daptomycin 660 mg/ Sodium (Chloride) 100 mls @ 200 mls/hr IV Q24H [facility] Stop: 05/14/17 21:31 Last Admin: 05/06/17 00:51 Dose: 200 mls/hr Insulin Human Regular (Humulin R Med) 0 units SC ACHS [facility] PRN Reason: Protocol Last Admin: 05/06/17 12:48 Dose: Not Given Lisinopril (Zestril) 10 mg PO DAILY [facility] Last Admin: 05/06/17 09:29 Dose: 10 mg Multivitamins/Minerals (Therapeutic-M Tab) 1 tab PO DAILY [facility] Last Admin: 05/06/17 09:28 Dose: 1 tab Mupirocin (Bactroban Ointment) 0 gm TOP BID [facility] Last Admin: 05/06/17 09:32 Dose: 1 applic Nystatin (Nystop Topical Powder) 0 gm TOP TID [facility] Last Admin: 05/06/17 09:31 Dose: 1 applic Oxycodone/Acetaminophen (Percocet 5/325 Mg Tab) 1 tab PO Q6H PRN PRN Reason: Pain, moderate (4-7) Stop: 05/07/17 09:12 Last Admin: 05/06/17 04:33 Dose: 1 tab Pantoprazole Sodium (Protonix Ec Tab) 40 mg PO ACBD [facility] Last Admin: 05/06/17 08:36 Dose: 40 mg Potassium Chloride (K-Dur 20 Meq Er Tab) 20 meq PO BRK [facility] Last Admin: 05/06/17 08:35 Dose: 20 meq Zinc Sulfate (Zinc Sulfate 220 Mg Cap) 220 mg PO DAILY [facility] Last Admin: 05/06/17 09:29 Dose: 220 mg Ziprasidone (Geodon Cap) 80 mg PO HS [facility] Last Admin: 05/05/17 22:00 Dose: 80 mg - Labs Labs: 05/03/17 06:30 PT 12.2 SECONDS (9.4-12.5) 05/01/17 18:30 INR 1.12 (0.93-1.08) H 05/01/17 18:30 APTT 29.2 Seconds (25.1-36.5) 05/01/17 18:30 - Constitutional Appears: Well, Non-toxic, No Acute Distress - Extremities Exam Additional comments: VASC: DP and PT pulses palpable b/l. CFT <3 seconds to all digits b/l. Temperature gradient warm to warm. No edema noted. NEURO: Gross sensation absent DERM: Small decubiti on posterior right ankle with periwound erythema; no drainage, no purulence, no fluctuance, no undermining, no sinus tracts, no ascending cellulitis; no clinical signs of infection noted. Left heel remains clean without any erythema or atrophy. No ecchymosis noted. ORTHO: No pain on palpation bilateral LE. - Neurological Exam Neurological Exam: Alert, Awake, Oriented x3 - Psychiatric Exam Psychiatric exam: Normal Affect, Normal Mood Assessment and Plan - Assessment and Plan (Free Text) Assessment: Stage III pressure ulceration to right heel Plan: Patient seen and evaluated with attending, Dr. Weber Afebrile Continue local wound care - QD bactroban DSD to right heel Emphasized use of multipodus boots to prevent worsening of decubitus ulcer Stable per podiatry standpoint Podiatry will continue to follow patient while in house <Cristobal Weber - Last Filed: 05/06/17 17:27> Objective - Vital Signs/Intake and Output Vital Signs (last 24 hours): Temp Pulse Resp BP Pulse Ox 98.7 F 82 20 140/72 98 05/06/17 09:42 05/06/17 09:42 05/06/17 09:42 05/06/17 09:42 05/06/17 09:42 Intake and Output: 05/06/17 05/06/17 06:59 18:59 Intake Total 780 900 Output Total 1999 1600 Balance -1220 -700 - Medications Medications: Current Medications Acetaminophen (Tylenol 325mg Tab) 650 mg PO Q4H PRN PRN Reason: Pain, moderate (4-7) Last Admin: 05/05/17 16:33 Dose: 650 mg Ascorbic Acid (Vitamin C 500 Mg Tab) 500 mg PO BID [facility] Last Admin: 05/06/17 17:25 Dose: 500 mg Aspirin (Ecotrin) 325 mg PO DAILY [facility] Last Admin: 05/06/17 09:28 Dose: 325 mg Atorvastatin Calcium (Lipitor) 20 mg PO DIN [facility] Last Admin: 05/06/17 17:24 Dose: 20 mg Bupropion HCl (Wellbutrin Xl) 300 mg PO DAILY [facility] Last Admin: 05/06/17 09:29 Dose: 300 mg Clonazepam (Klonopin) 0.5 mg PO BID [facility] PRN Reason: Protocol Last Admin: 05/06/17 17:25 Dose: 0.5 mg Ergocalciferol (Drisdol 50,000 Intl Units Cap) 1 cap PO SAT [facility] Ferrous Sulfate (Feosol Liq) 300 mg PO 0800,1200,1700 [facility] Last Admin: 05/06/17 17:23 Dose: Not Given Gabapentin (Neurontin) 800 mg PO TID [facility] PRN Reason: Protocol Last Admin: 05/06/17 17:24 Dose: 800 mg Meropenem 500 mg/ Sodium (Chloride) 50 mls @ 100 mls/hr IVPB Q8 [facility] PRN Reason: Protocol Stop: 05/14/17 22:01 Last Admin: 05/06/17 13:32 Dose: 100 mls/hr Daptomycin 660 mg/ Sodium (Chloride) 100 mls @ 200 mls/hr IV Q24H [facility] Stop: 05/14/17 21:31 Last Admin: 05/06/17 00:51 Dose: 200 mls/hr Insulin Human Regular (Humulin R Med) 0 units SC ACHS [facility] PRN Reason: Protocol Last Admin: 05/06/17 17:22 Dose: Not Given Lisinopril (Zestril) 10 mg PO DAILY [facility] Last Admin: 05/06/17 09:29 Dose: 10 mg Multivitamins/Minerals (Therapeutic-M Tab) 1 tab PO DAILY [facility] Last Admin: 05/06/17 09:28 Dose: 1 tab Mupirocin (Bactroban Ointment) 0 gm TOP BID [facility] Last Admin: 05/06/17 17:23 Dose: 1 applic Nystatin (Nystop Topical Powder) 0 gm TOP TID [facility] Last Admin: 05/06/17 17:24 Dose: 1 applic Oxycodone/Acetaminophen (Percocet 5/325 Mg Tab) 1 tab PO Q6H PRN PRN Reason: Pain, moderate (4-7) Stop: 05/07/17 09:12 Last Admin: 05/06/17 13:38 Dose: 1 tab Pantoprazole Sodium (Protonix Ec Tab) 40 mg PO ACBD [facility] Last Admin: 05/06/17 17:24 Dose: 40 mg Potassium Chloride (K-Dur 20 Meq Er Tab) 20 meq PO BRK [facility] Last Admin: 05/06/17 08:35 Dose: 20 meq Zinc Sulfate (Zinc Sulfate 220 Mg Cap) 220 mg PO DAILY [facility] Last Admin: 05/06/17 09:29 Dose: 220 mg Ziprasidone (Geodon Cap) 80 mg PO HS [facility] Last Admin: 05/05/17 22:00 Dose: 80 mg - Labs Labs: 05/03/17 06:30 PT 12.2 SECONDS (9.4-12.5) 05/01/17 18:30 INR 1.12 (0.93-1.08) H 05/01/17 18:30 APTT 29.2 Seconds (25.1-36.5) 05/01/17 18:30 Attending/Attestation - Attestation I have personally seen and examined this patient.: Yes I have fully participated in the care of the patient.: Yes I have reviewed all pertinent clinical information, including history, physical exam and plan: Yes
--- NOTE | 2017-05-06 16:27 | CP.PCM.CON ---
History of Present Illness - History of Present Illness History of Present Illness: 66 year old male with PMH of decubitus ulcers on the sacral and hip areas S/P debridement for wound vacuum placement, S/P post-cholecystostomy (for acute cholecystitis) probably due to abscess in the RUQ area S/P CT-guided drainage, with Corinne dubliniensis, DM, HTN, obesity with BMI 30, coronary artery disease , history of paraplegia from cauda equina syndrome, neurogenic bladder, S/P colostomy came in to [facility] because of unresponsiveness and he is suspected to have overdosed on Dilaudid. He is being managed medically. Part of the work up included urine cx which are now showing E. coli and VRE. Patient has chronic Gomez use because of neurogenic bladder - the Gomez was changed in the ED. He denies fever or chills, no nausea or vomiting, no headache or dizziness, no chest pain, no SOB, no cough or colds, no diarrhea. He states that the wound on his sacral area is healing very well and has in fact decreased in size. Infectious Diseases consult is requested to further evaluate and manage. Review of Systems - Review of Systems All systems: reviewed and no additional remarkable complaints except (as per HPI ) Past Patient History - Infectious Disease Hx of Infectious Diseases: MRSA - Tetanus Immunizations Tetanus Immunization: Unknown - Past Medical History & Family History Past Medical History?: Yes - Past Social History Smoking Status: Never Smoked - CARDIAC Hx Cardiac Disorders: Yes Hx Angina: Yes Hx Hypertension: Yes - PULMONARY Hx Respiratory Disorders: Yes Hx Pneumonia: Yes - NEUROLOGICAL Hx Neurological Disorder: Yes Hx Transient Ischemic Attacks (TIA): Yes - HEENT Hx Blind: Yes (right eye) - RENAL Hx Neurogenic Bladder: Yes - ENDOCRINE/METABOLIC Hx Diabetes Mellitus Type 2: Yes - HEMATOLOGICAL/ONCOLOGICAL Hx Blood Transfusions: No Hx Blood Transfusion Reaction: No - INTEGUMENTARY Hx Dermatological Problems: Yes Other/Comment: decub ulcer to R buttocks, MRSA - MUSCULOSKELETAL/RHEUMATOLOGICAL Hx Musculoskeletal Disorders: Yes Hx Arthritis: Yes Hx Back Pain: Yes Hx Falls: Yes Hx Fractures: Yes - GASTROINTESTINAL Hx Colostomy: Yes - GENITOURINARY/GYNECOLOGICAL Hx Urinary Tract Infection: Yes - PSYCHIATRIC Hx Anxiety: Yes Hx Depression: Yes Hx Panic Symptoms: Yes Hx Substance Use: No - SURGICAL HISTORY Hx Cardiac Catheterization: Yes Hx Coronary Stent: Yes Hx Musculoskeletal Surgery: Yes Hx Open Heart Surgery: Yes - ANESTHESIA Hx Anesthesia: Yes Hx Anesthesia Reactions: No Hx Malignant Hyperthermia: No Meds Allergies/Adverse Reactions: Allergies Allergy/AdvReac Type Severity Reaction Status Date / Time ciprofloxacin Allergy RASH Verified 05/01/17 18:51 Penicillins Allergy RASH Verified 05/01/17 18:51 - Medications Medications: Current Medications Acetaminophen (Tylenol 325mg Tab) 650 mg PO Q4H PRN PRN Reason: Pain, moderate (4-7) Last Admin: 05/05/17 16:33 Dose: 650 mg Ascorbic Acid (Vitamin C 500 Mg Tab) 500 mg PO BID [facility] Last Admin: 05/06/17 09:28 Dose: 500 mg Aspirin (Ecotrin) 325 mg PO DAILY [facility] Last Admin: 05/06/17 09:28 Dose: 325 mg Atorvastatin Calcium (Lipitor) 20 mg PO DIN [facility] Last Admin: 05/05/17 18:07 Dose: 20 mg Bupropion HCl (Wellbutrin Xl) 300 mg PO DAILY [facility] Last Admin: 05/06/17 09:29 Dose: 300 mg Clonazepam (Klonopin) 0.5 mg PO BID [facility] PRN Reason: Protocol Last Admin: 05/06/17 09:28 Dose: 0.5 mg Ergocalciferol (Drisdol 50,000 Intl Units Cap) 1 cap PO SAT [facility] Ferrous Sulfate (Feosol Liq) 300 mg PO 0800,1200,1700 [facility] Last Admin: 05/06/17 08:39 Dose: Not Given Gabapentin (Neurontin) 800 mg PO TID [facility] PRN Reason: Protocol Last Admin: 05/06/17 09:28 Dose: 800 mg Meropenem 500 mg/ Sodium (Chloride) 50 mls @ 100 mls/hr IVPB Q8 [facility] PRN Reason: Protocol Stop: 05/14/17 22:01 Last Admin: 05/06/17 05:12 Dose: 100 mls/hr Daptomycin 660 mg/ Sodium (Chloride) 100 mls @ 200 mls/hr IV Q24H [facility] Stop: 05/14/17 21:31 Last Admin: 05/06/17 00:51 Dose: 200 mls/hr Insulin Human Regular (Humulin R Med) 0 units SC ACHS [facility] PRN Reason: Protocol Last Admin: 05/06/17 08:34 Dose: Not Given Lisinopril (Zestril) 10 mg PO DAILY [facility] Last Admin: 05/06/17 09:29 Dose: 10 mg Multivitamins/Minerals (Therapeutic-M Tab) 1 tab PO DAILY [facility] Last Admin: 05/06/17 09:28 Dose: 1 tab Mupirocin (Bactroban Ointment) 0 gm TOP BID [facility] Last Admin: 05/06/17 09:32 Dose: 1 applic Nystatin (Nystop Topical Powder) 0 gm TOP TID [facility] Last Admin: 05/06/17 09:31 Dose: 1 applic Oxycodone/Acetaminophen (Percocet 5/325 Mg Tab) 1 tab PO Q6H PRN PRN Reason: Pain, moderate (4-7) Stop: 05/07/17 09:12 Last Admin: 05/06/17 04:33 Dose: 1 tab Pantoprazole Sodium (Protonix Ec Tab) 40 mg PO ACBD [facility] Last Admin: 05/06/17 08:36 Dose: 40 mg Potassium Chloride (K-Dur 20 Meq Er Tab) 20 meq PO BRK [facility] Last Admin: 05/06/17 08:35 Dose: 20 meq Zinc Sulfate (Zinc Sulfate 220 Mg Cap) 220 mg PO DAILY [facility] Last Admin: 05/06/17 09:29 Dose: 220 mg Ziprasidone (Geodon Cap) 80 mg PO HS [facility] Last Admin: 05/05/17 22:00 Dose: 80 mg Physical Exam - Constitutional Appears: Non-toxic, Chronically Ill - Head Exam Head Exam: NORMAL INSPECTION - ENT Exam ENT Exam: Mucous Membranes Moist - Neck Exam Neck exam: Negative for: Lymphadenopathy, Meningismus - Respiratory Exam Respiratory Exam: Decreased Breath Sounds - Cardiovascular Exam Cardiovascular Exam: +S1, +S2 - GI/Abdominal Exam GI & Abdominal Exam: Soft. absent: Tenderness Results - Vital Signs Recent Vital Signs: Last Vital Signs Temp 98.7 F 05/06/17 09:42 Pulse 82 05/06/17 09:42 Resp 20 05/06/17 09:42 BP 140/72 05/06/17 09:42 Pulse Ox 98 05/06/17 09:42 - Labs Result Diagrams: 05/01/17 18:30 05/03/17 06:30 Labs: Laboratory Results - last 24 hr 05/05/17 05/05/17 05/05/17 11:17 16:26 22:09 POC Glucose (mg/dL) 117 H 151 H 187 H 05/06/17 07:20 POC Glucose (mg/dL) 87 Assessment & Plan - Assessment and Plan (Free Text) Plan: Assessment R/O UTI with VRE and E. coli history of sepsis due to left lower lobe healthcare-associated pneumonia as well as UTI in a patient with Chronic Gomez catheter, growing MRSA and VRE (S/P treatment of UTI) history of sacral decubitus ulcers with osteomyelitis - previously treated for E. faecalis, E. coli and P. mirabilis August to October 2016 history of E. faecalis bacteremia and ESBL E. coli UTI history of Ddecubitus ulcers on the sacral and hip areas S/P debridement; the ulcer was deep and probably stage 4; there was note of ESBL producing organism and MRSA from the LTAC wound cx S/P treatment with antibiotics S/P post-cholecystostomy (for acute cholecystitis) probably due to abscess in the RUQ area S/P CT-guided drainage - surgical site with some drainage ( possible abscess/skin and skin strucutre infection), with clinical improvement DM HTN Morbid obesity with BMI 43 coronary artery disease history of paraplegia from cauda equina syndrome neurogenic bladder Plan started patient on Merrem and Daptomycin - follow up Surgery evaluation of the decubitus ulcers will monitor clinically
--- NOTE | 2017-05-06 20:13 | PN ---
DATE: SUBJECTIVE: A 66-year-old white male with VRE and proteus infection of the sacral decubitus, paraplegia, indwelling Gomez catheter for neurogenic bladder functioning colostomy. Recent overdose of the pain medication, the patient is stable. PHYSICAL EXAMINATION: VITAL SIGNS: Vital signs are stable. Temperature is 98.7. He is receiving Cubicin from Infectious Disease for his VRE and proteus. LABORATORY DATA: Unremarkable. ASSESSMENT AND PLAN: The patient is awake and alert. Requesting more pain medication. We are trying to reduce his pain medication due to his recent overdose. Vital signs are stable. The patient will continue on Cubicin until he is able to be transferred home with antibiotic coverage. Rayshawn Lorenzana MD
[2017-05-07] MEDS: Oxycodone/Acetaminophen 5/325 mg Tab PO PRN ×4 (04:22→22:04)
[2017-05-07] MEDS: Meropenem 500 MG in Sodium Chloride 0.9% 50 ML IVPB SCH ×2 (05:14→15:00)
[2017-05-07] MEDS: Pantoprazole 40 mg EC Tab PO SCH ×2 (08:30→18:18)
--- NOTE | 2017-05-07 08:42 | CP.PCM.PN ---
<Sreedhar Ames - Last Filed: 05/07/17 08:39> Subjective - Date & Time of Evaluation Date of Evaluation: 05/07/17 Time of Evaluation: 08:40 - Subjective Subjective: Podiatry Progress Note - Dr. Lopez/Tia 66 year old male patient seen and evaluated at bedside for right heel ulceration. Patient is AAO x 3 and NAD resting comfortably in bed. Patient states that he wore his offloading boots overnight but took them off this morning because the velcro was keeping them stuck together and it was annoying him. No acute events overnight. No new complaints. Denies N/V/F/D/C/SOB/calf pain. Objective - Vital Signs/Intake and Output Vital Signs (last 24 hours): Temp Pulse Resp BP Pulse Ox 98.7 F 97 H 18 151/85 H 98 05/07/17 00:00 05/07/17 00:00 05/07/17 00:00 05/07/17 00:00 05/07/17 00:00 Intake and Output: 05/07/17 05/07/17 06:59 18:59 Intake Total 360 Output Total 2250 Balance -1890 - Medications Medications: Current Medications Acetaminophen (Tylenol 325mg Tab) 650 mg PO Q4H PRN PRN Reason: Pain, moderate (4-7) Last Admin: 05/07/17 00:22 Dose: 650 mg Ascorbic Acid (Vitamin C 500 Mg Tab) 500 mg PO BID [facility] Last Admin: 05/06/17 17:25 Dose: 500 mg Aspirin (Ecotrin) 325 mg PO DAILY [facility] Last Admin: 05/06/17 09:28 Dose: 325 mg Atorvastatin Calcium (Lipitor) 20 mg PO DIN [facility] Last Admin: 05/06/17 17:24 Dose: 20 mg Bupropion HCl (Wellbutrin Xl) 300 mg PO DAILY [facility] Last Admin: 05/06/17 09:29 Dose: 300 mg Clonazepam (Klonopin) 0.5 mg PO BID [facility] PRN Reason: Protocol Last Admin: 05/06/17 17:25 Dose: 0.5 mg Ergocalciferol (Drisdol 50,000 Intl Units Cap) 1 cap PO SAT [facility] Ferrous Sulfate (Feosol Liq) 300 mg PO 0800,1200,1700 [facility] Last Admin: 05/06/17 17:23 Dose: Not Given Gabapentin (Neurontin) 800 mg PO TID [facility] PRN Reason: Protocol Last Admin: 05/06/17 17:24 Dose: 800 mg Meropenem 500 mg/ Sodium (Chloride) 50 mls @ 100 mls/hr IVPB Q8 [facility] PRN Reason: Protocol Stop: 05/14/17 22:01 Last Admin: 05/07/17 05:14 Dose: 100 mls/hr Daptomycin 660 mg/ Sodium (Chloride) 100 mls @ 200 mls/hr IV Q24H [facility] Stop: 05/14/17 21:31 Last Admin: 05/06/17 20:42 Dose: 200 mls/hr Insulin Human Regular (Humulin R Med) 0 units SC ACHS [facility] PRN Reason: Protocol Last Admin: 05/06/17 22:49 Dose: Not Given Lisinopril (Zestril) 10 mg PO DAILY [facility] Last Admin: 05/06/17 09:29 Dose: 10 mg Multivitamins/Minerals (Therapeutic-M Tab) 1 tab PO DAILY [facility] Last Admin: 05/06/17 09:28 Dose: 1 tab Mupirocin (Bactroban Ointment) 0 gm TOP BID [facility] Last Admin: 05/06/17 17:23 Dose: 1 applic Nystatin (Nystop Topical Powder) 0 gm TOP TID [facility] Last Admin: 05/06/17 17:24 Dose: 1 applic Oxycodone/Acetaminophen (Percocet 5/325 Mg Tab) 1 tab PO Q6H PRN PRN Reason: Pain, moderate (4-7) Stop: 05/07/17 09:12 Last Admin: 05/07/17 04:22 Dose: 1 tab Pantoprazole Sodium (Protonix Ec Tab) 40 mg PO ACBD [facility] Last Admin: 05/06/17 17:24 Dose: 40 mg Potassium Chloride (K-Dur 20 Meq Er Tab) 20 meq PO BRK [facility] Last Admin: 05/06/17 08:35 Dose: 20 meq Zinc Sulfate (Zinc Sulfate 220 Mg Cap) 220 mg PO DAILY [facility] Last Admin: 05/06/17 09:29 Dose: 220 mg Ziprasidone (Geodon Cap) 80 mg PO HS [facility] Last Admin: 05/06/17 21:40 Dose: 80 mg - Labs Labs: 05/03/17 06:30 PT 12.2 SECONDS (9.4-12.5) 05/01/17 18:30 INR 1.12 (0.93-1.08) H 05/01/17 18:30 APTT 29.2 Seconds (25.1-36.5) 05/01/17 18:30 - Constitutional Appears: Well, Non-toxic, No Acute Distress - Extremities Exam Additional comments: VASC: DP and PT pulses palpable b/l. CFT <3 seconds to all digits b/l. Temperature gradient warm to warm. No edema noted. NEURO: Gross sensation absent b/l DERM: Small decubitis ulcer noted on posterior right ankle with decreased periwound erythema; no drainage, no purulence, no fluctuance, no undermining, no sinus tracts, no ascending cellulitis; no probe to bone; no clinical signs of infection noted. Left heel remains clean without any erythema or atrophy. No ecchymosis noted. ORTHO: No pain on palpation bilateral LE. No pain on palpation to ulcer site - Neurological Exam Neurological Exam: Alert, Awake, Oriented x3 - Psychiatric Exam Psychiatric exam: Normal Affect, Normal Mood Assessment and Plan - Assessment and Plan (Free Text) Assessment: 66 year old male with stage III pressure ulceration to right heel Plan: Patient seen and evaluated with attending, Dr. Weber Afebrile Continue local wound care - QD bactroban and optifoam to right heel Encouraged patient to continue wearing offloading boots and reapplied offloading boot to right foot Patient is stable from podiatric standpoint Podiatry will continue to follow patient while in house <Cristobal Weber - Last Filed: 05/08/17 12:55> Objective - Vital Signs/Intake and Output Vital Signs (last 24 hours): Temp Pulse Resp BP Pulse Ox 97.6 F 89 20 128/62 99 05/08/17 07:24 05/08/17 10:48 05/08/17 07:24 05/08/17 10:48 05/08/17 07:24 Intake and Output: 05/08/17 05/08/17 06:59 18:59 Output Total 600 Balance -600 - Medications Medications: Current Medications Acetaminophen (Tylenol 325mg Tab) 650 mg PO Q4H PRN PRN Reason: Pain, moderate (4-7) Last Admin: 05/07/17 00:22 Dose: 650 mg Ascorbic Acid (Vitamin C 500 Mg Tab) 500 mg PO BID [facility] Last Admin: 05/08/17 10:44 Dose: 500 mg Aspirin (Ecotrin) 325 mg PO DAILY [facility] Last Admin: 05/08/17 10:44 Dose: 325 mg Atorvastatin Calcium (Lipitor) 20 mg PO DIN [facility] Last Admin: 05/07/17 18:18 Dose: 20 mg Bupropion HCl (Wellbutrin Xl) 300 mg PO DAILY [facility] Last Admin: 05/08/17 10:44 Dose: 300 mg Carvedilol (Coreg) 6.25 mg PO BID [facility] Last Admin: 05/08/17 10:45 Dose: 6.25 mg Clonazepam (Klonopin) 0.5 mg PO BID [facility] PRN Reason: Protocol Last Admin: 05/08/17 10:44 Dose: 0.5 mg Ergocalciferol (Drisdol 50,000 Intl Units Cap) 1 cap PO SAT [facility] Last Admin: 05/07/17 09:46 Dose: 1 cap Ferrous Sulfate (Feosol) 324 mg PO TID [facility] Last Admin: 05/08/17 10:43 Dose: 324 mg Gabapentin (Neurontin) 800 mg PO TID [facility] PRN Reason: Protocol Last Admin: 05/08/17 10:43 Dose: 800 mg Daptomycin 660 mg/ Sodium (Chloride) 100 mls @ 200 mls/hr IV Q24H [facility] Stop: 05/14/17 21:31 Last Admin: 05/07/17 22:06 Dose: 200 mls/hr Meropenem 500 mg/ Sodium (Chloride) 100 mls @ 100 mls/hr IVPB Q8 [facility] PRN Reason: Protocol Stop: 05/14/17 22:01 Last Admin: 05/08/17 08:01 Dose: 100 mls/hr Insulin Human Regular (Humulin R Med) 0 units SC ACHS [facility] PRN Reason: Protocol Last Admin: 05/08/17 11:44 Dose: Not Given Lisinopril (Zestril) 10 mg PO DAILY [facility] Last Admin: 05/08/17 10:48 Dose: 10 mg Multivitamins/Minerals (Therapeutic-M Tab) 1 tab PO DAILY [facility] Last Admin: 05/08/17 10:44 Dose: 1 tab Mupirocin (Bactroban Ointment) 0 gm TOP BID [facility] Last Admin: 05/07/17 10:00 Dose: 1 applic Nystatin (Nystop Topical Powder) 0 gm TOP TID [facility] Last Admin: 05/07/17 14:00 Dose: 1 applic Oxycodone/Acetaminophen (Percocet 5/325 Mg Tab) 1 tab PO Q4H PRN PRN Reason: Pain, moderate (4-7) Stop: 05/10/17 08:41 Last Admin: 05/08/17 08:08 Dose: 1 tab Pantoprazole Sodium (Protonix Ec Tab) 40 mg PO ACBD [facility] Last Admin: 05/08/17 08:41 Dose: 40 mg Potassium Chloride (K-Dur 20 Meq Er Tab) 20 meq PO BRK [facility] Last Admin: 05/08/17 08:41 Dose: 20 meq Zinc Sulfate (Zinc Sulfate 220 Mg Cap) 220 mg PO DAILY [facility] Last Admin: 05/08/17 10:44 Dose: 220 mg Ziprasidone (Geodon Cap) 80 mg PO HS [facility] Last Admin: 05/07/17 21:58 Dose: 80 mg - Labs Labs: 05/03/17 06:30 PT 12.2 SECONDS (9.4-12.5) 05/01/17 18:30 INR 1.12 (0.93-1.08) H 05/01/17 18:30 APTT 29.2 Seconds (25.1-36.5) 05/01/17 18:30 Attending/Attestation - Attestation I have personally seen and examined this patient.: Yes I have fully participated in the care of the patient.: Yes I have reviewed all pertinent clinical information, including history, physical exam and plan: Yes
[2017-05-07] MEDS: Insulin Reg-MEDIUM-Coverage SC SCH ×3 (08:46→16:48)
[2017-05-07] MEDS: Ferrous Sulfate 300 mg/5 mL Liq UD PO SCH ×2 (09:46→10:06)
[2017-05-07] MEDS: Potassium Chloride 20 mEq ER Tab PO SCH (09:49)
[2017-05-07] MEDS: Aspirin 325 mg EC Tablets PO SCH (09:49)
[2017-05-07] MEDS: Multivitamin With Minerals Tab PO SCH (09:49)
[2017-05-07] MEDS: Nystatin 100,000 Units/gm Topical Pow(15 gm) TOP SCH ×3 (09:51→18:00)
[2017-05-07] MEDS: buPROPion 150 mg/24 Hours XL Tab PO SCH (09:55)
[2017-05-07] MEDS ORDERED: Ergocalciferol 50,000 Intl Units Cap PO SCH (10:00)
--- NOTE | 2017-05-07 18:08 | CP.PCM.PN ---
Subjective - Date & Time of Evaluation Date of Evaluation: 05/07/17 Time of Evaluation: 12:20 - Subjective Subjective: Comfortable, no diarrhea, no fevers. Objective - Vital Signs/Intake and Output Vital Signs (last 24 hours): Temp Pulse Resp BP Pulse Ox 98.7 F 78 18 164/84 H 98 05/07/17 00:00 05/07/17 09:47 05/07/17 00:00 05/07/17 09:47 05/07/17 00:00 Intake and Output: 05/07/17 05/07/17 06:59 18:59 Intake Total 360 Output Total 2250 Balance -1890 - Medications Medications: Current Medications Acetaminophen (Tylenol 325mg Tab) 650 mg PO Q4H PRN PRN Reason: Pain, moderate (4-7) Last Admin: 05/07/17 00:22 Dose: 650 mg Ascorbic Acid (Vitamin C 500 Mg Tab) 500 mg PO BID [facility] Last Admin: 05/07/17 09:49 Dose: 500 mg Aspirin (Ecotrin) 325 mg PO DAILY [facility] Last Admin: 05/07/17 09:49 Dose: 325 mg Atorvastatin Calcium (Lipitor) 20 mg PO DIN [facility] Last Admin: 05/06/17 17:24 Dose: 20 mg Bupropion HCl (Wellbutrin Xl) 300 mg PO DAILY [facility] Last Admin: 05/07/17 09:55 Dose: 300 mg Clonazepam (Klonopin) 0.5 mg PO BID [facility] PRN Reason: Protocol Last Admin: 05/07/17 09:50 Dose: 0.5 mg Ergocalciferol (Drisdol 50,000 Intl Units Cap) 1 cap PO SAT [facility] Last Admin: 05/07/17 09:46 Dose: 1 cap Ferrous Sulfate (Feosol Liq) 300 mg PO 0800,1200,1700 [facility] Last Admin: 05/07/17 10:06 Dose: Not Given Gabapentin (Neurontin) 800 mg PO TID [facility] PRN Reason: Protocol Last Admin: 05/07/17 09:48 Dose: 800 mg Meropenem 500 mg/ Sodium (Chloride) 50 mls @ 100 mls/hr IVPB Q8 [facility] PRN Reason: Protocol Stop: 05/14/17 22:01 Last Admin: 05/07/17 05:14 Dose: 100 mls/hr Daptomycin 660 mg/ Sodium (Chloride) 100 mls @ 200 mls/hr IV Q24H [facility] Stop: 05/14/17 21:31 Last Admin: 05/06/17 20:42 Dose: 200 mls/hr Insulin Human Regular (Humulin R Med) 0 units SC ACHS [facility] PRN Reason: Protocol Last Admin: 05/07/17 08:46 Dose: Not Given Lisinopril (Zestril) 10 mg PO DAILY [facility] Last Admin: 05/07/17 09:47 Dose: 10 mg Multivitamins/Minerals (Therapeutic-M Tab) 1 tab PO DAILY [facility] Last Admin: 05/07/17 09:49 Dose: 1 tab Mupirocin (Bactroban Ointment) 0 gm TOP BID [facility] Last Admin: 05/06/17 17:23 Dose: 1 applic Nystatin (Nystop Topical Powder) 0 gm TOP TID [facility] Last Admin: 05/07/17 09:51 Dose: 1 applic Oxycodone/Acetaminophen (Percocet 5/325 Mg Tab) 1 tab PO Q4H PRN PRN Reason: Pain, moderate (4-7) Stop: 05/10/17 08:41 Last Admin: 05/07/17 10:14 Dose: 1 tab Pantoprazole Sodium (Protonix Ec Tab) 40 mg PO ACBD [facility] Last Admin: 05/07/17 08:30 Dose: 40 mg Potassium Chloride (K-Dur 20 Meq Er Tab) 20 meq PO BRK [facility] Last Admin: 05/07/17 09:49 Dose: 20 meq Zinc Sulfate (Zinc Sulfate 220 Mg Cap) 220 mg PO DAILY [facility] Last Admin: 05/07/17 09:49 Dose: 220 mg Ziprasidone (Geodon Cap) 80 mg PO HS [facility] Last Admin: 05/06/17 21:40 Dose: 80 mg - Labs Labs: 05/03/17 06:30 PT 12.2 SECONDS (9.4-12.5) 05/01/17 18:30 INR 1.12 (0.93-1.08) H 05/01/17 18:30 APTT 29.2 Seconds (25.1-36.5) 05/01/17 18:30 - Constitutional Appears: Non-toxic - Head Exam Head Exam: NORMAL INSPECTION - Neck Exam Neck Exam: absent: Meningismus - Respiratory Exam Respiratory Exam: Decreased Breath Sounds - Cardiovascular Exam Cardiovascular Exam: +S1, +S2 - GI/Abdominal Exam GI & Abdominal Exam: Soft. absent: Tenderness Assessment and Plan - Assessment and Plan (Free Text) Plan: Assessment consider complicated UTI (Gomez catheter-related) with VRE and E. coli; patient also with Proteus and E. faecalis in the sacral decubitus ulcer history of sepsis due to left lower lobe healthcare-associated pneumonia as well as UTI in a patient with Chronic Gomez catheter, growing MRSA and VRE (S/P treatment of UTI) history of sacral decubitus ulcers with osteomyelitis - previously treated for E. faecalis, E. coli and P. mirabilis August to October 2016 history of E. faecalis bacteremia and ESBL E. coli UTI history of Ddecubitus ulcers on the sacral and hip areas S/P debridement; the ulcer was deep and probably stage 4; there was note of ESBL producing organism and MRSA from the LTAC wound cx S/P treatment with antibiotics S/P post-cholecystostomy (for acute cholecystitis) probably due to abscess in the RUQ area S/P CT-guided drainage - surgical site with some drainage ( possible abscess/skin and skin strucutre infection), with clinical improvement DM HTN Morbid obesity with BMI 43 coronary artery disease history of paraplegia from cauda equina syndrome neurogenic bladder Plan continue Merrem and Daptomycin day 2 - follow up Surgery evaluation of the decubitus ulcers will continue to monitor clinically
--- NOTE | 2017-05-07 18:49 | CON ---
DATE: 05/07/2017 HISTORY OF PRESENT ILLNESS: The patient is a 66-year-old white male with history of major depression and prior hospitalizations who was being treated on the medical floor after a questionable unintentional overdose on pills. Psychiatry has been following up on him and I met with the patient yesterday as well as today. He continues to take his psychiatric medications on the unit and he denies any issues with them though he does report he is depressed and hopeless and he has been feeling like this a long time. The patient reports depression since childhood, much worse since his . Regarding whether his overdose is intentional or unintentional, the patient indicates that he still does not know, he cannot remember. However, the patient cannot rule out that it was intentional. The patient says he misses his and stays "cannot wait, hopefully I will be with her some day." His affect is quite constricted and sad. He has been hallucinating. His responses are flat, and they are generally consistent with my interview with him yesterday. He is feeling medically better and reported some restlessness yesterday, which he felt was due to medication changes, which is improving now. He is on psychiatric unit; however, his provider feels very uncomfortable with discharging him home considering the symptoms of depression, hopelessness still present and the mystery of his presentation. The ORIENTOR Clara, tried to reach his son at the number on the face sheet and the patient today provided me with his son's number of [phone] for me to call to get some more collateral. Vital signs and lab work were reviewed by this provider. PSYCHIATRIC MEDICATIONS: Include Wellbutrin XL 300 mg daily, Klonopin 0.5 mg p.o. b.i.d., Geodon 80 mg at bedtime. IMPRESSION: Major depressive disorder, severe. Consider bipolar disorder. Consider the contribution of mood disorder due to general condition. We would continue current psychiatric management. I phoned the patient's son, Mr. Cas Monzon at [phone] at approximately 9:05 a.m. in the morning and left a voice mail with return number for him to call back so that I can get more collateral about how his father was functioning. PLAN: At this time without anymore collateral information and considering the patient's symptoms and the mystery of his presentation, if he does not want to sign in, a screening process will have to be initiated until he is medically cleared. Psychiatry will continue to follow up with the patient and continue outreach to son. Damaso Dickinson MD
[2017-05-08] MEDS: Meropenem 500 MG in Sodium Chloride 0.9% 100 ML IVPB SCH ×4 (01:38→22:46)
[2017-05-08] MEDS: Insulin Reg-MEDIUM-Coverage SC SCH ×5 (01:42→21:42)
[2017-05-08] MEDS: Oxycodone/Acetaminophen 5/325 mg Tab PO PRN ×4 (01:47→19:47)
[2017-05-08] MEDS: Pantoprazole 40 mg EC Tab PO SCH ×2 (08:41→17:22)
[2017-05-08] MEDS: Potassium Chloride 20 mEq ER Tab PO SCH (08:41)
[2017-05-08] MEDS: Nystatin 100,000 Units/gm Topical Pow(15 gm) TOP SCH ×3 (10:00→19:45)
[2017-05-08] MEDS: Multivitamin With Minerals Tab PO SCH (10:44)
[2017-05-08] MEDS: buPROPion 150 mg/24 Hours XL Tab PO SCH (10:44)
[2017-05-08] MEDS: Aspirin 325 mg EC Tablets PO SCH (10:44)
--- NOTE | 2017-05-08 12:51 | CP.PCM.PN ---
<Sreedhar Ames - Last Filed: 05/08/17 12:48> Subjective - Date & Time of Evaluation Date of Evaluation: 05/08/17 Time of Evaluation: 12:48 - Subjective Subjective: Podiatry Progress Note - Dr. Lopez/Tia 66 year old male patient seen and evaluated at bedside for right heel ulceration. Patient is AAO x 3 and NAD resting comfortably in bed. Patient states that he has been wearing is offloading boots on and off because the stick together and annoy him. No acute events overnight. No new complaints. Denies N/V/F/D/C/SOB/calf pain. Objective - Vital Signs/Intake and Output Vital Signs (last 24 hours): Temp Pulse Resp BP Pulse Ox 97.6 F 89 20 128/62 99 05/08/17 07:24 05/08/17 10:48 05/08/17 07:24 05/08/17 10:48 05/08/17 07:24 Intake and Output: 05/08/17 05/08/17 06:59 18:59 Output Total 600 Balance -600 - Medications Medications: Current Medications Acetaminophen (Tylenol 325mg Tab) 650 mg PO Q4H PRN PRN Reason: Pain, moderate (4-7) Last Admin: 05/07/17 00:22 Dose: 650 mg Ascorbic Acid (Vitamin C 500 Mg Tab) 500 mg PO BID [facility] Last Admin: 05/08/17 10:44 Dose: 500 mg Aspirin (Ecotrin) 325 mg PO DAILY [facility] Last Admin: 05/08/17 10:44 Dose: 325 mg Atorvastatin Calcium (Lipitor) 20 mg PO DIN [facility] Last Admin: 05/07/17 18:18 Dose: 20 mg Bupropion HCl (Wellbutrin Xl) 300 mg PO DAILY [facility] Last Admin: 05/08/17 10:44 Dose: 300 mg Carvedilol (Coreg) 6.25 mg PO BID [facility] Last Admin: 05/08/17 10:45 Dose: 6.25 mg Clonazepam (Klonopin) 0.5 mg PO BID [facility] PRN Reason: Protocol Last Admin: 05/08/17 10:44 Dose: 0.5 mg Ergocalciferol (Drisdol 50,000 Intl Units Cap) 1 cap PO SAT [facility] Last Admin: 05/07/17 09:46 Dose: 1 cap Ferrous Sulfate (Feosol) 324 mg PO TID [facility] Last Admin: 05/08/17 10:43 Dose: 324 mg Gabapentin (Neurontin) 800 mg PO TID [facility] PRN Reason: Protocol Last Admin: 05/08/17 10:43 Dose: 800 mg Daptomycin 660 mg/ Sodium (Chloride) 100 mls @ 200 mls/hr IV Q24H [facility] Stop: 05/14/17 21:31 Last Admin: 05/07/17 22:06 Dose: 200 mls/hr Meropenem 500 mg/ Sodium (Chloride) 100 mls @ 100 mls/hr IVPB Q8 [facility] PRN Reason: Protocol Stop: 05/14/17 22:01 Last Admin: 05/08/17 08:01 Dose: 100 mls/hr Insulin Human Regular (Humulin R Med) 0 units SC ACHS [facility] PRN Reason: Protocol Last Admin: 05/08/17 11:44 Dose: Not Given Lisinopril (Zestril) 10 mg PO DAILY [facility] Last Admin: 05/08/17 10:48 Dose: 10 mg Multivitamins/Minerals (Therapeutic-M Tab) 1 tab PO DAILY [facility] Last Admin: 05/08/17 10:44 Dose: 1 tab Mupirocin (Bactroban Ointment) 0 gm TOP BID [facility] Last Admin: 05/07/17 10:00 Dose: 1 applic Nystatin (Nystop Topical Powder) 0 gm TOP TID [facility] Last Admin: 05/07/17 14:00 Dose: 1 applic Oxycodone/Acetaminophen (Percocet 5/325 Mg Tab) 1 tab PO Q4H PRN PRN Reason: Pain, moderate (4-7) Stop: 05/10/17 08:41 Last Admin: 05/08/17 08:08 Dose: 1 tab Pantoprazole Sodium (Protonix Ec Tab) 40 mg PO ACBD [facility] Last Admin: 05/08/17 08:41 Dose: 40 mg Potassium Chloride (K-Dur 20 Meq Er Tab) 20 meq PO BRK [facility] Last Admin: 05/08/17 08:41 Dose: 20 meq Zinc Sulfate (Zinc Sulfate 220 Mg Cap) 220 mg PO DAILY [facility] Last Admin: 05/08/17 10:44 Dose: 220 mg Ziprasidone (Geodon Cap) 80 mg PO HS [facility] Last Admin: 05/07/17 21:58 Dose: 80 mg - Labs Labs: 05/03/17 06:30 PT 12.2 SECONDS (9.4-12.5) 05/01/17 18:30 INR 1.12 (0.93-1.08) H 05/01/17 18:30 APTT 29.2 Seconds (25.1-36.5) 05/01/17 18:30 - Constitutional Appears: Well, Non-toxic, No Acute Distress - Extremities Exam Additional comments: VASC: DP and PT pulses palpable b/l. CFT <3 seconds to all digits b/l. Temperature gradient warm to warm. No edema noted. NEURO: Gross sensation absent b/l DERM: Small decubitis ulcer noted on posterior right ankle with decreased periwound erythema; no drainage, no purulence, no fluctuance, no undermining, no sinus tracts, no ascending cellulitis; no probe to bone; no clinical signs of infection noted. Left heel remains clean without any erythema or atrophy. No ecchymosis noted. ORTHO: No pain on palpation bilateral LE. No pain on palpation to ulcer site - Neurological Exam Neurological Exam: Alert, Awake, Oriented x3 - Psychiatric Exam Psychiatric exam: Normal Affect, Normal Mood Assessment and Plan - Assessment and Plan (Free Text) Assessment: 66 year old male with stage III pressure ulceration to right heel Plan: Patient seen and evaluated at bedside Plan discussed with attending Dr. Weber Continue abx per ID Continue local wound care - QD bactroban and optifoam to right heel Encouraged patient to continue wearing offloading boots and reapplied offloading boot to right foot Patient is stable from podiatric standpoint Podiatry will continue to follow patient while in house <Cristobal Weber - Last Filed: 05/08/17 12:57> Objective - Vital Signs/Intake and Output Vital Signs (last 24 hours): Temp Pulse Resp BP Pulse Ox 97.6 F 89 20 128/62 99 05/08/17 07:24 05/08/17 10:48 05/08/17 07:24 05/08/17 10:48 05/08/17 07:24 Intake and Output: 05/08/17 05/08/17 06:59 18:59 Output Total 600 Balance -600 - Medications Medications: Current Medications Acetaminophen (Tylenol 325mg Tab) 650 mg PO Q4H PRN PRN Reason: Pain, moderate (4-7) Last Admin: 05/07/17 00:22 Dose: 650 mg Ascorbic Acid (Vitamin C 500 Mg Tab) 500 mg PO BID [facility] Last Admin: 05/08/17 10:44 Dose: 500 mg Aspirin (Ecotrin) 325 mg PO DAILY [facility] Last Admin: 05/08/17 10:44 Dose: 325 mg Atorvastatin Calcium (Lipitor) 20 mg PO DIN [facility] Last Admin: 05/07/17 18:18 Dose: 20 mg Bupropion HCl (Wellbutrin Xl) 300 mg PO DAILY [facility] Last Admin: 05/08/17 10:44 Dose: 300 mg Carvedilol (Coreg) 6.25 mg PO BID [facility] Last Admin: 05/08/17 10:45 Dose: 6.25 mg Clonazepam (Klonopin) 0.5 mg PO BID [facility] PRN Reason: Protocol Last Admin: 05/08/17 10:44 Dose: 0.5 mg Ergocalciferol (Drisdol 50,000 Intl Units Cap) 1 cap PO SAT [facility] Last Admin: 05/07/17 09:46 Dose: 1 cap Ferrous Sulfate (Feosol) 324 mg PO TID [facility] Last Admin: 05/08/17 10:43 Dose: 324 mg Gabapentin (Neurontin) 800 mg PO TID [facility] PRN Reason: Protocol Last Admin: 05/08/17 10:43 Dose: 800 mg Daptomycin 660 mg/ Sodium (Chloride) 100 mls @ 200 mls/hr IV Q24H [facility] Stop: 05/14/17 21:31 Last Admin: 05/07/17 22:06 Dose: 200 mls/hr Meropenem 500 mg/ Sodium (Chloride) 100 mls @ 100 mls/hr IVPB Q8 [facility] PRN Reason: Protocol Stop: 05/14/17 22:01 Last Admin: 05/08/17 08:01 Dose: 100 mls/hr Insulin Human Regular (Humulin R Med) 0 units SC ACHS [facility] PRN Reason: Protocol Last Admin: 05/08/17 11:44 Dose: Not Given Lisinopril (Zestril) 10 mg PO DAILY [facility] Last Admin: 05/08/17 10:48 Dose: 10 mg Multivitamins/Minerals (Therapeutic-M Tab) 1 tab PO DAILY [facility] Last Admin: 05/08/17 10:44 Dose: 1 tab Mupirocin (Bactroban Ointment) 0 gm TOP BID [facility] Last Admin: 05/07/17 10:00 Dose: 1 applic Nystatin (Nystop Topical Powder) 0 gm TOP TID [facility] Last Admin: 05/07/17 14:00 Dose: 1 applic Oxycodone/Acetaminophen (Percocet 5/325 Mg Tab) 1 tab PO Q4H PRN PRN Reason: Pain, moderate (4-7) Stop: 05/10/17 08:41 Last Admin: 05/08/17 08:08 Dose: 1 tab Pantoprazole Sodium (Protonix Ec Tab) 40 mg PO ACBD [facility] Last Admin: 05/08/17 08:41 Dose: 40 mg Potassium Chloride (K-Dur 20 Meq Er Tab) 20 meq PO BRK [facility] Last Admin: 05/08/17 08:41 Dose: 20 meq Zinc Sulfate (Zinc Sulfate 220 Mg Cap) 220 mg PO DAILY [facility] Last Admin: 05/08/17 10:44 Dose: 220 mg Ziprasidone (Geodon Cap) 80 mg PO HS [facility] Last Admin: 05/07/17 21:58 Dose: 80 mg - Labs Labs: 05/03/17 06:30 PT 12.2 SECONDS (9.4-12.5) 05/01/17 18:30 INR 1.12 (0.93-1.08) H 05/01/17 18:30 APTT 29.2 Seconds (25.1-36.5) 05/01/17 18:30 Attending/Attestation - Attestation I have personally seen and examined this patient.: Yes I have fully participated in the care of the patient.: Yes I have reviewed all pertinent clinical information, including history, physical exam and plan: Yes
--- NOTE | 2017-05-08 17:01 | CON ---
HISTORY OF PRESENT ILLNESS: The patient is a 66-year-old white male with a history of major depression and prior hospitalization, who is being treated on the medical floor after questionable unintentional versus intentional overdose. Psychiatry has been following up on him and I have met with the patient over the last 3 days determining his ability to function as well as possible need for inpatient stabilization. The patient recalls me from my visits and he continues to be oriented to month, year, location and circumstances. Consistently, he tells me he does not know the circumstances that led to his hospitalization. He does not know if he overdosed on purpose or not, but does have a history of overdosing accidentally. The patient also has a history of trying to attempt suicide; however, this was a very long time ago around the of his , which was approximately 10 years ago. The patient continues to report that he feels depressed and hopeless; however, he denies having any suicidal thoughts at this time, and his affect is constricted and congruent. His thought process is coherent and delusions were not elicited. The patient gave me permission to speak to his son, Mr. Cas Monzon; however, his son did not return my call yesterday. The patient did provide permission for me to speak with his sister, Taisha, for further collateral. Vital signs and lab work were reviewed by this provider. MEDICATIONS: Relevant psychiatric medications include Wellbutrin XL 300 mg daily, Klonopin 0.5 mg p.o. b.i.d., and Geodon 80 mg at bedtime. IMPRESSION: Major depressive disorder, severe. Consider bipolar disorder. Consider contribution of mood disorder due to general medical condition. PLAN: We will continue with current psychiatric medications. Please note that I phoned the patient's son, Mr. Cas Monzon, at [phone], on 05/07/2017 at approximately 9:05 a.m. in the morning and left a voicemail with return phone number; however, son never returned my phone call. I phoned the patient's sister, Taisha, at [phone] at approximately 9:10 a.m. on 05/08/2017. Taisha indicates that the patient does have a history of taking more medication than prescribed; however, he does this accidentally because he forgets his doses. She makes an effort to lay out the pills for him on a day-to-day basis to help organize his medications; however, this still keeps occurring. She does feel that he is depressed and he could be functioning better. She is looking into options of renting a 3-bedroom house, so that they can all live together, so that she does not feel alone. She reports that he has had acute suicidal thoughts because of the of his years ago, and she also feels that he would benefit from a voluntary hospitalization because of the holiday that he gets more depressed around the holiday. Taisha indicates that she will try to reach out to her brother to elicit his cooperation for voluntary hospitalization once he is medically cleared, and again this provider recommends a voluntary hospitalization in this regard once the patient is medically cleared. Damaso Dickinson MD
--- NOTE | 2017-05-08 18:01 | CP.PCM.PN ---
Subjective - Date & Time of Evaluation Date of Evaluation: 05/08/17 Time of Evaluation: 11:55 - Subjective Subjective: Comfortable, no fevers, not in distress. Objective - Vital Signs/Intake and Output Vital Signs (last 24 hours): Temp Pulse Resp BP Pulse Ox 97.6 F 89 20 128/62 99 05/08/17 07:24 05/08/17 10:48 05/08/17 07:24 05/08/17 10:48 05/08/17 07:24 Intake and Output: 05/08/17 05/08/17 06:59 18:59 Output Total 600 Balance -600 - Medications Medications: Current Medications Acetaminophen (Tylenol 325mg Tab) 650 mg PO Q4H PRN PRN Reason: Pain, moderate (4-7) Last Admin: 05/07/17 00:22 Dose: 650 mg Ascorbic Acid (Vitamin C 500 Mg Tab) 500 mg PO BID [facility] Last Admin: 05/08/17 10:44 Dose: 500 mg Aspirin (Ecotrin) 325 mg PO DAILY [facility] Last Admin: 05/08/17 10:44 Dose: 325 mg Atorvastatin Calcium (Lipitor) 20 mg PO DIN [facility] Last Admin: 05/07/17 18:18 Dose: 20 mg Bupropion HCl (Wellbutrin Xl) 300 mg PO DAILY [facility] Last Admin: 05/08/17 10:44 Dose: 300 mg Carvedilol (Coreg) 6.25 mg PO BID [facility] Last Admin: 05/08/17 10:44 Dose: 6.25 mg Clonazepam (Klonopin) 0.5 mg PO BID [facility] PRN Reason: Protocol Last Admin: 05/08/17 10:44 Dose: 0.5 mg Ergocalciferol (Drisdol 50,000 Intl Units Cap) 1 cap PO SAT [facility] Last Admin: 05/07/17 09:46 Dose: 1 cap Ferrous Sulfate (Feosol) 324 mg PO TID [facility] Last Admin: 05/08/17 10:43 Dose: 324 mg Gabapentin (Neurontin) 800 mg PO TID [facility] PRN Reason: Protocol Last Admin: 05/08/17 10:43 Dose: 800 mg Daptomycin 660 mg/ Sodium (Chloride) 100 mls @ 200 mls/hr IV Q24H [facility] Stop: 05/14/17 21:31 Last Admin: 05/07/17 22:06 Dose: 200 mls/hr Meropenem 500 mg/ Sodium (Chloride) 100 mls @ 100 mls/hr IVPB Q8 [facility] PRN Reason: Protocol Stop: 05/14/17 22:01 Last Admin: 05/08/17 08:01 Dose: 100 mls/hr Insulin Human Regular (Humulin R Med) 0 units SC ACHS [facility] PRN Reason: Protocol Last Admin: 05/08/17 08:32 Dose: Not Given Lisinopril (Zestril) 10 mg PO DAILY [facility] Last Admin: 05/08/17 10:48 Dose: 10 mg Multivitamins/Minerals (Therapeutic-M Tab) 1 tab PO DAILY [facility] Last Admin: 05/08/17 10:44 Dose: 1 tab Mupirocin (Bactroban Ointment) 0 gm TOP BID [facility] Last Admin: 05/07/17 10:00 Dose: 1 applic Nystatin (Nystop Topical Powder) 0 gm TOP TID [facility] Last Admin: 05/07/17 14:00 Dose: 1 applic Oxycodone/Acetaminophen (Percocet 5/325 Mg Tab) 1 tab PO Q4H PRN PRN Reason: Pain, moderate (4-7) Stop: 05/10/17 08:41 Last Admin: 05/08/17 08:08 Dose: 1 tab Pantoprazole Sodium (Protonix Ec Tab) 40 mg PO ACBD [facility] Last Admin: 05/08/17 08:41 Dose: 40 mg Potassium Chloride (K-Dur 20 Meq Er Tab) 20 meq PO BRK [facility] Last Admin: 05/08/17 08:41 Dose: 20 meq Zinc Sulfate (Zinc Sulfate 220 Mg Cap) 220 mg PO DAILY [facility] Last Admin: 05/08/17 10:44 Dose: 220 mg Ziprasidone (Geodon Cap) 80 mg PO HS [facility] Last Admin: 05/07/17 21:58 Dose: 80 mg - Labs Labs: 05/03/17 06:30 PT 12.2 SECONDS (9.4-12.5) 05/01/17 18:30 INR 1.12 (0.93-1.08) H 05/01/17 18:30 APTT 29.2 Seconds (25.1-36.5) 05/01/17 18:30 - Constitutional Appears: Non-toxic - Head Exam Head Exam: NORMAL INSPECTION - ENT Exam ENT Exam: Mucous Membranes Moist - Neck Exam Neck Exam: absent: Meningismus - Respiratory Exam Respiratory Exam: Decreased Breath Sounds - Cardiovascular Exam Cardiovascular Exam: +S1, +S2 - GI/Abdominal Exam GI & Abdominal Exam: Soft. absent: Tenderness Assessment and Plan - Assessment and Plan (Free Text) Plan: Assessment consider complicated UTI (Gomez catheter-related) with VRE and E. coli; patient also with Proteus and E. faecalis in the sacral decubitus ulcer history of sepsis due to left lower lobe healthcare-associated pneumonia as well as UTI in a patient with Chronic Gomez catheter, growing MRSA and VRE (S/P treatment of UTI) history of sacral decubitus ulcers with osteomyelitis - previously treated for E. faecalis, E. coli and P. mirabilis August to October 2016 history of E. faecalis bacteremia and ESBL E. coli UTI history of Ddecubitus ulcers on the sacral and hip areas S/P debridement; the ulcer was deep and probably stage 4; there was note of ESBL producing organism and MRSA from the LTAC wound cx S/P treatment with antibiotics S/P post-cholecystostomy (for acute cholecystitis) probably due to abscess in the RUQ area S/P CT-guided drainage - surgical site with some drainage ( possible abscess/skin and skin strucutre infection), with clinical improvement DM HTN Morbid obesity with BMI 43 coronary artery disease history of paraplegia from cauda equina syndrome neurogenic bladder Plan continue Merrem and Daptomycin day 3 - follow up Surgery evaluation of the decubitus ulcers follow up CK levels will continue to monitor clinically
--- NOTE | 2017-05-08 18:14 | PN ---
DATE: SUBJECTIVE: A 66-year-old white male admitted with an overdose suicide attempt as stated by the patient today. ISMAEL in the urine, proteus in the sacral wound, insulin dependent diabetes mellitus, hypertension, and CAD. The patient is complaining of more pain. The patient states that he did hold pain medications and attempted overdose at home. We will be cautious with pain medication going forward. PHYSICAL EXAMINATION: GENERAL: The patient's physical exam is unchanged. VITAL SIGNS: Stable. NEUROLOGIC: The patient is alert and oriented x3. ASSESSMENT AND PLAN: We will ask for re-consult with Dr. Preciado for Psychiatry due to the patient's admission to attempted suicide attempt. Rayshawn Lorenzana MD
[2017-05-09] MEDS: Oxycodone/Acetaminophen 5/325 mg Tab PO PRN ×5 (00:05→20:44)
[2017-05-09] MEDS: Meropenem 500 MG in Sodium Chloride 0.9% 100 ML IVPB SCH ×2 (07:02→22:53)
[2017-05-09] MEDS: Pantoprazole 40 mg EC Tab PO SCH ×2 (07:03→17:42)
[2017-05-09] MEDS: Insulin Reg-MEDIUM-Coverage SC SCH ×4 (07:30→21:52)
--- NOTE | 2017-05-09 08:39 | PN ---
DATE: 05/07/2017 SUBJECTIVE: A 66-year-old male with VRE in the urine, Proteus and sacral decubitus on Cubicin, history of paraplegia, neurogenic bladder, colostomy, CAD, and insulin-dependent diabetes mellitus. The patient is doing well. PHYSICAL EXAMINATION: VITAL SIGNS: Afebrile. Vital signs are stable. ASSESSMENT AND PLAN: Tolerating antibiotics well. We will start some physical therapy and out of bed to chair. Plan is to discuss possible alternatives to IV medications with ID for possible discharge when stabilized on oral medication. Rayshawn Lorenzana MD
--- NOTE | 2017-05-09 08:43 | CON ---
DATE: 05/06/2017 SUBJECTIVE: The patient is a 66-year-old male who has been seen by Psychiatry due to questionable intentional versus unintentional overdose on pills. Dr. Scott's notes indicate the patient has been adamant. He said he did not deliberately overdose on his medications or try to kill himself. The patient was initially hesitant for Psychiatry to then contact with collaterals, which equates his son; however, eventually, he did provide consent for his son to be contacted. Clara Neil APN was suppose to see the patient yesterday; however, there was no follow up or collaterals attempted. I reviewed these notes and with the patient at bedside and the patient is still depressed. He indicate that he is hopeless. He knows the month and the year. He knows why he was admitted; however, today he does not remember if he overdosed purposefully or not. He does not remember the circumstances, but does admit to feeling always depressed and generally unhappy with life. Right now, he reports some physical discomfort indicating he barely slept at all last night and he was very restless. He felt like his "skin was crawling." He indicates that he did not have any such symptoms in prior days and it just started last night. He is not hallucinating and delusions were not elicited. I repeatedly asked him about the circumstances usual to his presentation and the patient again indicates he does not remember what happened and I asked him if his overdose was intentional or unintentional and the patient keeps responding ''I don't remember." Affect is notably constricted and the patient's responses, as noted, are consistent and are fairly coherent. There have been no major behavioral issues on the unit and he has not been taking his medication. His insight and judgment seemed to be impaired at this time. LABORATORY DATA: Lab work was reviewed by this provider. The vital signs were also reviewed by this provider. MEDICATIONS: Relevant psychiatric medications include Wellbutrin XL 300 mg daily, Klonopin 0.5 mg p.o. b.i.d., and Geodon 80 mg p.o. at bedtime. IMPRESSION: Major depressive disorder [id number], likely mood disorder secondary to general medical condition, rule out bipolar disorder. We will continue current medication and management. As noted by Dr. Scott, medications were confirmed by the patient's pharmacy. I am covering today and this weekend; however, Clara Neil APN will be attempting to obtain collaterals from the patient's son regarding the patient's presentation. At this time, the patient is not psychiatrically cleared as circumstances of his presentation have now been completely elucidated and feels very uncomfortable discharging him should he be medically cleared. He does not want to sign into the psychiatric unit; however, and might need to be screened possibly depending on collateral information obtained from his son. Damaso Dickinson MD
[2017-05-09] MEDS: Potassium Chloride 20 mEq ER Tab PO SCH (08:48)
[2017-05-09] MEDS: Aspirin 325 mg EC Tablets PO SCH (09:54)
[2017-05-09] MEDS: buPROPion 150 mg/24 Hours XL Tab PO SCH (09:56)
[2017-05-09] MEDS: Multivitamin With Minerals Tab PO SCH (09:56)
--- NOTE | 2017-05-09 14:43 | CP.PCM.PN ---
<Karen Ortega - Last Filed: 05/09/17 14:38> Subjective - Date & Time of Evaluation Date of Evaluation: 05/09/17 Time of Evaluation: 14:38 - Subjective Subjective: Podiatry Progress Note - Dr. Lopez/Tia 66 year old male patient seen and evaluated at bedside for right heel ulceration. Patient hemodynamically stable and NAD. Denies any acute events overnight. Offloading boot present on right leg; states he does not like wearing boots as they stick together. No new pedal complaints. Denies N/V/F/D/C/ SOB/calf pain. Objective - Vital Signs/Intake and Output Vital Signs (last 24 hours): Temp Pulse Resp BP Pulse Ox 98.7 F 82 20 165/75 H 97 05/09/17 08:00 05/09/17 09:54 05/09/17 08:00 05/09/17 09:54 05/09/17 08:00 Intake and Output: 05/09/17 05/09/17 06:59 18:59 Intake Total 840 Balance 840 - Medications Medications: Current Medications Acetaminophen (Tylenol 325mg Tab) 650 mg PO Q4H PRN PRN Reason: Pain, moderate (4-7) Last Admin: 05/08/17 22:48 Dose: 650 mg Ascorbic Acid (Vitamin C 500 Mg Tab) 500 mg PO BID [facility] Last Admin: 05/09/17 09:56 Dose: 500 mg Aspirin (Ecotrin) 325 mg PO DAILY [facility] Last Admin: 05/09/17 09:54 Dose: 325 mg Atorvastatin Calcium (Lipitor) 20 mg PO DIN [facility] Last Admin: 05/08/17 19:41 Dose: 20 mg Bupropion HCl (Wellbutrin Xl) 300 mg PO DAILY [facility] Last Admin: 05/09/17 09:56 Dose: 300 mg Carvedilol (Coreg) 6.25 mg PO BID [facility] Last Admin: 05/09/17 09:54 Dose: 6.25 mg Clonazepam (Klonopin) 0.5 mg PO BID [facility] PRN Reason: Protocol Last Admin: 05/09/17 09:55 Dose: 0.5 mg Ergocalciferol (Drisdol 50,000 Intl Units Cap) 1 cap PO SAT [facility] Last Admin: 05/07/17 09:46 Dose: 1 cap Ferrous Sulfate (Feosol) 324 mg PO TID [facility] Last Admin: 05/09/17 09:55 Dose: 324 mg Gabapentin (Neurontin) 800 mg PO TID [facility] PRN Reason: Protocol Last Admin: 05/09/17 09:55 Dose: 800 mg Daptomycin 660 mg/ Sodium (Chloride) 100 mls @ 200 mls/hr IV Q24H [facility] Stop: 05/14/17 21:31 Last Admin: 05/08/17 22:13 Dose: 200 mls/hr Meropenem 500 mg/ Sodium (Chloride) 100 mls @ 100 mls/hr IVPB Q12 [facility] PRN Reason: Protocol Stop: 05/14/17 22:01 Insulin Human Regular (Humulin R Med) 0 units SC ACHS [facility] PRN Reason: Protocol Last Admin: 05/09/17 12:25 Dose: Not Given Lisinopril (Zestril) 10 mg PO DAILY [facility] Last Admin: 05/09/17 09:57 Dose: 10 mg Multivitamins/Minerals (Therapeutic-M Tab) 1 tab PO DAILY [facility] Last Admin: 05/09/17 09:56 Dose: 1 tab Mupirocin (Bactroban Ointment) 0 gm TOP BID [facility] Last Admin: 05/08/17 18:00 Dose: 1 applic Nystatin (Nystop Topical Powder) 0 gm TOP TID [facility] Last Admin: 05/08/17 19:45 Dose: 1 applic Oxycodone/Acetaminophen (Percocet 5/325 Mg Tab) 1 tab PO Q4H PRN PRN Reason: Pain, moderate (4-7) Stop: 05/10/17 08:41 Last Admin: 05/09/17 09:56 Dose: 1 tab Pantoprazole Sodium (Protonix Ec Tab) 40 mg PO ACBD [facility] Last Admin: 05/09/17 07:03 Dose: 40 mg Potassium Chloride (K-Dur 20 Meq Er Tab) 20 meq PO BRK [facility] Last Admin: 05/09/17 08:48 Dose: 20 meq Zinc Sulfate (Zinc Sulfate 220 Mg Cap) 220 mg PO DAILY [facility] Last Admin: 05/09/17 09:57 Dose: 220 mg Ziprasidone (Geodon Cap) 80 mg PO HS [facility] Last Admin: 05/08/17 21:41 Dose: 80 mg - Labs Labs: 05/03/17 06:30 PT 12.2 SECONDS (9.4-12.5) 05/01/17 18:30 INR 1.12 (0.93-1.08) H 05/01/17 18:30 APTT 29.2 Seconds (25.1-36.5) 05/01/17 18:30 - Constitutional Appears: Well, Non-toxic, No Acute Distress - Extremities Exam Additional comments: VASC: DP and PT pulses palpable b/l. CFT <3 seconds to all digits b/l. Temperature gradient warm to warm. No edema noted. NEURO: Gross sensation absent b/l DERM: Small decubitis ulcer noted on posterior right ankle with decreased periwound erythema, wound bed is epithelializing; no drainage, no purulence, no fluctuance, no undermining, no sinus tracts, no ascending cellulitis; no probe to bone; no clinical signs of infection noted. Left heel remains clean without any erythema or atrophy. No ecchymosis noted. ORTHO: No pain on palpation bilateral LE. No pain on palpation to ulcer site - Neurological Exam Neurological Exam: Alert, Awake, Oriented x3 - Psychiatric Exam Psychiatric exam: Normal Affect, Normal Mood Assessment and Plan - Assessment and Plan (Free Text) Assessment: 66 year old male with stage III pressure ulceration to right heel, healing Plan: Patient seen and evaluated at bedside with attending, Dr. Lopez Afebrile Decubitus ulcer appears to be healing at this time -Border gauze to right heel, will continue to monitor Encouraged patient to continue wearing offloading boots and reapplied offloading boots b/l Stable per podiatry standpoint Podiatry will continue to follow patient while in house <Btey Lopez - Last Filed: 05/12/17 17:21> Objective - Vital Signs/Intake and Output Vital Signs (last 24 hours): Temp Pulse Resp BP Pulse Ox 98.0 F 80 20 158/83 H 97 05/12/17 08:00 05/12/17 10:26 05/12/17 08:00 05/12/17 10:26 05/12/17 08:00 Intake and Output: 05/12/17 05/12/17 06:59 18:59 Intake Total 660 Output Total 1500 Balance -840 - Medications Medications: Current Medications Acetaminophen (Tylenol 325mg Tab) 650 mg PO Q4H PRN PRN Reason: Pain, moderate (4-7) Last Admin: 05/12/17 03:26 Dose: 650 mg Ascorbic Acid (Vitamin C 500 Mg Tab) 500 mg PO BID [facility] Last Admin: 05/12/17 10:24 Dose: 500 mg Aspirin (Ecotrin) 325 mg PO DAILY [facility] Last Admin: 05/12/17 10:29 Dose: 325 mg Atorvastatin Calcium (Lipitor) 20 mg PO DIN [facility] Last Admin: 05/11/17 18:45 Dose: 20 mg Bupropion HCl (Wellbutrin Xl) 300 mg PO DAILY [facility] Last Admin: 05/12/17 10:25 Dose: 300 mg Carvedilol (Coreg) 6.25 mg PO BID [facility] Last Admin: 05/12/17 10:26 Dose: 6.25 mg Clonazepam (Klonopin) 0.5 mg PO BID [facility] PRN Reason: Protocol Last Admin: 05/12/17 10:30 Dose: 0.5 mg Ergocalciferol (Drisdol 50,000 Intl Units Cap) 1 cap PO SAT [facility] Last Admin: 05/07/17 09:46 Dose: 1 cap Ferrous Sulfate (Feosol) 324 mg PO TID [facility] Last Admin: 05/12/17 15:40 Dose: 324 mg Gabapentin (Neurontin) 800 mg PO TID [facility] PRN Reason: Protocol Last Admin: 05/12/17 15:40 Dose: 800 mg Insulin Human Regular (Humulin R Med) 0 units SC ACHS [facility] PRN Reason: Protocol Last Admin: 05/12/17 12:26 Dose: Not Given Lisinopril (Zestril) 10 mg PO DAILY [facility] Last Admin: 05/12/17 10:26 Dose: 10 mg Multivitamins/Minerals (Therapeutic-M Tab) 1 tab PO DAILY [facility] Last Admin: 05/12/17 10:26 Dose: 1 tab Mupirocin (Bactroban Ointment) 0 gm TOP BID [facility] Last Admin: 05/12/17 10:30 Dose: 1 applic Nystatin (Nystop Topical Powder) 0 gm TOP TID [facility] Last Admin: 05/12/17 15:40 Dose: 1 applic Oxycodone/Acetaminophen (Percocet 5/325 Mg Tab) 1 tab PO Q4H PRN PRN Reason: Pain, severe (8-10) Stop: 05/13/17 10:04 Last Admin: 05/12/17 14:25 Dose: 1 tab Pantoprazole Sodium (Protonix Ec Tab) 40 mg PO ACBD [facility] Last Admin: 05/12/17 09:00 Dose: 40 mg Potassium Chloride (K-Dur 20 Meq Er Tab) 20 meq PO BRK [facility] Last Admin: 05/12/17 09:00 Dose: 20 meq Zinc Sulfate (Zinc Sulfate 220 Mg Cap) 220 mg PO DAILY [facility] Last Admin: 05/12/17 10:24 Dose: 220 mg Ziprasidone (Geodon Cap) 80 mg PO HS [facility] Last Admin: 05/12/17 05:35 Dose: 80 mg - Labs Labs: 05/03/17 06:30 PT 12.2 SECONDS (9.4-12.5) 05/01/17 18:30 INR 1.12 (0.93-1.08) H 05/01/17 18:30 APTT 29.2 Seconds (25.1-36.5) 05/01/17 18:30 Attending/Attestation - Attestation I have personally seen and examined this patient.: Yes I have fully participated in the care of the patient.: Yes I have reviewed all pertinent clinical information, including history, physical exam and plan: Yes
--- NOTE | 2017-05-09 14:59 | PN ---
DATE: SUBJECTIVE: A 66-year-old white male admitted to the hospital with suicide overdose attempt. The patient is stable. Complaining of pain. Has resistant Proteus in the sacral decubitus, resistant VRE in the urine. PHYSICAL EXAMINATION: Vital signs are stable. ASSESSMENT AND PLAN: The patient is receiving antibiotics as per Infectious Diseases. He does admit that he did have plan of suicide attempt and has been contacted for possible psychiatric evaluation and has had been in Psychiatric in the past. Vital signs are stable and the patient's affect is morose. The plan is to have Psychiatry evaluate him with his admission of his suicide attempt. Rayshawn Lorenzana MD
--- NOTE | 2017-05-09 15:47 | CP.PCM.PN ---
Subjective - Date & Time of Evaluation Date of Evaluation: 05/09/17 Time of Evaluation: 11:15 - Subjective Subjective: Comfortable in bed, no back pain, no nausea, no diarrhea, no fevers overnight. Objective - Vital Signs/Intake and Output Vital Signs (last 24 hours): Temp Pulse Resp BP Pulse Ox 98.7 F 82 20 165/75 H 97 05/09/17 08:00 05/09/17 09:54 05/09/17 08:00 05/09/17 09:54 05/09/17 08:00 Intake and Output: 05/09/17 05/09/17 06:59 18:59 Intake Total 840 Balance 840 - Medications Medications: Current Medications Acetaminophen (Tylenol 325mg Tab) 650 mg PO Q4H PRN PRN Reason: Pain, moderate (4-7) Last Admin: 05/08/17 22:48 Dose: 650 mg Ascorbic Acid (Vitamin C 500 Mg Tab) 500 mg PO BID [facility] Last Admin: 05/09/17 09:56 Dose: 500 mg Aspirin (Ecotrin) 325 mg PO DAILY [facility] Last Admin: 05/09/17 09:54 Dose: 325 mg Atorvastatin Calcium (Lipitor) 20 mg PO DIN [facility] Last Admin: 05/08/17 19:41 Dose: 20 mg Bupropion HCl (Wellbutrin Xl) 300 mg PO DAILY [facility] Last Admin: 05/09/17 09:56 Dose: 300 mg Carvedilol (Coreg) 6.25 mg PO BID [facility] Last Admin: 05/09/17 09:54 Dose: 6.25 mg Clonazepam (Klonopin) 0.5 mg PO BID [facility] PRN Reason: Protocol Last Admin: 05/09/17 09:55 Dose: 0.5 mg Ergocalciferol (Drisdol 50,000 Intl Units Cap) 1 cap PO SAT [facility] Last Admin: 05/07/17 09:46 Dose: 1 cap Ferrous Sulfate (Feosol) 324 mg PO TID [facility] Last Admin: 05/09/17 09:55 Dose: 324 mg Gabapentin (Neurontin) 800 mg PO TID [facility] PRN Reason: Protocol Last Admin: 05/09/17 09:55 Dose: 800 mg Daptomycin 660 mg/ Sodium (Chloride) 100 mls @ 200 mls/hr IV Q24H [facility] Stop: 05/14/17 21:31 Last Admin: 05/08/17 22:13 Dose: 200 mls/hr Insulin Human Regular (Humulin R Med) 0 units SC ACHS [facility] PRN Reason: Protocol Last Admin: 05/08/17 21:42 Dose: Not Given Lisinopril (Zestril) 10 mg PO DAILY [facility] Last Admin: 05/09/17 09:57 Dose: 10 mg Multivitamins/Minerals (Therapeutic-M Tab) 1 tab PO DAILY [facility] Last Admin: 05/09/17 09:56 Dose: 1 tab Mupirocin (Bactroban Ointment) 0 gm TOP BID [facility] Last Admin: 05/08/17 18:00 Dose: 1 applic Nystatin (Nystop Topical Powder) 0 gm TOP TID [facility] Last Admin: 05/08/17 19:45 Dose: 1 applic Oxycodone/Acetaminophen (Percocet 5/325 Mg Tab) 1 tab PO Q4H PRN PRN Reason: Pain, moderate (4-7) Stop: 05/10/17 08:41 Last Admin: 05/09/17 09:56 Dose: 1 tab Pantoprazole Sodium (Protonix Ec Tab) 40 mg PO ACBD [facility] Last Admin: 05/09/17 07:03 Dose: 40 mg Potassium Chloride (K-Dur 20 Meq Er Tab) 20 meq PO BRK [facility] Last Admin: 05/09/17 08:48 Dose: 20 meq Zinc Sulfate (Zinc Sulfate 220 Mg Cap) 220 mg PO DAILY [facility] Last Admin: 05/09/17 09:57 Dose: 220 mg Ziprasidone (Geodon Cap) 80 mg PO HS [facility] Last Admin: 05/08/17 21:41 Dose: 80 mg - Labs Labs: 05/03/17 06:30 PT 12.2 SECONDS (9.4-12.5) 05/01/17 18:30 INR 1.12 (0.93-1.08) H 05/01/17 18:30 APTT 29.2 Seconds (25.1-36.5) 05/01/17 18:30 - Constitutional Appears: Non-toxic - Head Exam Head Exam: NORMAL INSPECTION - ENT Exam ENT Exam: Mucous Membranes Moist - Neck Exam Neck Exam: absent: Meningismus - Respiratory Exam Respiratory Exam: Decreased Breath Sounds - Cardiovascular Exam Cardiovascular Exam: +S1, +S2 - GI/Abdominal Exam GI & Abdominal Exam: Soft. absent: Tenderness Assessment and Plan - Assessment and Plan (Free Text) Plan: Assessment consider complicated UTI (Gomez catheter-related) with VRE and E. coli; patient also with Proteus and E. faecalis in the sacral decubitus ulcer history of sepsis due to left lower lobe healthcare-associated pneumonia as well as UTI in a patient with Chronic Gomez catheter, growing MRSA and VRE (S/P treatment of UTI) history of sacral decubitus ulcers with osteomyelitis - previously treated for E. faecalis, E. coli and P. mirabilis August to October 2016 history of E. faecalis bacteremia and ESBL E. coli UTI history of Ddecubitus ulcers on the sacral and hip areas S/P debridement; the ulcer was deep and probably stage 4; there was note of ESBL producing organism and MRSA from the LTAC wound cx S/P treatment with antibiotics S/P post-cholecystostomy (for acute cholecystitis) probably due to abscess in the RUQ area S/P CT-guided drainage - surgical site with some drainage ( possible abscess/skin and skin strucutre infection), with clinical improvement DM HTN Morbid obesity with BMI 43 coronary artery disease history of paraplegia from cauda equina syndrome neurogenic bladder Plan continue Merrem and Daptomycin day 4 - may be able to switch to PO Zyvox and Keflex to complete 7-10 days of therapy will continue to monitor clinically
[2017-05-10] MEDS: Oxycodone/Acetaminophen 5/325 mg Tab PO PRN ×5 (00:48→20:22)
[2017-05-10] MEDS: buPROPion 150 mg/24 Hours XL Tab PO SCH (10:41)
[2017-05-10] MEDS: Potassium Chloride 20 mEq ER Tab PO SCH (10:41)
[2017-05-10] MEDS: Aspirin 325 mg EC Tablets PO SCH (10:43)
[2017-05-10] MEDS: Multivitamin With Minerals Tab PO SCH (10:43)
[2017-05-10] MEDS: Meropenem 500 MG in Sodium Chloride 0.9% 100 ML IVPB SCH ×2 (10:43→22:08)
[2017-05-10] MEDS: Pantoprazole 40 mg EC Tab PO SCH ×2 (10:43→18:17)
[2017-05-10] MEDS: Nystatin 100,000 Units/gm Topical Pow(15 gm) TOP SCH ×2 (10:44→18:18)
[2017-05-10] MEDS: Insulin Reg-MEDIUM-Coverage SC SCH ×3 (12:24→21:39)
--- NOTE | 2017-05-10 13:12 | PN ---
DATE: SUBJECTIVE: This is a 66-year-old white male seen in consultation with his son today. The patient is considering going to Psychiatry Unit. The patient Dr. Spencer from Infectious Diseases has advised that Bactrim and Zyvox could be substituted for his IV antibiotics. He is recovering well from his VRE and resistant Proteus in his wound infection. PHYSICAL EXAMINATION: VITAL SIGNS: He is afebrile. Vital signs are stable. ASSESSMENT AND PLAN: Most likely, we will be able to transfer him to Psychiatry, as soon as they accept him. Rayshawn Lorenzana MD
--- NOTE | 2017-05-10 18:27 | PN ---
DATE: 05/10/2017 SUBJECTIVE: The patient is seen in bed, in no acute distress, and nontoxic. OBJECTIVE: VITAL SIGNS: Temperature is 97, blood pressure is 169/80, and respiratory rate of 18. HEENT: Unremarkable. NECK: Supple. LUNGS: Have decreased breath sounds. HEART: Normal S1 and S2. ABDOMEN: Soft and nontender. LABORATORY DATA: Reveals a white count of 10.6, hemoglobin of 12, and platelets of 160. Microbiology reveals the urine of E. coli and VRE. The blood cultures have no growth, the sacral cultures, Proteus, Enterobacter, and corynebacterium. Review of orders reveals the patient to be on daptomycin, which requires renewal, which we will do so. ASSESSMENT AND PLAN: This is a 66-year-old male with a history of PENICILLIN AND CIPRO ALLERGY who is seen early this morning in room 562, bed 2 with a complicated urinary tract infection with vancomycin-resistant enterococcus and Escherichia coli, also with Proteus and enterococcus, sacral decubiti ulcer and today is day 5 of daptomycin and meropenem, may switch to p.o. Keflex and p.o. Zyvox to complete 7 to 10 days. Review of orders confirms the meropenem and daptomycin to be present. We will follow with you. Alpesh Barrow MD
[2017-05-11] MEDS: Oxycodone/Acetaminophen 5/325 mg Tab PO PRN ×5 (00:41→20:55)
[2017-05-11] MEDS: Insulin Reg-MEDIUM-Coverage SC SCH ×4 (08:00→23:40)
[2017-05-11] MEDS: Pantoprazole 40 mg EC Tab PO SCH ×2 (08:00→15:00)
--- NOTE | 2017-05-11 10:25 | CON ---
DATE: 05/10/2017 He is being seen today for followup consultation. PRESENTATION: The patient is a 66-year-old male, he was seen at his bedside. He is on isolation precautions due to VRE in his urine. The patient was originally admitted on 05/01/2017 to the intensive care unit due to possible overdose on Dilaudid and Fentanyl patches. The patient denies any memory of this incident or whether or not there was intent to be suicidal, though he states he has had many suicidal attempts in the past and he has been depressed pretty much "his whole life." Medically, he has a decubitus ulcer to his sacral wound and hip areas, chronic indwelling Gomez, neurogenic bladder, hypertension, and chronic pain. Nurses notes were reviewed as well as past physician's note. The patient is indicates that he is very lonely since his and he has been very depressed. He is not on willing to come to the psychiatric unit. He has been offered admission once he is medically cleared. He has considering that he might come. He appears to very much ensure the contact. He talks me about his past . His daughter that he had not had contact until she was some around 40 years old. Miss his unhappy childhood and indicates that the end of the study, he does enjoy talking with people who might consider coming to the unit when medically cleared. PHYSICAL EXAMINATION: MENTAL STATUS EXAM: The patient is alert and oriented x3. His eye contact is good. His behavior is pleasant and cooperative. His speech rate and volume are within normal limits. Mood is euthymic. Affect is full. Thoughts are goal directed. He denies being suicidal or homicidal at this time and denies the presence of hallucinations, delusions, or paranoia. His concentration and focus, he indicates that good. His memory both short and long-term appears to be adequate. Appetite is good. He indicates that he has trouble with sleep due to chronic pain. He does not feel he is being medicated enough to help with the pain and this is having an impact on his sleep. DIAGNOSTIC IMPRESSION: Major depression, recurrent, severe without psychotic features, decubitus ulcer sacral and hip area, neurogenic bladder, hypertension, vancomycin-resistant Enterococcus, diagnosed for urine culture. PLAN: The patient is not medically cleared at this time. He is willing to consider coming to the Psychiatric Unit after he is medically cleared. He does appear to enjoy contact, he has been on the unit in the past and it would appear that given his history that it would be helpful for him on the unit to further stabilize him. We will continue to follow. Clara Neil APN
[2017-05-11] MEDS: Potassium Chloride 20 mEq ER Tab PO SCH (11:15)
[2017-05-11] MEDS: Multivitamin With Minerals Tab PO SCH (11:17)
[2017-05-11] MEDS: Aspirin 325 mg EC Tablets PO SCH (11:17)
[2017-05-11] MEDS: buPROPion 150 mg/24 Hours XL Tab PO SCH (11:19)
[2017-05-11] MEDS: Nystatin 100,000 Units/gm Topical Pow(15 gm) TOP SCH ×3 (11:19→18:51)
[2017-05-11] MEDS: Meropenem 500 MG in Sodium Chloride 0.9% 100 ML IVPB SCH ×2 (11:20→22:59)
--- NOTE | 2017-05-11 12:18 | PN ---
DATE: SUBJECTIVE: The patient is not accepted to Psych because of contact precautions. Vitals signs were stable. He is afebrile. Complaining of pain; however, being a suicide risk, there are questions about pain medication. The case was also discussed with the patient's son about holding his pain medication at home, so he does not store it and attempt another overdose. Vital signs were stable. The patient was treated for VRE and proteus in his wounds. He will be switching to p.o. Zyvox and Bactrim and attempting to discharge the patient home in the next 24 to 48 hours. Rayshawn Lorenzana MD
--- NOTE | 2017-05-11 13:28 | PN ---
DATE: 05/11/2017 SUBJECTIVE: The patient is in bed, in no acute distress, who was seen early this morning in room number 562, bed 2. PHYSICAL EXAMINATION: VITAL SIGNS: Temperature is 97, blood pressure is 140/70 and respiratory rate of 18. HEENT: Examination of HEENT is unremarkable. NECK: Supple. LUNGS: Have decreased breath sounds. HEART: Normal S1 and S2. ABDOMEN: Soft and nontender. LABORATORY DATA: Laboratory examination reveals a white count of 10,000, hemoglobin of 12, and platelets of 160. Coagulation is noted. BUN is 33 and creatinine of 1.2. Urinalysis is noted. Microbiology is reviewed. MEDICATIONS: Review of orders reveals the patient to be on meropenem. ASSESSMENT AND PLAN: This is a 66-year-old male who was seen early this morning with HISTORY OF PENICILLIN AND CIPRO ALLERGY who has complicated urinary tract infection vancomycin-resistant enterococci and Escherichia coli and Proteus, Enterococcus, sacral decubital ulcer. Today is day number 6 of daptomycin and meropenem, may be able to switch to p.o. Keflex and p.o. and Zyvox to complete 7 or 10 days of therapy. The patient's review of orders reveals daptomycin and meropenem to be active. Dr. Lorenzana's note from yesterday is reviewed, and we will follow with you. Awaiting for possible transfer to Psychiatry. Alpesh Barrow MD
--- NOTE | 2017-05-11 17:33 | CP.PCM.PN ---
<Karen Ortega - Last Filed: 05/11/17 17:29> Subjective - Date & Time of Evaluation Date of Evaluation: 05/11/17 Time of Evaluation: 17:29 - Subjective Subjective: Podiatry Progress Note - Dr. Lopez/Tia 66 year old male patient seen and evaluated at bedside for right heel ulceration. Patient hemodynamically stable and NAD. No acute events overnight. Currently not wearing offloading boots at time of visit; state they fall off when hes sleeping. Dressing to right heel not present as well. Admits to increased pain to left heel. No new complaints to right heel. Denies N/V/F/D/C/ SOB/calf pain. Objective - Vital Signs/Intake and Output Vital Signs (last 24 hours): Temp Pulse Resp BP Pulse Ox 98.4 F 74 20 150/71 97 05/11/17 17:04 05/11/17 17:04 05/11/17 17:04 05/11/17 17:04 05/11/17 17:04 Intake and Output: 05/11/17 05/11/17 06:59 18:59 Intake Total 1000 Output Total 2150 Balance -1150 - Medications Medications: Current Medications Acetaminophen (Tylenol 325mg Tab) 650 mg PO Q4H PRN PRN Reason: Pain, moderate (4-7) Last Admin: 05/09/17 22:52 Dose: 650 mg Ascorbic Acid (Vitamin C 500 Mg Tab) 500 mg PO BID [facility] Last Admin: 05/11/17 11:16 Dose: 500 mg Aspirin (Ecotrin) 325 mg PO DAILY [facility] Last Admin: 05/11/17 11:17 Dose: 325 mg Atorvastatin Calcium (Lipitor) 20 mg PO DIN [facility] Last Admin: 05/10/17 18:16 Dose: 20 mg Bupropion HCl (Wellbutrin Xl) 300 mg PO DAILY [facility] Last Admin: 05/11/17 11:19 Dose: 300 mg Carvedilol (Coreg) 6.25 mg PO BID [facility] Last Admin: 05/11/17 11:17 Dose: 6.25 mg Clonazepam (Klonopin) 0.5 mg PO BID [facility] PRN Reason: Protocol Last Admin: 05/11/17 11:19 Dose: 0.5 mg Ergocalciferol (Drisdol 50,000 Intl Units Cap) 1 cap PO SAT [facility] Last Admin: 05/07/17 09:46 Dose: 1 cap Ferrous Sulfate (Feosol) 324 mg PO TID [facility] Last Admin: 05/11/17 14:46 Dose: 324 mg Gabapentin (Neurontin) 800 mg PO TID [facility] PRN Reason: Protocol Last Admin: 05/11/17 14:45 Dose: 800 mg Daptomycin 660 mg/ Sodium (Chloride) 100 mls @ 200 mls/hr IV Q24H [facility] Stop: 05/14/17 21:31 Last Admin: 05/10/17 22:07 Dose: 200 mls/hr Meropenem 500 mg/ Sodium (Chloride) 100 mls @ 100 mls/hr IVPB Q12 [facility] PRN Reason: Protocol Stop: 05/14/17 22:01 Last Admin: 05/11/17 11:20 Dose: 100 mls/hr Insulin Human Regular (Humulin R Med) 0 units SC ACHS [facility] PRN Reason: Protocol Last Admin: 05/11/17 12:00 Dose: Not Given Lisinopril (Zestril) 10 mg PO DAILY [facility] Last Admin: 05/11/17 11:18 Dose: 10 mg Multivitamins/Minerals (Therapeutic-M Tab) 1 tab PO DAILY [facility] Last Admin: 05/11/17 11:17 Dose: 1 tab Mupirocin (Bactroban Ointment) 0 gm TOP BID [facility] Last Admin: 05/11/17 10:00 Dose: 1 applic Nystatin (Nystop Topical Powder) 0 gm TOP TID [facility] Last Admin: 05/11/17 14:36 Dose: 1 applic Oxycodone/Acetaminophen (Percocet 5/325 Mg Tab) 1 tab PO Q4H PRN PRN Reason: Pain, severe (8-10) Stop: 05/13/17 10:04 Last Admin: 05/11/17 15:56 Dose: 1 tab Pantoprazole Sodium (Protonix Ec Tab) 40 mg PO ACBD [facility] Last Admin: 05/11/17 08:00 Dose: 40 mg Potassium Chloride (K-Dur 20 Meq Er Tab) 20 meq PO BRK [facility] Last Admin: 05/11/17 11:15 Dose: 20 meq Zinc Sulfate (Zinc Sulfate 220 Mg Cap) 220 mg PO DAILY [facility] Last Admin: 05/11/17 11:16 Dose: 220 mg Ziprasidone (Geodon Cap) 80 mg PO HS [facility] Last Admin: 05/10/17 22:08 Dose: 80 mg - Labs Labs: 05/03/17 06:30 PT 12.2 SECONDS (9.4-12.5) 05/01/17 18:30 INR 1.12 (0.93-1.08) H 05/01/17 18:30 APTT 29.2 Seconds (25.1-36.5) 05/01/17 18:30 - Constitutional Appears: Well, Non-toxic, No Acute Distress - Extremities Exam Additional comments: VASC: DP and PT pulses palpable b/l. CFT <3 seconds to all digits b/l. Temperature gradient warm to warm. No edema noted. NEURO: Gross sensation absent b/l DERM: Small decubitis ulcer noted on posterior right ankle with decreased periwound erythema and hyperkeratotic rim; wound bed is epithelializing; no drainage, no purulence, no fluctuance, no undermining, no sinus tracts, no ascending cellulitis; no probe to bone; no clinical signs of infection noted. Left heel remains clean without any erythema or atrophy. No ecchymosis noted. ORTHO: No pain on palpation right heel. Mild pain on palpation posterolateral left heel. Navya's deformity bilateral. - Neurological Exam Neurological Exam: Alert, Awake, Oriented x3 - Psychiatric Exam Psychiatric exam: Normal Affect, Normal Mood Assessment and Plan - Assessment and Plan (Free Text) Assessment: 66 year old male with stage III pressure ulceration to right heel, healing Plan: Patient seen and evaluated at bedside with attending, Dr. Lopez Afebrile Decubitus ulcer appears to be healing at this time -Border gauze to right heel applied with nystatin powder, will continue to monitor Optifoam applied to left heel Emphasized to patient importance of wearing offloading boots while in bed to prevent worsening of right heel decubitus ulceration and development of left heel decubitus ulceration - boots reapplied Stable per podiatry standpoint Podiatry will continue to follow patient while in house <Bety Lopez - Last Filed: 05/12/17 17:24> Objective - Vital Signs/Intake and Output Vital Signs (last 24 hours): Temp Pulse Resp BP Pulse Ox 98.0 F 80 20 158/83 H 97 05/12/17 08:00 05/12/17 10:26 05/12/17 08:00 05/12/17 10:26 05/12/17 08:00 Intake and Output: 05/12/17 05/12/17 06:59 18:59 Intake Total 660 Output Total 1500 Balance -840 - Medications Medications: Current Medications Acetaminophen (Tylenol 325mg Tab) 650 mg PO Q4H PRN PRN Reason: Pain, moderate (4-7) Last Admin: 05/12/17 03:26 Dose: 650 mg Ascorbic Acid (Vitamin C 500 Mg Tab) 500 mg PO BID [facility] Last Admin: 05/12/17 10:24 Dose: 500 mg Aspirin (Ecotrin) 325 mg PO DAILY [facility] Last Admin: 05/12/17 10:29 Dose: 325 mg Atorvastatin Calcium (Lipitor) 20 mg PO DIN [facility] Last Admin: 05/11/17 18:45 Dose: 20 mg Bupropion HCl (Wellbutrin Xl) 300 mg PO DAILY [facility] Last Admin: 05/12/17 10:25 Dose: 300 mg Carvedilol (Coreg) 6.25 mg PO BID [facility] Last Admin: 05/12/17 10:26 Dose: 6.25 mg Clonazepam (Klonopin) 0.5 mg PO BID [facility] PRN Reason: Protocol Last Admin: 05/12/17 10:30 Dose: 0.5 mg Ergocalciferol (Drisdol 50,000 Intl Units Cap) 1 cap PO SAT [facility] Last Admin: 05/07/17 09:46 Dose: 1 cap Ferrous Sulfate (Feosol) 324 mg PO TID [facility] Last Admin: 05/12/17 15:40 Dose: 324 mg Gabapentin (Neurontin) 800 mg PO TID [facility] PRN Reason: Protocol Last Admin: 05/12/17 15:40 Dose: 800 mg Insulin Human Regular (Humulin R Med) 0 units SC ACHS [facility] PRN Reason: Protocol Last Admin: 05/12/17 12:26 Dose: Not Given Lisinopril (Zestril) 10 mg PO DAILY [facility] Last Admin: 05/12/17 10:26 Dose: 10 mg Multivitamins/Minerals (Therapeutic-M Tab) 1 tab PO DAILY [facility] Last Admin: 05/12/17 10:26 Dose: 1 tab Mupirocin (Bactroban Ointment) 0 gm TOP BID [facility] Last Admin: 05/12/17 10:30 Dose: 1 applic Nystatin (Nystop Topical Powder) 0 gm TOP TID [facility] Last Admin: 05/12/17 15:40 Dose: 1 applic Oxycodone/Acetaminophen (Percocet 5/325 Mg Tab) 1 tab PO Q4H PRN PRN Reason: Pain, severe (8-10) Stop: 05/13/17 10:04 Last Admin: 05/12/17 14:25 Dose: 1 tab Pantoprazole Sodium (Protonix Ec Tab) 40 mg PO ACBD [facility] Last Admin: 05/12/17 09:00 Dose: 40 mg Potassium Chloride (K-Dur 20 Meq Er Tab) 20 meq PO BRK [facility] Last Admin: 05/12/17 09:00 Dose: 20 meq Zinc Sulfate (Zinc Sulfate 220 Mg Cap) 220 mg PO DAILY [facility] Last Admin: 05/12/17 10:24 Dose: 220 mg Ziprasidone (Geodon Cap) 80 mg PO HS [facility] Last Admin: 05/12/17 05:35 Dose: 80 mg - Labs Labs: 05/03/17 06:30 PT 12.2 SECONDS (9.4-12.5) 05/01/17 18:30 INR 1.12 (0.93-1.08) H 05/01/17 18:30 APTT 29.2 Seconds (25.1-36.5) 05/01/17 18:30 Attending/Attestation - Attestation I have personally seen and examined this patient.: Yes I have fully participated in the care of the patient.: Yes I have reviewed all pertinent clinical information, including history, physical exam and plan: Yes
[2017-05-12] MEDS: Oxycodone/Acetaminophen 5/325 mg Tab PO PRN ×6 (01:28→23:33)
[2017-05-12] MEDS: Insulin Reg-MEDIUM-Coverage SC SCH ×4 (08:00→22:47)
--- NOTE | 2017-05-12 08:39 | PN ---
DATE: 05/11/2017 He is being seen today in followup consultation. PRESENTATION: The patient is a 66-year-old male seen at his bedside in room 562. The patient is in good spirits. He indicates that he is willing to come over to the psychiatric unit; however, he continues on isolation and we are unable to accept the patient who is on isolation per unit policy. The patient indicates that today he is feeling pretty good that he is going to go on oral antibiotics, which seems to be working, but the infection has not fully cleared for him to be off of isolation yet. He has been having family visiting. He chooses to talk with me about his past, his first suicide attempt, and he really appears to enjoy the contact. He would be appropriate for unit once he is off of isolation. MENTAL STATUS EXAM: The patient is alert and oriented x3. His eye contact is good. Behavior is pleasant and cooperative. Speech rate and volume are within normal limits. Mood is euthymic. Affect is full. Thoughts are goal directed. He denies being suicidal or homicidal. He denies the presence of hallucinations, delusions, or paranoia. His concentration and focus, he indicates are normal for him. His memory both short and long-term appears to be adequate. His appetite he indicates is good and he indicates he is sleeping well at night unless he has pain in which case that keeps him awake. PLAN: The patient can be transferred to Psychiatry once he is off of isolation precautions. He is consenting with going over, and at this point, we do have a bed for him. It appears that he can benefit from an inpatient admission. We will continue to follow. Brittani Wei MD
[2017-05-12] MEDS: Pantoprazole 40 mg EC Tab PO SCH ×2 (09:00→16:00)
[2017-05-12] MEDS: Potassium Chloride 20 mEq ER Tab PO SCH (09:00)
[2017-05-12] MEDS: buPROPion 150 mg/24 Hours XL Tab PO SCH (10:25)
[2017-05-12] MEDS: Multivitamin With Minerals Tab PO SCH (10:26)
[2017-05-12] MEDS: Meropenem 500 MG in Sodium Chloride 0.9% 100 ML IVPB SCH (10:29)
[2017-05-12] MEDS: Aspirin 325 mg EC Tablets PO SCH (10:29)
[2017-05-12] MEDS: Nystatin 100,000 Units/gm Topical Pow(15 gm) TOP SCH ×3 (10:32→18:30)
--- NOTE | 2017-05-12 12:33 | PN ---
DATE: 05/12/2017 LOCATION: The patient seen in room 562, bed 2. SUBJECTIVE: The patient is in bed, in no acute distress, nontoxic. No fevers and chills. PHYSICAL EXAMINATION VITAL SIGNS: Temperature is 98, blood pressure is 150/60, and respiratory rate of 16. HEENT: Unremarkable. NECK: Supple. LUNGS: Decreased breath sounds. HEART: Normal S1, S2. ABDOMEN: Soft and nontender. LABORATORY DATA: Reveals a white count of 10,000, hemoglobin of 12, and platelets of 160. Chemistries are noted. The patient has a creatinine of 1.2. Microbiology reveals the patient has sacral culture, has Proteus mirabilis, Enterococcus, and corynebacterium. The Proteus is griffith sensitive, Enterococcus is sensitive to ampicillin and vancomycin. Another Enterococcus is sensitive. The urine culture showed a VRE. Repeat urine culture has been requested. ASSESSMENT AND PLAN: A 66-year-old male who has been seen early this morning with PENICILLIN AND CIPRO ALLERGIES, has complicated urinary tract infection, vancomycin-resistant enterococcus, and Escherichia coli. The patient does have a sacral decubitus ulcer with Proteus and Enterococcus and day #7 of daptomycin and meropenem. We will discontinue the isolation, and we will discontinue the antibiotics as the patient has had adequate antibiotic therapy. We will follow up with repeat urinalysis and urine culture. Alpesh Barrow MD
--- NOTE | 2017-05-13 01:08 | PN ---
DATE: 05/12/2017 He is being seen today for a followup consultation. PRESENTATION: The patient is a 66-year-old male, seen at his hospital bedside in the company of Dr. Lucio. The patient's consult was called when the patient was admitted to the intensive care unit on 05/01/2017 having been brought in by EMS at home unresponsive with Dilaudid pill bottle found around him and 7 to 8 fentanyl patches on his body. The patient has never been able to say whether or not he was suicidal at that time; however, he is preoccupied with his pain medication and he is medication seeking, so it may have been related to him on his level of pain. He has decubitus ulcers to his sacral and hip area and he has neurogenic bladder with an indwelling catheter at this point and he has VRE in his urine, which is causing him to be on isolation. The plan has been for him to at some point come to the psychiatric unit once medically cleared; however, he cannot be cleared to go to the psychiatric unit on isolation. Other concerns are that he has difficulty sitting, he is not able to walk, and in fact needs nursing care. The patient indicates that at this point he would rather just be discharged and go home, he has no plan to follow up. He indicates he gets help once he gets home. He is very isolated. He would like to have therapy. He had therapy in the past and needs to go see a psychiatrist when he could get around, but since he he has been really isolated. Certainly, he would need a better plan than just precipitous discharge in order to ascertain that he will be safe given the fact that he has a history of multiple suicidal attempts and he has been depressed "his whole life." MENTAL STATUS EXAM: The patient is alert and oriented x3. His eye contact is good. His behavior is cooperative. His speech rate and volume are within normal limits. His mood is blunted. Affect is constricted. Thoughts are goal directed. He denies being suicidal or homicidal at this time. However, he is hopeless in regards to his future and the fact that he has multiple medical issues. He denies the presence of hallucinations, delusions or paranoia. His concentration and focus, he reports, are good. His memory both short and long-term is adequate. Appetite and sleep, he reports, are good. PLAN: The patient continues to be treated for his decubitus and the infection in his urine. He is additionally being managed for pain here in the hospital, though the patient feel that is not adequate. He is not certain he would like to go to the psychiatric unit and it certainly would be beneficial to him if he could once he is medically cleared. I will discuss with the social science analyst other alternative of sending the patient home given his total set of circumstances, alone is probably not the best option. We will continue to follow. We will see him today in the company of Dr. Lucio also. Clara Neil APN
[2017-05-13] MEDS: Oxycodone/Acetaminophen 5/325 mg Tab PO PRN ×4 (03:43→20:34)
[2017-05-13 07:53] VITALS: RESP 18; TEMP 98.4; O2SAT 96
[2017-05-13] MEDS: Multivitamin With Minerals Tab PO SCH (09:10)
[2017-05-13] MEDS: Aspirin 325 mg EC Tablets PO SCH (09:10)
[2017-05-13] MEDS: buPROPion 150 mg/24 Hours XL Tab PO SCH (09:11)
[2017-05-13] MEDS: Pantoprazole 40 mg EC Tab PO SCH ×2 (09:11→17:47)
[2017-05-13] MEDS: Potassium Chloride 20 mEq ER Tab PO SCH (09:11)
[2017-05-13] MEDS: Insulin Reg-MEDIUM-Coverage SC SCH ×3 (09:13→17:38)
[2017-05-13] MEDS: Nystatin 100,000 Units/gm Topical Pow(15 gm) TOP SCH ×4 (09:13→17:48)
[2017-05-13 09:20] VITALS: PULSE 85
--- NOTE | 2017-05-13 12:44 | PN ---
DATE: SUBJECTIVE: A 66-year-old white male admitted to the hospital after an overdose suicide attempt with opiates. The patient also was found to have VRE in the urine and resistant Proteus in the sacral decubitus. He has been treated with IV antibiotics and then switched to p.o. antibiotics. He has been cleared for contact precautions by ID. The patient was evaluated by Psych and apparently not taken to the psychiatric unit because of contact precautions. They have been listed. However, Psych is debating on what the patient needs, inpatient or not. We will be able to send the patient home if the patient is cleared and safe as for himself to be discharged home. We will also work with the patient's family to control his pain medications at home, so that he does not have large amounts of pain medication accumulated at his home. PHYSICAL EXAMINATION: Unchanged. VITAL SIGNS: Stable. CHEST: Clear to auscultation. HEART: Revealed sinus rhythm. ASSESSMENT AND PLAN: Sacral decubitus is stable and healing. He is afebrile. His white count is normal. He has had no temperatures in the last week. We are awaiting for evaluation by Psych today and determinations for his disposition. Rayshawn Lorenzana MD
--- NOTE | 2017-05-13 14:37 | CP.PCM.PN ---
<Karne Ortega - Last Filed: 05/13/17 14:34> Subjective - Date & Time of Evaluation Date of Evaluation: 05/13/17 Time of Evaluation: 14:34 - Subjective Subjective: Podiatry Progress Note - Dr. Lopez/Tia 66 year old male patient seen and evaluated at bedside for right heel ulceration. Patient hemodynamically stable and NAD. No acute events overnight. Patient again not wearing offloading boots at time of visit, states they stick together and they fall off while he is asleep. Denies any pain to either heel. No pedal complaints. Denies N/V/F/D/C/SOB/calf pain. Objective - Vital Signs/Intake and Output Vital Signs (last 24 hours): Temp Pulse Resp BP Pulse Ox 98.4 F 85 18 147/82 96 05/13/17 07:30 05/13/17 09:12 05/13/17 07:30 05/13/17 09:12 05/13/17 07:30 Intake and Output: 05/13/17 05/13/17 06:59 18:59 Intake Total 1080 1230 Output Total 1500 1401 Balance -420 -171 - Medications Medications: Current Medications Acetaminophen (Tylenol 325mg Tab) 650 mg PO Q4H PRN PRN Reason: Pain, moderate (4-7) Last Admin: 05/13/17 01:57 Dose: 650 mg Ascorbic Acid (Vitamin C 500 Mg Tab) 500 mg PO BID [facility] Last Admin: 05/13/17 09:12 Dose: 500 mg Aspirin (Ecotrin) 325 mg PO DAILY [facility] Last Admin: 05/13/17 09:10 Dose: 325 mg Atorvastatin Calcium (Lipitor) 20 mg PO DIN [facility] Last Admin: 05/12/17 18:23 Dose: 20 mg Bupropion HCl (Wellbutrin Xl) 300 mg PO DAILY [facility] Last Admin: 05/13/17 09:11 Dose: 300 mg Carvedilol (Coreg) 6.25 mg PO BID [facility] Last Admin: 05/13/17 09:12 Dose: 6.25 mg Clonazepam (Klonopin) 0.5 mg PO BID [facility] PRN Reason: Protocol Last Admin: 05/13/17 09:11 Dose: 0.5 mg Ergocalciferol (Drisdol 50,000 Intl Units Cap) 1 cap PO SAT [facility] Last Admin: 05/07/17 09:46 Dose: 1 cap Ferrous Sulfate (Feosol) 324 mg PO TID [facility] Last Admin: 05/13/17 13:42 Dose: 324 mg Gabapentin (Neurontin) 800 mg PO TID [facility] PRN Reason: Protocol Last Admin: 05/13/17 13:41 Dose: 800 mg Insulin Human Regular (Humulin R Med) 0 units SC ACHS [facility] PRN Reason: Protocol Last Admin: 05/13/17 13:39 Dose: Not Given Lisinopril (Zestril) 10 mg PO DAILY [facility] Last Admin: 05/13/17 09:11 Dose: 10 mg Multivitamins/Minerals (Therapeutic-M Tab) 1 tab PO DAILY [facility] Last Admin: 05/13/17 09:10 Dose: 1 tab Mupirocin (Bactroban Ointment) 0 gm TOP BID [facility] Last Admin: 05/13/17 09:14 Dose: 1 applic Nystatin (Nystop Topical Powder) 0 gm TOP TID [facility] Last Admin: 05/13/17 09:13 Dose: 1 applic Oxycodone/Acetaminophen (Percocet 5/325 Mg Tab) 1 tab PO Q4H PRN PRN Reason: Pain, severe (8-10) Stop: 05/16/17 11:58 Last Admin: 05/13/17 13:42 Dose: 1 tab Pantoprazole Sodium (Protonix Ec Tab) 40 mg PO ACBD [facility] Last Admin: 05/13/17 09:11 Dose: 40 mg Potassium Chloride (K-Dur 20 Meq Er Tab) 20 meq PO BRK [facility] Last Admin: 05/13/17 09:11 Dose: 20 meq Zinc Sulfate (Zinc Sulfate 220 Mg Cap) 220 mg PO DAILY [facility] Last Admin: 05/13/17 09:11 Dose: 220 mg Ziprasidone (Geodon Cap) 80 mg PO HS [facility] Last Admin: 05/12/17 21:24 Dose: 80 mg - Labs Labs: 05/03/17 06:30 PT 12.2 SECONDS (9.4-12.5) 05/01/17 18:30 INR 1.12 (0.93-1.08) H 05/01/17 18:30 APTT 29.2 Seconds (25.1-36.5) 05/01/17 18:30 - Constitutional Appears: Well, Non-toxic, No Acute Distress - Extremities Exam Additional comments: VASC: DP and PT pulses palpable b/l. CFT <3 seconds to all digits b/l. Temperature gradient warm to warm. No edema noted. NEURO: Gross sensation absent b/l DERM: Small decubitis ulcer noted on posterior right ankle with hyperkeratotic rim; wound bed has epithelialized and beginning to scab over; no drainage, no purulence, no fluctuance, no undermining, no sinus tracts, no ascending cellulitis; no probe to bone; no clinical signs of infection noted. Left heel remains clean without any erythema or atrophy. No ecchymosis noted. ORTHO: No pain on palpation right heel. Absent pain on palpation posterolateral left heel. Navya's deformity bilateral. - Neurological Exam Neurological Exam: Alert, Awake, Oriented x3 - Psychiatric Exam Psychiatric exam: Normal Affect, Normal Mood Assessment and Plan - Assessment and Plan (Free Text) Assessment: 66 year old male with stage III pressure ulceration to right heel, healing Plan: Patient seen and evaluated at bedside Discussed with attending, Dr. Weber Afebrile Decubitus ulcer appears to be healing at this time -Border gauze to right heel applied with nystatin powder, will continue to monitor Emphasized to patient importance of wearing offloading boots while in bed to prevent worsening of right heel decubitus ulceration and development of left heel decubitus ulceration - boots reapplied Stable per podiatry standpoint Podiatry will continue to follow patient while in house <Cristobal Weber - Last Filed: 05/13/17 19:14> Objective - Vital Signs/Intake and Output Vital Signs (last 24 hours): Temp Pulse Resp BP Pulse Ox 98.4 F 85 18 169/78 H 96 05/13/17 07:30 05/13/17 17:46 05/13/17 07:30 05/13/17 17:46 05/13/17 07:30 Intake and Output: 05/13/17 05/14/17 18:59 06:59 Intake Total 1230 Output Total 1401 Balance -171 - Medications Medications: Current Medications Acetaminophen (Tylenol 325mg Tab) 650 mg PO Q4H PRN PRN Reason: Pain, moderate (4-7) Last Admin: 05/13/17 17:47 Dose: 650 mg Ascorbic Acid (Vitamin C 500 Mg Tab) 500 mg PO BID [facility] Last Admin: 05/13/17 17:47 Dose: 500 mg Aspirin (Ecotrin) 325 mg PO DAILY [facility] Last Admin: 05/13/17 09:10 Dose: 325 mg Atorvastatin Calcium (Lipitor) 20 mg PO DIN [facility] Last Admin: 05/13/17 17:47 Dose: 20 mg Bupropion HCl (Wellbutrin Xl) 300 mg PO DAILY [facility] Last Admin: 05/13/17 09:11 Dose: 300 mg Carvedilol (Coreg) 6.25 mg PO BID [facility] Last Admin: 05/13/17 17:46 Dose: 6.25 mg Clonazepam (Klonopin) 0.5 mg PO BID [facility] PRN Reason: Protocol Last Admin: 05/13/17 17:47 Dose: 0.5 mg Ergocalciferol (Drisdol 50,000 Intl Units Cap) 1 cap PO SAT [facility] Last Admin: 05/07/17 09:46 Dose: 1 cap Ferrous Sulfate (Feosol) 324 mg PO TID [facility] Last Admin: 05/13/17 17:47 Dose: 324 mg Gabapentin (Neurontin) 800 mg PO TID [facility] PRN Reason: Protocol Last Admin: 05/13/17 17:46 Dose: 800 mg Insulin Human Regular (Humulin R Med) 0 units SC [facility] PRN Reason: Protocol Last Admin: 05/13/17 17:38 Dose: Not Given Lisinopril (Zestril) 10 mg PO DAILY [facility] Last Admin: 05/13/17 09:11 Dose: 10 mg Multivitamins/Minerals (Therapeutic-M Tab) 1 tab PO DAILY [facility] Last Admin: 05/13/17 09:10 Dose: 1 tab Mupirocin (Bactroban Ointment) 0 gm TOP BID [facility] Last Admin: 05/13/17 17:47 Dose: 1 applic Nystatin (Nystop Topical Powder) 0 gm TOP TID [facility] Last Admin: 05/13/17 17:48 Dose: 1 applic Oxycodone/Acetaminophen (Percocet 5/325 Mg Tab) 1 tab PO Q4H PRN PRN Reason: Pain, severe (8-10) Stop: 05/16/17 11:58 Last Admin: 05/13/17 13:42 Dose: 1 tab Pantoprazole Sodium (Protonix Ec Tab) 40 mg PO ACBD [facility] Last Admin: 05/13/17 17:47 Dose: 40 mg Potassium Chloride (K-Dur 20 Meq Er Tab) 20 meq PO BRK [facility] Last Admin: 05/13/17 09:11 Dose: 20 meq Zinc Sulfate (Zinc Sulfate 220 Mg Cap) 220 mg PO DAILY [facility] Last Admin: 05/13/17 09:11 Dose: 220 mg Ziprasidone (Geodon Cap) 80 mg PO HS [facility] Last Admin: 05/12/17 21:24 Dose: 80 mg - Labs Labs: 05/03/17 06:30 PT 12.2 SECONDS (9.4-12.5) 05/01/17 18:30 INR 1.12 (0.93-1.08) H 05/01/17 18:30 APTT 29.2 Seconds (25.1-36.5) 05/01/17 18:30 Attending/Attestation - Attestation I have personally seen and examined this patient.: Yes I have fully participated in the care of the patient.: Yes I have reviewed all pertinent clinical information, including history, physical exam and plan: Yes
--- NOTE | 2017-05-13 17:05 | CON ---
DATE: HISTORY OF PRESENT ILLNESS: The patient is a 66-year-old white male who has been the focus of concern both from a medical and psychiatric perspective regarding his physical and mental status, both of which are intermeshed and which are leading to present difficulties. The present difficulties are that this patient has a prior diagnosis of a bipolar disorder, and has had a number of medical problems that have necessitated that he be put on opioid analgesic medication. The course of his treatment, he has developed a predilection for taking these opioid analgesic medications oftentimes at the doses beyond what are prescribed or getting them prescribed at his insistence of that a certain baseline level was not sufficient for his needs. Along with this, there appears to be an organic component to his illness and that his thinking is sometimes slowed, he has trouble with comprehensive mechanisms of activities of daily living such as reliably taking his medication and yet he is living by himself. Thus the patient can be looked upon as having a triad of medical, mood, and cognitive disturbance. These, however, do not appear to be of an acute nature. The acute events that led to his hospitalization which was an overdose may or may not have been intentional, but in any event, the patient is not presently acutely depressed or suicidal or homicidal or psychotic. Once the patient, however, his not fully capable of caring for himself and thus would be at risk if he were to be sent back to the same living situation that he had been living previously which, is by himself. Thus what the patient requires presently is placement in an environment where his needs can be either provided to him or where he gets assistance in providing needed care of both medically, pharmacologically, nutritionally. Thus it would appear that Mr. Monzon would be a candidate for either an assisted living and/or long term facility but does not presently require the more intensive intervention of a psychiatric unit treatment paradigm. Josse Lucio MD/ PhD
[2017-05-13 17:53] VITALS: BP 169/78
--- NOTE | 2017-05-13 19:08 | PN ---
DATE: 05/13/2017 SUBJECTIVE: Patient is in bed, in no acute distress, seen early this morning in 562. PHYSICAL EXAMINATION: VITAL SIGNS: Temperature is 98, blood pressure is 120/70, and respiratory rate is 16. HEENT: Unremarkable. NECK: Supple. LUNGS: Have decreased breath sounds. HEART: Normal S1 and S2. ABDOMEN: Soft and nontender. LABORATORY DATA: Reveals a white count of 10,000, hemoglobin of 12, and platelets of 160. Chemistries are noted.. Urinalysis is noted. Microbiology reveals a sacral culture of proteus, enterococcus, and corynebacterium. MEDICATIONS: Review of medication reveals the patient to be off of antibiotics. ASSESSMENT AND PLAN: This is an 66-year-old male who is seen early this morning. HE IS ALLERGIC TO CIPRO AND ALLERGIC TO PENICILLIN. Has a complicated urinary tract infection with vancomycin-resistant enterococci and Escherichia coli and at this point, sacral decubitus proteus and enterococcus and completed 7 days of daptomycin and meropenem. Currently, off of antibiotics, off of isolation. Dr. Lorenzana's note is reviewed, who states the patient should be evaluated by psychiatry. We will follow with you. Alpesh Barrow MD
== END 2017-05-13 22:07 | disposition home or self-care (01) | DRG 917 ==
LOC: ED 18:16 → ERH 21:05 → ICU 23:23 → OBSVTOIN 05-02 10:37 → INTOOBSV 05-02 10:37 → 5RNO 05-03 14:34
PROVIDERS: ADMIT Internal Medicine; ATTEND Internal Medicine
DX: T40.2X1A Poisoning by other opioids, accidental (unintentional), initial encounter (principal); T40.4X1A Poisoning by other synthetic narcotics, accidental (unintentional), initial encounter; L89.154 Pressure ulcer of sacral region, stage 4; T83.511A Infection and inflammatory reaction due to indwelling urethral catheter, initial encounter; I11.0 Hypertensive heart disease with heart failure; G82.20 Paraplegia, unspecified; F32.2 Major depressive disorder, single episode, severe without psychotic features; L89.613 Pressure ulcer of right heel, stage 3; I50.9 Heart failure, unspecified; B95.2 Enterococcus as the cause of diseases classified elsewhere; E11.9 Type 2 diabetes mellitus without complications; L89.893 Pressure ulcer of other site, stage 3; G83.4 Cauda equina syndrome; N39.0 Urinary tract infection, site not specified; I25.10 Atherosclerotic heart disease of native coronary artery without angina pectoris; F06.30 Mood disorder due to known physiological condition, unspecified; B96.4 Proteus (mirabilis) (morganii) as the cause of diseases classified elsewhere; G89.29 Other chronic pain; R15.9 Full incontinence of feces; E66.9 Obesity, unspecified; Z68.30 Body mass index [BMI] 30.0-30.9, adult; Z93.3 Colostomy status; Z79.4 Long term (current) use of insulin; Y92.009 Unspecified place in unspecified non-institutional (private) residence as the place of occurrence of the external cause; Z87.440 Personal history of urinary (tract) infections; Z86.73 Personal history of transient ischemic attack (TIA), and cerebral infarction without residual deficits; Z16.21 Resistance to vancomycin; Z95.5 Presence of coronary angioplasty implant and graft; Z87.01 Personal history of pneumonia (recurrent); Z88.1 Allergy status to other antibiotic agents; Z88.0 Allergy status to penicillin

== ENCOUNTER 2017-05-27 20:25 | Inpatient (IN) | payer MEDICARE, OTHER ==
[2017-05-27 20:39] VITALS: BMI 30.7
--- NOTE | 2017-05-27 20:41 | ED PDOC ---
Arrival/HPI - General Time Seen by Provider: 05/27/17 20:29 Historian: Patient - History of Present Illness Narrative History of Present Illness (Text): 05/27/17 20:40 Leonard Monzon is a mildly obese 67 year old male with DNR, whose past medical history includes cauda equina syndrome, diabetes, hypertension, sacral osteomyelitis, neurogenic bladder with chronic burgos, paraplegia s/p colostomy and cholecystectomy, presents to the Emergency department via EMS complaining of lower suprapubic abdominal pain radiating to his back and penile discomfort since few days. Patient informs symptoms worsened today with the onset of hematuria and decided to visit the Emergency department. Patient denies any fever, chills, nausea, vomiting, chest pain, shortness of breath, trauma or any other complaints. PMD: Dr. Lorenzana Time/Duration: 24 hours Symptom Onset: Gradual Symptom Course: Worsening Activities at Onset: Light Context: Home Past Medical History - Provider Review Nursing Documentation Reviewed: Yes - Past History Past History: Non-Contributing - Infectious Disease Hx of Infectious Diseases: MRSA - Tetanus Immunization Tetanus Immunization: Unknown - Cardiac Hx Cardiac Disorders: Yes Hx Angina: Yes Hx Hypertension: Yes - Pulmonary Hx Respiratory Disorders: Yes Hx Pneumonia: Yes - Neurological Hx Neurological Disorder: Yes Hx Transient Ischemic Attacks (TIA): Yes - HEENT Hx Blind: Yes (right eye) - Renal Hx Neurogenic Bladder: Yes - Endocrine/Metabolic Hx Diabetes Mellitus Type 2: Yes - Hematological/Oncological Hx Blood Transfusions: No Hx Blood Transfusion Reaction: No - Integumentary Hx Dermatological Disorder: Yes Other/Comment: decub ulcer to R buttocks, MRSA - Musculoskeletal/Rheumatological Hx Musculoskeletal Disorders: Yes Hx Arthritis: Yes Hx Back Pain: Yes Hx Falls: Yes Hx Fractures: Yes - Gastrointestinal Hx Colostomy: Yes - Genitourinary/Gynecological Hx Urinary Tract Infection: Yes - Psychiatric Hx Anxiety: Yes Hx Depression: Yes Hx Panic Disorder: Yes Hx Substance Use: No - Surgical History Hx Cardiac Catheterization: Yes Hx Coronary Stent: Yes Hx Musculoskeletal Surgery: Yes Hx Open Heart Surgery: Yes - Anesthesia Hx Anesthesia: Yes Hx Anesthesia Reactions: No Hx Malignant Hyperthermia: No - Suicidal Assessment Feels Threatened In Home Enviroment: No Family/Social History - Physician Review Nursing Documentation Reviewed: Yes Family/Social History: Unknown Family HX Smoking Status: Never Smoked Hx Alcohol Use: No Hx Substance Use: No Hx Substance Use Treatment: No Allergies/Home Meds Allergies/Adverse Reactions: Allergies ciprofloxacin Allergy (Verified 05/27/17 20:39) RASH Penicillins Allergy (Verified 05/27/17 20:39) RASH Home Medications: Home Meds Medication Instructions Recorded Confirmed Ascorbic Acid [Vitamin C 500 mg 500 mg PO BID 05/15/15 05/27/17 Tab] Ergocalciferol (Vitamin D2) 50,000 iu PO SAT 05/15/15 05/27/17 [Vitamin D2] Ziprasidone HCl [Geodon] 80 mg PO HS 06/26/15 05/27/17 Aspirin [Ecotrin] 325 mg PO DAILY 07/25/15 05/27/17 buPROPion XL [Wellbutrin XL] 300 mg PO DAILY 07/25/15 05/27/17 Acetaminophen/Oxycodone Hydr 1 tab PO TID PRN 01/22/16 05/27/17 [Percocet 10/325 mg Tab] Review of Systems - Physician Review All systems were reviewed & negative as marked: Yes - Review of Systems Constitutional: Normal. absent: Fevers Eyes: Normal ENT: Normal Respiratory: Normal. absent: SOB Cardiovascular: Normal. absent: Chest Pain Gastrointestinal: Abdominal Pain (lower abdominal pain ), Other. absent: Diarrhea, Nausea, Vomiting Genitourinary Male: Hematuria Musculoskeletal: Back Pain (Chronic ) Skin: Normal Neurological: Normal Endocrine: Normal Hemo/Lymphatic: Normal Psychiatric: Normal Physical Exam - Systems Exam Head: Present: Atraumatic, Normocephalic Pupils: Present: PERRL Extroacular Muscles: Present: EOMI Conjunctiva: Present: Normal Mouth: Present: Moist Mucous Membranes Neck: Present: Normal Range of Motion Respiratory/Chest: Present: Clear to Auscultation, Good Air Exchange. No: Respiratory Distress, Accessory Muscle Use Cardiovascular: Present: Regular Rate and Rhythm, Normal S1, S2. No: Murmurs Abdomen: Present: Tenderness (Left lower abdomen tenderness with guarding. Tenderness above pelvis bladder. ), Normal Bowel Sounds, Guarding, Ostomy Tubes. No: Distention, Peritoneal Signs Genitourinary Male: Present: Penile Discharge (yellow discharge outside of burgos ), Other (No blood on penis head. Urine appears dark yellow but no erythema or puss. ). No: Penile Swelling, Erythema Back: Present: Normal Inspection Upper Extremity: Present: Normal Inspection. No: Cyanosis, Edema Lower Extremity: Present: Other (Sacral ulcer (see nurse's instruction)). No: Edema Neurological: Present: GCS=15, CN II-XII Intact, Speech Normal Skin: Present: Warm, Dry, Normal Color, Other (No evidence of cellulitis ). No : Rashes Psychiatric: Present: Alert, Oriented x 3, Normal Insight, Normal Concentration Medical Decision Making ED Course and Treatment: 05/27/17 20:41 Impression: 67 year old male presents to the Emergency department for lower abdominal pain and penile discomfort. Differential Diagnosis included but are not limited to: abdominal pain rule out urointestinal fistula. Rule out pyelonephritis vs. UTI vs. sepsis Plan: -- VBG -- CT of Abdomen/Pelvis -- EKG -- Labs -- Chest X-ray -- Blood Culture -- Urine Culture -- Procalcitonin -- Urinalysis -- Reassess and disposition Prior Visits: Notes and results from previous visits were reviewed. On 05/01/17 patient was seen in the Emergency department for AMS. Patient was diagnosed with decubitis ulcer and admitted to the hospital for further observation. Progress Notes: 05/27/17 21:31 Burgos replaced by RN and we noticed brown discharge from urine; consider feces. Patient more comfortable after burgos replacement. EKG: Sinus Tachy at 113bpm with q waves in III, avF; no change from 05/01/17. 05/27/17 22:00 Case signed out to Dr. Gilman to follow up labs, UA, CT, reevaluate and disposition. - RAD Interpretation Radiology Orders: 05/27/17 20:42 CHEST PORTABLE [RAD] Stat 05/27/17 20:45 ABD & PELVIS PO CONTRAST ONLY [CT] Stat - Scribe Statement The provider has reviewed the documentation as recorded by the Cristobalibe Darby Agarwal Disposition/Present on Arrival - Present on Arrival Any Indicators Present on Arrival: Yes History of DVT/PE: No History of Uncontrolled Diabetes: Yes Urinary Catheter: Yes History Surgical Site Infection Following: CABG - Mediastinitis - Disposition Have Diagnosis and Disposition been Completed?: No Diagnosis: Abdominal pain Disposition Time: 22:00 Condition: FAIR Referrals: PCP,NO [Primary Care Provider] - Follow up with primary
[2017-05-27] MEDS ORDERED: Iohexol 240 (50 ml) ONE (20:52)
[2017-05-27 21:53] LABS: PH,URINE 5.5 (4.7-8.0); URINE BILIRUBIN SMALL (NEGATIVE); URINE BLOOD LARGE (NEGATIVE); URINE GLUCOSE (UA) 250 mg/dL (NEGATIVE); URINE LEUKOCYTE ESTERASE SMALL Leu/uL (NEGATIVE); URINE NITRATE NEGATIVE (NEGATIVE); URINE PROTEIN 100 mg/dL (<30 mg/dL); URINE UROBILINOGEN 0.2 E.U./dL (<1 E.U./dL)
[2017-05-27 21:56] LABS: BASO # 0.03 K/mm3 (0.0-2.0); BASO % 0.3 % (0.0-3.0); EOS # 0.2 (0.0-0.7); GRAN # 7.62 (1.4-6.5); GRAN % 75.9 % (50.0-68.0); HEMOGLOBIN 11.6 g/dL (14.0-18.0); LYMPH # 1.5 (1.2-3.4); LYMPH % 14.6 % (22.0-35.0); MEAN CELL VOLUME 92.8 fl (80.0-105.0); MEAN CORPUSCULAR HEMOGLOBIN 29.9 pg (25.0-35.0); MEAN CORPUSCULAR HGB CONC 32.2 g/dl (31.0-37.0); MEAN PLATELET VOLUME 10.6 fl (7.0-11.0); MONO # 0.7 (0.1-0.6); MONO % 7.2 % (1.0-6.0); RBC 3.88 10^6/uL (3.5-6.1); RED CELL DISTRIBUTION WIDTH 15.7 % (11.5-14.5)
[2017-05-27 22:07] LABS: URINE APPEARANCE CLOUDY (CLEAR); URINE COLOR YELLOW (YELLOW)
[2017-05-27 22:10] LABS: PARTIAL THROMBOPLASTIN TIME 28.7 Seconds (25.1-36.5); PROTHROMBIN TIME 11.4 SECONDS (9.4-12.5)
[2017-05-27] MEDS ORDERED: Morphine 4 mg/ml ISec IVP STA (22:13)
[2017-05-27 22:14] LABS: ALB/GLOB RATIO 1.1 (1.1-1.8); ALBUMIN 3.4 g/dL (3.0-4.8); CALCIUM 8.6 mg/dL (8.4-10.5); MAGNESIUM 1.5 mg/dL (1.7-2.2)
[2017-05-27 22:18] LABS: URINE RBC TNTC /hpf (0-2)
[2017-05-27 22:19] LABS: URINE BACTERIA MOD (NEG)
[2017-05-27] MEDS ORDERED: Sodium Chloride 0.9% 1,000 ML IV STA ×2 (22:19→22:40)
[2017-05-27] MEDS ORDERED: metroNIDAZOLE IV 500 mg/100 ml 500 MG/100 ML BAG IVPB STA (22:19)
[2017-05-27] MEDS ORDERED: Vancomycin 1gm in NS 250ml 1 GM/250 ML BAG IVPB STA (22:19)
[2017-05-27] MEDS ORDERED: Sod Polystyrene Sulf 15 gm/60 ml Susp PO STA (22:22)
[2017-05-27] MEDS ORDERED: Piperacill/Tazo 4.5gm in NS 4.5 GM/100 ML BAG IVPB STA (22:23)
[2017-05-27] MEDS ORDERED: Insulin Regular 1 UNITS/0.01 ML ML IVP STA (22:24)
[2017-05-27] MEDS ORDERED: Dextrose 50% SYRINGE Inj (50 ml) IVP STA (22:24)
[2017-05-27 22:26] LABS: VENOUS BLOOD GAS BASE EXCESS -8.5 mmol/L (0.0-2.0); VENOUS BLOOD GAS PO2 49 mm/Hg (30-55); VENOUS BLOOD PH 7.25 (7.32-7.43)
[2017-05-27] MEDS ORDERED: Aztreonam 2 Gm in NS 100mL 100 ML IVPB STA (22:31)
--- NOTE | 2017-05-27 23:17 | ED PDOC ---
Physical Exam Vital Signs Temp Pulse Resp BP Pulse Ox 05/28/17 00:19 105 H 17 126/62 100 05/27/17 22:09 98.3 F 114 H 14 99 Medical Decision Making ED Course and Treatment: 05/27/17 22:05 Case endorsed to me by Dr. Barroso. Pending Urinalysis, Labs, Chest X-ray, Abd & Pelvis CT, and reassess and disposition. 05/27/17 23:17 CXR Impression: As read by me, NIKITA. EXAM: CT Abdomen and Pelvis With Intravenous Contrast Dictated and Authenticated by: Asia Mondragon MD 05/28/2017 1:37 AM E IMPRESSION: No evidence of a enteral vesicular fistula, as detailed above. Air is identified within the bladder, possibly related to instrumentation, for which clinical correlation is needed. 05/28/17 02:34 Case discussed with Resident and Dr. Lorenzana who is aware and agrees with the plan. Patient will be admitted to telemetry for Hypercalemia, hypomagnesemia, and UTI. - Lab Interpretations Lab Results: 05/27/17 21:25 05/27/17 21:25 Lab Results 05/27/17 21:25: Sodium 140, Chloride 112 H, Potassium 6.3 H* D, Carbon Dioxide 18 L, Anion Gap 16, BUN 34 H, Creatinine 1.6 H, Est GFR ( Amer) 53, Est GFR (Non-Af Amer) 43, Random Glucose 235 H, Calcium 8.6, Phosphorus 3.7, Magnesium 1.5 L, Total Bilirubin 0.2, AST 35, ALT 50, Alkaline Phosphatase 156 H D, Total Protein 6.3, Albumin 3.4, Globulin 3.0, Albumin/Globulin Ratio 1.1 05/27/17 21:25: pO2 49, VBG pH 7.25 L, VBG pCO2 42.0, VBG HCO3 18.4 L, VBG Total CO2 19.7 L, VBG O2 Sat (Calc) 89.2 H, VBG Base Excess -8.5 L, VBG Potassium 6.5 H*, Sodium 138.0, Chloride 112.0 H, Glucose 257 H, Lactate 1.5, FiO2 21.0, Venous Blood Potassium 6.5 H* 05/27/17 21:25: PT 11.4, INR 1.00, APTT 28.7 05/27/17 21:25: WBC 10.0, RBC 3.88, Hgb 11.6 L, Hct 36.0 L, MCV 92.8, MCH 29.9, MCHC 32.2, RDW 15.7 H, Plt Count 145, MPV 10.6, Gran % 75.9 H, Lymph % (Auto) 14.6 L, [place] % (Auto) 7.2 H, Eos % (Auto) 2.0, Baso % (Auto) 0.3, Gran # 7.62 H , Lymph # 1.5, [place] # 0.7 H, Eos # 0.2, Baso # 0.03 05/27/17 21:15: Urine Color Yellow, Urine Appearance Cloudy, Urine pH 5.5, Ur Specific [place] 1.025, Urine Protein 100 H, Urine Glucose (UA) 250 H, Urine Ketones Negative, Urine Blood Large H, Urine Nitrate Negative, Urine Bilirubin Small H, Urine Urobilinogen 0.2, Ur Leukocyte Esterase Small H, Urine RBC Tntc, Urine WBC 5 - 10, Ur Epithelial Cells 1 - 3, Urine Bacteria Mod - RAD Interpretation Radiology Orders: 05/27/17 20:42 CHEST PORTABLE [RAD] Stat 05/27/17 20:45 ABD & PELVIS PO CONTRAST ONLY [CT] Stat - Medication Orders Current Medication Orders: Magnesium Sulfate/Dextrose (Magnesium Sulfate 1 Gm/100 Ml D5w) 1 gm in 100 mls @ 100 mls/hr IVPB ONCE ONE Stop: 05/28/17 03:36 Discontinued Medications Dextrose (Dextrose 50% Inj) 50 ml IVP STAT STA Stop: 05/27/17 22:25 Last Admin: 05/27/17 22:50 Dose: 50 ml IVP Administration Document 05/27/17 22:50 [facility] (Rec: 05/27/17 22:[id number] Charges for Administration # of IVP Administrations 1 Hydromorphone HCl (Dilaudid) 1 mg IVP STAT STA Stop: 05/28/17 02:20 Last Admin: 05/28/17 02:37 Dose: 1 mg MAR Pain Assessment Document 05/28/17 02:37 [facility] (Rec: 05/28/17 02:[id number]) Pain Reassessment Is this a pain reassessment? No Sleep Is patient sleeping during reassessment? No Presence of Pain Presence of Pain Yes Pain Scale Used Pain Scale Used Numeric Location Pain Location Body Site Generalized Description Description Constant Intensity of Pain at present 8 Pain Behavior Facial Grimacing Aggravating Factors Changing Position Alleviating Factors/Management Position Change Techniques Alleviating Factors Medication IVP Administration Document 05/28/17 02:37 [email or web address] (Rec: 05/28/17 02:37 [email or web address] [id number]) Charges for Administration # of IVP Administrations 1 Sodium Chloride (Sodium Chloride 0.9%) 1,000 mls @ 999 mls/hr IV .Q1H1M STA Stop: 05/27/17 23:19 Last Admin: 05/27/17 22:50 Dose: 999 mls/hr eMAR Start Stop Document 05/27/17 22:50 [email or web address] (Rec: 05/27/17 22:50 [email or web address] [id number]) Intravenous Solution Start Date 05/27/17 Start Time 22:50 End Date 05/27/17 Vancomycin HCl (Vancomycin 1gm) 1 gm in 250 mls @ 167 mls/hr IVPB STAT STA PRN Reason: Protocol Stop: 05/27/17 23:48 Last Admin: 05/28/17 02:36 Dose: 167 mls/hr eMAR Start Stop Document 05/28/17 02:36 [email or web address] (Rec: 05/28/17 02:36 [email or web address] [id number]) Intravenous Solution Start Date 05/28/17 Start Time 02:36 Aztreonam (Azactam 2 Gm) 100 mls @ 100 mls/hr IVPB STAT STA PRN Reason: Protocol Stop: 05/27/17 23:30 Last Admin: 05/27/17 23:50 Dose: 100 mls/hr eMAR Start Stop Document 05/27/17 23:50 [email or web address] (Rec: 05/28/17 02:35 [email or web address] [id number]) Intravenous Solution Start Date 05/27/17 Start Time 23:50 Sodium Chloride (Sodium Chloride 0.9%) 1,000 mls @ 999 mls/hr IV .Q1H1M STA Stop: 05/27/17 23:40 Last Admin: 05/27/17 22:50 Dose: 999 mls/hr eMAR Start Stop Document 05/27/17 22:50 [email or web address] (Rec: 05/28/17 02:35 [email or web address] [id number]) Intravenous Solution Start Date 05/27/17 Start Time 22:50 Insulin Human Regular (Humulin R) 10 units IVP STAT STA Stop: 05/27/17 22:25 Last Admin: 05/27/17 22:50 Dose: 10 units IVP Administration Document 05/27/17 22:50 [facility] (Rec: 05/27/17 22:50 [facility] [id number]) Charges for Administration # of IVP Administrations 1 Morphine Sulfate (Morphine) 4 mg IVP STAT STA Stop: 05/27/17 22:14 Last Admin: 05/27/17 22:49 Dose: 4 mg MAR Pain Assessment Document 05/27/17 22:49 [facility] (Rec: 05/27/17 22:[id number] Pain Reassessment Is this a pain reassessment? No Sleep Is patient sleeping during reassessment? No Presence of Pain Presence of Pain Yes Pain Scale Used Pain Scale Used Numeric Location Pain Location Body Site Abdomen Description Description Constant Intensity of Pain at present 7 Pain Behavior Facial Grimacing Aggravating Factors Changing Position Alleviating Factors/Management Position Change Techniques Alleviating Factors Medication IVP Administration Document 05/27/17 22:49 [facility] (Rec: 05/27/17 22:[id number] Charges for Administration # of IVP Administrations 1 Sodium Polystyrene Sulfonate (Kayexalate Susp) 30 gm PO STAT STA Stop: 05/27/17 22:23 Last Admin: 05/27/17 22:50 Dose: 30 gm - Scribe Statement The provider has reviewed the documentation as recorded by the Trae Prado Provider Scribe Attestation: All medical record entries made by the Trae were at my direction and personally dictated by me. I have reviewed the chart and agree that the record accurately reflects my personal performance of the history, physical exam, medical decision making, and the department course for this patient. I have also personally directed, reviewed, and agree with the discharge instructions and disposition. Disposition/Present on Arrival - Present on Arrival Any Indicators Present on Arrival: Yes History of DVT/PE: No History of Uncontrolled Diabetes: Yes Urinary Catheter: Yes History of Decub. Ulcer: No History Surgical Site Infection Following: CABG - Mediastinitis - Disposition Have Diagnosis and Disposition been Completed?: Yes Diagnosis: Abdominal pain, Hyperkalemia, UTI (urinary tract infection), Hypomagnesemia Disposition: HOSPITALIZED Disposition Time: 03:25 Patient Plan: Telemetry Patient Problems: Current Active Problems Problem Status Onset Abdominal pain Acute Condition: FAIR
[2017-05-28] MEDS ORDERED: HYDROmorphone 1 mg/ml ISec IVP STA ×2 (02:19→23:35)
[2017-05-28] MEDS ORDERED: Magnesium Sulfate 1 gm in D5W 1 GM/100 ML BAG IVPB ONE (02:37)
[2017-05-28] MEDS ORDERED: Oxycodone/Acetaminophen 10/325 mg Tab PO PRN ×2 (04:54→08:23)
[2017-05-28 10:54] LABS: MEAN CELL VOLUME 92.6 fl (80.0-105.0); MEAN CORPUSCULAR HEMOGLOBIN 29.6 pg (25.0-35.0); MEAN CORPUSCULAR HGB CONC 31.9 g/dl (31.0-37.0); MEAN PLATELET VOLUME 10.3 fl (7.0-11.0); RBC 3.38 10^6/uL (3.5-6.1); RED CELL DISTRIBUTION WIDTH 15.7 % (11.5-14.5); WHITE BLOOD COUNT 7.1 10^3/ul (4.5-11.0)
[2017-05-28] MEDS: Ergocalciferol 50,000 Intl Units Cap PO SCH (11:10)
[2017-05-28] MEDS: buPROPion 300 mg/24 Hours XL Tab PO SCH (11:10)
[2017-05-28] MEDS: Multivitamin With Minerals Tab PO SCH (11:11)
[2017-05-28 11:16] LABS: ALBUMIN 2.8 g/dL (3.0-4.8); ALT/SGPT 54 U/L (7-56); AST/SGOT 34 U/L (17-59); BLOOD UREA NITROGEN 26 mg/dL (7-21); CALCIUM 8.2 mg/dL (8.4-10.5); GFR AFRICAN-AMERICAN > 60; GFR NON-AFRICAN AMERICAN 51
--- NOTE | 2017-05-28 11:16 | HP ---
HISTORY OF PRESENT ILLNESS: A 67-year-old white male, history of cauda equina syndrome, laminectomy, neurogenic bladder, chronic indwelling Gomez, colostomy for bowel incontinence, history of CAD, insulin-dependent diabetes mellitus, hypertension, psychiatric disorder, depression, history of sacral decubitus, recent history of VRE in the urine and resistant Proteus in the sacral decubitus. Treated with IV antibiotics and then p.o. antibiotics at home. The patient had been at home in his usual state of health when he developed severe pelvic pain and gross hematuria, also with darkened brownish urine. The patient was brought to the ER. CT was done. Gomez was changed. The patient still is complaining of suprapubic pain. There was no evidence of any fistula. The patient was hyperkalemic on admission with potassium 6.3, repeat is pending. The patient was treated with insulin, dextrose and lactulose. The patient is seen in the ER today, in moderate pain. PHYSICAL EXAMINATION: HEENT: Essentially within normal limits. HEART: Reveals sinus rhythm. No S3 or murmur. CHEST: Clear to auscultation and percussion. ABDOMEN: Obese, but benign. GENITOURINARY: There is indwelling Gomez. Penis is difficult to visualize due to the reduction in size. There is purulent brown to bloody urine. EXTREMITIES: Without cyanosis, clubbing or edema. The patient has bilateral weakness in both lower extremities secondary to his cauda equina syndrome. IMPRESSION: Gross hematuria, possible fecal contamination of urine, severe pelvic pain and multiple comorbid problems Rayshawn Lorenzana MD
--- NOTE | 2017-05-28 13:27 | RAD ---
HISTORY: Sepsis Patient COMPARISON: Enlarged comparison chest dated the 05/01/2017. FINDINGS: LUNGS: No active pulmonary disease. PLEURA: No significant pleural effusion identified, no pneumothorax apparent. CARDIOVASCULAR: The heart appears borderline/mildly enlarged OSSEOUS STRUCTURES: No significant abnormalities. VISUALIZED UPPER ABDOMEN: Normal. OTHER FINDINGS: None. IMPRESSION: No acute infiltrates
[2017-05-28] MEDS ORDERED: Pneumococcal 23-Valent Vaccine IM ONE (14:00)
[2017-05-28] MEDS ORDERED: Influenza Vaccine 60 mcg/0.5 mL SYR (4YR UP) IM ONE (14:00)
--- NOTE | 2017-05-28 14:51 | CARD ---
APPROVED REPORT EKG Measurement Heart [id number] ID [id number] <Conclusion> Sinus tachycardia Inferior infarct, age undetermined Abnormal ECG
--- NOTE | 2017-05-28 15:48 | CT ---
PROCEDURE: CT scan abdomen and pelvis dated 05/28/2017 HISTORY: Abdominal pain; rule out bladder-intestinal fistula. COMPARISON: Comparison made with prior study 12/09/2016. TECHNIQUE: Contiguous axial images of the abdomen and pelvis performed following oral contrast administration. IV contrast not administered per request. The examination is limited as a result of the lack of circulating intravenous contrast material. N. Coronal and Sagittal reformats generated. This CT exam was performed using one or more of the following dose reduction techniques: Automated exposure control, adjustment of the mA and/or kV according to patient size, and/or use of iterative reconstruction technique. Total exam DLP = 1154.27 mGy-cm. FINDINGS: LOWER THORAX: Minor passive/dependent type atelectasis both posterior lower lung madrigal left greater than right. No evidence of effusion or basilar pneumothorax. Heart size is within range of normal. No significant pericardial effusion. The LIVER: The liver exhibits relatively normal size measuring approximately 15 cm in CC dimension. Liver exhibits relatively normal attenuation pattern without masses collections or calcifications. . GALLBLADDER AND BILE DUCTS: Gallbladder is not visualized however there are no metallic clips in gallbladder fossa. Findings on still may represent post cholecystectomy however clinical correlation recommended PANCREAS: The pancreas is moderately atrophic and fatty replaced. . . No pancreatic masses collections or calcifications. SPLEEN: Spleen is mildly enlarged measuring nearly 14 cm in AP dimension. ADRENALS: Slightly nodular appearing left adrenal gland. KIDNEYS AND URETERS: Kidneys demonstrate relatively symmetric size. No evidence of nephrolithiasis. Prominent left-sided extrarenal pelvis. No evidence of hydronephrosis. BLADDER: The urinary bladder cannot be adequately evaluated due to the presence of and in situ unclamped Gomez catheter. Air is present within the urinary bladder which could be due to placement of the Gomez catheter itself however the possibility of a intestinal fistula cannot be completely excluded. No oral contrast material is present within the urinary bladder. Germain REPRODUCTIVE: Few punctate calcifications within the prostate gland noted. APPENDIX: Normal-appearing appendix best seen on axial image number [id number]. No periappendiceal inflammatory changes. The. BOWEL: Evaluation of the bowel is somewhat limited due to incomplete opacification. The stomach is incompletely distended which presumably accounts for slight thick-walled appearance. Visualized loops of small bowel exhibit relatively normal contour and caliber. No evidence of acute mechanical small bowel obstruction. Metallic surgical clips seen in the right aspect of the pelvis and in the subcutaneous tissues right inguinal region possibly related to prior hernia repair however clinical correlation recommended. . There is a left lower quadrant colostomy through which a portion of the distal transverse colon extends. The distal transverse colon and remaining left colon including the sigmoid colon and rectum remain collapsed. . PERITONEUM: No gross free intraperitoneal air. . No free or loculated fluid collections are identified. LYMPH NODES: Unremarkable. No enlarged lymph nodes. VASCULATURE: No evidence of abdominal aortic or iliac artery aneurysm. Minimal calcific plaque changes seen along the abdominal aorta and iliac arteries. BONES: Minor multilevel degenerative spondylosis of the lower thoracic and lumbar spine. There is also a mild levoscoliosis centered at the L4-L5 level. OTHER FINDINGS: Scarring changes seen within the posterior subcutaneous tissues likely represent residual healed granulation tissue at the level of the distal sacrum and coccyx which was the site of previously noted sacral decubitus ulcer on which appears to have healed. IMPRESSION: In situ unclamped Gomez catheter within a collapsed urinary bladder. Air is present within the urinary bladder likely due to instrumentation with a Gomez catheter itself however the possibility of a intestinal facial cannot be excluded. No evidence of oral contrast material is present within the lumen of the urinary bladder. There are no free or loculated fluid collections. Re- demonstrated is a transverse colostomy with collapse of the remaining distal colon of. Postoperative changes of hernia repair right inguinal region felt to be present. Mild splenomegaly unchanged. See above discussion for additional details and findings. Note that preliminary report provided by overnight radiology service. The
[2017-05-28] MEDS: HYDROmorphone 1 mg/ml ISec IM PRN (16:26)
[2017-05-28] MEDS: Pantoprazole 40 mg EC Tab PO SCH (17:21)
--- NOTE | 2017-05-29 02:16 | CP.PCM.PN ---
Subjective - Date & Time of Evaluation Date of Evaluation: 05/29/17 Time of Evaluation: 02:15 - Subjective Subjective: # 14 Gomez catheter was inserted @ patient's request. # 18 and # 16 Cou de cath were difficult to insert. Objective - Vital Signs/Intake and Output Vital Signs (last 24 hours): Temp Pulse Resp BP Pulse Ox 98 F 94 H 18 160/90 H 99 05/28/17 13:26 05/28/17 18:00 05/28/17 13:26 05/28/17 17:20 05/28/17 10:21 Intake and Output: 05/28/17 05/29/17 18:59 06:59 Intake Total 320 Output Total 1000 150 Balance -680 -150 - Medications Medications: Current Medications Ascorbic Acid (Vitamin C 500 Mg Tab) 500 mg PO BID [facility] Last Admin: 05/28/17 17:20 Dose: 500 mg Atorvastatin Calcium (Lipitor) 20 mg PO DIN [facility] Last Admin: 05/28/17 17:20 Dose: 20 mg Bupropion HCl (Wellbutrin Xl) 300 mg PO DAILY [facility] Last Admin: 05/28/17 11:10 Dose: 300 mg Carvedilol (Coreg) 6.25 mg PO BID [facility] Last Admin: 05/28/17 17:20 Dose: 6.25 mg Clonazepam (Klonopin) 0.5 mg PO BID [facility] PRN Reason: Protocol Last Admin: 05/28/17 17:20 Dose: 0.5 mg Ergocalciferol (Drisdol 50,000 Intl Units Cap) 1 cap PO SAT [facility] Last Admin: 05/28/17 11:10 Dose: 1 cap Ferrous Sulfate (Feosol) 324 mg PO TID [facility] Last Admin: 05/28/17 17:20 Dose: 324 mg Gabapentin (Neurontin) 800 mg PO Q8 [facility] PRN Reason: Protocol Last Admin: 05/28/17 21:37 Dose: 800 mg Hydromorphone HCl (Dilaudid) 1 mg IM Q4H PRN PRN Reason: Pain, moderate (4-7) Last Admin: 05/28/17 16:26 Dose: 1 mg Lisinopril (Zestril) 10 mg PO DAILY [facility] Last Admin: 05/28/17 10:46 Dose: 10 mg Multivitamins/Minerals (Therapeutic-M Tab) 1 tab PO DAILY [facility] Last Admin: 05/28/17 11:11 Dose: 1 tab Pantoprazole Sodium (Protonix Ec Tab) 40 mg PO ACBD [facility] Last Admin: 05/28/17 17:21 Dose: 40 mg Zinc Sulfate (Zinc Sulfate 220 Mg Cap) 220 mg PO DAILY [facility] Last Admin: 05/28/17 11:10 Dose: 220 mg Ziprasidone (Geodon Cap) 60 mg PO HS [facility] Last Admin: 05/28/17 21:37 Dose: 60 mg Ziprasidone (Geodon Cap) 20 mg PO HS [facility] Last Admin: 05/28/17 21:37 Dose: 20 mg - Labs Labs: 05/28/17 10:40 05/28/17 10:40 PT 11.4 SECONDS (9.4-12.5) 05/27/17 21:25 INR 1.00 (0.93-1.08) 05/27/17 21:25 APTT 28.7 Seconds (25.1-36.5) 05/27/17 21:25
--- NOTE | 2017-05-29 04:08 | CP.PCM.CON ---
History of Present Illness - History of Present Illness History of Present Illness: General Surgery Consult note- Dr. Méndez 67M pmhx cauda equina, neurogenic bladder, indwelling burgos, stage 4 sacral decub uler, sacral osteomyelitis, brought to [facility] with severe suprapubic and abdominal pain radiating to the back that began two days ago. Pt describes pain as sharp and worse recently w/ recent finding of hematuria. Surgery was consulted for possible colovesicular fistula. Currently denies fevers, chills, chest pain, shortness of breath, nausea, vomiting, diarrhea, foul smelling or feculant penile discharge. PMH: Sacral decubitus ulcer s/p debridement and wound vac, sacral osteomyeltits , cauda equina syndrome (1996), chronic indwelling burgos, DM, HTN, neurogenic bladder, CHF PSH: Surgical debridement, cholecystostomy, colostomy, hernia repair, laminectomy, right shoulder arthroscopic rotator cuff repair ALL: Ciprofloxacin, Penicillin SocialHx: Denied tobacco, EtOH, and illicit drug use PMD: [place] Review of Systems - Review of Systems All systems: reviewed and no additional remarkable complaints except - Constitutional Constitutional: As Per HPI Past Patient History - Infectious Disease Hx of Infectious Diseases: MRSA - Tetanus Immunizations Tetanus Immunization: Unknown - Past Medical History & Family History Past Medical History?: Yes - Past Social History Smoking Status: Never Smoked - CARDIAC Hx Cardiac Disorders: Yes (mi, chest pain, open heart) Hx Angina: Yes Hx Congestive Heart Failure: Yes Hx Hypercholesterolemia: Yes Hx Hypertension: Yes Hx Peripheral Edema: Yes (Left foot/ankle at times) Other/Comment: mediastinitis - PULMONARY Hx Respiratory Disorders: Yes Hx Pneumonia: Yes - NEUROLOGICAL Hx Neurological Disorder: Yes (cauda equina syndrome) Hx Transient Ischemic Attacks (TIA): Yes Other/Comment: paraplegia: 1996 pt stated "I was ok with a cane, but in 2007 and 2008 had spinal surgery gone bad which resulted in paraplegia." Vhronic b/l foot tingling "nerve pain" feels like "my feet are on fire sometimes " - HEENT Hx HEENT Problems: ([place], eyeglasses) Hx Blind: Yes (right eye) - RENAL Hx Neurogenic Bladder: Yes (2wf from home) - ENDOCRINE/METABOLIC Hx Diabetes Mellitus Type 2: Yes - HEMATOLOGICAL/ONCOLOGICAL Hx Anemia: Yes - INTEGUMENTARY Hx Dermatological Problems: Yes Other/Comment: healing multiple wounds to right buttock, stage 4 sacral openings x 3 with tunneling,2cm x 1cm wound bed red with tunneling 2.5cm, 1.3 x 0.5 wound bed red, 0.5 x 0.5 cm wound bed red, right heel 1.5cm x 1.5cm stage 3 wound wound bed red with yellow slough and brown skin surrounded by swollen bright red skin wiht brown drainage mild odor, buttocks reddened, surgical scar to lower back 10cm x 1cm healed, redness to left ft and dry skin, thick hard toenails both feet, hammertoes 2 3 4 both feet, small 0.5round black dry wound to tip of left great toe, dry red wound to r great toe 1.5cm x 1cm surrounded by red skin, scratch to left thigh, multiple scratched to right arm, multiple skin discolortions and red scabd to ble and left knee, dry skin to bottom right ft and reddened heel - MUSCULOSKELETAL/RHEUMATOLOGICAL Hx Falls: Yes (past) - GASTROINTESTINAL Hx Colostomy: Yes Hx Gastroesophageal Reflux: Yes - GENITOURINARY/GYNECOLOGICAL Hx Hematuria: Yes Hx Incontinence: Yes (neurogenic bladder 2wf from home) Hx Urinary Tract Infection: Yes - PSYCHIATRIC Hx Substance Use: No - SURGICAL HISTORY Hx Cardiac Catheterization: Yes (x3 w/5 stents) Hx Cholecystectomy: Yes Hx Coronary Stent: Yes Hx Musculoskeletal Surgery: Yes Hx Open Heart Surgery: Yes - ANESTHESIA Hx Anesthesia: Yes Hx Anesthesia Reactions: No Hx Malignant Hyperthermia: No Meds Allergies/Adverse Reactions: Allergies Allergy/AdvReac Type Severity Reaction Status Date / Time ciprofloxacin Allergy RASH Verified 05/27/17 20:39 Penicillins Allergy RASH Verified 05/27/17 20:39 - Medications Medications: Current Medications Ascorbic Acid (Vitamin C 500 Mg Tab) 500 mg PO BID [facility] Last Admin: 05/28/17 17:20 Dose: 500 mg Atorvastatin Calcium (Lipitor) 20 mg PO DIN [facility] Last Admin: 05/28/17 17:20 Dose: 20 mg Bupropion HCl (Wellbutrin Xl) 300 mg PO DAILY [facility] Last Admin: 05/28/17 11:10 Dose: 300 mg Carvedilol (Coreg) 6.25 mg PO BID [facility] Last Admin: 05/28/17 17:20 Dose: 6.25 mg Clonazepam (Klonopin) 0.5 mg PO BID [facility] PRN Reason: Protocol Last Admin: 05/28/17 17:20 Dose: 0.5 mg Ergocalciferol (Drisdol 50,000 Intl Units Cap) 1 cap PO SAT [facility] Last Admin: 05/28/17 11:10 Dose: 1 cap Ferrous Sulfate (Feosol) 324 mg PO TID [facility] Last Admin: 05/28/17 17:20 Dose: 324 mg Gabapentin (Neurontin) 800 mg PO Q8 [facility] PRN Reason: Protocol Last Admin: 05/28/17 21:37 Dose: 800 mg Hydromorphone HCl (Dilaudid) 1 mg IM Q4H PRN PRN Reason: Pain, moderate (4-7) Last Admin: 05/28/17 16:26 Dose: 1 mg Lisinopril (Zestril) 10 mg PO DAILY [facility] Last Admin: 05/28/17 10:46 Dose: 10 mg Multivitamins/Minerals (Therapeutic-M Tab) 1 tab PO DAILY [facility] Last Admin: 05/28/17 11:11 Dose: 1 tab Pantoprazole Sodium (Protonix Ec Tab) 40 mg PO ACBD [facility] Last Admin: 05/28/17 17:21 Dose: 40 mg Zinc Sulfate (Zinc Sulfate 220 Mg Cap) 220 mg PO DAILY [facility] Last Admin: 05/28/17 11:10 Dose: 220 mg Ziprasidone (Geodon Cap) 60 mg PO HS [facility] Last Admin: 05/28/17 21:37 Dose: 60 mg Ziprasidone (Geodon Cap) 20 mg PO HS [facility] Last Admin: 05/28/17 21:37 Dose: 20 mg Physical Exam - Constitutional Appears: No Acute Distress, Chronically Ill - Head Exam Head Exam: ATRAUMATIC - Eye Exam Eye Exam: EOMI. absent: Scleral icterus - ENT Exam ENT Exam: Mucous Membranes Moist - Respiratory Exam Respiratory Exam: NORMAL BREATHING PATTERN. absent: Accessory Muscle Use, Respiratory Distress - Cardiovascular Exam Cardiovascular Exam: +S1, +S2. absent: Bradycardia, Tachycardia - GI/Abdominal Exam GI & Abdominal Exam: Guarding, Soft, Tenderness. absent: Distended, Firm, Hernia, Rigid - Extremities Exam Extremities exam: Positive for: pedal edema. Negative for: calf tenderness - Neurological Exam Neurological exam: Alert, Oriented x3 - Skin Skin Exam: Warm Additional comments: sacral ulcer stage 3. healing well ischial ulcer stage 2, good granulation tissue Results - Vital Signs Recent Vital Signs: Last Vital Signs Temp 98 F 05/28/17 13:26 Pulse 94 H 05/28/17 18:00 Resp 18 05/28/17 13:26 BP 160/90 H 05/28/17 17:20 Pulse Ox 99 05/28/17 10:21 - Labs Result Diagrams: 05/28/17 10:40 05/28/17 10:40 Labs: Laboratory Results - last 24 hr 05/28/17 05/28/17 05/28/17 10:40 10:40 16:32 WBC 7.1 D RBC 3.38 L Hgb 10.0 L Hct 31.3 L MCV 92.6 MCH 29.6 MCHC 31.9 RDW 15.7 H Plt Count 124 MPV 10.3 Sodium 140 Potassium 5.4 H Chloride 112 H Carbon Dioxide 20 L Anion Gap 13 BUN 26 H Creatinine 1.4 Est GFR ( Amer) > 60 Est GFR (Non-Af Amer) 51 POC Glucose (mg/dL) 167 H Random Glucose 190 H Calcium 8.2 L Total Bilirubin 0.3 AST 34 ALT 54 Alkaline Phosphatase 90 Total Protein 5.6 L Albumin 2.8 L Globulin 2.7 Albumin/Globulin Ratio 1.0 L 05/28/17 21:59 WBC RBC Hgb Hct MCV MCH MCHC RDW Plt Count MPV Sodium Potassium Chloride Carbon Dioxide Anion Gap BUN Creatinine Est GFR ( Amer) Est GFR (Non-Af Amer) POC Glucose (mg/dL) 201 H Random Glucose Calcium Total Bilirubin AST ALT Alkaline Phosphatase Total Protein Albumin Globulin Albumin/Globulin Ratio Assessment & Plan - Assessment and Plan (Free Text) Assessment: 67M w/ indwelling burgos catheter, possible UTI, sacral decub ulcer CT scan reviewed- no overt signs of contrast going from colon to bladder Plan: - f/u Urine and blood culture - local wound care of sacrum - air mattress - serial abd exams - pain control PRN - regular diet - further recs per Dr. Méndez surgical attending Deuce Palmer PGY1
[2017-05-29] MEDS ORDERED: HYDROmorphone 0.5 mg/0.5 ml ISec IVP STA (06:56)
[2017-05-29] MEDS: Pantoprazole 40 mg EC Tab PO SCH ×2 (08:32→18:02)
[2017-05-29 09:25] LABS: BASO # 0.04 K/mm3 (0.0-2.0); BASO % 0.5 % (0.0-3.0); EOS # 0.3 (0.0-0.7); EOS % 3.7 % (1.5-5.0); GRAN # 3.92 (1.4-6.5); GRAN % 53.2 % (50.0-68.0); HEMOGLOBIN 10.3 g/dL (14.0-18.0); LYMPH # 2.6 (1.2-3.4); LYMPH % 35.4 % (22.0-35.0); MEAN CORPUSCULAR HEMOGLOBIN 29.3 pg (25.0-35.0); MEAN CORPUSCULAR HGB CONC 31.8 g/dl (31.0-37.0); MEAN PLATELET VOLUME 10.1 fl (7.0-11.0); MONO # 0.5 (0.1-0.6); MONO % 7.2 % (1.0-6.0); RBC 3.52 10^6/uL (3.5-6.1); RED CELL DISTRIBUTION WIDTH 15.5 % (11.5-14.5); WHITE BLOOD COUNT 7.4 10^3/ul (4.5-11.0)
[2017-05-29] MEDS: Ergocalciferol 50,000 Intl Units Cap PO SCH (09:28)
[2017-05-29] MEDS: Multivitamin With Minerals Tab PO SCH (09:29)
[2017-05-29] MEDS: buPROPion 300 mg/24 Hours XL Tab PO SCH (09:29)
[2017-05-29 09:33] LABS: BLOOD UREA NITROGEN 25 mg/dL (7-21); CALCIUM 8.4 mg/dL (8.4-10.5); GFR AFRICAN-AMERICAN > 60; GFR NON-AFRICAN AMERICAN 55
[2017-05-29] MEDS: HYDROmorphone 1 mg/ml ISec IM PRN (11:56)
[2017-05-29] MEDS: HYDROmorphone 1 mg/ml ISec IVP PRN (21:14)
[2017-05-30] MEDS: HYDROmorphone 1 mg/ml ISec IVP PRN ×5 (01:20→19:47)
[2017-05-30 06:46] VITALS: O2SAT 98
[2017-05-30] MEDS: Pantoprazole 40 mg EC Tab PO SCH ×2 (08:29→16:50)
[2017-05-30] MEDS: buPROPion 300 mg/24 Hours XL Tab PO SCH (10:38)
[2017-05-30] MEDS: Multivitamin With Minerals Tab PO SCH (10:38)
--- NOTE | 2017-05-30 13:11 | PN ---
DATE: SUBJECTIVE: Leonard Monzon is seen. The CAT scan shows extensive air in the urinary bladder, but the bowel around it seems very much uninvolved. I believe this is a chronic urinary issue. The gas is related to instrumentation. There seems to be some particulate matter in the urinary bladder, which could be clot or a precipitate. We will discuss with Dr. Huston, but I have no surgical plans. The patient has a colostomy and this would be protected as much as possible. Parish Méndez MD
--- NOTE | 2017-05-30 21:56 | PN ---
DATE: 05/30/17 SUBJECTIVE: Mr. Monzon is a 67-year-old male admitted to the hospital with lower abdominal pain. He has paraplegia and indwelling catheter in place, there was suspicion of UTI and possible colovesical fistula. CAT scan of the abdomen did not show any evidence of fistula. He was evaluated by Surgery Dr. Méndez. Gomez catheter was clogged and was changed in the ER. He is still complaining of suprapubic pain and complaining of cramping pain. He has paraplegia and is bed bound. He has a sacral decubitus 2. No fever. Urine culture and blood culture have been negative. He is morbidly obese. He denies any shortness of breath. No chest pain. PAST MEDICAL HISTORY: Cauda equina syndrome, diabetes mellitus type 2, indwelling Gomez catheter, TIA, neurogenic bladder, decubitus ulcer on right buttock, MRSA positive, and arthritis. PAST SURGICAL HISTORY: Colostomy, cardiac catheterization, musculoskeletal surgery, cardiac surgery, . HOME MEDICATION: Aspirin 325 mg daily, Wellbutrin 300 mg daily, Percocet p.r.n., and Geodon 80 mg p.o. at bedtime. PHYSICAL EXAMINATION GENERAL: Morbidly obese, comfortable in bed, in no acute distress. VITAL SIGNS: Temperature 98.7, heart rate 80 per minute, blood pressure 130/70, respiratory rate 18 per minute, and oxygen saturation 98% on room air. NECK: No lymphadenopathy. CHEST: Air entry present and equal, bilateral. No added sound. CARDIOPULMONARY: S1 and S2 normal. No murmur. No gallop. ABDOMEN: Soft, nontender. No hepatosplenomegaly. EXTREMITIES: No edema. MEDICAL SPECIALIST: Alert and oriented x3. No focal sensory or motor deficit. LABORATORY DATA: Reviewed. MEDICATIONS: Reviewed. ASSESSMENT: Lower abdominal pain, Gomez catheter changed, paraplegia, coronary artery disease, diabetes mellitus, and chronic anemia. PLAN: Gomez catheter draining clear urine. Urine culture and blood culture negative. Evaluated by Surgery, no medical intervention needed. No evidence of fistula. He is still complaining of lower abdominal pain, getting Dilaudid p.r.n. for pain. We will continue that. Urology consultation, Dr. Jackson requested, awaiting input. Mariajose Mondragon MD [facility] # [phone] SANDR[place]
--- NOTE | 2017-05-30 22:10 | CP.PCM.PN ---
Subjective - Date & Time of Evaluation Date of Evaluation: 05/29/17 Time of Evaluation: 11:00 - Subjective Subjective: SUBJECTIVE: Mr. Monzon is a 67-year-old male admitted to the hospital with lower abdominal pain. He has paraplegia and indwelling catheter in place, there was suspicion of UTI and possible colovesical fistula. CAT scan of the abdomen did not show any evidence of fistula. He was evaluated by Surgery Dr. Méndez. Goemz catheter was clogged and was changed in the ER. He is still complaining of suprapubic pain and complaining of cramping pain. He has paraplegia and is bed bound. He has a sacral decubitus 2. No fever. Urine culture and blood culture have been negative. He is morbidly obese. He denies any shortness of breath. No chest pain. Gomez's cath draining clear urine. PAST MEDICAL HISTORY: Cauda equina syndrome, diabetes mellitus type 2, indwelling Gomez catheter, TIA, neurogenic bladder, decubitus ulcer on right buttock, MRSA positive, and arthritis. PAST SURGICAL HISTORY: Colostomy, cardiac catheterization, musculoskeletal surgery, cardiac surgery, . HOME MEDICATION: reviewed. PHYSICAL EXAMINATION GENERAL: Morbidly obese, comfortable in bed, in no acute distress. VITAL SIGNS: reviewed. NECK: No lymphadenopathy. CHEST: Air entry present and equal, bilateral. No added sound. CARDIOPULMONARY: S1 and S2 normal. No murmur. No gallop. ABDOMEN: Soft, nontender. No hepatosplenomegaly. EXTREMITIES: No edema. TAVERN CAR ATTENDANT: Alert and oriented x3. No focal sensory or motor deficit. LABORATORY DATA: Reviewed. MEDICATIONS: Reviewed. ASSESSMENT: Lower abdominal pain, Gomez catheter changed, paraplegia, coronary artery disease, diabetes mellitus, and chronic anemia. PLAN: Gomez catheter draining clear urine. Urine culture and blood culture negative. Evaluated by Surgery, no medical intervention needed. No evidence of fistula. He is still complaining of lower abdominal pain, getting Dilaudid p.r.n. for pain. We will continue that. Urology consultation, Dr. Jackson requested, awaiting input. Blood counts stable. Sacral decub chronic. Mariajose Mondragon MD Objective - Vital Signs/Intake and Output Vital Signs (last 24 hours): Temp Pulse Resp BP Pulse Ox 98.2 F 80 18 140/71 98 05/30/17 18:00 05/30/17 21:40 05/30/17 18:00 05/30/17 18:01 05/30/17 18:00 Intake and Output: 05/30/17 05/31/17 18:59 06:59 Intake Total 180 Output Total 500 Balance -320 - Medications Medications: Current Medications Ascorbic Acid (Vitamin C 500 Mg Tab) 500 mg PO BID [facility] Last Admin: 05/30/17 18:01 Dose: 500 mg Atorvastatin Calcium (Lipitor) 20 mg PO DIN [facility] Last Admin: 05/30/17 16:50 Dose: 20 mg Bupropion HCl (Wellbutrin Xl) 300 mg PO DAILY [facility] Last Admin: 05/30/17 10:38 Dose: 300 mg Carvedilol (Coreg) 6.25 mg PO BID [facility] Last Admin: 05/30/17 18:01 Dose: 6.25 mg Clonazepam (Klonopin) 0.5 mg PO BID [facility] PRN Reason: Protocol Last Admin: 05/30/17 18:01 Dose: 0.5 mg Ergocalciferol (Drisdol 50,000 Intl Units Cap) 1 cap PO SAT [facility] Last Admin: 05/29/17 09:28 Dose: 1 cap Ferrous Sulfate (Feosol) 324 mg PO TID [facility] Last Admin: 05/30/17 19:08 Dose: 324 mg Gabapentin (Neurontin) 800 mg PO Q8 [facility] PRN Reason: Protocol Last Admin: 05/30/17 21:05 Dose: 800 mg Hydromorphone HCl (Dilaudid) 1 mg IVP Q4H PRN PRN Reason: Pain, severe (8-10) Last Admin: 05/30/17 19:47 Dose: 1 mg Lisinopril (Zestril) 10 mg PO DAILY [facility] Last Admin: 05/30/17 10:38 Dose: 10 mg Multivitamins/Minerals (Therapeutic-M Tab) 1 tab PO DAILY [facility] Last Admin: 05/30/17 10:38 Dose: 1 tab Pantoprazole Sodium (Protonix Ec Tab) 40 mg PO ACBD [facility] Last Admin: 05/30/17 16:50 Dose: 40 mg Zinc Sulfate (Zinc Sulfate 220 Mg Cap) 220 mg PO DAILY [facility] Last Admin: 05/30/17 10:38 Dose: 220 mg Ziprasidone (Geodon Cap) 60 mg PO HS [facility] Last Admin: 05/30/17 21:06 Dose: 60 mg Ziprasidone (Geodon Cap) 20 mg PO HS [facility] Last Admin: 05/30/17 21:06 Dose: 20 mg - Labs Labs: 05/29/17 09:00 05/29/17 09:00 PT 11.4 SECONDS (9.4-12.5) 05/27/17 21:25 INR 1.00 (0.93-1.08) 05/27/17 21:25 APTT 28.7 Seconds (25.1-36.5) 05/27/17 21:25
[2017-05-31] MEDS: HYDROmorphone 2 mg/ml ISec IVP PRN ×4 (01:27→14:02)
[2017-05-31 07:07] VITALS: BP 151/65; RESP 19; TEMP 97.8
[2017-05-31] MEDS: buPROPion 300 mg/24 Hours XL Tab PO SCH (09:16)
[2017-05-31] MEDS: Pantoprazole 40 mg EC Tab PO SCH ×2 (09:16→17:17)
[2017-05-31] MEDS: Multivitamin With Minerals Tab PO SCH (09:18)
[2017-05-31] MEDS ORDERED: HYDROmorphone 0.5 mg/0.5 ml ISec IVP STA (17:19)
[2017-05-31 17:27] VITALS: PULSE 84
--- NOTE | 2017-05-31 18:13 | PN ---
DATE: SUBJECTIVE: A 67-year-old white male admitted to the hospital with gross hematuria and possible fistula. CT did not show any extravasation of contrast into the bladder. The patient was seen in consultation by Dr. Huston. A Gomez was changed, source of hematuria was not substantiated; however, hematuria resolved. The patient was also seen in consultation by Dr. Méndez for possible enterovesical fistula, which did not appear likely. The patient was treated with some bladder antibiotics and then she was able to be discharge home in improved condition. Urine is clear and flowing. The patient is complaining of bladder spasms and pain. He has medication for pain while in the hospital. He is on chronic pain medication at home. He will be discharged home in improved condition. DIAGNOSES: Episode of hyperkalemia resolved, potassium is 5.1 on discharge, mild anemia, hyperglycemia, and paraplegia. Hyperkalemia initially with potassium of 6.3 and dehydration, sacral decubitus, colostomy, and neurogenic bladder. The patient most likely to be transitioned to home later on today with home medications to be the same and to add medication for bladder spasm. Rayshawn Lorenzana MD
--- NOTE | 2017-06-01 08:40 | DS ---
HISTORY OF PRESENT ILLNESS: The patient is a 67-year-old white male admitted to the hospital with gross hematuria, possible enterovesicular fistula which was ruled not to have occurred. The patient was seen in consultation by Dr. Huston and seen in consultation by Dr. Barrow and Dr. Méndez. He received some antibiotics. His urine Gomez was changed. He was attended to by Dr. Huston. His urine on discharge is clear. Gomez is intact and in place. There is no hematuria, grossly microscopic. He is afebrile. Vital signs are stable. The patient will be discharged home to home care as he was before. He will be followed as an outpatient. FINAL DISCHARGE DIAGNOSES: Gross hematuria, bladder spasms, neurogenic bladder, paraplegia, insulin-dependent diabetes mellitus, depression, coronary artery disease, sacral decubitus and cauda equina syndrome. Rayshawn Lorenzana MD
--- NOTE | 2017-06-01 08:41 | CON ---
DATE: 05/31/2017 CONSULTATION CHIEF COMPLAINT: Pelvic pain. HISTORY OF PRESENT ILLNESS: This is 67-year-old male with a history of cauda equina syndrome and neurogenic bladder with chronic indwelling Gomez, colostomy for fecal incontinence. The patient was complaining of severe pelvic pain. He reports a history of his Gomez being changed and having some problems with his indwelling Gomez. During his hospital admission, he wanted the Gomez changed again; however, the nursing initially was unable as was the house physician, finally catheter was then eventually changed. He is reporting some spasms at this time. He denies any fever or chills. There was question of a possible colovesical fistula and General Surgical consultation was requested. CAT scan was done, which showed no evidence of fistula. The patient is currently seen in his room. He is awake and alert. He reports the pain has improved, but still complaining of some pelvic pressure. PAST MEDICAL HISTORY: Significant for cauda equina syndrome, laminectomy, neurogenic bladder, indwelling Gomez, colostomy, coronary artery disease, diabetes, hypertension, psychiatric disorder, depression and sacral decubital ulcers. MEDICATIONS: Currently include Coreg, Dilaudid, Drisdol, Feosol, Geodon, Klonopin, Lipitor, Neurontin, Protonix, vitamin C, Wellbutrin, Zestril and zinc. ALLERGIES: ALLERGIC TO CIPROFLOXACIN AND PENICILLIN FAMILY HISTORY: Noncontributory for this event. SOCIAL HISTORY: Denies smoking or EtOH use. REVIEW OF SYSTEMS: Positive as per the HPI. The patient is bed-bound, ambulatory, does report some increased fatigue and weakness. Other systems are negative. PHYSICAL EXAMINATION VITAL SIGNS: He has been afebrile, temperature of 97.8, pulse 84, BP 151/65, respirations 18. NECK: Supple. There is no adenopathy. CHEST: Reveals normal inspiratory effort. CARDIAC: Exam shows positive S1, S2. There is mild peripheral edema noted. ABDOMEN: The abdomen is soft. There is no tenderness. No rebound or guarding. Colostomy in place. No CVA tenderness noted. : Phallus is normal. There is a 14-[place] Gomez catheter in place, draining clear colored urine. Scrotum is normal. Testes are bilaterally descended, nontender, no masses. Epididymis are normal. RECTAL: Could not be performed. He does have covered sacral decubiti, which are noted. LABORATORY DATA: WBC count was normal. GFR of 55 from 05/29/2017. Urinalysis showed too numerous to count rbc's, 5-10 wbc's. Nitrites are negative. Urine culture had no growth from 05/27/2017. Blood cultures also no growth. On radiologic exam, the patient had a CT scan of the abdomen and pelvis. Also from 05/27/2017, which showed the bladder could not be adequately evaluated due to presence of a unclamped Gomez catheter. There was a area in the bladder. No oral contrast media was present within the urinary bladder. There were no loculated fluid collections in the pelvis. Kidneys are symmetric in size. There were no stones. There is a prominent left extrarenal pelvis. No hydronephrosis. IMPRESSION AND PLAN: This is a 67-year-old male with urinary incontinence from cauda equina syndrome. The patient reports no control of his urine with the Gomez catheter out and that the urine is causing further problems with skin excoriation and his decubital ulcers. He is having apparent bladder spasms with the Gomez catheter in place. Urine culture was negative. Kidneys appear normal. My recommendation at this point will be to continue the Gomez catheter and changed monthly. If medically okay, I would recommend the patient be on an antispasmodic for his bladder such as VESIcare or possibly Myrbetriq. The patient has a colostomy, so I would not worry about side effects of constipation, but he will need to be monitored for that. Would continue home Gomez catheter changes monthly. Given the indwelling catheter, I would not routinely treat him with antibiotics if the urine is infected unless he is showing signs of symptomatic infection with elevated wbc count, fever, chills, etc. Thank you for allowing me to participate the care of this patient. We will follow him with you while he is in the hospital. Rene Huston MD
--- NOTE | 2017-06-03 13:01 | PQF GENQUE ---
06/03/17 Dr. Lorenzana, Is patient's gross hematuria due to Gomez catheter? Thank you. Clarification of your documentation is requested to better reflect the severity of illness and intensity of treatment of your patient. Indicators present [] Specify: [] [] Specify: [] [] Specify: [] [] Specify: [] Location in the medical record that reflects the above clinical findings: [] Treatment Provided: [] PHYSICIAN'S RESPONSE Based on your medical judgment of the clinical indicators outlined above please clarify the following: x[] Practitioner response [] If unable to determine, please check the box, sign and date. Present On Admission (POA) Indicator: [x] Present at the time of admission [] Not present at the time of admission [] Clinically Undetermined In responding to this query, please exercise your independent professional judgment. The fact that a question is asked does not imply that any particular answer is desired or expected. Thank you for your clarification on this documentation. If you have any questions please call:[ ] * Thank you, [ ] risk analyst SANDRO
== END 2017-05-31 18:15 | disposition home health service (06) | DRG 698 ==
LOC: ED 20:25 → ERH 05-28 02:38 → 3RSO 05-28 11:45
PROVIDERS: ADMIT Internal Medicine; ATTEND Internal Medicine
DX: T83.83XA Hemorrhage due to genitourinary prosthetic devices, implants and grafts, initial encounter (principal); L89.153 Pressure ulcer of sacral region, stage 3; G82.20 Paraplegia, unspecified; I11.0 Hypertensive heart disease with heart failure; L89.154 Pressure ulcer of sacral region, stage 4; E87.5 Hyperkalemia; I50.9 Heart failure, unspecified; E66.01 Morbid (severe) obesity due to excess calories; E83.42 Hypomagnesemia; D64.9 Anemia, unspecified; E11.9 Type 2 diabetes mellitus without complications; G83.4 Cauda equina syndrome; E86.0 Dehydration; R31.0 Gross hematuria; L89.892 Pressure ulcer of other site, stage 2; E78.00 Pure hypercholesterolemia, unspecified; F32.89 Other specified depressive episodes; F41.0 Panic disorder [episodic paroxysmal anxiety]; K21.9 Gastro-esophageal reflux disease without esophagitis; N32.89 Other specified disorders of bladder; N39.498 Other specified urinary incontinence; Z66 Do not resuscitate; Z93.3 Colostomy status; Z90.49 Acquired absence of other specified parts of digestive tract; Z95.5 Presence of coronary angioplasty implant and graft; Z87.440 Personal history of urinary (tract) infections; Z87.01 Personal history of pneumonia (recurrent); Z86.73 Personal history of transient ischemic attack (TIA), and cerebral infarction without residual deficits; Z79.899 Other long term (current) drug therapy; Z79.82 Long term (current) use of aspirin; Z79.4 Long term (current) use of insulin; Z74.01 Bed confinement status; H54.7 Unspecified visual loss; I25.119 Atherosclerotic heart disease of native coronary artery with unspecified angina pectoris; M19.90 Unspecified osteoarthritis, unspecified site; T83.098A Other mechanical complication of other urinary catheter, initial encounter; M54.9 Dorsalgia, unspecified; F41.9 Anxiety disorder, unspecified; Z88.1 Allergy status to other antibiotic agents; Z88.0 Allergy status to penicillin; R40.2412 Glasgow coma scale score 13-15, at arrival to emergency department; Z86.14 Personal history of Methicillin resistant Staphylococcus aureus infection; Y84.8 Other medical procedures as the cause of abnormal reaction of the patient, or of later complication, without mention of misadventure at the time of the procedure

== ENCOUNTER 2017-06-01 03:05 | Emergency (ER) | payer MEDICARE, OTHER ==
[2017-06-01 03:06] VITALS: BMI 30.7
--- NOTE | 2017-06-01 04:05 | ED PDOC ---
Arrival/HPI - General Time Seen by Provider: 06/01/17 03:20 Historian: Patient - History of Present Illness Narrative History of Present Illness (Text): 06/01/17 03:45 Leonard Monzon is a mildly obese 67 year old male with DNR, whose past medical history includes cauda equina syndrome, diabetes, hypertension, sacral osteomyelitis, neurogenic bladder with chronic burgos, paraplegia s/p colostomy and cholecystectomy, was brought in by EMS to the Emergency department for blockage in catheter prior to arrival. Patient states he has a "saturated underwear" and requests change of his catheter. Patient states he visited his urologist yesterday at 6:00 pm and did not require any medical attention. Patient informs slight suprapubic abdominal discomfort and agitation. Patient denies any chest pain, shortness of breath, fever, nausea, vomiting, trauma or any other complaints. Time/Duration: Prior to Arrival Symptom Onset: Gradual Symptom Course: Unchanged Activities at Onset: Light Context: Home Past Medical History - Provider Review Nursing Documentation Reviewed: Yes - Past History Past History: Non-Contributing - Infectious Disease Hx of Infectious Diseases: MRSA - Tetanus Immunization Tetanus Immunization: Unknown - Cardiac Hx Cardiac Disorders: Yes (mi, chest pain, open heart) Hx Angina: Yes Hx Congestive Heart Failure: Yes Hx Hypertension: Yes Hx Peripheral Edema: Yes (Left foot/ankle at times) Other/Comment: mediastinitis - Pulmonary Hx Respiratory Disorders: Yes Hx Pneumonia: Yes - Neurological Hx Paralysis: Yes (paraplegia x 5+ years) - HEENT Hx HEENT Disorder: ([place], eyeglasses) Hx Blind: Yes (right eye) - Renal Hx Neurogenic Bladder: Yes (2wf from home) - Endocrine/Metabolic Hx Diabetes Mellitus Type 2: Yes - Hematological/Oncological Hx Anemia: Yes - Integumentary Hx Dermatological Disorder: Yes Other/Comment: healing multiple wounds to right buttock, stage 4 sacral openings x 3 with tunneling,2cm x 1cm wound bed red with tunneling 2.5cm, 1.3 x 0.5 wound bed red, 0.5 x 0.5 cm wound bed red, right heel 1.5cm x 1.5cm stage 3 wound wound bed red with yellow slough and brown skin surrounded by swollen bright red skin wiht brown drainage mild odor, buttocks reddened, surgical scar to lower back 10cm x 1cm healed, redness to left ft and dry skin, thick hard toenails both feet, hammertoes 2 3 4 both feet, small 0.5round black dry wound to tip of left great toe, dry red wound to r great toe 1.5cm x 1cm surrounded by red skin, scratch to left thigh, multiple scratched to right arm, multiple skin discolortions and red scabd to ble and left knee, dry skin to bottom right ft and reddened heel - Musculoskeletal/Rheumatological Hx Falls: Yes (past) - Gastrointestinal Hx Colostomy: Yes Hx Gastroesophageal Reflux: Yes - Genitourinary/Gynecological Hx Genitourinary Disorders: Yes (neurogenic bladder) Other/Comment: self cath. - Psychiatric Hx Substance Use: No - Surgical History Other/Comment: colostomy placement, PICC placed in L arm - Anesthesia Hx Anesthesia: Yes Hx Anesthesia Reactions: No Hx Malignant Hyperthermia: No - Suicidal Assessment Feels Threatened In Home Enviroment: No Family/Social History - Physician Review Nursing Documentation Reviewed: Yes Family/Social History: Unknown Family HX Smoking Status: Never Smoked Hx Alcohol Use: No Hx Substance Use: No Hx Substance Use Treatment: No Allergies/Home Meds Allergies/Adverse Reactions: Allergies ciprofloxacin Allergy (Verified 05/27/17 20:39) RASH Penicillins Allergy (Verified 05/27/17 20:39) RASH Home Medications: Home Meds Medication Instructions Recorded Confirmed Ascorbic Acid [Vitamin C 500 mg 500 mg PO BID 05/15/15 06/01/17 Tab] Ergocalciferol (Vitamin D2) 50,000 iu PO SAT 05/15/15 06/01/17 [Vitamin D2] Ziprasidone HCl [Geodon] 80 mg PO HS 06/26/15 06/01/17 Aspirin [Ecotrin] 325 mg PO DAILY 07/25/15 06/01/17 buPROPion XL [Wellbutrin XL] 300 mg PO DAILY 07/25/15 06/01/17 Acetaminophen/Oxycodone Hydr 1 tab PO TID PRN 01/22/16 06/01/17 [Percocet 10/325 mg Tab] Review of Systems - Physician Review All systems were reviewed & negative as marked: Yes - Review of Systems Constitutional: Normal. absent: Fevers Eyes: Normal ENT: Normal Respiratory: Normal. absent: SOB Cardiovascular: Normal. absent: Chest Pain Gastrointestinal: Abdominal Pain (suprapubic abdominal pain ). absent: Nausea, Vomiting Genitourinary Male: Other (blockage in catheter ) Musculoskeletal: Normal Skin: Normal Neurological: Normal Endocrine: Normal Hemo/Lymphatic: Normal Psychiatric: Normal Physical Exam Vital Signs Reviewed: Yes Vital Signs Temp Pulse Resp BP Pulse Ox 06/01/17 11:01 80 18 140/75 100 06/01/17 09:01 90 20 146/74 98 06/01/17 05:06 89 18 122/64 99 06/01/17 03:06 98.7 F 96 H 18 137/75 97 Temperature: Afebrile Blood Pressure: Normal Pulse: Regular Respiratory Rate: Normal Appearance: Positive for: Non-Toxic, Uncomfortable, Other (mildly obese ) Pain Distress: None Mental Status: Positive for: Alert and Oriented X 3 - Systems Exam Head: Present: Atraumatic, Normocephalic Pupils: Present: PERRL Extroacular Muscles: Present: EOMI Conjunctiva: Present: Normal Mouth: Present: Moist Mucous Membranes Neck: Present: Normal Range of Motion Respiratory/Chest: Present: Clear to Auscultation, Good Air Exchange. No: Respiratory Distress, Accessory Muscle Use Cardiovascular: Present: Regular Rate and Rhythm, Normal S1, S2. No: Murmurs Abdomen: Present: Tenderness (lower abdomen ), Distention (lower abdomen ), Normal Bowel Sounds, Ostomy Tubes. No: Peritoneal Signs Back: Present: Normal Inspection Upper Extremity: Present: Normal Inspection. No: Cyanosis, Edema Lower Extremity: Present: Other (continuous tremor of lower extremity ). No: Edema Neurological: Present: GCS=15, CN II-XII Intact, Speech Normal Skin: Present: Warm, Dry, Normal Color. No: Rashes Psychiatric: Present: Alert, Oriented x 3, Normal Insight, Normal Concentration Medical Decision Making ED Course and Treatment: 06/01/17 03:45 Impression: 67 year old male presents to the Emergency department for blockage in catheter. Plan: -- Reassess and disposition Prior Visits: Notes and results from previous visits were reviewed. On 05/27/17 patient was seen in the Emergency department for lower suprapubic abdominal pain. Patient was referred to primary care upon stable condition after treatment. Progress Notes: - Medication Orders Current Medication Orders: Discontinued Medications Hydromorphone HCl (Dilaudid) 1 mg IVP STAT STA Stop: 06/01/17 04:57 Last Admin: 06/01/17 04:59 Dose: 1 mg MAR Pain Assessment Document 06/01/17 04:59 JOL (Rec: 06/01/17 04:59 JOL [id number]) Pain Reassessment Is this a pain reassessment? No Presence of Pain Presence of Pain Yes Pain Scale Used Pain Scale Used Numeric Location Pain Location Body Site Back Description Intensity of Pain at present 8 Pain Behavior Restlessness Facial Grimacing Aggravating Factors Changing Position Alleviating Factors/Management Medication Techniques IVP Administration Document 06/01/17 04:59 JOL (Rec: 06/01/17 04:59 JOL [id number]) Charges for Administration # of IVP Administrations 1 Hydromorphone HCl (Dilaudid) 1 mg IVP STAT STA Stop: 06/01/17 04:57 Last Admin: 06/01/17 11:09 Dose: 1 mg Comments: pulled 2 (TWO) 0.5mg, verified with MATT Lees RN Pain Assessment Document 06/01/17 11:09 SE (Rec: 06/01/17 11:10 SE [id number]) Pain Reassessment Is this a pain reassessment? No Sleep Is patient sleeping during reassessment? No Presence of Pain Presence of Pain Yes Pain Scale Used Pain Scale Used Numeric IVP Administration Document 06/01/17 11:09 SE (Rec: 06/01/17 11:10 SE [id number]) Charges for Administration # of IVP Administrations 1 Hydromorphone HCl (Dilaudid) 1 mg IVP STAT STA Stop: 06/01/17 09:03 Last Admin: 06/01/17 09:14 Dose: 1 mg MAR Pain Assessment Document 06/01/17 09:14 SE (Rec: 06/01/17 09:14 SE [id number]) Pain Reassessment Is this a pain reassessment? No Sleep Is patient sleeping during reassessment? No Presence of Pain Presence of Pain Yes IVP Administration Document 06/01/17 09:14 SE (Rec: 06/01/17 09:14 SE [id number]) Charges for Administration # of IVP Administrations 2 Nitrofurantoin Macrocrystals (Macrobid) 100 mg PO STAT STA Stop: 06/01/17 10:58 Last Admin: 06/01/17 11:09 Dose: 100 mg - Scribe Statement The provider has reviewed the documentation as recorded by the Cristobalibe Darby Agarwal. All medical record entries made by the Cristobalibe were at my direction and personally dictated by me. I have reviewed the chart and agree that the record accurately reflects my personal performance of the history, physical exam, medical decision making, and the department course for this patient. I have also personally directed, reviewed, and agree with the discharge instructions and disposition. Disposition/Present on Arrival - Present on Arrival Any Indicators Present on Arrival: No History of DVT/PE: No History of Uncontrolled Diabetes: No Urinary Catheter: Yes (from home changed in ed) History Surgical Site Infection Following: None - Disposition Have Diagnosis and Disposition been Completed?: Yes Diagnosis: Urinary retention Disposition: HOME/ ROUTINE Disposition Time: 12:00 Condition: IMPROVED Discharge Instructions (ExitCare): [place] Catheter Placement and Care (ED) Additional Instructions: Thank you for letting us take care of you today. The emergency medical care you received today was directed at your acute symptoms. If you were prescribed any medication, please fill it and take as directed. It may take several days for your symptoms to resolve. Return to the Emergency Department if your symptoms worsen, do not improve, or if you have any other problems. Please contact your doctor or call one of the physicians/clinics you have been referred to that are listed on the Patient Visit Information form that is included in your discharge packet. Bring any paperwork you were given at discharge with you along with any medications you are taking to your follow up visit. Our treatment cannot replace ongoing medical care by a primary care provider (PCP) outside of the emergency department. Thank you for allowing the [facility] team to be part of your care today. Follow up with your primary doctor in 2-3 days for re-evaluation and further management. Prescriptions: Nitrofurantoin Macrocrystals [Macrobid] 100 mg PO BID #14 cap Referrals: Rayshawn Lorenzana MD [Primary Care Provider] - Follow up with primary Forms: [employer] (Czech)
[2017-06-01] MEDS ORDERED: HYDROmorphone 2 mg/ml ISec ONE (04:27)
[2017-06-01] MEDS ORDERED: HYDROmorphone 1 mg/ml ISec IVP STA ×2 (04:56→08:59)
[2017-06-01 04:57] VITALS: TEMP 98.7
[2017-06-01] MEDS: HYDROmorphone 2 mg/ml ISec IVP STA ×2 (08:57→11:09)
[2017-06-01] MEDS ORDERED: HYDROmorphone 0.5 mg/0.5 ml ISec IVP STA (09:02)
[2017-06-01 11:02] VITALS: BP 140/75; PULSE 80; RESP 18; O2SAT 100
--- NOTE | 2017-06-02 08:54 | CON ---
DATE: 06/01/2017 EMERGENCY ROOM CONSULTATION AND PROCEDURE NOTE HISTORY OF PRESENT ILLNESS: The patient was initially seen yesterday as a consultation on the Med-Surg floor. The patient had been admitted. He had a Gomez catheter placed. He has a history of neurogenic bladder with urinary incontinence and had a colostomy for fecal incontinence as he has cauda equina syndrome. The patient had the Gomez catheter changed while on Med-Surg. I saw him yesterday. The Gomez catheter was draining clear urine. The patient was discharged home as he was medically stable. The patient reports at home he was fine until early this morning when he had some bladder spasms and felt urine rushing around the catheter. The patient then noted little to no drainage from the catheter. He presented to the emergency room early this morning. Attempts were made to flush the Gomez catheter, which were unsuccessful, and the Gomez catheter was then removed. The attempts by the ER staff and physician to reinsert the Gomez were unsuccessful and a urologic consultation was requested. The patient is known to me. He has history as above. He has a history of a urethral stricture. Many times the prior Gomez catheters are placed in the prostatic urethra as the patient has a flaccid bladder neck. Urine will be obtained, although the catheter was not in proper position. At this point, I discussed with the patient that he is able to void and empty, however, given his nonambulatory status and his decubital ulcers, the patient wanted the Gomez catheter replaced. Initially, I attempted to place a 16-[place] Gomez catheter. This was unsuccessful as the patient appears to have a likely bulbar urethral stricture. I was able to pass a filiform and then I sequentially dilated him with followers to 18-[place]izen [place]. Clear urine was being returned via the follower. After time to dilate the stricture, the filiform and followers were removed then I was able to place a 16-[place] two-way Gomez catheter. After placing the Gomez catheter, I copiously irrigated his bladder with normal saline. There were no clots or debris, and the Gomez catheter was irrigating easily and there was no blockage noted. The patient is to receive a dose of intravenous antibiotics and will be discharged home on oral antibiotics depending on the results of his last urine culture. I discussed with the patient that he should follow up in my office in approximately 4 weeks, and I would change the Gomez catheter to a larger caliber. I would then plan on one more size increase, thus to soft dilate his urethral stricture. Once this is done, we can consider having the NS start changing the Gomez catheter again or possibly the patient will come monthly and I will change it in the office. Rene Huston MD
== END 2017-06-01 11:29 | disposition home or self-care (01) ==
LOC: ED 03:05
DX: R33.9 Retention of urine, unspecified (principal)
CPT/HCPCS: 96374; 96376; 99285; J1170